=== PATIENT | male | born 1955 | race Caucasian/White ===

== ENCOUNTER 2019-12-07 10:09 | Outpatient (CLI) | payer BC, SELFPAY ==
--- NOTE | 2019-12-07 10:54 | ECG_ITS ---
Measurements Intervals [place] Rate: 80 P: 47 PA: 186 QRS: -87 QRSD: 144 T: 72 QT: 407 QTc: 470 Interpretive Statements SINUS RHYTHM RIGHT BUNDLE BRANCH BLOCK LEFT ANTERIOR FASCICULAR BLOCK ABNORMAL ECG Electronically Signed On 12-07-2019 12:14:28 [employer]ROGR[employer]HY TEACHER by Imtiaz Shen D.O.
[2019-12-07 11:32] LABS: Blood Urea Nitrogen 16 mg/dL (9-20); Calcium 8.7 mg/dL (8.4-10.2); Carbon Dioxide 29 mmol/L (22-30); Chloride 102 mmol/L (98-107); Estimated Glomerular Filt Rate > 60; Glucose 243 mg/dL (75-110); Potassium 4.2 mmol/L (3.4-5.0); Sodium 135 mmol/L (137-145)
== END 2019-12-07 10:10 | disposition home or self-care (01) ==
LOC: ANHOUTPT 10:24 → ANHSURGERY 10:25
PROVIDERS: Anesthesiology; PCP Family Medicine; Visit Provider Urology
DX: Z01.818 Encounter for other preprocedural examination (principal); E11.9 Type 2 diabetes mellitus without complications; N52.9 Male erectile dysfunction, unspecified; R94.31 Abnormal electrocardiogram [ECG] [EKG]
CPT/HCPCS: 36415; 80048; 87086; 87088; 93005

== ENCOUNTER 2020-03-29 08:02 | Outpatient (CLI) | payer BC, SELFPAY ==
--- NOTE | ~2020-03-29 | US_ITS ---
EXAMINATION: US art doppler w press NEDRA EXAM DATE: 03/29/2020 09:19 INDICATION: Diabetes, leg wound. Left-sided below-knee amputation. TECHNIQUE: Segmental pressures and plethysmographic and Doppler waveforms of the brachial and lower e xtremity arteries were obtained. There is no prior study for comparison. FINDINGS: Right and left brachial artery pressures of 165 mm Hg and 173 mm Hg, respectively, are concordant (no rmal difference <= 30 mmHg). RIGHT LEG: The ankle-brachial index (KEYONNA) is 1.06 (normal >= 0.9-1). The great toe-brachial index (TBI) is 0.62 (normal >= 0.65). The lower extremity ratios, segmental pressure gradients as follows; Proximal superficial femoral artery:- Could not obtain ( mmHg). Distal superficial femoral artery: ----- Could not obtain ( mmHg). Popliteal: Could not obtain ( mmHg). Dorsalis pedis: 1.06 (183 mmHg). Posterior tibial: Could not obtain ( mmHg). (Normal gradients <= 20-30 mmHg between adjacent levels on the same leg or the same levels on the two legs). Arterial waveforms are biphasic femoral and popliteal, mono phasic below. LEFT LEG: The ankle-brachial index (KEYONNA) is could not obtain (normal >= 0.9-1). The great toe-brachial index (TBI) is could not obtain (normal >= 0.65). (Normal gradients <= 20-30 mmHg between adjacent levels on the same leg or the same levels on the two legs). Arterial waveforms are biphasic femoral, monophasic poplite al. IMPRESSION: 1. Right ankle-brachial index 1.06, normal. 2. Left below-knee amputation. Reviewed, dictated and finalized at location B.
== END 2020-03-29 08:03 | disposition home or self-care (01) ==
LOC: ANHIMG 08:15
PROVIDERS: PCP Family Medicine; Visit Provider Plastic Surgery
DX: E13.69 Other specified diabetes mellitus with other specified complication (principal); Z89.512 Acquired absence of left leg below knee
CPT/HCPCS: 93923

== ENCOUNTER 2020-04-01 20:09 | Observation (INO) | payer BC, SELFPAY ==
[2020-04-01 20:11] VITALS: BP 147/76; PULSE 92; RESP 18; TEMP 36.7; O2SAT 99
--- NOTE | 2020-04-01 20:18 | ED.DENTAL ---
HPI - Dental/Oral General Chief complaint: Dental/Oral Stated complaint: unable to swallow Time Seen by Provider: 04/01/20 20:17 History of Present Illness HPI Narrative: 64 yo diabetic male presents from home for dysphasia. He has not been able to keep anything down since Thursday. He was eating a piece of steak when he felt it get stuck. He has had similar episodes in the past, but they resolved spontaneously. He is handling his own secretions. Related Data Home Medications Medication Instructions Recorded Confirmed lancets 33 gauge #100 each 08/17/19 insulin lispro 200 unit/mL (3 mL) 12 unit SUB-Q .with meals ml 08/22/19 12/07/19 subcutaneous pen lisinopril 20 mg PO BID 04/02/20 04/02/20 Allergies Allergy/AdvReac Type Severity Reaction Status Date / Time No Known Allergies Allergy Verified 04/01/20 21:43 Review of Systems Review of Systems: All systems reviewed & are unremarkable except as noted in HPI and below Constitutional: Constitutional: Denies fever(s) ENT: Denies sore throat Cardiovascular: Cardiovascular: Denies chest pain Respiratory: Respiratory: Denies dyspnea Gastrointestinal: Gastrointestinal: Denies abdominal pain, Denies diarrhea, Denies nausea and Denies vomiting Genitourinary: Genitourinary: Denies dysuria [facility] Past Medical History Medical History Carpal tunnel syndrome Carpal tunnel syndrome, bilateral upper limbs Hyperlipidemia Hypertension Type 2 diabetes mellitus Surgical History Surgical History Amputated left leg Amputation of left lower extremity History of carpal tunnel surgery History of tonsillectomy Family History Family History Father Diabetes mellitus Hypertension Mother Family history of malignant neoplasm of kidney Mother Family history of malignant neoplasm of kidney Father Diabetes mellitus Hypertension Lung cancer Social History Social History Smoking status: Never smoker Second hand tobacco smoke exposure: No Alcohol intake: never Substance use: never Substance use type: does not use Gender identity (if verbalized by the patient): Male Spiritual care concerns: No Agree to blood products: Yes Exam Const: General: healthy appearing, no acute distress and alert Orientation/consciousness: patient oriented x3 HENMT: Mouth: Yes dry mucous membranes Neck: Neck: normal visual inspection and no lymphadenopathy Chest: Chest palpation & inspection: no tenderness Resp: Effort & Inspection: normal respiratory effort Auscultation: clear to auscultation bilaterally, no rales, no rhonchi and no wheezes Cardio: Jugular venous distension: no JVD Rate: regular rate Rhythm: regular rhythm Heart sounds: no murmurs GI: Inspection: non-distended GI Palp: Yes Soft to palpation and No Tenderness to palpation present (GI) Skin: General skin exam: normal color Neuro: General: patient oriented x3 and moves all extremities Speech: normal speech Extrem: General: no edema Psych: Appearance: well kempt Affect: normal affect Course Course Emergency Course: Patient comfort able aside from not tolerating PO he should be safe to wait for endoscopy in the morning. Case discussed with Lee. He will see him tomorrow. Vital Signs Vital signs: Vital Signs Temperature 36.7 C 04/01/20 20:11 Pulse Rate 92 04/01/20 20:11 Respiratory Rate 18 04/01/20 20:11 Blood Pressure 147/76 H 04/01/20 20:11 Pulse Oximetry 99 04/01/20 20:11 Temperature 36.7 C 04/01/20 20:53 Pulse Rate 79 04/02/20 01:07 Respiratory Rate 18 04/02/20 01:07 Blood Pressure 132/81 04/02/20 01:07 Pulse Oximetry 99 04/02/20 01:07 [facility] - Dental/Oral Medical Records Attestation: I reviewed the patient's medi
[2020-04-01 20:42] LABS: Basophils Absolute Auto 0.1 K/mm3 (0.0-0.1); Eosinophils Absolute Auto 0.2 K/mm3 (0-0.3); Eosinophils Percent Auto 2.7 % (0-4.4); Hematocrit 39.4 % (42.0-52.0); Immature Granulocyte Absolute 0.03 K/mm3 (0.00-0.031); Immature Granulocyte Percent A 0.4 % (0-0.5); Lymphocytes Absolute Auto 1.75 K/mm3 (0.9-3.2); Lymphocytes Percent Auto 22.8 % (18.3-44.2); Mean Corpuscular Hemoglobin 29.7 pg (26-34); Mean Platelet Volume 8.6 fl (7.4-10.4); Monocytes Absolute Auto 0.8 K/mm3 (0.1-0.6); Monocytes Percent Auto 9.8 % (2.6-8.5); Neutrophils Absolute Auto 4.9 K/mm3 (1.3-6.7); Neutrophils Percent Auto 63.3 % (45.5-73.1); Platelet Count Result 283 k/mm3 (150-375); Red Blood Count 4.38 M/mm3 (4.6-6.20); Red Cell Distribution Width 12.1 % (11.5-14.5); White Blood Count 7.7 K/mm3 (4.5-10.0)
[2020-04-01] MEDS: METOCLOPRAMIDE HCL INJ 10 MG/2 ML VIAL IV PUSH (20:46)
[2020-04-01] MEDS: GLUCAGON FOR INJ 1 MG VIAL IV PUSH (20:46)
[2020-04-01] MEDS: SODIUM CHLORIDE 0.9% IV 1,000 ML 999 ML IV CONT (20:46)
[2020-04-01] MEDS: NITROGLYCERIN SL 0.4 MG TABLET SUBLINGUAL (20:47)
[2020-04-01 20:53] VITALS: BP 168/93; PULSE 88; RESP 20; TEMP 36.7; O2SAT 98
[2020-04-01 20:56] LABS: Alanine Aminotransferase 21 U/L (4-50); Albumin Level 4.1 g/dL (3.5-5.1); Alkaline Phosphatase 97 U/L (38-126); Aspartate Amino Transferase 36 U/L (17-59); Bilirubin,Total 0.6 mg/dL (0.2-1.3); Blood Urea Nitrogen 32 mg/dL (9-20); Calcium 8.9 mg/dL (8.4-10.2); Carbon Dioxide 25 mmol/L (22-30); Chloride 107 mmol/L (98-107); Estimated CRCL calculation 56 ml/min; Estimated Glomerular Filt Rate 56; Glucose 73 mg/dL (75-110); Magnesium 2.1 mg/dL (1.6-2.3); Potassium 4.2 mmol/L (3.4-5.0); Sodium 140 mmol/L (137-145)
[2020-04-01 21:35] VITALS: BP 135/70; PULSE 91; RESP 20; O2SAT 100
--- NOTE | 2020-04-01 21:46 | PC.NURSE ---
Pt given PO challenge, was able to keep water down for 1 min but vomited soon after. EDP aware.
[2020-04-01 22:58] VITALS: BP 136/77; PULSE 80; RESP 20; O2SAT 99
--- NOTE | 2020-04-01 23:14 | PC.NURSE ---
Care assumed for this patient. Patient given chair instead of bed for comfort due to prosthetic leg. Patient ambulated to bathroom.
[2020-04-02] VITALS (8 sets, daily range): BP systolic 132–176; BP diastolic 66–96; PULSE 66–79; RESP 16–27; TEMP 36.2–36.6; O2SAT 98–100; BMI 26.6
--- NOTE | 2020-04-02 01:06 | ADMGEN ---
This patient, Hernando Espana IV, was admitted to 3 [facility] Surg Room 303-01. Patient/family oriented to hospital policies and general routines including ID bracelet, bed and alarms, visiting hours, pain management, procedures, bathroom and other care routines, personal items, smoking policy, room service/diet, and visiting hours. Valuables list has been completed. Information on how to activate the Rapid Response Team has been discussed. Patient/Family are encouraged to report perceived risks to care and to ask questions if they do not understand what they are told or what they should do.
[2020-04-02] MEDS: DEXTROSE 5%/0.45% SOD CHL 1,000 ML 125 ML IV CONT ×2 (01:22→13:25)
[2020-04-02 08:18] LABS: Glucose Point of Care 55 (65-105)
[2020-04-02] MEDS: DEXTROSE 50% 25 GM/50 ML SYRINGE IV PUSH (08:26)
--- NOTE | 2020-04-02 08:30 | WPDGICN ---
Assessment and Plan Assessment and plan (1) Dysphagia: Code(s): R13.10 - Dysphagia, unspecified Status: Acute (2) Food impaction of esophagus: Code(s): T18.128A - Food in esophagus causing other injury, initial encounter Status: Acute Assessment and Plan: Patient reports acute difficulty swallowing after eating food several days prior to this presentation. Plan is for patient be NPO IV rehydration an EGD today. Patient also has complaints of chronic dysphagia that will be assessed at the same time. Further recommendations and dilatation pending are results of endoscopy. Because of patient's age elective screening colonoscopy arranged as an outpatient is also advised. (3) Amputation of left lower extremity: Code(s): S88.912A - Complete traumatic amputation of left lower leg, level unspecified, initial encounter Status: Acute (4) Type 2 diabetes mellitus: Code(s): E11.9 - Type 2 diabetes mellitus without complications Status: Acute (5) Hypertension: Code(s): I10 - Essential (primary) hypertension Status: Acute GI Consult Note Consult date/time: 04/02/20 08:30 HPI: Hernando Espana IV is a 64 year old male Seen in evaluation at the request of the emergency room. Patient reports that he intermittently has had difficulty swallowing. With food passing some slow through the chest. Patient reports on Thursday he was eating and subsequently has had difficulty swallowing feeling as though food was chest stuck in his chest. He is able to swallow his saliva and complains of only modest discomfort in the mid chest. Late on Thursday night he present to the emergency room. He was admitted for IV fluids and rehydration. Patient denies any bleeding or weight loss. He does report a colonoscopy for screening purposes more than 10 years ago. Family history is noncontributory. Past medical history is significant for an amputation of the left lower extremity. He has been treated for hypertension diabetes. Review of Systems Review of Systems: All systems reviewed & are unremarkable except as noted in HPI and below PMFSH Past Medical History Medical History Carpal tunnel syndrome Carpal tunnel syndrome, bilateral upper limbs Hyperlipidemia Hypertension Type 2 diabetes mellitus Surgical History Surgical History Amputated left leg Amputation of left lower extremity History of carpal tunnel surgery History of tonsillectomy Family History Family History Father Diabetes mellitus Hypertension Mother Family history of malignant neoplasm of kidney Mother Family history of malignant neoplasm of kidney Father Diabetes mellitus Hypertension Lung cancer Social History Social History Smoking status: Never smoker Second hand tobacco smoke exposure: No Alcohol intake: never Substance use: never Substance use type: does not use Gender identity (if verbalized by the patient): Male Spiritual care concerns: No Agree to blood products: Yes Meds Home Medications and Allergies Home Medications Medication Instructions Recorded Confirmed Type blood sugar diagnostic #10 each 08/17/19 04/02/20 Rx lancets 33 gauge #100 each 08/17/19 04/02/20 History insulin lispro 200 unit/mL (3 mL) 12 unit SUB-Q .with meals ml 08/22/19 04/02/20 History subcutaneous pen pen needle, diabetic 31 gauge x #500 each 10/20/19 04/02/20 Rx 12/18 atorvastatin 40 mg tablet 40 mg PO DAILY #90 tablet 11/17/19 04/02/20 Rx insulin glargine U-300 conc 300 40 unit SUB-Q .QHS #13.5 ml 11/28/19 04/02/20 Rx unit/mL (1.5 mL) subcutaneous pen lisinopril 20 mg PO BID 04/02/20 04/02/20 History Allergies Allergy/AdvReac Type Severity Reaction Status Date
--- NOTE | 2020-04-02 08:37 | WPDANESEPPF ---
Anes - Initial Pre Proc Eval Procedure: Operation Date: 04/02/20 10:00 Proposed Procedures p Esophagogastroduodenoscopy - Sonny Howard MD 64 yo diabetic male presents from home for dysphasia. He has not been able to keep anything down since Thursday. He was eating a piece of steak when he felt it get stuck. He has had similar episodes in the past, but they resolved spontaneously. He is handling his own secretions. Date/Time: 04/02/20 08:37 Surgeon: Reanna Wells DO Pre Op Diagnosis: Esophageal obstruction Patient Data Age: 64 Gender: M Height: 1.83 m Weight: 89.3 kg Last Vital Signs Temp 36.3 C L 04/02/20 06:00 Pulse 76 04/02/20 06:00 Resp 20 04/02/20 06:00 BP 163/85 H 04/02/20 06:00 Pulse Ox 98 04/02/20 06:00 Allergies Allergy/AdvReac Type Severity Reaction Status Date / Time No Known Allergies Allergy Verified 04/01/20 21:43 Home Medications Medication Instructions Recorded Confirmed Type blood sugar diagnostic #10 each 08/17/19 04/02/20 Rx lancets 33 gauge #100 each 08/17/19 04/02/20 History insulin lispro 200 unit/mL (3 mL) 12 unit SUB-Q .with meals ml 08/22/19 04/02/20 History subcutaneous pen pen needle, diabetic 31 gauge x #500 each 10/20/19 04/02/20 Rx 16 atorvastatin 40 mg tablet 40 mg PO DAILY #90 tablet 11/17/19 04/02/20 Rx insulin glargine U-300 conc 300 40 unit SUB-Q .QHS #13.5 ml 11/28/19 04/02/20 Rx unit/mL (1.5 mL) subcutaneous pen lisinopril 20 mg PO BID 04/02/20 04/02/20 History Laboratory Tests 04/01/20 04/01/20 04/02/20 20:35 20:35 08:16 WBC 7.7 K/mm3 K/mm3 (4.5-10.0) RBC 4.38 M/mm3 L M/mm3 (4.6-6.20) Hgb 13.0 g/dL L g/dL (14.0-18.0) Hct 39.4 % L % (42.0-52.0) MCV 90.0 fl fl (80-100) MCH 29.7 pg pg (26-34) MCHC 33.0 g/dl g/dl (32-36) RDW 12.1 % % (11.5-14.5) Plt Count 283 k/mm3 k/mm3 (150-375) MPV 8.6 fl fl (7.4-10.4) Immature Gran % (Auto) 0.4 % % (0-0.5) Neut % (Auto) 63.3 % % (45.5-73.1) Lymph % (Auto) 22.8 % % (18.3-44.2) [place] % (Auto) 9.8 % H % (2.6-8.5) Eos % (Auto) 2.7 % % (0-4.4) Baso % (Auto) 1.0 % % (0.2-1.2) Lymph # (Auto) 1.75 K/mm3 K/mm3 (0.9-3.2) [place] # (Auto) 0.8 K/mm3 H K/mm3 (0.1-0.6) Eos # (Auto) 0.2 K/mm3 K/mm3 (0-0.3) Baso # (Auto) 0.1 K/mm3 K/mm3 (0.0-0.1) Abs Immat Gran (auto) 0.03 K/mm3 K/mm3 (0.00-0.031) Absolute Neuts (auto) 4.9 K/mm3 K/mm3 (1.3-6.7) Absolute Nucleated RBC 0.0 K/mm3 K/mm3 (0.0-0.012) Nucleated RBC % 0.0 % % (0.0-0.2) Sodium 140 mmol/L mmol/L (137-145) Potassium 4.2 mmol/L mmol/L (3.4-5.0) Chloride 107 mmol/L mmol/L (98-107) Carbon Dioxide 25 mmol/L mmol/L (22-30) BUN 32 mg/dL H D mg/dL (9-20) Creatinine 1.30 mg/dL mg/dL (0.7-1.3) Estim Creat Clear Calc 56 ml/min ml/min Estimated GFR 56 L (59 - ) Glucose 73 mg/dL L mg/dL (75-110) POC Capillary Glucose 55 mg/dl L* mg/dl (65-105) Calcium 8.9 mg/dL mg/dL (8.4-10.2) Magnesium 2.1 mg/dL mg/dL (1.6-2.3) Total Bilirubin 0.6 mg/dL mg/dL (0.2-1.3) AST 36 U/L U/L (17-59) ALT 21 U/L U/L (4-50) Alkaline Phosphatase 97 U/L U/L (38-126) Total Protein 8.0 g/dL g/dL (6.3-8.2) Albumin 4.1 g/dL g/dL (3.5-5.1) ECG: Date of Service: 12/07/19 Procedure(s): CA 12 lead EKG Accession Number(s): [id number] cc: ~ Measurements Intervals [place] Rate: 80 P: 47 [place]: 186 QRS: -87 QRSD: 144 T:
[2020-04-02 08:51] LABS: Glucose Point of Care 126 (65-105)
--- NOTE | 2020-04-02 09:42 | PC.NURSE ---
Patient to GI lab per stretcher.
[2020-04-02 10:00] LABS: Glucose Point of Care 125 (65-105)
[2020-04-02] MEDS: LACTATED RINGERS 1,000 ML 150 ML IV CONT (10:06)
[2020-04-02 11:49] LABS: Glucose Point of Care 101 (65-105)
--- NOTE | 2020-04-02 11:53 | PC.NURSE ---
Patient returned from GI lab.
[2020-04-02 12:03] LABS: Glucose Point of Care 114 (65-105)
--- NOTE | 2020-04-02 15:09 | PM.SD ---
Same Day Admit/Disch: HPI History of Present Illness Chief complaint: Esophageal obstruction Narrative: Hernando Espana IV is a 64 year old male who presented with dysphagia, he had similar symptoms in the past but this time he porsha the food could not move. Denies vomiting, no SOB, no fever, no cough or any other related symptoms. PENDING SALE TO [facility] Past Medical History Medical History Carpal tunnel syndrome Carpal tunnel syndrome, bilateral upper limbs Hyperlipidemia Hypertension Type 2 diabetes mellitus Surgical History Surgical History Amputated left leg Amputation of left lower extremity History of carpal tunnel surgery History of tonsillectomy Family History Family History Father Diabetes mellitus Hypertension Mother Family history of malignant neoplasm of kidney Mother Family history of malignant neoplasm of kidney Father Diabetes mellitus Hypertension Lung cancer Social History Social History Smoking status: Never smoker Second hand tobacco smoke exposure: No Alcohol intake: never Substance use: never Substance use type: does not use Gender identity (if verbalized by the patient): Male Spiritual care concerns: No Agree to blood products: Yes Same Day Admit/Disch: Med Pre-admit Medications Home Medications Medication Instructions Recorded Confirmed Type blood sugar diagnostic #10 each 08/17/19 04/02/20 Rx lancets 33 gauge #100 each 08/17/19 04/02/20 History insulin lispro 200 unit/mL (3 mL) 12 unit SUB-Q .with meals ml 08/22/19 04/02/20 History subcutaneous pen pen needle, diabetic 31 gauge x #500 each 10/20/19 04/02/20 Rx 3/16 atorvastatin 40 mg tablet 40 mg PO DAILY #90 tablet 11/17/19 04/02/20 Rx insulin glargine U-300 conc 300 40 unit SUB-Q .QHS #13.5 ml 11/28/19 04/02/20 Rx unit/mL (1.5 mL) subcutaneous pen lisinopril 20 mg PO BID 04/02/20 04/02/20 History Exam Const: General: comfortable and no acute distress Neck: Neck: supple and no JVD Resp: Effort & Inspection: normal respiratory effort Auscultation: clear to auscultation bilaterally Cardio: Rate: regular rate Rhythm: regular rhythm Other: No bradycardia or tachycardia GI: Auscultation: normal bowel sounds Skin: General skin exam: normal color and no rashes or lesions noted Neuro: Speech: normal speech Motor exam (neuro): 5/5 motor strength present throughout and Normal motor muscle tone present throughout Extrem: Other: Left BKA DS: Data Data Completed and Pending Labs on day of discharge: Labs from last 24 hours 04/02/20 04/02/20 04/02/20 11:53 11:34 09:57 WBC RBC Hgb Hct MCV MCH MCHC RDW Plt Count MPV Immature Gran % (Auto) Neut % (Auto) Lymph % (Auto) [place] % (Auto) Eos % (Auto) Baso % (Auto) Lymph # (Auto) [place] # (Auto) Eos # (Auto) Baso # (Auto) Abs Immat Gran (auto) Absolute Neuts (auto) Absolute Nucleated RBC Nucleated RBC % Sodium Potassium Chloride Carbon Dioxide BUN Creatinine Estim Creat Clear Calc Estimated GFR Glucose POC Capillary Glucose 114 H 101 125 H Calcium Magnesium Total Bilirubin AST ALT Alkaline Phosphatase Total Protein Albumin 04/02/20 04/02/20 04/01/20 08:48 08:16 20:35 WBC RBC Hgb Hct MCV MCH MCHC RDW Plt Count MPV Immature Gran % (Auto) Neut % (Auto) Lymph % (Auto) [place] % (Auto) Eos % (Auto) Baso % (Auto) Lymph # (Auto) [place] # (Auto) Eos # (Auto) Baso # (Auto) Abs Immat Gran (auto) Absolute Neuts (auto) Absolute Nucleated RBC Nucleated RBC % Sodium 140 Potassium 4.2 Chloride
== END 2020-04-02 15:00 | disposition home or self-care (01) ==
LOC: ANHED 04-02 00:05 → ANH3MEDSUR 04-02 01:38
PROVIDERS: Internal Medicine Gastroenterology; Admitting Provider Internal Medicine; Emergency Provider Emergency Medicine; PCP Family Medicine; Visit Provider Hospitalist
PROC: 0DJ08ZZ Inspection of Upper Intestinal Tract, Via Natural or Artificial Opening Endoscopic (ICD-10-PCS; CPT 43235; principal; 2020-04-02 10:00)
DX: T18.128A Food in esophagus causing other injury, initial encounter (principal); K22.2 Esophageal obstruction; E11.9 Type 2 diabetes mellitus without complications; I10 Essential (primary) hypertension; E78.5 Hyperlipidemia, unspecified; Z79.4 Long term (current) use of insulin; Z79.899 Other long term (current) drug therapy; Z89.512 Acquired absence of left leg below knee
CPT/HCPCS: 43247; 43450; 36415; 80053; 83735; 85025; 96361; 96374; 96375; 99285; A9270; G0378; J1610; J2001; J2060; J2704; J2765; J7030; J7120

== ENCOUNTER 2020-05-15 06:49 | Outpatient (NON) | payer MEDICARE, SELFPAY ==
[2020-05-15 23:07] LABS: SARS-CoV-2 RNA PCR Positive
== END 2020-05-15 06:50 ==
PROVIDERS: Visit Provider Family Medicine
DX: U07.1 COVID-19 (principal); R68.89 Other general symptoms and signs
CPT/HCPCS: 87635; C9803; U0003

== ENCOUNTER 2020-05-21 10:14 | Inpatient (IN) | payer MEDICARE, SELFPAY ==
--- NOTE | ~2020-05-21 | XR_ITS ---
EXAMINATION: XR chest 1V portable INDICATION: Respiratory failure TECHNIQUE: Portable AP chest at 0550 hours COMPARISON: 05/26/2020 FINDINGS: Patchy bilateral airspace opacities persist without significant change. There is no pleural effusion or pneumothorax. The cardiomediastinal silhouette is stable. IMPRESSION: 1. Stable diffuse lung disease, consistent with pneumonia and/or pulmonary edema and/or acute respira tory distress syndrome (ARDS). Reviewed, dictated and finalized at location A. IMPRESSION: 1. Stable diffuse lung disease, consistent with pneumonia and/or pulmonary mani a and/or acute respiratory distress syndrome (ARDS).
--- NOTE | ~2020-05-21 | XR_ITS ---
EXAMINATION: XR chest 1V portable EXAM DATE: 05/28/2020 05:29 INDICATION: Respiratory failure. COVID 19 positive. TECHNIQUE: Portable AP frontal chest x-ray was obtained. Comparison is made to prior examination from 05/27/2020. FINDINGS: There is moderate amount of bilateral perihilar edema or infection. This appears not signif icantly changed. No pneumothorax or pleural effusion. Cardiomediastinal silhouette is normal. There a re no osseous abnormalities identified. IMPRESSION: 1. Persistent patchy acute infection or edema. Reviewed, dictated and finalized at location B.
--- NOTE | ~2020-05-21 | XR_ITS ---
EXAMINATION: XR chest 1V portable EXAM DATE: 05/30/2020 06:28 INDICATION: CHF. Pneumonia. TECHNIQUE: Portable AP frontal chest x-ray was obtained. Comparison is made to prior examination from 05/29, 05/28. FINDINGS: No interval change in the patchy bilateral midlung zone predominantly peripheral acute airs pace disease likely infection or less likely edema. The cardiomediastinal silhouette is prominent but magnified on this AP technique. Cardiac silhouette is stable in size compared to prior exam. There i s no pneumothorax suspected. There are no pleural effusions. There are bony degenerative changes. IMPRESSION: Persistent patchy bilateral acute airspace disease. Reviewed, dictated and finalized at location A.
--- NOTE | ~2020-05-21 | XR_ITS ---
EXAMINATION: XR chest 1V portable EXAM DATE: 05/29/2020 06:02 INDICATION: Respiratory failure. COVID 19 positive. TECHNIQUE: Portable AP frontal chest x-ray was obtained. Comparison is made to prior examination from 05/28, 05/27/2020. FINDINGS: There is moderate amount of bilateral perihilar edema or infection. This appears not signif icantly changed. No pneumothorax or pleural effusion. Cardiomediastinal silhouette is normal. There a re no osseous abnormalities identified. IMPRESSION: 1. Patchy acute infection or edema unchanged. Reviewed, dictated and finalized at location A.
--- NOTE | ~2020-05-21 | XR_ITS ---
EXAMINATION: XR chest 1V portable INDICATION: Respiratory failure, COVID 19 pneumonia. TECHNIQUE: Portable AP chest at 0548 hours COMPARISON: 05/25/2020 FINDINGS: Patchy bilateral airspace opacities persist without significant change. There is no pleural effusion or pneumothorax. The cardiomediastinal silhouette is normal. IMPRESSION: 1. Stable diffuse lung disease, consistent with pneumonia and/or pulmonary edema and/or acute respira tory distress syndrome (ARDS). Reviewed, dictated and finalized at location A. IMPRESSION: 1. Stable diffuse lung disease, consistent with pneumonia and/or pulmonary mani a and/or acute respiratory distress syndrome (ARDS).
--- NOTE | ~2020-05-21 | XR_ITS ---
EXAMINATION: XR chest 1V portable DATE: 05/23/2020 06:17 INDICATION: COVID-19 pneumonia. TECHNIQUE: A single frontal view of the chest was obtained. COMPARISON: Chest single view 05/21/2020 FINDINGS: There are patchy airspace opacities involving all lung zones bilaterally. No pleural effusi on or pneumothorax. The heart size is normal. IMPRESSION: 1. Stable diffuse lung disease, consistent with pneumonia versus acute respiratory distress syndrome (ARDS). Reviewed, dictated and finalized at location A. IMPRESSION: 1. Stable diffuse lung disease, consistent with pneumonia versus acute respirat ory distress syndrome (ARDS).
--- NOTE | ~2020-05-21 | XR_ITS ---
EXAMINATION: XR chest 1V portable DATE: 05/24/2020 06:36 INDICATION: Oxygen desaturation. COVID-19 pneumonia. TECHNIQUE: A single frontal view of the chest was obtained. COMPARISON: Chest single view 05/23/2020 FINDINGS: There are patchy airspace opacities involving all lung zones bilaterally. No pleural effusi on or pneumothorax. The heart size is normal. IMPRESSION: 1. Diffuse lung disease with slight worsening on the right, consistent with pneumonia versus acute re spiratory distress syndrome (ARDS). Reviewed, dictated and finalized at location A. IMPRESSION: 1. Diffuse lung disease with slight worsening on the right, consistent with pne umonia versus acute respiratory distress syndrome (ARDS).
--- NOTE | ~2020-05-21 | XR_ITS ---
EXAMINATION: XR chest 1V portable DATE: 05/25/2020 06:05 INDICATION: Respiratory failure. COVID-19 pneumonia. TECHNIQUE: A single frontal view of the chest was obtained. COMPARISON: Chest single view 05/24/2020 FINDINGS: There are patchy airspace opacities throughout the lungs bilaterally. No pleural effusion o r pneumothorax. The heart size is normal. IMPRESSION: 1. Stable diffuse lung disease, consistent with pneumonia versus acute respiratory distress syndrome (ARDS). Reviewed, dictated and finalized at location A. IMPRESSION: 1. Stable diffuse lung disease, consistent with pneumonia versus acute respirat ory distress syndrome (ARDS).
--- NOTE | ~2020-05-21 | XR_ITS ---
EXAMINATION: XR chest 1V portable INDICATION: Shortness of breath, COVID 19 positive TECHNIQUE: Portable AP chest at 1046 hours COMPARISON: 03/31/2018 FINDINGS: There are diffuse airspace opacities involving all lung zones. No pleural effusion or pneum othorax is identified. The cardiomediastinal silhouette is normal. There is mild osteoarthritis of th e shoulders. IMPRESSION: 1. Diffuse airspace opacities of all lung zones, consistent with COVID 19 pneumonia given clinical hi story. Reviewed, dictated and finalized at location A. IMPRESSION: 1. Diffuse airspace opacities of all lung zones, consistent with COVID 19 pneum onia given clinical history.
[2020-05-21 10:18] VITALS: BP 155/74; PULSE 96; RESP 18; TEMP 37.6; O2SAT 84
--- NOTE | 2020-05-21 10:29 | ECG_ITS ---
Measurements Intervals [place] Rate: 93 P: 39 [place]: 168 QRS: -83 QRSD: 150 T: 67 QT: 395 QTc: 492 Interpretive Statements SINUS RHYTHM RIGHT BUNDLE BRANCH BLOCK LEFT ANTERIOR FASCICULAR BLOCK BASELINE ARTIFACT- I, II, III, AVL ABNORMAL ECG Electronically Signed On 05-21-2020 11:01:50 CDT by Imtiaz Shen D.O.
[2020-05-21 10:45] LABS: Basophils Percent Auto 0.5 % (0.2-1.2); Eosinophils Percent Auto 0.1 % (0-4.4); Hematocrit 35.9 % (42.0-52.0); Hemoglobin 12.3 g/dL (14.0-18.0); Immature Granulocyte Absolute 0.11 K/mm3 (0.00-0.031); Immature Granulocyte Percent A 1.4 % (0-0.5); Lymphocytes Absolute Auto 0.59 K/mm3 (0.9-3.2); Lymphocytes Percent Auto 7.6 % (18.3-44.2); Mean Corpuscular HGB Conc 34.3 g/dl (32-36); Mean Corpuscular Hemoglobin 29.1 pg (26-34); Mean Corpuscular Volume 84.9 fl (80-100); Mean Platelet Volume 9.8 fl (7.4-10.4); Monocytes Absolute Auto 0.6 K/mm3 (0.1-0.6); Monocytes Percent Auto 7.8 % (2.6-8.5); Neutrophils Absolute Auto 6.4 K/mm3 (1.3-6.7); Neutrophils Percent Auto 82.6 % (45.5-73.1); Platelet Count Result 372 k/mm3 (150-375); Red Blood Count 4.23 M/mm3 (4.6-6.20); Red Cell Distribution Width 12.6 % (11.5-14.5); White Blood Count 7.7 K/mm3 (4.5-10.0)
[2020-05-21 10:55] LABS: INR 1.2; Partial Thromboplastin Time 26.5 SECONDS (22.3-36.8)
[2020-05-21 11:02] LABS: Alanine Aminotransferase 37 U/L (4-50); Alkaline Phosphatase 89 U/L (38-126); Anion Gap 10 mmol/L (8-16); Aspartate Amino Transferase 37 U/L (17-59); Bilirubin,Total 0.8 mg/dL (0.2-1.3); Blood Urea Nitrogen 65 mg/dL (9-20); Calcium 7.8 mg/dL (8.4-10.2); Carbon Dioxide 24 mmol/L (22-30); Chloride 98 mmol/L (98-107); Estimated Glomerular Filt Rate 51; Glucose 468 mg/dL (75-110); Potassium 4.1 mmol/L (3.4-5.0); Sodium 132 mmol/L (137-145)
[2020-05-21] MEDS: FAMOTIDINE 20 MG/2 ML VIAL IV PUSH ×2 (11:09→20:46)
[2020-05-21] MEDS: SODIUM CHLORIDE 0.9% IV 1,000 ML 999 ML IV CONT ×2 (11:09→11:41)
[2020-05-21 11:10] LABS: CRP 26.6 mg/dL (<1.0)
[2020-05-21 11:16] LABS: Beta-Hydroxybutyrate/Acetoacetate 1.62 mmol/L (0.02-0.27)
[2020-05-21 11:17] LABS: Phosphorus 3.1 mg/dL (2.5-4.5)
[2020-05-21 11:36] LABS: Hemoglobin A1C 9.4 % (<5.7)
[2020-05-21 11:39] LABS: Alveolar/Arterial O2 Gradient 156.1 mmHg; Base Excess ABG -2.6 mEq/l (+/-2.0); Carboxyhemoglobin 0.3 % THb (0-2.0); Device NASAL CANNULA; Fractional Inspired Oxygen 37 %; Methemoglobin ABG 0.3 %THb (0-1.5); Modified Allen's Test Pass; Oxygen Content ABG 15.2 %vol (16.0-22.0); Oxygen Saturation ABG 95.8 % (95.0-100.0); Oxyhemoglobin 93.4 % THb (90.0-100.0); PCO2 ABG 32.8 mmHg (35.0-45.0); PO2 ABG 77.3 mmHg (80.0-100.0); PO2 FiO2 Ratio Arterial Blood 2.09 %; Site Drawn RIGHT RADIAL; Total Hemoglobin 11.5 g/dL (12.0-18.0); pH ABG 7.425 (7.350-7.450)
--- NOTE | 2020-05-21 11:42 | ED.FEVER ---
HPI - Fever General Chief Complaint: Fever <TRAN Emmanuel Last Filed: 05/21/20 12:07> Stated Complaint: Medication issue <TRAN Emmanuel Last Filed: 05/21/20 12:07> Time Seen by Provider: 05/21/20 10:42 <TRAN Emmanuel Last Filed: 05/21/20 12:07> Source: patient, family and EMS <TRAN Emmanuel Last Filed: 05/21/20 12:07> Mode of arrival: EMS <TRAN Emmanuel Last Filed: 05/21/20 12:07> Limitations: no limitations <TRAN Emmanuel Last Filed: 05/21/20 12:07> History of Present Illness HPI Narrative: Patient is a 65-year-old male who presents to emergency department for evaluation of weakness COVID positive. Patient denies any pain notes generalized weakness has been lying in bed his is also positive. Patient denies any pain denies productive cough denies shortness of breath currently or chest pain. Notes that he does become more weak and short of breath with ambulation. Notes fever also notes he has not been taking his home medications patient is an insulin-dependent diabetic. Patient notes he has had some loose stools but denies vomiting. <TRAN Emmanuel Last Filed: 05/21/20 12:07> Related Data Home Medications: Home Medications Medication Instructions Recorded Confirmed lancets 33 gauge #100 each 08/17/19 04/02/20 insulin lispro 200 unit/mL (3 mL) 12 unit SUB-Q .with meals ml 08/22/19 04/02/20 subcutaneous pen lisinopril 20 mg PO BID 04/02/20 04/02/20 <TRAN Emmanuel Last Filed: 05/21/20 12:07> Allergies/Adverse Reactions: Allergies Allergy/AdvReac Type Severity Reaction Status Date / Time No Known Allergies Allergy Verified 04/01/20 21:43 <TRAN Emmanuel Last Filed: 05/21/20 12:07> Review of Systems Review of Systems: All systems reviewed & are unremarkable except as noted in HPI and below <TRAN Emmanuel Last Filed: 05/21/20 12:07> PMFSH Past Medical History Medical History: Medical History Carpal tunnel syndrome Carpal tunnel syndrome, bilateral upper limbs Hyperlipidemia Hypertension Type 2 diabetes mellitus <Juan Lechuga PA-C - Last Filed: 05/21/20 12:07> Surgical History Surgical History: Surgical History Amputated left leg Amputation of left lower extremity History of carpal tunnel surgery History of tonsillectomy <Juan Lechuga PA-C - Last Filed: 05/21/20 12:07> Family History Family History: Family History Father Diabetes mellitus Hypertension Mother Family history of malignant neoplasm of kidney Mother Family history of malignant neoplasm of kidney Father Diabetes mellitus Hypertension Lung cancer <Juan Lechuga PA-C - Last Filed: 05/21/20 12:07> Social History Social History: Social History Smoking status: Never smoker Second hand tobacco smoke exposure: No Alcohol intake: never Substance use: never Substance use type: does not use Gender identity (if verbalized by the patient): Male Spiritual care concerns: No Agree to blood products: Yes <Juan Lechuga PA-C - Last Filed: 05/21/20 12:07> Exam Narrative: Exam Narrative: GENERAL: Ill appearing, well-nourished, and in no acute distress. HEAD: Normocephalic, atraumatic. EYES: PERRLA and EOMI. ENT: Nares clear, no rhinorrhea or epistaxis. Mucous membranes moist. Oropharynx without tonsillar hypertrophy exudate or other lesions. B NECK: Supple. No adenopathy or masses. No carotid bruits or JVD CHEST: Diminished on auscultation. No respiratory distress. No wheezes rales or rhonchi HEART: Regular rate and rhythm. No murmur heard. Normal peripheral pulses. ABDOMEN: Soft, nonten
[2020-05-21 11:45] LABS: Glucose Point of Care 383 (65-105)
[2020-05-21] MEDS: INSULIN HUMAN REGULAR (*BKC) 100 UNITS/ML 10 UNITS IV PUSH (11:46)
[2020-05-21 11:48] VITALS: BP 147/71; PULSE 85; RESP 18; O2SAT 97
[2020-05-21 12:17] LABS: Glucose Point of Care 383 (65-105)
[2020-05-21 12:52] VITALS: BP 138/78; PULSE 83; RESP 18; O2SAT 95
[2020-05-21 14:00] VITALS: BP 146/68; PULSE 80; RESP 24; TEMP 36.5; O2SAT 91
[2020-05-21 14:01] LABS: Glucose Point of Care 351 (65-105)
[2020-05-21] MEDS: INSULIN ASPART (*BKC) 100 UNITS/ML 8 UNITS SUB-Q (14:02)
[2020-05-21] MEDS: LACTATED RINGERS 1,000 ML 125 ML IV CONT (14:03)
[2020-05-21 15:41] LABS: Anion Gap 5 mmol/L (8-16); Blood Urea Nitrogen 57 mg/dL (9-20); Calcium 7.2 mg/dL (8.4-10.2); Carbon Dioxide 24 mmol/L (22-30); Chloride 104 mmol/L (98-107); Estimated Glomerular Filt Rate > 60; Glucose 337 mg/dL (75-110); Potassium 3.7 mmol/L (3.4-5.0); Sodium 133 mmol/L (137-145)
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
[2020-05-21 16:00] VITALS: BP 141/60; PULSE 77; PULSE 85; RESP 20; TEMP 36.6; O2SAT 93
[2020-05-21 18:44] LABS: Glucose Point of Care 315 (65-105)
[2020-05-21] MEDS: INSULIN ASPART (*BKC) 100 UNITS/ML SUB-Q (18:50)
[2020-05-21] MEDS: lisinopriL 20 MG TABLET PO (18:51)
[2020-05-21] MEDS: REMDESIVIR 200 MG/NS 250 ML 200 MG/250 ML BAG 250 MG IVPB (18:51)
[2020-05-21 20:00] VITALS: BP 157/75; PULSE 105; PULSE 114; RESP 20; TEMP 36.9; O2SAT 94
[2020-05-21 20:43] LABS: Glucose Point of Care 293 (65-105)
[2020-05-21] MEDS: INSULIN GLARGINE (*BKC) 100 UNITS/ML 15 UNITS SUB-Q (20:46)
[2020-05-21 21:20] LABS: Anion Gap 7 mmol/L (8-16); Blood Urea Nitrogen 53 mg/dL (9-20); Calcium 7.2 mg/dL (8.4-10.2); Carbon Dioxide 24 mmol/L (22-30); Chloride 104 mmol/L (98-107); Estimated Glomerular Filt Rate > 60; Glucose 301 mg/dL (75-110); Potassium 3.6 mmol/L (3.4-5.0); Sodium 135 mmol/L (137-145)
[2020-05-21 23:11] LABS: Anion Gap 6 mmol/L (8-16); Blood Urea Nitrogen 52 mg/dL (9-20); Calcium 7.3 mg/dL (8.4-10.2); Carbon Dioxide 25 mmol/L (22-30); Chloride 104 mmol/L (98-107); Estimated Glomerular Filt Rate > 60; Glucose 278 mg/dL (75-110); Potassium 3.6 mmol/L (3.4-5.0); Sodium 135 mmol/L (137-145)
[2020-05-22] VITALS (11 sets, daily range): BP systolic 122–151; BP diastolic 53–70; PULSE 68–111; RESP 16–20; TEMP 36.3–38; O2SAT 90–100
[2020-05-22 00:15] LABS: Add Urine Microscopic? YES; Amorphous Sediment Urine Few; Appearance Urine Clear (Clear); Bilirubin Urine Negative (Negative); Blood Urine 2+ (Negative); Color Urine Yellow (Yellow); Glucose Urine UA 3+ mg/dL (Negative); Ketones Urine Negative (Negative); Leukocyte Esterase Ur Negative LEU/UL (Negative); Nitrate Urine Negative (Negative); Protein Urine 2+ mg/dL (Negative); Specific Grav Ur 1.022 (1.001-1.035); Squamous Epithelial Cell Urine Rare /hpf (Few); Uric Acid Crystals Urine Present /hpf; Urobilinogen Urine Negative mg/dL (<2.0); WBC Urine 0-3 /hpf
[2020-05-22 06:34] LABS: Basophils Absolute Auto 0.1 K/mm3 (0.0-0.1); Eosinophils Percent Auto 0.1 % (0-4.4); Hematocrit 29.6 % (42.0-52.0); Hemoglobin 10.1 g/dL (14.0-18.0); Immature Granulocyte Absolute 0.13 K/mm3 (0.00-0.031); Immature Granulocyte Percent A 1.6 % (0-0.5); Lymphocytes Absolute Auto 0.74 K/mm3 (0.9-3.2); Lymphocytes Percent Auto 8.9 % (18.3-44.2); Mean Corpuscular HGB Conc 34.1 g/dl (32-36); Mean Corpuscular Hemoglobin 29.1 pg (26-34); Mean Corpuscular Volume 85.3 fl (80-100); Mean Platelet Volume 9.6 fl (7.4-10.4); Monocytes Absolute Auto 0.7 K/mm3 (0.1-0.6); Monocytes Percent Auto 8.1 % (2.6-8.5); Neutrophils Absolute Auto 6.7 K/mm3 (1.3-6.7); Neutrophils Percent Auto 80.3 % (45.5-73.1); Platelet Count Result 348 k/mm3 (150-375); Red Blood Count 3.47 M/mm3 (4.6-6.20); Red Cell Distribution Width 12.6 % (11.5-14.5); White Blood Count 8.3 K/mm3 (4.5-10.0)
[2020-05-22 06:51] LABS: Alanine Aminotransferase 31 U/L (4-50); Anion Gap 6 mmol/L (8-16); Blood Urea Nitrogen 49 mg/dL (9-20); Calcium 7.3 mg/dL (8.4-10.2); Carbon Dioxide 23 mmol/L (22-30); Chloride 105 mmol/L (98-107); Estimated Glomerular Filt Rate 55; Glucose 270 mg/dL (75-110); Lactate Dehydrogenase 1333 U/L (313-618); Magnesium 2.7 mg/dL (1.6-2.3); Potassium 3.2 mmol/L (3.4-5.0); Sodium 134 mmol/L (137-145)
[2020-05-22 07:00] LABS: CRP 24.8 mg/dL (<1.0)
[2020-05-22] MEDS: INSULIN ASPART (*BKC) 100 UNITS/ML SUB-Q ×4 (08:33→20:27)
[2020-05-22 08:42] LABS: Glucose Point of Care 276 (65-105)
[2020-05-22] MEDS: lisinopriL 20 MG TABLET PO ×2 (08:52→17:15)
[2020-05-22] MEDS: ENOXAPARIN 40 MG/0.4 ML SYRINGE SUB-Q (08:52)
[2020-05-22] MEDS: ATORVASTATIN 40 MG TABLET PO (08:52)
[2020-05-22] MEDS: FAMOTIDINE 20 MG/2 ML VIAL IV PUSH ×2 (08:53→20:27)
--- NOTE | 2020-05-22 09:24 | PCPTNOTE ---
Attempted PT evaluation. Pt requests we come back later due to still eating breakfast. Will attempt later.
[2020-05-22 09:44] LABS: Ferritin > 2000.00 ng/mL (11.1-264)
[2020-05-22] MEDS: POTASSIUM CHLORIDE 20 MEQ TABLET 40 MEQ PO (09:58)
[2020-05-22] MEDS: DEXAMETHASONE 2 MG TABLET 6 MG PO (09:58)
[2020-05-22 12:59] LABS: Glucose Point of Care 385 (65-105)
--- NOTE | 2020-05-22 17:01 | PM.IMPN ---
Progress Note: A&P Assessment and Plan (1) COVID-19: Code(s): U07.1 - COVID-19 Status: Acute Assessment and Plan: -----the patient's symptoms started the 4th and he is now day 14. Continue room does severe and dexamethasone as this was started yesterday although I am not sure how much benefit it will have since he is so far out. Continue O2 as needed. He had non symptomatic NSVT and I will order an echo. Inflammatory markers significantly elevated, will monitor them daily and repeat chest x-ray tomorrow. Guarded prognosis (2) Type 2 diabetes mellitus: Code(s): E11.9 - Type 2 diabetes mellitus without complications Status: Chronic Assessment and Plan: ----- patient's hemoglobin A1c was 9.4 he is not well controlled. He takes 40 units U 300 of Lantus as well as 12 units of rapid acting insulin. He has been running high on what we have had him on here so I will schedule 30 units of Lantus as well as 8 units with meals with sliding scale. I will adjust this as needed and watch his anion gap. He is on Decadron (3) Hyperlipidemia: Code(s): E78.5 - Hyperlipidemia, unspecified Status: Chronic Assessment and Plan: ------Continue with atorvastatin. (4) Hypertension: Code(s): I10 - Essential (primary) hypertension Status: Acute Assessment and Plan: -----last bp 148/66. Continue lisinopril (5) Amputation of left lower extremity: Code(s): S88.912A - Complete traumatic amputation of left lower leg, level unspecified, initial encounter Status: Acute Assessment and Plan: ------Due to gangrene. The patient has a prosthesis and apparently does very well. Continue physical therapy and occupational therapy to evaluate the patient. (6) Dysphagia: Code(s): R13.10 - Dysphagia, unspecified Status: Acute Assessment and Plan: -----In the past with dilation. Monitor Time Spent With Patient Time with patient: 25 - 35 minutes Subjective Date/time seen: 05/22/20 17:01 Interval history: Pt is a 65 y/o male here for COVID PNA. Pt was seen today and is feeling better than yesterday but still not great. The patient has been having symptoms since the 08 of May. He said he has not been out of bed yet today but does not feel short of breath at rest. He has not had any chest pain. His cough is dry but sometimes he is able to get sputum up. He has decreased appetite. He denies CP, chills, nausea, vomiting, diarrhea or constipation. Review of Systems Review of Systems: All systems reviewed & are unremarkable except as noted in HPI and below Exam Narrative: Exam Narrative: General: Well developed well nourished patient resting in bed in NAD HEENT: normocephalic Neck: supple Neuro: Alert and oriented x4 CV:RRR. Tele shows 1.6 seconds of NSVT which pt says he did not feel. Resp:CTA with disposable stethoscope which lowers sensitivity. o2 applied Abd: Soft, non distended. No pain to palpation. Positive bowel sounds Extremities: Left leg amputation. No swelling Objective Data Vital Signs Vital Signs: Vital Signs - 24 hr 05/21/20 20:00 05/22/20 00:00 05/22/20 04:00 Temperature 98.5 F 98.5 F 100.4 F H Pulse Rate 114 H 111 H 94 Respiratory Rate 20 20 20 Blood Pressure 157/75 H 144/53 H 151/59 H Pulse Oximetry 94 100 94 05/22/20 04:52 05/22/20 05:22 05/22/20 08:00 Temperature 100.4 F H 98.9 F 97.3 F L Pulse Rate 74 Respiratory Rate 20 Blood Pressure 122/64 Pulse Oximetry 91 05/22/20 10:00 05/22/20 10:21 05/22/20 12:00 Temperature 97.4 F L Pulse Rate 88 83 Respiratory Rate 20 18 Blood Pressure 148/66 H Pulse Oximetry 91 91 94 05/22/20 16:00 Temperature Pulse Rate 79 Respiratory Rate Blood Pressure Pulse Oximetry Intake/Output Intake/Output: Intake & Output 05/19/20 05/20/20 05/21/20 05/22/20 23:59 23:59 23:59 23:59 Intake Total 28
[2020-05-22] MEDS: INSULIN ASPART (*BKC) 100 UNITS/ML 8 UNITS SUB-Q (17:12)
[2020-05-22] MEDS: REMDESIVIR 100 MG/NS 250 ML 100 MG/250 ML BAG 250 MG IVPB (17:15)
[2020-05-22 18:18] LABS: Glucose Point of Care 415 (65-105)
[2020-05-22 19:50] LABS: Glucose Point of Care 378 (65-105)
[2020-05-22] MEDS: INSULIN GLARGINE (*BKC) 100 UNITS/ML 30 UNITS SUB-Q (20:27)
[2020-05-22 23:34] LABS: Glucose Point of Care 303 (65-105)
[2020-05-23] VITALS (7 sets, daily range): BP systolic 135–162; BP diastolic 64–87; PULSE 62–92; RESP 16–20; TEMP 36.3–36.6; O2SAT 90–94
--- NOTE | 2020-05-23 | ECHO_ITS ---
Patient Info Name: Hernando Espana Age: 65 years : 1955 Gender: Male Ht: 72 in Wt: 220 lbs BSA: 2.27 m2 HR: 90 bpm BP: 151 / 87 mmHg Heart Rhythm: Sinus Rhythm Technical Quality: Good Exam Date: 05/23/2020 10:50 AM Exam Location: [facility] Patient Status: Inpatient Admit Date: 05/21/2020 Staff Ordering Physician: Asia Louis PA-C Lens Blocker: Abdullahi Gabriel RDCS Attending Provider: Jaqui Montana MD Referring Physician: Missy ZELAYA; Exam Type: CA echo doppler color flow Study Info Indications I47.2 - Ventricular tachycardia Complete two-dimensional, color flow and Doppler transthoracic echocardiogram is performed. Strain analysis performed. History/Risk Factors Non-sustained ventricular tachycardia; HTN, DM2. Summary 1. Left ventricular systolic function is hyperdynamic, estimated at >70%. 2. There is severe concentric increased left ventricular wall thickness. 3. The left ventricular diastolic function is grade I diastolic dysfunction. 4. There is no aortic valve stenosis. 5. There is no mitral valve regurgitation. 6. The mitral valve annulus is severely calcified. 7. There is trace tricuspid valve regurgitation. 8. Mild pulmonary hypertension, estimated pulmonary arterial systolic pressure is 39 mmHg. Left Ventricle Left ventricular chamber dimension is normal. Left ventricular systolic function is hyperdynamic, estimated at >70%. There is severe concentric increased left ventricular wall thickness. The left ventricular diastolic function is grade I diastolic dysfunction. Global longitudinal strain is mildly elevated at -17 %. Right Ventricle Right ventricular chamber dimension is normal. Right ventricular systolic function is normal. Left Atria Left atrial chamber dimension is mildly enlarged. Right Atria Right atrial chamber dimension is normal. Aortic Valve The aortic valve is not well visualized. There is no aortic valve stenosis. There is trace aortic valve regurgitation. Pulmonic Valve The pulmonic valve is not well visualized. Mitral Valve The mitral valve has thickened leaflets. There is no mitral valve regurgitation. The mitral valve annulus is severely calcified. Tricuspid Valve The tricuspid valve leaflets are normal. There is trace tricuspid valve regurgitation. Mild pulmonary hypertension, estimated pulmonary arterial systolic pressure is 39 mmHg. Pericardium/Pleural The pericardium appears normal. There is trivial pericardial effusion. Inferior Vena Cava Normal inferior vena cava with >50% collapse upon inspiration consistent with Empty right atrial pressure, 5 mmHg. Aorta The aortic root size at the sinus of Valsalva is normal. Left Ventricular Outflow Tract Name Value Normal LVOT 2D LVOT Diameter 1.9 cm LVOT Doppler LVOT Peak Gradient 8 mmHg LVOT Mean Gradient 4 mmHg LVOT VTI 27 cm LVOT VTI/AV VTI Ratio 0.8 LVOT Stroke Volume 72 ml LVOT
[2020-05-23 06:13] LABS: Hematocrit 32.9 % (42.0-52.0); Hemoglobin 11.1 g/dL (14.0-18.0); Mean Corpuscular HGB Conc 33.7 g/dl (32-36); Mean Corpuscular Hemoglobin 28.8 pg (26-34); Mean Corpuscular Volume 85.5 fl (80-100); Mean Platelet Volume 9.6 fl (7.4-10.4); Platelet Count Result 455 k/mm3 (150-375); Red Blood Count 3.85 M/mm3 (4.6-6.20); Red Cell Distribution Width 12.8 % (11.5-14.5)
[2020-05-23 06:36] LABS: D Dimer 7.22 ug/mL (<0.48)
[2020-05-23 06:42] LABS: Alanine Aminotransferase 35 U/L (4-50); Albumin Level 2.8 g/dL (3.5-5.1); Alkaline Phosphatase 95 U/L (38-126); Anion Gap 7 mmol/L (8-16); Aspartate Amino Transferase 39 U/L (17-59); Bilirubin,Total 0.5 mg/dL (0.2-1.3); Blood Urea Nitrogen 42 mg/dL (9-20); Calcium 7.7 mg/dL (8.4-10.2); Carbon Dioxide 26 mmol/L (22-30); Chloride 103 mmol/L (98-107); Estimated Glomerular Filt Rate > 60; Glucose 326 mg/dL (75-110); Lactate Dehydrogenase 1277 U/L (313-618); Magnesium 2.8 mg/dL (1.6-2.3); Phosphorus 2.9 mg/dL (2.5-4.5); Potassium 4.2 mmol/L (3.4-5.0); Sodium 136 mmol/L (137-145)
[2020-05-23 06:52] LABS: CRP 24.1 mg/dL (<1.0)
[2020-05-23 08:15] LABS: Ferritin > 2000.00 ng/mL (11.1-264)
[2020-05-23] MEDS: INSULIN ASPART (*BKC) 100 UNITS/ML 8 UNITS SUB-Q ×2 (09:27→12:59)
[2020-05-23] MEDS: INSULIN ASPART (*BKC) 100 UNITS/ML SUB-Q ×3 (09:27→17:28)
[2020-05-23] MEDS: ENOXAPARIN 40 MG/0.4 ML SYRINGE SUB-Q (09:29)
[2020-05-23] MEDS: FAMOTIDINE 20 MG/2 ML VIAL IV PUSH ×2 (09:29→21:33)
[2020-05-23] MEDS: ATORVASTATIN 40 MG TABLET PO (09:29)
[2020-05-23] MEDS: lisinopriL 20 MG TABLET PO ×2 (09:30→17:22)
--- NOTE | 2020-05-23 10:05 | PCCDE ---
Consult received 05/21; pt with hx of DM admitted with COVID, PNA, hypoxia, dehydration and hyperglycemia. Attempted to call pt's room for consult but no answer. Will re-try later.
[2020-05-23 12:37] LABS: Glucose Point of Care 313 (65-105)
[2020-05-23 14:22] LABS: Glucose Point of Care 365 (65-105)
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
[2020-05-23] MEDS: REMDESIVIR 100 MG/NS 250 ML 100 MG/250 ML BAG 250 MG IVPB (17:20)
[2020-05-23] MEDS: INSULIN ASPART (*BKC) 100 UNITS/ML 10 UNITS SUB-Q (17:27)
[2020-05-23 18:07] LABS: Glucose Point of Care 408 (65-105)
[2020-05-23] MEDS: INSULIN GLARGINE (*BKC) 100 UNITS/ML 40 UNITS SUB-Q (21:33)
[2020-05-24] VITALS (18 sets, daily range): BP systolic 149–174; BP diastolic 70–84; PULSE 63–99; RESP 14–24; TEMP 35.9–37.9; O2SAT 77–97
[2020-05-24 05:44] LABS: Alveolar/Arterial O2 Gradient 406.9 mmHg; Base Excess ABG 1.2 mEq/l (+/-2.0); Carboxyhemoglobin 0.3 % THb (0-2.0); Fractional Inspired Oxygen 70 %; HCO3 ABG 23.7 mEq/l (22.0-26.0); Methemoglobin ABG 0.2 %THb (0-1.5); Oxygen Content ABG 15.7 %vol (16.0-22.0); Oxygen Saturation ABG 92.9 % (95.0-100.0); Oxyhemoglobin 90.6 % THb (90.0-100.0); PCO2 ABG 31.2 mmHg (35.0-45.0); PO2 ABG 58.7 mmHg (80.0-100.0); PO2 FiO2 Ratio Arterial Blood 0.84 %; Reduced Hemoglobin 8.9 %THb (0-5.0); Total Hemoglobin 12.3 g/dL (12.0-18.0); pH ABG 7.499 (7.350-7.450)
[2020-05-24 05:45] LABS: Device HIGH FLOW NASAL CANN; Site Drawn RIGHT BRACHIAL
--- NOTE | 2020-05-24 05:57 | PM.EVENT ---
Event Note Event Note Event Note: RAPID RESPONSE NOTE Called to evaluate this patient who is being treated for COVID-19 via Rapid Response. Nursing staff found the patient saturing in the mid 70s on 5L of oxygen via high flow nasal cannula. He was increased to 10 L of of oxygen/min via high flow. On my arrival to bedside the patient is mildly tachypneic but not complaining of shortness of breath. He denies any chest pain. Auscultation revealed bibasilar rales. ABG demonstrated signfiicant hypoxemia. I have consulted Recreation Clerk, Dr. Celeste and discussed the case in detail with him. At this time we will transfer the patient to ICU and initiate AIRVO high flow oxygen at 100% and 60L/min. Repeat ABG in 1 hour. Close monitoring of cardiopulmonary function and consider endotracheal intubation if necessary. Continue remdesivir and we will add Dexamethasone IV.
--- NOTE | 2020-05-24 06:40 | PC.NURSE ---
pt transfered from 3ms in bed to ICU 2 placed on 10L hf sats at 94% after 2 min
[2020-05-24] MEDS: INSULIN ASPART (*BKC) 100 UNITS/ML 10 UNITS SUB-Q ×3 (08:57→17:07)
[2020-05-24] MEDS: FAMOTIDINE 20 MG/2 ML VIAL IV PUSH ×2 (08:57→21:33)
[2020-05-24] MEDS: INSULIN ASPART (*BKC) 100 UNITS/ML SUB-Q ×3 (08:57→17:07)
[2020-05-24] MEDS: ATORVASTATIN 40 MG TABLET PO (08:58)
[2020-05-24] MEDS: ENOXAPARIN 40 MG/0.4 ML SYRINGE SUB-Q ×2 (08:58→21:33)
[2020-05-24] MEDS: lisinopriL 20 MG TABLET PO ×2 (08:58→17:08)
[2020-05-24 09:09] LABS: Glucose Point of Care 213 (65-105)
--- NOTE | 2020-05-24 09:35 | WPDCNINT ---
Assessment and Plan Assessment and plan (1) Acute respiratory failure due to COVID-19: Code(s): U07.1 - COVID-19; J96.00 - Acute respiratory failure, unspecified whether with hypoxia or hypercapnia Status: Acute Assessment and Plan: Acute Respiratory failure secondary to COVID-19. Patient transferred to ICU overnight due to worsening hypoxia. ABG and PCXR reviewed and will repeat in am. Dexamethasone started 05/24 Remdesivir started 05/21 Patient is in Airborne, Droplet and Contact Isolation Cautious IVF Monitor inflammatory markers. Discussed benefits and risks of convalscent plasma therapy for COVID-19. I explained patient the risks of donor plasma which includes allergic reaction, transfusion reaction, possible transmission of infections like Hepatitis and HIV and even . Explained that donor plasma has shown benefit in some studies but is not a proven therapy. Patient understands the risks, is agreeable to proceed and gave his informed consent. I have placed order for 1 unit of convalscent plasma (2) COVID-19: Code(s): U07.1 - COVID-19 Status: Acute (3) Type 2 diabetes mellitus: Code(s): E11.9 - Type 2 diabetes mellitus without complications Status: Chronic Assessment and Plan: poorly controlled continue Lantus at 40 units and with meal 10 units increase sliding scale to high level adjust further (4) Hyperlipidemia: Code(s): E78.5 - Hyperlipidemia, unspecified Status: Chronic Assessment and Plan: ------Continue with atorvastatin. (5) Hypertension: Code(s): I10 - Essential (primary) hypertension Status: Acute Assessment and Plan: Continue lisinopril add scheduled p.o. and IV p.r.n. Lopressor (6) DVT prophylaxis: Code(s): Z29.9 - Encounter for prophylactic measures, unspecified Status: Acute Assessment and Plan: Lovenox 40 mg subcutaneous q.12 hours as patient has high D-dimer and high risk of DVT from COVID-19 Additional Plan Stress ulcer prophylaxis - on Pepcid Nutrition - diabetic diet Code Status - I extended discussion with patient but goals of care in cases respiratory status worsens. Patient does not want CPR or shock and wants to be DNR but is not sure about the ventilator this time. He is going to talk to his son and let me know if he changes mind but as of now he is okay with intubation if needed. He told me he has heard and seen so many 'scary' stories is on television of people not coming off of ventilator for months and he is afraid that he may be one of them and does not want to live dependent on a machine. Total Critical Care Time - 30 minutes Due to a high probability of clinically significant, life threatening deterioration, the patient required my highest level of preparedness to intervene emergently and I personally spent this critical care time directly and personally managing the patient. This critical care time included obtaining a history; examining the patient; pulse oximetry; ordering and review of studies; arranging urgent treatment with development of a management plan; evaluation of patient's response to treatment; frequent reassessment; and discussions with other providers. It was exclusive of separately billable procedures and treating other patients and teaching time. Please see Assessment and Plan section and the rest of the note for further information on patient assessment and treatment [facility] Consult Note Consult date: 05/24/20 Time Seen: 08:00 HPI: Hernando Espana IV is a 65 year old male with past medical history of poorly controlled diabetes mellitus and left BKA who was admitted on the of this month with chief complaint of shortness of breath, fever and chills. he was tested for COVID-19 recently on 05/15 which later came back positive. Patient was initially started on Rocephin azithromycin as was expected to have community-acq
[2020-05-24 10:16] LABS: Glucose Point of Care 332 (65-105)
[2020-05-24] MEDS: METOPROLOL TARTRATE 25 MG TABLET PO ×2 (11:36→21:32)
[2020-05-24 11:42] LABS: Hematocrit 30.1 % (42.0-52.0); Hemoglobin 10.4 g/dL (14.0-18.0); Mean Corpuscular HGB Conc 34.6 g/dl (32-36); Mean Corpuscular Hemoglobin 29.2 pg (26-34); Mean Corpuscular Volume 84.6 fl (80-100); Mean Platelet Volume 9.6 fl (7.4-10.4); Platelet Count Result 360 k/mm3 (150-375); Red Blood Count 3.56 M/mm3 (4.6-6.20); Red Cell Distribution Width 12.9 % (11.5-14.5); White Blood Count 13.6 K/mm3 (4.5-10.0)
[2020-05-24 11:50] LABS: Glucose Point of Care 230 (65-105)
[2020-05-24 11:58] LABS: Alanine Aminotransferase 36 U/L (4-50); Albumin Level 2.5 g/dL (3.5-5.1); Alkaline Phosphatase 108 U/L (38-126); Anion Gap 8 mmol/L (8-16); Aspartate Amino Transferase 49 U/L (17-59); Bilirubin,Total 0.3 mg/dL (0.2-1.3); Blood Urea Nitrogen 31 mg/dL (9-20); CRP 8.2 mg/dL (<1.0); Calcium 7.4 mg/dL (8.4-10.2); Carbon Dioxide 23 mmol/L (22-30); Chloride 104 mmol/L (98-107); Estimated Glomerular Filt Rate > 60; Glucose 358 mg/dL (75-110); Potassium 4.1 mmol/L (3.4-5.0); Sodium 135 mmol/L (137-145)
[2020-05-24 12:04] LABS: Glucose Point of Care 364 (65-105)
[2020-05-24 12:05] LABS: D Dimer 15.59 ug/mL (<0.48)
--- NOTE | 2020-05-24 13:13 | WPDINFPN2 ---
Progress Note: A&P Assessment and Plan (1) COVID-19: Code(s): U07.1 - COVID-19 Status: Acute Assessment and Plan: Viral pneumonia due to CoVid 19 REC Decadron # / 10. He presented to hospital 13 days after symptom onset, thus I do not predict that remdesivir or plasma will have any effect on any outcome. Will see prn Subjective Date/time seen: 05/24/20 13:13 Objective Data Vital Signs Vital Signs: Vital Signs - 24 hr 05/23/20 16:00 05/23/20 20:00 05/23/20 22:02 Temperature 36.6 C 36.6 C Pulse Rate 90 82 79 Respiratory Rate 18 20 Blood Pressure 135/65 153/83 H Pulse Oximetry 93 91 91 05/24/20 02:00 05/24/20 04:00 05/24/20 05:18 Temperature 36.9 C Pulse Rate 85 99 Respiratory Rate 18 Blood Pressure 150/84 H Pulse Oximetry 91 77 L 05/24/20 05:32 05/24/20 06:42 05/24/20 08:00 Temperature 37.7 C H 37.9 C H Pulse Rate 92 91 Respiratory Rate 19 22 H Blood Pressure 163/73 H 159/79 H Pulse Oximetry 92 94 95 05/24/20 10:19 05/24/20 11:36 Temperature Pulse Rate 97 93 Respiratory Rate 24 H Blood Pressure 151/72 H Pulse Oximetry 96 Intake/Output Intake/Output: Intake & Output 05/21/20 05/22/20 05/23/20 05/24/20 23:59 23:59 23:59 23:59 Intake Total 2845 1760 1880 370 Output Total 775 900 Balance 2845 985 980 370 Meds/Results Medications: Active Medications Generic Name Dose Route Start Last Admin Trade Name Freq PRN Reason Stop Dose Admin Albuterol 2 puff 05/21/20 16:20 Proventil Hfa INHALATION QIDRT PRN Shortness Of Breath Atorvastatin Calcium 40 mg 05/22/20 09:00 05/24/20 08:58 Lipitor PO 40 mg DAILY MARELY Administration Dexamethasone Sodium Phosphate 6 mg 05/24/20 05:55 05/24/20 06:49 Decadron 10 Mg/Ml Inj IV PUSH 06/02/20 09:01 6 mg DAILY MARELY Administration Dextrose 12.5 gm 05/21/20 11:17 Dextrose 50% Syringe IV PUSH PRN PRN Hypoglycemia Protocol Enoxaparin Sodium 40 mg 05/24/20 21:00 Lovenox SUB-Q Q12HR MARELY Famotidine 20 mg 05/21/20 21:00 05/24/20 08:57 Pepcid Iv IV PUSH 20 mg Q12HR MARELY Administration Glucagon 1 mg 05/21/20 11:17 Glucagon For Inj IM PRN PRN Hypoglycemia Protocol Glucose 15 gm 05/21/20 11:17 Glutose 15 PO PRN PRN Hypoglycemia Protocol Dextrose 1,000 mls @ 100 mls/hr 05/21/20 11:17 Dextrose 5% 1,000 Ml IVPB PRN PRN Hypoglycemia Protocol Remdesivir 100 mg in 250 mls @ 250 mls/hr 05/22/20 17:00 05/23/20 18:20 IVPB 05/25/20 17:59 Infused Q24H MARELY Infusion Insulin Aspart 10 units 05/23/20 17:00 05/24/20 08:57 Novolog SUB-Q 10 units TIDWM MARELY Administration Insulin Aspart 4 - 8 units 05/24/20 12:00 Novolog SUB-Q TIDWM MARELY Protocol Insulin Glargine 40 units 05/23/20 21:00 05/23/20 21:33 Lantus SUB-Q 40 units HS MARELY Administration Lisinopril 20 mg 05/21/20 17:00 05/24/20 08:58 Prinivil PO 20 mg BID MARELY Administration Metoprolol Tartrate 5 mg 05/24/20 09:38 Lopressor Inj IV PUSH Q4H PRN SBP > 160 Metoprolol Tartrate 25 mg 05/24/20 09:00 05/24/20 11:36 Lopressor PO 25 mg Q12HR MARELY Administration Radiology Results: ITS Impressions Chest X-Ray 05/24/20 06:37 IMPRESSION: 1. Diffuse lung disease with slight worsening on the right, consistent with pneumonia versus acute respiratory distress syndrome (ARDS). Labs Labs: Laboratory Results - last 24 hr 05/23/20 05/23/20 05/23/20 13:02 17:24 21:32 WBC RBC Hgb Hct MCV MCH MCHC RDW Plt Count MPV D-Dimer Puncture Site ABG pH ABG pCO2 ABG pO2 ABG PO2/FiO2 Ratio ABG HCO3 ABG O2 Saturation ABG O2 Content ABG Base Excess A-a Gradient Oxyhemoglobin Carboxyhemoglobin Methemoglobin Reduced Hemoglobin Total Hemoglobin O2 Delivery Device
--- NOTE | 2020-05-24 14:19 | PM.IMPN ---
Progress Note: A&P Assessment and Plan (1) COVID-19: Code(s): U07.1 - COVID-19 Status: Acute Assessment and Plan: Pt is on high flow oxygen, continue to monitor respiratory status. Pt is on iv steroids only. off remdesivir. Guarded prognosis. ID and ICU on board (2) Type 2 diabetes mellitus: Code(s): E11.9 - Type 2 diabetes mellitus without complications Status: Chronic Assessment and Plan: Watch sugars pt is on iv steroids, pt is on SSI and lantus at night (3) Hyperlipidemia: Code(s): E78.5 - Hyperlipidemia, unspecified Status: Chronic Assessment and Plan: ------Continue with atorvastatin. (4) Hypertension: Code(s): I10 - Essential (primary) hypertension Status: Acute Assessment and Plan: -----last bp 150/72. Continue lisinopril (5) Amputation of left lower extremity: Code(s): S88.912A - Complete traumatic amputation of left lower leg, level unspecified, initial encounter Status: Acute Assessment and Plan: ------Due to gangrene. (6) Dysphagia: Code(s): R13.10 - Dysphagia, unspecified Status: Acute Assessment and Plan: -----In the past with dilation. Monitor appears to be tolerating a diet Subjective Date/time seen: 05/24/20 14:19 Interval history: Pt is a 65 y/o male here for COVID PNA. Pt was transfered to ICU due to desaturation, pt is stable in ICU on high flow oxygen. Pt to continue on iv steroids as per ID. Review of Systems Review of Systems: ROS unobtainable: Yes other (SOB respiratory compliants ) Exam Narrative: Exam Narrative: Temp Pulse Resp BP Pulse Ox 37.0 C 83 24 H 150/72 H 95 05/24/20 12:00 05/24/20 12:00 05/24/20 12:00 05/24/20 12:00 05/24/20 12:00 Pt is on high flow oxygen Const: General: cooperative Orientation/consciousness: oriented to person, oriented to place, oriented to time and patient oriented x3 Objective Data Vital Signs Vital Signs: Vital Signs - 24 hr 05/23/20 16:00 05/23/20 20:00 05/23/20 22:02 Temperature 36.6 C 36.6 C Pulse Rate 90 82 79 Respiratory Rate 18 20 Blood Pressure 135/65 153/83 H Pulse Oximetry 93 91 91 05/24/20 02:00 05/24/20 04:00 05/24/20 05:18 Temperature 36.9 C Pulse Rate 85 99 Respiratory Rate 18 Blood Pressure 150/84 H Pulse Oximetry 91 77 L 05/24/20 05:32 05/24/20 06:42 05/24/20 08:00 Temperature 37.7 C H 37.9 C H Pulse Rate 92 91 Respiratory Rate 19 22 H Blood Pressure 163/73 H 159/79 H Pulse Oximetry 92 94 95 05/24/20 10:19 05/24/20 11:36 05/24/20 12:00 Temperature 37.0 C Pulse Rate 97 93 83 Respiratory Rate 24 H 24 H Blood Pressure 151/72 H 150/72 H Pulse Oximetry 96 95 Intake/Output Intake/Output: Intake & Output 05/21/20 05/22/20 05/23/20 05/24/20 23:59 23:59 23:59 23:59 Intake Total 2845 1760 1880 570 Output Total 775 900 Balance 2845 985 980 570 Meds/Results Medications: Active Medications Generic Name Dose Route Start Last Admin Trade Name Freq PRN Reason Stop Dose Admin Albuterol 2 puff 05/21/20 16:20 Proventil Hfa INHALATION QIDRT PRN Shortness Of Breath Atorvastatin Calcium 40 mg 05/22/20 09:00 05/24/20 08:58 Lipitor PO 40 mg DAILY MARELY Administration Dexamethasone Sodium Phosphate 6 mg 05/24/20 05:55 05/24/20 06:49 Decadron 10 Mg/Ml Inj IV PUSH 06/02/20 09:01 6 mg DAILY MARELY Administration Dextrose 12.5 gm 05/21/20 11:17 Dextrose 50% Syringe IV PUSH PRN PRN Hypoglycemia Protocol Enoxaparin Sodium 40 mg 05/24/20 21:00 Lovenox SUB-Q Q12HR MARELY Famotidine 20 mg 05/21/20 21:00 05/24/20 08:57 Pepcid Iv IV PUSH 20 mg Q12HR MARELY Administration Glucagon 1 mg 05/21/20 11:17 Gluca
--- NOTE | 2020-05-24 17:17 | PC.NURSE ---
Patient had run of Vta at 0815 on 05/24/20. Dr. Celeste aware. No new orders. See chart for details.
--- NOTE | 2020-05-24 17:58 | CONS_ITS ---
DATE OF CONSULTATION: REASON FOR CONSULTATION: Coronavirus infection. HISTORY OF PRESENT ILLNESS: The patient is a 65-year-old male with diabetes. He has had no previous lung disease. He began feeling ill on May 08 with generalized weakness accompanied by a loss of smell and taste, cough, and dyspnea. Symptoms persisted and he had coronavirus testing performed on May 15, which was positive. He was advised to quarantine at home. He then developed unfortunately increasing dyspnea and he was advised to go to the emergency room which he did on May 21. He has been here since then. The patient was initially given remdesivir on the evening of the and today has also been started on dexamethasone. He has been placed on oxygen and was transferred to the intensive care unit overnight due to increasing oxygen need and desaturation. Still has dyspnea. There has been no sputum production nor hemoptysis. No chest pain. He knows of no fever, chills, nor sweats. He has not been previously diagnosed with coronavirus. A girlfriend has had also positive test. She apparently was discharged from the hospital yesterday. He thinks he may have been exposed when visiting a friend prior to onset of symptoms. ALLERGIES: NONE KNOWN. PRESENT MEDICATIONS: No other immunosuppressants. List reviewed. No antibiotics given prior to admission. HABITS: No tobacco and no alcohol to excess. PAST MEDICAL AND SURGICAL HISTORY: Previous left BKA for chronic cellulitis by his description. He has carpal tunnel syndrome, esophageal stricture with dilation, hyperlipidemia, hypertension, and prior tonsillectomy. FAMILY HISTORY: Diabetes, kidney cancer, hypertension. SOCIAL HISTORY: He is 3 years, 1 son. 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 REVIEW OF SYSTEMS: 14-point review otherwise negative other than hyperglycemia. PHYSICAL EXAMINATION: GENERAL: This is an elderly male, who appears his actual age. No acute distress. VITAL SIGNS: On arrival, he was afebrile, since then has been up to 38, and T-max 37.9 last 24 hours. His oxygen saturation is 95% on 10 L nasal cannula. Pulse 91, respirations 22, 159/79. SKIN: Warm and dry. No rashes. Few ecchymoses. NODES: No cervical adenopathy. EENT: The conjunctivae are normal. Pupils equal, round, and reactive to light. The oropharynx, oral mucosa normal. Teeth in good repair. NECK: No masses, meningismus or thyromegaly. LUNGS: Mildly diminished breath sounds, otherwise clear to auscultation and percussion. CHEST: No indwelling vascular devices. CARDIAC: Regular rate and rhythm. No murmur, gallop, or rub. Pulses 1+. ABDOMEN: Obese, nontender. No organomegaly. No masses. EXTREMITIES: Left BKA. Has no clubbing, cyanosis, or edema elsewhere. No venous varicosities. NEUROLOGIC: Awake, alert, oriented, appropriate. LABORATORY DATA: Outpatient coronavirus assay as above. White count 13.6, hemoglobin 10.4, platelets are 360. D-dimer elevated 15.6. Blood gases, 7.50, 31, 59, 93% on 10 L, estimated FiO2 of 70%. Chemistries with mild hyponatremia, glucose 358, calcium 7.4. CRP is 8.2, albumin 2.5. RADIOLOGY: Chest x-ray with patchy airspace opacities throughout all 5 lung lobes. ASSESSMENT: 1. Hypoxemia, leukocytosis, elevated CRP, weakness, all due to acute coronavirus infection with viral pneumonia. He is in need of high-flow O2. No complications noted otherwise such as thromboembolism. 2. Diabetes mellitus under questionable control, currently with hyperglycemia. 3. Hyperlipidemia. RECOMMENDATIONS: 1. Dexamethasone day 1/10 days, IV or oral. 2. His initial hospital presentation was 13 days after onset of symptoms, I do not predict that remdesivir or convalescent plasma will have any benefit for
[2020-05-24 18:25] LABS: Glucose Point of Care 314 (65-105)
[2020-05-24] MEDS: INSULIN GLARGINE (*BKC) 100 UNITS/ML 40 UNITS SUB-Q (21:31)
[2020-05-24] MEDS: SODIUM CHLORIDE 0.9% IV 250 ML 25 ML (21:33)
[2020-05-24 21:50] LABS: Glucose Point of Care 276 (65-105)
[2020-05-25] VITALS (18 sets, daily range): BP systolic 138–180; BP diastolic 68–87; PULSE 67–79; RESP 13–24; TEMP 36.3–36.9; O2SAT 91–98
[2020-05-25] MEDS: hydrALAZINE HCL 20 MG/ML VIAL 5 MG IV PUSH (02:21)
[2020-05-25 06:09] LABS: Hematocrit 30.4 % (42.0-52.0); Hemoglobin 10.5 g/dL (14.0-18.0); Mean Corpuscular HGB Conc 34.5 g/dl (32-36); Mean Corpuscular Hemoglobin 28.9 pg (26-34); Mean Corpuscular Volume 83.7 fl (80-100); Mean Platelet Volume 9.6 fl (7.4-10.4); Platelet Count Result 436 k/mm3 (150-375); Red Blood Count 3.63 M/mm3 (4.6-6.20); Red Cell Distribution Width 12.7 % (11.5-14.5); White Blood Count 13.6 K/mm3 (4.5-10.0)
[2020-05-25 06:14] LABS: Alanine Aminotransferase 49 U/L (4-50); Albumin Level 2.8 g/dL (3.5-5.1); Alkaline Phosphatase 114 U/L (38-126); Anion Gap 5 mmol/L (8-16); Aspartate Amino Transferase 66 U/L (17-59); Bilirubin,Total 0.5 mg/dL (0.2-1.3); Blood Urea Nitrogen 27 mg/dL (9-20); Calcium 7.8 mg/dL (8.4-10.2); Carbon Dioxide 28 mmol/L (22-30); Chloride 102 mmol/L (98-107); Estimated Glomerular Filt Rate > 60; Glucose 181 mg/dL (75-110); Lactate Dehydrogenase 1255 U/L (313-618); Magnesium 2.1 mg/dL (1.6-2.3); Potassium 3.7 mmol/L (3.4-5.0); Sodium 135 mmol/L (137-145)
[2020-05-25 06:17] LABS: D Dimer 16.19 ug/mL (<0.48)
[2020-05-25 06:27] LABS: CRP 10.7 mg/dL (<1.0)
[2020-05-25] MEDS: lisinopriL 20 MG TABLET PO ×2 (08:25→20:30)
[2020-05-25] MEDS: FAMOTIDINE 20 MG/2 ML VIAL IV PUSH ×2 (08:25→20:30)
[2020-05-25] MEDS: ENOXAPARIN 40 MG/0.4 ML SYRINGE SUB-Q ×2 (08:25→20:30)
[2020-05-25] MEDS: METOPROLOL TARTRATE 25 MG TABLET PO ×2 (08:25→20:30)
[2020-05-25] MEDS: ATORVASTATIN 40 MG TABLET PO (08:25)
[2020-05-25] MEDS: INSULIN ASPART (*BKC) 100 UNITS/ML 10 UNITS SUB-Q ×3 (08:27→17:16)
--- NOTE | 2020-05-25 09:00 | WPDINTPN ---
Progress Note: A&P Assessment and Plan (1) Acute respiratory failure due to COVID-19: Code(s): U07.1 - COVID-19; J96.00 - Acute respiratory failure, unspecified whether with hypoxia or hypercapnia Status: Acute Assessment and Plan: Acute Respiratory failure secondary to COVID-19. Patient transferred to ICU overnight due to worsening hypoxia. ABG and PCXR reviewed and will repeat in am. Maintaining stable oxygenation on 9-10 L of nasal cannula with no respiratory distress or tachypnea today Dexamethasone started 05/24 Remdesivir started 05/21 1 unit convalscent plasma transfused 05/24 Patient is in Airborne, Droplet and Contact Isolation continue to monitor inflammatory markers which are improving continue Lovenox 40 mg subcu q.12 hours for high D-dimer level (2) COVID-19: Code(s): U07.1 - COVID-19 Status: Acute Assessment and Plan: see above (3) Type 2 diabetes mellitus: Code(s): E11.9 - Type 2 diabetes mellitus without complications Status: Chronic Assessment and Plan: control has improved with Lantus, with meal insulin andsliding scale continue Lantus at 40 units and with meal 10 units increase sliding scale to high level (4) Hyperlipidemia: Code(s): E78.5 - Hyperlipidemia, unspecified Status: Chronic Assessment and Plan: ------Continue with atorvastatin. (5) Hypertension: Code(s): I10 - Essential (primary) hypertension Status: Acute Assessment and Plan: Continue lisinopril add scheduled p.o. and IV p.r.n. Lopressor (6) DVT prophylaxis: Code(s): Z29.9 - Encounter for prophylactic measures, unspecified Status: Acute Assessment and Plan: Lovenox 40 mg subcutaneous q.12 hours as patient has high D-dimer and high risk of DVT from COVID-19 Additional Plan Stress ulcer prophylaxis - on Pepcid Nutrition - diabetic diet Code Status - I had extended discussion with patient on 05/24 about goals of care in cases respiratory status worsens. Patient does not want CPR or shock and wants to be DNR but is not sure about the ventilator this time. He is going to talk to his son and let me know if he changes mind but as of now he is okay with intubation if needed. He told me he has heard and seen so many 'scary' stories is on television of people not coming off of ventilator for months and he is afraid that he may be one of them and does not want to live dependent on a machine. Transfer out of ICU to IMU level today Subjective Date/time seen: 05/25/20 0900 Overnight events reviewed. No major event overnight. Received plasma transfusion last night Without any complications. Feels better this morning and his shortness of breath is better. He continues to have dry cough intermittently Afebrile. Denies any other complaints Vitals acceptable Patient denies fever, chest pain, nausea vomiting, abdominal pain,, diarrhea, headache or constipation. Review of Systems Review of Systems: All systems reviewed & are unremarkable except as noted in HPI and below ( subjective) Exam Narrative: Exam Narrative: General: Pt is alert awake and in NAD Lungs/Chest: Trachea central course BS B/L, No crackles or wheezing. Cardiac: RRR. Normal S1 S2. No murmurs Circulation: Pedal pulses are intact and symmetrical. Abdomen: Normal bowel sounds.. Soft. NT. ND. Extremities: No clubbing, cyanosis or edema. Warm left BKA : Campuzano in place Neurologic: Follows commands. Moves all 4 extremities PERRL alert oriented x3 Skin: No Rash Objective Data Vital Signs Vital Signs: Vital Signs - 24 hr 05/24/20 11:36 05/24/20 12:00 05/24/20 16:00 Temperature 37.0 C 36.6 C Pulse Rate 93 83 73 Respiratory Rate 24 H 17 Blood Pressure 150/72 H 149/70 H Pulse Oximetry 95 97 05/24/20 18:00 05/24/20 20:00 05/24/20 21:23 Temperature 36.0 C L 36.0 C L Pulse Rate 76 68 68 Respiratory Rate
[2020-05-25 09:22] LABS: Glucose Point of Care 158 (65-105)
[2020-05-25 12:47] LABS: Glucose Point of Care 138 (65-105)
--- NOTE | 2020-05-25 13:36 | PM.IMPN ---
Progress Note: A&P Assessment and Plan (1) COVID-19: Code(s): U07.1 - COVID-19 Status: Acute Assessment and Plan: Continue to monitor respiratory status. Pt is on iv steroids only. off remdesivir. Guarded prognosis. ID and ICU on board Pt is changed to imu status. Pt is on 8 liters by nasal cannulae (2) Type 2 diabetes mellitus: Code(s): E11.9 - Type 2 diabetes mellitus without complications Status: Chronic Assessment and Plan: Watch sugars pt is on iv steroids, pt is on SSI and lantus at night (3) Hyperlipidemia: Code(s): E78.5 - Hyperlipidemia, unspecified Status: Chronic Assessment and Plan: ------Continue with atorvastatin. (4) Hypertension: Code(s): I10 - Essential (primary) hypertension Status: Acute Assessment and Plan: -----last bp 150/81. Continue lisinopril (5) Amputation of left lower extremity: Code(s): S88.912A - Complete traumatic amputation of left lower leg, level unspecified, initial encounter Status: Acute Assessment and Plan: ------Due to gangrene. (6) Dysphagia: Code(s): R13.10 - Dysphagia, unspecified Status: Acute Assessment and Plan: -----In the past with dilation. Monitor appears to be tolerating a diet Subjective Date/time seen: 05/25/20 13:36 Interval history: Pt is a 65 y/o male here for COVID PNA. Pt was transfered to ICU due to desaturation, pt is stable in ICU on nasal canulae now. Pt to continue on iv steroids as per ID. Pt to be changed to imu status Review of Systems Respiratory: Respiratory: Reports chest congestion, Reports cough, Reports dyspnea and Reports wheezing Exam Narrative: Exam Narrative: P Temp Pulse Resp BP Pulse Ox 36.3 C L 74 17 151/81 H 91 05/25/20 12:00 05/25/20 12:00 05/25/20 12:00 05/25/20 12:00 05/25/20 12:00 t is mild respiratory distress but on nasal cannulae now Objective Data Vital Signs Vital Signs: Vital Signs - 24 hr 05/24/20 16:00 05/24/20 18:00 05/24/20 20:00 Temperature 36.6 C 36.0 C L Pulse Rate 73 76 68 Respiratory Rate 17 18 22 H Blood Pressure 149/70 H 163/72 H 163/80 H Pulse Oximetry 97 92 97 05/24/20 21:23 05/24/20 21:32 05/24/20 21:40 Temperature 36.0 C L 35.9 C L Pulse Rate 68 74 69 Respiratory Rate 14 14 Blood Pressure 170/83 H 174/82 H Pulse Oximetry 95 91 05/24/20 22:00 05/24/20 22:40 05/24/20 23:40 Temperature 36.5 C 36.5 C 36.4 C Pulse Rate 65 63 63 Respiratory Rate 16 15 15 Blood Pressure 167/80 H 155/79 H 155/79 H Pulse Oximetry 96 97 97 05/25/20 00:00 05/25/20 02:00 05/25/20 02:30 Temperature 36.6 C Pulse Rate 68 70 Respiratory Rate 13 17 Blood Pressure 170/84 H 180/85 H 155/75 H Pulse Oximetry 95 95 05/25/20 04:00 05/25/20 06:00 05/25/20 08:00 Temperature 36.6 C 36.4 C Pulse Rate 71 68 70 Respiratory Rate 15 15 15 Blood Pressure 138/68 157/73 H 162/76 H Pulse Oximetry 93 97 91 05/25/20 08:25 05/25/20 10:00 05/25/20 10:01 Temperature Pulse Rate 72 70 70 Respiratory Rate 16 Blood Pressure 163/72 H Pulse Oximetry 91 05/25/20 12:00 Temperature 36.3 C L Pulse Rate 74 Respiratory Rate 17 Blood Pressure 151/81 H Pulse Oximetry 91 Intake/Output Intake/Output: Intake & Output 05/22/20 05/23/20 05/24/20 05/25/20 23:59 23:59 23:59 23:59 Intake Total 1760 1880 1050 480 Output Total 775 573 908 2115 Balance 985 980 450 -1170 Meds/Results Medications: Active Medications Generic Name Dose Route Start Last Admin Trade Name Freq PRN Reason Stop Dose Admin Albuterol 2 puff 05/21/20 16:20 Proventil Hfa INHALATION QIDRT PRN Shortness Of Breath Atorvastatin Calcium 40 mg 05/22/20 09:00 05/25/20 08:25 Lipitor PO 40 mg DERIAN
[2020-05-25] MEDS: INSULIN ASPART (*BKC) 100 UNITS/ML SUB-Q (17:16)
[2020-05-25 17:31] LABS: Glucose Point of Care 220 (65-105)
[2020-05-25] MEDS: INSULIN GLARGINE (*BKC) 100 UNITS/ML 40 UNITS SUB-Q (20:30)
[2020-05-25 20:42] LABS: Glucose Point of Care 259 (65-105)
[2020-05-26] VITALS (15 sets, daily range): BP systolic 129–176; BP diastolic 67–83; PULSE 63–85; RESP 14–16; TEMP 36.3–36.9; O2SAT 91–97
[2020-05-26 06:26] LABS: Hematocrit 31.7 % (42.0-52.0); Hemoglobin 10.9 g/dL (14.0-18.0); Mean Corpuscular HGB Conc 34.4 g/dl (32-36); Mean Corpuscular Hemoglobin 29.1 pg (26-34); Mean Corpuscular Volume 84.8 fl (80-100); Mean Platelet Volume 9.2 fl (7.4-10.4); Platelet Count Result 458 k/mm3 (150-375); Red Blood Count 3.74 M/mm3 (4.6-6.20); Red Cell Distribution Width 12.8 % (11.5-14.5); White Blood Count 17.7 K/mm3 (4.5-10.0)
[2020-05-26 06:59] LABS: Alanine Aminotransferase 69 U/L (4-50); Albumin Level 2.6 g/dL (3.5-5.1); Alkaline Phosphatase 114 U/L (38-126); Anion Gap 5 mmol/L (8-16); Aspartate Amino Transferase 81 U/L (17-59); Bilirubin,Total 0.3 mg/dL (0.2-1.3); Blood Urea Nitrogen 30 mg/dL (9-20); Calcium 7.7 mg/dL (8.4-10.2); Carbon Dioxide 28 mmol/L (22-30); Chloride 103 mmol/L (98-107); Estimated Glomerular Filt Rate > 60; Glucose 186 mg/dL (75-110); Potassium 3.8 mmol/L (3.4-5.0); Sodium 136 mmol/L (137-145)
[2020-05-26] MEDS: lisinopriL 20 MG TABLET PO ×2 (08:26→17:24)
[2020-05-26] MEDS: METOPROLOL TARTRATE 25 MG TABLET PO ×2 (08:26→20:48)
[2020-05-26] MEDS: FAMOTIDINE 20 MG/2 ML VIAL IV PUSH ×2 (08:26→20:48)
[2020-05-26] MEDS: ENOXAPARIN 40 MG/0.4 ML SYRINGE SUB-Q ×2 (08:26→20:48)
[2020-05-26] MEDS: INSULIN ASPART (*BKC) 100 UNITS/ML 10 UNITS SUB-Q ×3 (08:27→17:22)
[2020-05-26] MEDS: ATORVASTATIN 40 MG TABLET PO (08:27)
[2020-05-26 08:51] LABS: Glucose Point of Care 155 (65-105)
--- NOTE | 2020-05-26 09:56 | PM.IMPN ---
Progress Note: A&P Assessment and Plan (1) Acute respiratory failure due to COVID-19: Code(s): U07.1 - COVID-19; J96.00 - Acute respiratory failure, unspecified whether with hypoxia or hypercapnia Status: Acute Assessment and Plan: Continue high flow oxygen, currently at 10 L Remains too tenuous for transfer to floor (2) COVID-19: Code(s): U07.1 - COVID-19 Status: Acute Assessment and Plan: Inflammatory markers seem to have peaked Continue remdesivir, dexamethasone 1 U convalescent plasma ordered f/u lab (3) Acute hyperglycemia: Code(s): R73.9 - Hyperglycemia, unspecified Status: Acute (4) Dysphagia: Qualifiers: Dysphagia type: unspecified Qualified Code(s): R13.10 - Dysphagia, unspecified Code(s): R13.10 - Dysphagia, unspecified Status: Acute Assessment and Plan: Tolerating diet (5) Type 2 diabetes mellitus: Qualifiers: Diabetes mellitus chcf insulin use: with chcf use Diabetes mellitus complication status: without complication Qualified Code(s): E11.9 - Type 2 diabetes mellitus without complications; Z79.4 - group home (current) use of insulin Code(s): E11.9 - Type 2 diabetes mellitus without complications Status: Chronic Assessment and Plan: Continue basal and SSI (6) Hypertension: Qualifiers: Hypertension type: unspecified Qualified Code(s): I10 - Essential (primary) hypertension Code(s): I10 - Essential (primary) hypertension Status: Acute Assessment and Plan: Continue to monitor (7) Amputation of left lower extremity: Qualifiers: Encounter type: subsequent encounter Qualified Code(s): S88.912D - Complete traumatic amputation of left lower leg, level unspecified, subsequent encounter Code(s): S88.912A - Complete traumatic amputation of left lower leg, level unspecified, initial encounter Status: Acute Subjective Date/time seen: 05/26/20 09:56 Interval history: 05/26 Taste and smell intact. Denied sob at rest. Tired. Wants to go home. No other c/o. Review of Systems Review of Systems: All systems reviewed & are unremarkable except as noted in HPI and below Exam Narrative: Exam Narrative: HEENT: EOMI, PERRL, sclerae nonicteric, pharyngeal mucosa pink and intact NECK: No JVD, CHEST: Coarse BS, normal effort HEART: NL S1/S2, regular, no murmur ABDOMEN: BS+, soft, nontender, no mass, no bruits EXTREMITIES: No cyanosis, edema, or clubbing NEUROLOGIC: CN intact and symmetric to inspection. MUSCULOSKELETAL: Tone and strength symmetric. Left BKA PSYCH: Alert. Oriented to person, place, and time. Objective Data Vital Signs Vital Signs: Vital Signs - 24 hr 05/25/20 10:00 05/25/20 10:01 05/25/20 12:00 Temperature 97.3 F L Pulse Rate 70 70 74 Respiratory Rate 16 17 Blood Pressure 163/72 H 151/81 H Pulse Oximetry 91 91 05/25/20 13:47 05/25/20 14:00 05/25/20 14:14 Temperature Pulse Rate 74 79 Respiratory Rate 20 Blood Pressure Pulse Oximetry 95 98 05/25/20 16:00 05/25/20 18:02 05/25/20 20:00 Temperature 97.5 F L 98.5 F Pulse Rate 74 74 70 Respiratory Rate 14 18 Blood Pressure 157/75 H 153/87 H Pulse Oximetry 98 96 05/25/20 20:30 05/25/20 20:42 05/26/20 00:00 Temperature 98.5 F Pulse Rate 72 70 64 Respiratory Rate 24 H 14 Blood Pressure 139/72 Pulse Oximetry 93 97 05/26/20 03:47 05/26/20 04:00 05/26/20 08:00 Temperature 98.4 F Pulse Rate 63 67 68 Respiratory Rate 14 Blood Pressure 139/72 Pulse Oximetry 97 05/26/20 08:23 05/26/20 08:26 Temperature 97.6 F Pulse Rate 72 85 Respiratory Rate 14 Blood Pressure 176/80 H Pulse Oximetry 92 Intake/Output Intake/Output: Intake & Output 05/23/20 05/24/20 05/25/20 05/26/20 23:59 23:59 23:59 23:59 Intake Total 1880 1050 1410 120 Output Total 704 538 4133 1250 Balance 980 855 -240 -[phone] M
[2020-05-26 12:08] LABS: Glucose Point of Care 162 (65-105)
[2020-05-26] MEDS: INSULIN ASPART (*BKC) 100 UNITS/ML SUB-Q (17:22)
[2020-05-26 17:39] LABS: Glucose Point of Care 324 (65-105)
[2020-05-26] MEDS: INSULIN GLARGINE (*BKC) 100 UNITS/ML 40 UNITS SUB-Q (20:49)
[2020-05-26 21:03] LABS: Glucose Point of Care 292 (65-105)
[2020-05-27] VITALS (16 sets, daily range): BP systolic 132–164; BP diastolic 64–80; PULSE 60–80; RESP 11–16; TEMP 36.4; O2SAT 90–98
[2020-05-27 06:52] LABS: Hematocrit 31.9 % (42.0-52.0); Hemoglobin 10.9 g/dL (14.0-18.0); Mean Corpuscular HGB Conc 34.2 g/dl (32-36); Mean Corpuscular Hemoglobin 29.1 pg (26-34); Mean Corpuscular Volume 85.1 fl (80-100); Mean Platelet Volume 9.4 fl (7.4-10.4); Platelet Count Result 493 k/mm3 (150-375); Red Blood Count 3.75 M/mm3 (4.6-6.20); Red Cell Distribution Width 12.8 % (11.5-14.5); White Blood Count 17.7 K/mm3 (4.5-10.0)
[2020-05-27 07:44] LABS: Alanine Aminotransferase 66 U/L (4-50); Albumin Level 2.6 g/dL (3.5-5.1); Alkaline Phosphatase 108 U/L (38-126); Anion Gap 4 mmol/L (8-16); Aspartate Amino Transferase 55 U/L (17-59); Bilirubin,Total 0.4 mg/dL (0.2-1.3); Blood Urea Nitrogen 26 mg/dL (9-20); CRP 2.5 mg/dL (<1.0); Calcium 7.8 mg/dL (8.4-10.2); Carbon Dioxide 28 mmol/L (22-30); Chloride 102 mmol/L (98-107); Estimated Glomerular Filt Rate > 60; Glucose 155 mg/dL (75-110); Lactate Dehydrogenase 1043 U/L (313-618); Magnesium 1.9 mg/dL (1.6-2.3); Potassium 3.5 mmol/L (3.4-5.0); Sodium 134 mmol/L (137-145)
[2020-05-27 07:48] LABS: D Dimer 9.86 ug/mL (<0.48)
[2020-05-27] MEDS: METOPROLOL TARTRATE 25 MG TABLET PO ×2 (08:23→20:38)
[2020-05-27] MEDS: INSULIN ASPART (*BKC) 100 UNITS/ML 10 UNITS SUB-Q ×2 (08:23→17:08)
[2020-05-27] MEDS: FAMOTIDINE 20 MG/2 ML VIAL IV PUSH ×2 (08:24→20:39)
[2020-05-27] MEDS: lisinopriL 20 MG TABLET PO ×2 (08:24→18:31)
[2020-05-27] MEDS: ATORVASTATIN 40 MG TABLET PO (08:24)
[2020-05-27] MEDS: ENOXAPARIN 40 MG/0.4 ML SYRINGE SUB-Q ×2 (08:24→20:38)
[2020-05-27 08:34] LABS: Glucose Point of Care 124 (65-105)
[2020-05-27 12:51] LABS: Glucose Point of Care 145 (65-105)
--- NOTE | 2020-05-27 13:37 | PM.IMPN ---
Progress Note: A&P Assessment and Plan (1) Acute respiratory failure due to COVID-19: Code(s): U07.1 - COVID-19; J96.00 - Acute respiratory failure, unspecified whether with hypoxia or hypercapnia Status: Acute Assessment and Plan: continue high-flow oxygen. Currently between 8-10 L - will continue to monitor closely (2) COVID-19: Code(s): U07.1 - COVID-19 Status: Acute Assessment and Plan: patient positive for COVID-19 pneumonia chest x-ray reviewed, no change continue airborne, droplet and contact precautions /isolation - patient is status post Remdesivir, continue dexamethasone - patient received 1 unit of convalescent plasma (3) Dysphagia: Qualifiers: Dysphagia type: unspecified Qualified Code(s): R13.10 - Dysphagia, unspecified Code(s): R13.10 - Dysphagia, unspecified Status: Acute Assessment and Plan: tolerating diet, has a good appetite (4) Type 2 diabetes mellitus: Qualifiers: Diabetes mellitus terminal clerk insulin use: with alf use Diabetes mellitus complication status: without complication Qualified Code(s): E11.9 - Type 2 diabetes mellitus without complications; Z79.4 - superintendent terminal (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) use of insulin Code(s): E11.9 - Type 2 diabetes mellitus without complications Status: Chronic Assessment and Plan: patient on Accu-Cheks and sliding scale insulin, continue to monitor (5) Hypertension: Qualifiers: Hypertension type: unspecified Qualified Code(s): I10 - Essential (primary) hypertension Code(s): I10 - Essential (primary) hypertension Status: Acute Assessment and Plan: blood pressure is well controlled with metoprolol, lisinopril (6) Amputation of left lower extremity: Qualifiers: Encounter type: subsequent encounter Qualified Code(s): S88.912D - Complete traumatic amputation of left lower leg, level unspecified, subsequent encounter Code(s): S88.912A - Complete traumatic amputation of left lower leg, level unspecified, initial encounter Status: Acute (7) DVT prophylaxis: Code(s): Z29.9 - Encounter for prophylactic measures, unspecified Status: Acute Assessment and Plan: continue enoxaparin 40 mg sub Q q.12 hours as the D-dimer was elevated, is trending down this morning Additional Plan discussed with patient at length and updated with his condition and plan of care. I answered all questions. I also discussed with him that he will not be able to go home at this time because he is requiring a lot of supplemental oxygen Subjective Date/time seen: 05/27/20 13:37 Interval history: 05/27/2020: Patient seen and examined, patient is on 8-10 L high-flow oxygen via nasal cannula. Patient does not look in any distress at this time, denies any shortness of breath, cough, abdominal pain, nausea, vomiting. Taste and smell remains intact. Patient just wants to go home, asks me if he can have some machine with the oxygen to take home. Patient has good appetite, good urine output, afebrile Review of Systems Review of Systems: All systems reviewed & are unremarkable except as noted in HPI and below Exam Narrative: Exam Narrative: Exam Narrative: HEENT: EOMI, PERRL, sclerae nonicteric, pharyngeal mucosa pink and intact NECK: No JVD, CHEST: Coarse BS, normal effort HEART: NL S1/S2, regular, no murmur ABDOMEN: BS+, soft, nontender, no mass, no bruits EXTREMITIES: No cyanosis, edema, or clubbing NEUROLOGIC: CN intact and symmetric to inspection. MUSCULOSKELETAL: Tone and strength symmetric. Left BKA PSYCH: Alert. Oriented to person, place, and time. Objective Data Vital Signs Vital Signs: Vital Signs - 24 hr 05/26/20 14:00 05/26/20 16:00 05/26/20 18:00 Temperature 97.3 F L Pulse Rate 71 74 77 Respiratory Rate 14 Blood Pressure 129/67 Pulse Oximetry 94 05/26/20 20:00 05/26/20 20:48 05/26/20 23:38 T
[2020-05-27 17:24] LABS: Glucose Point of Care 185 (65-105)
[2020-05-27] MEDS: INSULIN GLARGINE (*BKC) 100 UNITS/ML 40 UNITS SUB-Q (20:39)
[2020-05-27 20:46] LABS: Glucose Point of Care 256 (65-105)
[2020-05-28] VITALS (13 sets, daily range): BP systolic 130–158; BP diastolic 73–94; PULSE 61–86; RESP 12–15; TEMP 36.4–36.9; O2SAT 92–97
[2020-05-28 04:54] LABS: Hemoglobin 11.2 g/dL (14.0-18.0); Mean Corpuscular HGB Conc 33.9 g/dl (32-36); Mean Corpuscular Hemoglobin 28.9 pg (26-34); Mean Corpuscular Volume 85.3 fl (80-100); Platelet Count Result 499 k/mm3 (150-375); Red Blood Count 3.87 M/mm3 (4.6-6.20); Red Cell Distribution Width 12.7 % (11.5-14.5); White Blood Count 19.6 K/mm3 (4.5-10.0)
[2020-05-28 05:10] LABS: Alanine Aminotransferase 99 U/L (4-50); Albumin Level 2.6 g/dL (3.5-5.1); Alkaline Phosphatase 121 U/L (38-126); Anion Gap 5 mmol/L (8-16); Aspartate Amino Transferase 76 U/L (17-59); Bilirubin,Total 0.5 mg/dL (0.2-1.3); Blood Urea Nitrogen 29 mg/dL (9-20); Calcium 7.9 mg/dL (8.4-10.2); Carbon Dioxide 27 mmol/L (22-30); Chloride 103 mmol/L (98-107); Estimated Glomerular Filt Rate > 60; Glucose 140 mg/dL (75-110); Sodium 135 mmol/L (137-145)
[2020-05-28] MEDS: METOPROLOL TARTRATE 25 MG TABLET PO ×2 (08:14→20:03)
[2020-05-28] MEDS: ATORVASTATIN 40 MG TABLET PO (08:14)
[2020-05-28] MEDS: lisinopriL 20 MG TABLET PO ×2 (08:14→17:32)
[2020-05-28 08:15] LABS: Glucose Point of Care 97 (65-105)
[2020-05-28] MEDS: INSULIN ASPART (*BKC) 100 UNITS/ML 10 UNITS SUB-Q ×3 (08:15→17:31)
[2020-05-28] MEDS: ENOXAPARIN 40 MG/0.4 ML SYRINGE SUB-Q ×2 (08:15→20:03)
[2020-05-28] MEDS: FAMOTIDINE 20 MG/2 ML VIAL IV PUSH ×2 (08:15→20:03)
--- NOTE | 2020-05-28 10:02 | PM.IMPN ---
Progress Note: A&P Assessment and Plan (1) Acute respiratory failure due to COVID-19: Code(s): U07.1 - COVID-19; J96.00 - Acute respiratory failure, unspecified whether with hypoxia or hypercapnia Status: Acute Assessment and Plan: Currently at 5 L He seems to be improving clinically, dw critical care physician ok to transfer out of the ICU. (2) COVID-19: Code(s): U07.1 - COVID-19 Status: Acute Assessment and Plan: Inflammatory markers getting better, d dimer is trending down. Continue dexamethasone day # 5 of 10 Received 1 U convalescent plasma and remdesivir On high dose lovenox due to high d dimer. 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 (5) Hypertension: Qualifiers: Hypertension type: unspecified Qualified Code(s): I10 - Essential (primary) hypertension Code(s): I10 - Essential (primary) hypertension Status: Acute Assessment and Plan: Continue current management. (6) Amputation of left lower extremity: Qualifiers: Encounter type: subsequent encounter Qualified Code(s): S88.912D - Complete traumatic amputation of left lower leg, level unspecified, subsequent encounter Code(s): S88.912A - Complete traumatic amputation of left lower leg, level unspecified, initial encounter Status: Acute Subjective Date/time seen: He has no new complaints today, he is down to 5 L of oxygen. 05/28/20 10:02 Review of Systems Review of Systems: All systems reviewed & are unremarkable except as noted in HPI and below Exam Const: General: no acute distress Eyes: Pupils: Equal, round and reactive pupils present Neck: Neck: supple and no JVD Resp: Effort & Inspection: normal respiratory effort Auscultation: clear to auscultation bilaterally and diminished lung sounds Cardio: Rate: regular rate Rhythm: regular rhythm Other: No tachycardia GI: Auscultation: normal bowel sounds Other: Soft , non tender. Skin: General skin exam: normal color Neuro: Cognition (Neuro): normal cognition Speech: normal speech Other: No focal deficits. Extrem: Other: Left BKA Psych: Affect: normal affect Objective Data Vital Signs Vital Signs: Vital Signs - 24 hr 05/27/20 12:00 05/27/20 12:45 05/27/20 14:00 Temperature 97.6 F Pulse Rate 65 69 71 Respiratory Rate 12 Blood Pressure 132/64 Pulse Oximetry 90 05/27/20 16:00 05/27/20 17:02 05/27/20 18:00 Temperature 97.6 F Pulse Rate 70 80 78 Respiratory Rate 15 Blood Pressure 145/80 H Pulse Oximetry 94 05/27/20 20:00 05/27/20 20:38 05/27/20 22:00 Temperature 97.6 F Pulse Rate 80 76 72 Respiratory Rate 16 Blood Pressure 146/76 H Pulse Oximetry 96 05/27/20 23:07 05/28/20 00:00 05/28/20 02:00 Temperature Pulse Rate 66 66 61 Respiratory Rate 15 13 Blood Pressure 130/94 H Pulse Oximetry 98 96 05/28/20 03:30 05/28/20 04:00 05/28/20 06:00 Temperature 97.9 F Pulse Rate 64 62 62 Respiratory Rate 12 12 Blood Pressure 158/79 H Pulse Oximetry 96 94 05/28/20 08:00 Temperature 97.5 F L Pulse Rate 66 Respiratory Rate 13 Blood Pressure 146/73 H Pulse Oximetry 94 Intake/Output Intake/Output: Intake & Output 05/25/20 05/26/20 05/27/2005/28
[2020-05-28 11:40] LABS: Glucose Point of Care 170 (65-105)
--- NOTE | 2020-05-28 12:11 | PCDIET ---
Weekly nutritional screen. Patient is tolerating current diet with average intake of ~80% of recorded meals since admission. RN reports patient eating well and will obtain patient height. Appears well nourished with no weight loss reported. No nutritional needs at this time.
[2020-05-28 17:18] LABS: Glucose Point of Care 180 (65-105)
[2020-05-28] MEDS: INSULIN GLARGINE (*BKC) 100 UNITS/ML 40 UNITS SUB-Q (20:03)
[2020-05-29] VITALS (19 sets, daily range): BP systolic 92–155; BP diastolic 60–78; PULSE 64–91; RESP 12–20; TEMP 36.2–36.9; O2SAT 84–95
[2020-05-29 04:25] LABS: Hematocrit 30.1 % (42.0-52.0); Hemoglobin 10.3 g/dL (14.0-18.0); Mean Corpuscular HGB Conc 34.2 g/dl (32-36); Mean Corpuscular Hemoglobin 29.2 pg (26-34); Mean Corpuscular Volume 85.3 fl (80-100); Mean Platelet Volume 9.1 fl (7.4-10.4); Platelet Count Result 430 k/mm3 (150-375); Red Blood Count 3.53 M/mm3 (4.6-6.20); Red Cell Distribution Width 12.8 % (11.5-14.5); White Blood Count 16.7 K/mm3 (4.5-10.0)
[2020-05-29 04:38] LABS: D Dimer 3.44 ug/mL (<0.48)
[2020-05-29 04:47] LABS: Alanine Aminotransferase 92 U/L (4-50); Albumin Level 2.4 g/dL (3.5-5.1); Alkaline Phosphatase 129 U/L (38-126); Anion Gap 3 mmol/L (8-16); Aspartate Amino Transferase 54 U/L (17-59); Bilirubin,Total 0.2 mg/dL (0.2-1.3); Blood Urea Nitrogen 29 mg/dL (9-20); CRP 1.7 mg/dL (<1.0); Calcium 7.7 mg/dL (8.4-10.2); Carbon Dioxide 28 mmol/L (22-30); Chloride 102 mmol/L (98-107); Estimated CRCL calculation 88 ml/min; Estimated Glomerular Filt Rate > 60; Glucose 228 mg/dL (75-110); Lactate Dehydrogenase 850 U/L (313-618); Magnesium 1.8 mg/dL (1.6-2.3); Potassium 3.6 mmol/L (3.4-5.0); Sodium 133 mmol/L (137-145)
[2020-05-29] MEDS: ENOXAPARIN 40 MG/0.4 ML SYRINGE SUB-Q ×2 (09:04→19:53)
[2020-05-29] MEDS: INSULIN ASPART (*BKC) 100 UNITS/ML 10 UNITS SUB-Q ×3 (09:04→16:41)
[2020-05-29] MEDS: ATORVASTATIN 40 MG TABLET PO (09:04)
[2020-05-29] MEDS: METOPROLOL TARTRATE 25 MG TABLET PO ×2 (09:05→19:53)
[2020-05-29] MEDS: FAMOTIDINE 20 MG/2 ML VIAL IV PUSH (09:05)
[2020-05-29] MEDS: lisinopriL 20 MG TABLET PO ×2 (09:05→16:40)
[2020-05-29 10:48] LABS: Glucose Point of Care 120 (65-105)
[2020-05-29 12:52] LABS: Glucose Point of Care 130 (65-105)
--- NOTE | 2020-05-29 16:41 | HOMEO2EVAL ---
Home Oxygen Evaluation RC: Home Oxygen (O2) Evaluation Start: 05/29/20 11:26 Freq: ONCE Status: Active Protocol: RPE Activity Type Activity Date Activity User E-Sign Co-Sign Detail Recorded Client Recorded Date Recorded By Document 05/29/20 15:30 KALINA [email or web address] 05/29/20 16:41 KALINA Document 05/29/20 15:33 KALINA [email or web address] 05/29/20 16:41 KALINA Document 05/29/20 15:35 KALINA [email or web address] 05/29/20 16:41 KALINA Document 05/29/20 15:37 KALINA [email or web address] 05/29/20 16:41 KALINA Document 05/29/20 15:40 KALINA [email or web address] 05/29/20 16:41 KALINA Document 05/29/20 15:42 KALINA [email or web address] 05/29/20 16:41 KALINA Document 05/29/20 15:45 KALINA [email or web address] 05/29/20 16:41 KALINA 05/29/20 05/29/20 05/29/20 15:30 15:33 15:35 Home O2 Evaluation Test Phase Resting Resting Resting Oxygen Delivery Room Air Nasal Cannula Nasal Cannula Oxygen Flow Rate (L/min) 1 2 Pulse Oximetry (90-100 %) 85 L 87 L 87 L Pulse Rate (60-100 beats/min) 91 Ambulation Distance (feet) Treatment Charges O2 Evaluation 05/29/20 05/29/20 05/29/20 15:37 15:40 15:42 Home O2 Evaluation Test Phase Resting Exercise Exercise Oxygen Delivery Nasal Cannula Nasal Cannula Nasal Cannula Oxygen Flow Rate (L/min) 3 3 5 Pulse Oximetry (90-100 %) 89 L 84 L 87 L Pulse Rate (60-100 beats/min) Ambulation Distance (feet) Treatment Charges 05/29/20 15:45 Home O2 Evaluation Test Phase Exercise Oxygen Delivery Nasal Cannula Oxygen Flow Rate (L/min) 6 Pulse Oximetry (90-100 %) 89 L Pulse Rate (60-100 beats/min) Ambulation Distance (feet) 25 Treatment Charges
--- NOTE | 2020-05-29 16:41 | PCRCNOTE ---
AFTER HOME O2 EVAL, PATIENT HAD DIFFICULTY WITH KEEPING SATS > OR EQUAL TO 89% ON 3L AT REST. NO O2 WAS SET UP FOR DISCHARGE HOME AT THIS TIME PER DR REQUEST, WE WILL WAIT UNTIL PATIENTS SATS ARE MORE STABLE.
--- NOTE | 2020-05-29 16:57 | PM.IMPN ---
Progress Note: A&P Assessment and Plan (1) Acute respiratory failure due to COVID-19: Code(s): U07.1 - COVID-19; J96.00 - Acute respiratory failure, unspecified whether with hypoxia or hypercapnia Status: Acute Assessment and Plan: Currently at 3 L at rest He seems to be improving clinically, however he still requiring 6 L with physical activity. We will hold on the discharge and reassess for discharge tomorrow hopefully with less Oxygen requirements. (2) COVID-19: Code(s): U07.1 - COVID-19 Status: Acute Assessment and Plan: Continue dexamethasone day # 6 of 10 Received 1 U convalescent plasma and remdesivir On high dose lovenox due to high d dimer, he will need to go home on this medication for at least 10 more days. (3) Dysphagia: Qualifiers: Dysphagia type: unspecified Qualified Code(s): R13.10 - Dysphagia, unspecified Code(s): R13.10 - Dysphagia, unspecified Status: Acute Assessment and Plan: Tolerating diet (4) Type 2 diabetes mellitus: Qualifiers: Diabetes mellitus intermediate insulin use: with intermediate use Diabetes mellitus complication status: without complication Qualified Code(s): E11.9 - Type 2 diabetes mellitus without complications; Z79.4 - senior living (current) use of insulin Code(s): E11.9 - Type 2 diabetes mellitus without complications Status: Chronic Assessment and Plan: Continue basal insulin and increase short acting insulin to 15 units with meals plus correctional scale. (5) Hypertension: Qualifiers: Hypertension type: unspecified Qualified Code(s): I10 - Essential (primary) hypertension Code(s): I10 - Essential (primary) hypertension Status: Acute Assessment and Plan: Continue current management. (6) Amputation of left lower extremity: Qualifiers: Encounter type: subsequent encounter Qualified Code(s): S88.912D - Complete traumatic amputation of left lower leg, level unspecified, subsequent encounter Code(s): S88.912A - Complete traumatic amputation of left lower leg, level unspecified, initial encounter Status: Acute Subjective Date/time seen: He feels better, he is anxious about going home however he required 6 L per nc with physical activoty and still requiring 3L at rest. 05/29/20 16:57 Review of Systems Review of Systems: All systems reviewed & are unremarkable except as noted in HPI and below Exam Const: General: no acute distress Eyes: Pupils: Equal, round and reactive pupils present Neck: Neck: supple and no JVD Resp: Effort & Inspection: normal respiratory effort Auscultation: clear to auscultation bilaterally and diminished lung sounds Cardio: Rate: regular rate Rhythm: regular rhythm Other: No tachycardia GI: Auscultation: normal bowel sounds Other: Soft , non tender. Skin: General skin exam: normal color Neuro: Cranial nerves: Yes Equal, round and reactive pupils present Cognition (Neuro): normal cognition Speech: normal speech Other: No focal deficits. Extrem: Other: Left BKA Psych: Affect: normal affect Objective Data Vital Signs Vital Signs: Vital Signs - 24 hr 05/28/20 20:00 05/28/20 20:03 05/28/20 23:33 Temperature 98.5 F Pulse Rate 83 86 66 Respiratory Rate 15 13 Blood Pressure 158/75 H Pulse Oximetry 97 97 05/29/20 00:00 05/29/20 00:14 05/29/20 04:00 Temperature Pulse Rate 64 64 71 Respiratory Rate 15 Blood Pressure 148/78 H Pulse Oximetry 95 05/29/20 08:00 05/29/20 09:05 05/29/20 09:30 Temperature 97.2 F L Pulse Rate 68 72 67 Respiratory Rate 12 20 Blood Pressure 146/67 H Pulse Oximetry 94 94 05/29/20 12:00 05/29/20 13:00 05/29/20 15:30 Temperature Pulse Rate 72 77 91 Respiratory Rate 20 Blood Pressure Pulse Oximetry 91 85 L 05/29/20 15:33 05/29/20 15:35 05/29/20 15:37 Temperature Pulse Rate Respirato
[2020-05-29 18:57] LABS: Glucose Point of Care 178 (65-105)
[2020-05-29] MEDS: INSULIN GLARGINE (*BKC) 100 UNITS/ML 40 UNITS SUB-Q (19:56)
--- NOTE | 2020-05-29 21:37 | PC.NURSE ---
Report given to receiving nurse. All belongings gathered. No further questions.
[2020-05-30] VITALS (14 sets, daily range): BP systolic 108–147; BP diastolic 51–69; PULSE 61–108; RESP 18; TEMP 36.4–36.7; O2SAT 85–98; BMI 29.9
[2020-05-30 07:17] LABS: Hematocrit 30.5 % (42.0-52.0); Hemoglobin 10.2 g/dL (14.0-18.0); Mean Corpuscular HGB Conc 33.4 g/dl (32-36); Mean Corpuscular Hemoglobin 28.7 pg (26-34); Mean Corpuscular Volume 85.7 fl (80-100); Mean Platelet Volume 9.2 fl (7.4-10.4); Platelet Count Result 404 k/mm3 (150-375); Red Blood Count 3.56 M/mm3 (4.6-6.20); Red Cell Distribution Width 12.8 % (11.5-14.5); White Blood Count 18.1 K/mm3 (4.5-10.0)
[2020-05-30 07:30] LABS: D Dimer 3.19 ug/mL (<0.48)
[2020-05-30 07:39] LABS: Anion Gap 5 mmol/L (8-16); Blood Urea Nitrogen 31 mg/dL (9-20); Calcium 7.5 mg/dL (8.4-10.2); Carbon Dioxide 28 mmol/L (22-30); Chloride 103 mmol/L (98-107); Estimated CRCL calculation 71 ml/min; Estimated Glomerular Filt Rate > 60; Glucose 133 mg/dL (75-110); Potassium 3.6 mmol/L (3.4-5.0); Sodium 136 mmol/L (137-145)
[2020-05-30 08:39] LABS: Glucose Point of Care 118 (65-105)
[2020-05-30] MEDS: INSULIN ASPART (*BKC) 100 UNITS/ML 12 UNITS SUB-Q ×2 (08:39→12:56)
[2020-05-30] MEDS: METOPROLOL TARTRATE 25 MG TABLET PO (08:40)
[2020-05-30] MEDS: ATORVASTATIN 40 MG TABLET PO (08:40)
[2020-05-30] MEDS: lisinopriL 20 MG TABLET PO (08:40)
[2020-05-30] MEDS: FAMOTIDINE 20 MG/2 ML VIAL IV PUSH (08:41)
[2020-05-30] MEDS: ENOXAPARIN 40 MG/0.4 ML SYRINGE SUB-Q (08:41)
--- NOTE | 2020-05-30 09:12 | ECG_ITS ---
Measurements Intervals [place] Rate: 73 P: 35 SD: 198 QRS: -82 QRSD: 149 T: 83 QT: 455 QTc: 503 Interpretive Statements SINUS RHYTHM VENTRICULAR PREMATURE COMPLEX RIGHT BUNDLE BRANCH BLOCK LEFT ANTERIOR FASCICULAR BLOCK ABNORMAL ECG Electronically Signed On 05-30-2020 11:15:30 CDT by Imtiaz Shen D.O.
[2020-05-30 12:44] LABS: Glucose Point of Care 163 (65-105)
--- NOTE | 2020-05-30 13:28 | HOMEO2EVAL ---
Home Oxygen Evaluation RC: Home Oxygen (O2) Evaluation Start: 05/30/20 11:32 Freq: ONCE Status: Active Protocol: RPE Activity Type Activity Date Activity User E-Sign Co-Sign Detail Recorded Client Recorded Date Recorded By Document 05/30/20 12:30 DJO [email or web address] 05/30/20 13:26 DJO Document 05/30/20 12:35 DJO [email or web address] 05/30/20 13:26 DJO Document 05/30/20 12:40 DJO [email or web address] 05/30/20 13:26 DJO Document 05/30/20 12:45 DJO [email or web address] 05/30/20 13:26 DJO Document 05/30/20 12:50 [email or web address] [email or web address] 05/30/20 13:26 DJO Document 05/30/20 12:55 DJO [email or web address] 05/30/20 13:26 DJO Document 05/30/20 13:05 DJO [email or web address] 05/30/20 13:26 DJO 05/30/20 05/30/20 05/30/20 12:30 12:35 12:40 Home O2 Evaluation Test Phase Resting Resting Resting Oxygen Delivery Room Air Nasal Cannula Nasal Cannula Oxygen Flow Rate (L/min) 1 2 Pulse Oximetry (90-100 %) 85 L 87 L 90 Pulse Rate (60-100 beats/min) 90 94 92 Activity Tolerance Treatment Charges O2 Evaluation 05/30/20 05/30/20 05/30/20 12:45 12:50 12:55 Home O2 Evaluation Test Phase Exercise Exercise Exercise Oxygen Delivery Nasal Cannula Nasal Cannula Nasal Cannula Oxygen Flow Rate (L/min) 2 3 4 Pulse Oximetry (90-100 %) 86 L 88 L 90 Pulse Rate (60-100 beats/min) 100 102 H 108 H Activity Tolerance Fair Treatment Charges 05/30/20 13:05 Home O2 Evaluation Test Phase Resting Oxygen Delivery Nasal Cannula Oxygen Flow Rate (L/min) 2 Pulse Oximetry (90-100 %) 89 L Pulse Rate (60-100 beats/min) 90 Activity Tolerance Treatment Charges
--- NOTE | 2020-05-30 14:25 | PCRCNOTE ---
HOME O2 EVAL COMPLETE, 2 LITERS AT REST AND 4 LITERS WITH ACTIVITY. SET UP WITH [employer] PHONE NUMBER [phone]. TANK HAS BEEN DELIVERED TO PT'S ROOM.
--- NOTE | 2020-05-30 16:31 | PM.DS ---
DS: Admitting Diagnosis Admitting Diagnosis Admitting Diagnosis: covid-19,pneumonia,hypoxemia,dehydration, hypergly DS: Discharge Diagnosis Discharge Diagnosis (1) Acute respiratory failure due to COVID-19: Code(s): U07.1 - COVID-19; J96.00 - Acute respiratory failure, unspecified whether with hypoxia or hypercapnia Status: Acute (2) Pneumonia: Qualifiers: Laterality: bilateral Lung location: unspecified part of lung Pneumonia type: due to unspecified organism Qualified Code(s): J18.9 - Pneumonia, unspecified organism Code(s): J18.9 - Pneumonia, unspecified organism Status: Acute (3) Acute hyperglycemia: Code(s): R73.9 - Hyperglycemia, unspecified Status: Acute (4) Hypertension: Qualifiers: Hypertension type: unspecified Qualified Code(s): I10 - Essential (primary) hypertension Code(s): I10 - Essential (primary) hypertension Status: Acute (5) Amputation of left lower extremity: Qualifiers: Encounter type: subsequent encounter Qualified Code(s): S88.912D - Complete traumatic amputation of left lower leg, level unspecified, subsequent encounter Code(s): S88.912A - Complete traumatic amputation of left lower leg, level unspecified, initial encounter Status: Acute DS: Summary Hospital Course Reason for hospitalization: Respiratory failure Hospital Course: 65 yo who presented to the hospital with weakness, SOB and was found to have viral pneumonia due to COVID 19. He was also diagnosed with concomitant bacterial PNA due to MRSA which was growing on his sputum cultures. He received dexamethasone for which he has 4 more doses, remdesivir and convalescent plasma. He responded very well to therapy was transferred out from ICU , prior to discharge he had a home O2 evaluation that showed that he needs 2 L nc at rest and 4 L with activity. Given his elevated inflammatory markers , high d dimer he was discharge on high dose lovenox for prophylaxis for at least ten more days. For the concomitant MRSA pneumonia he went home on levofloxacin 750 for 7 days , his sputum showed good sensitivity to this antibiotic, we checked his QTC prior to order levofloxacin and was wnl. Status at Discharge Overall status at discharge: patient is progressing back to baseline Time Spent with Patient Time attestation: Total time spent providing and/or coordinating discharge services: Time spent: Greater than 30 minutes Exam Const: General: no acute distress Eyes: Pupils: Equal, round and reactive pupils present Neck: Neck: supple and no JVD Resp: Effort & Inspection: normal respiratory effort Auscultation: clear to auscultation bilaterally and diminished lung sounds Cardio: Rate: regular rate Rhythm: regular rhythm Other: No tachycardia GI: Auscultation: normal bowel sounds Other: Soft , non tender. Skin: General skin exam: normal color Neuro: Cranial nerves: Yes Equal, round and reactive pupils present Cognition (Neuro): normal cognition Speech: normal speech Other: No focal deficits. Extrem: Other: Left BKA Psych: Affect: normal affect DS: Data Data Completed and Pending Labs on day of discharge: Labs from last 24 hours 05/30/20 05/30/20 05/30/20 12:01 08:05 06:51 WBC RBC Hgb Hct MCV MCH MCHC RDW Plt Count MPV D-Dimer Sodium 136 L Potassium 3.6 Chloride 103 Carbon Dioxide 28 Anion Gap 5 L BUN 31 H Creatinine 1.00 Estim Creat Clear Calc 71 Estimated GFR > 60 Glucose 133 H POC Capillary Glucose 163 H 118 H Calcium 7.5 L 05/30/20 05/30/20 05/29/20 06:51 06:51 16:35 WBC 18.1 H RBC 3.56 L Hgb 10.2 L Hct 30.5 L MCV 85.7 MCH 28.7 MCHC 33.4 RDW 12.8 Plt Count 404 H MPV 9.2 D-Dimer 3.19 H Sodium Potassium Chloride Carbon Dioxide Anion Gap BUN Creatinine Estim Creat Clear Calc
== END 2020-05-30 15:44 | disposition home health service (06) | DRG 177 ==
LOC: ANHED 11:51 → ANH3MEDSUR 12:43 → ANHICU 05-25 11:19 → ANH3MEDSUR 05-31 15:11 → ANHICU 05-31 15:11
PROVIDERS: Emergency Medicine Emergency Medical Services; Family Medicine; Internal Medicine; Nurse Practitioner; Physician Assistant; Admitting Provider Family Medicine; Emergency Provider Emergency Medicine; PCP Family Medicine; Visit Provider Hospitalist
DX: U07.1 COVID-19 (principal); J12.89 Other viral pneumonia; J15.212 Pneumonia due to Methicillin resistant Staphylococcus aureus; J96.01 Acute respiratory failure with hypoxia; I47.1 Supraventricular tachycardia; I10 Essential (primary) hypertension; E11.9 Type 2 diabetes mellitus without complications; E86.0 Dehydration; E11.65 Type 2 diabetes mellitus with hyperglycemia; R13.10 Dysphagia, unspecified; E78.5 Hyperlipidemia, unspecified; D72.829 Elevated white blood cell count, unspecified; Z89.512 Acquired absence of left leg below knee; Z79.4 Long term (current) use of insulin
CPT/HCPCS: 36415; 36430; 36600; 71045; 80048; 80053; 80076; 81001; 82010; 82375; 82728; 82805; 83036; 83050; 83605; 83615; 83735; 84100; 84460; 85025; 85027; 85380; 85610; 85730; 86140; 86850; 86900; 86901; 87040; 87070; 87186; 87205; 93005; 93306; 94618; 96365; 96375; 97116; 97161; 97165; 97530; 97535; 99285; A9270; J0131; J0360; J1100; J1650; J1815; J7030; J7050; J7120; J8540; P9059

== ENCOUNTER 2020-11-26 22:17 | Inpatient (IN) | payer MEDICARE, SELFPAY ==
--- NOTE | ~2020-11-26 | MR_ITS ---
EXAMINATION: MR foot RT wo/w con DATE: 11/27/2020 13:04 INDICATION: Diabetic foot infection with wound near the fifth metatarsal TECHNIQUE: Magnetic resonance imaging (MRI) of the right fore/mid foot was performed without and with 19 mL Multihance intravenous contrast. Sequences included axial, sagittal and coronal T1-weighted FS E and T2-weighted FS FSE, axial T1-weighted FS FSE and postcontrast axial, sagittal and coronal T1-we ighted FS FSE. COMPARISON: Right foot radiographs dated 11/26/2020 FINDINGS: There is a skin ulceration overlying the lateral tuberosity base of the fifth metatarsal. There is mi nimal marrow edema and enhancement without definitive cortical erosion which remains equivocal for re active edema versus very early osteomyelitis. Mild osteoarthritis at the first metatarsophalangeal dustin int with mild subarticular edema at the head of the first metatarsal. There is also likely reactive e geoffrey in the first metatarsal fibular sesamoid related to osteoarthritis at the metatarsal sesamoid ar ticulation. Otherwise normal marrow signal throughout. No fracture. There is subcutaneous edema over the dorsum of the foot. Mild increased fluid signal and fatty atrophy of the intrinsic musculature of the foot consistent with acute on chronic denervation changes. No abscess, joint effusions or other abnormal fluid collections. Visualized portion of the flexor and extensor tendons are normal. The Lis franc ligament complex as well as the collateral ligament complex at the metatarsophalangeal joints a ppear normal. IMPRESSION: 1. Minimal marrow edema and enhancement without definitive overlying cortical erosion at the lateral tuberosity at the base of the fifth metatarsal underlying a partial thickness skin ulceration. Differ ential would include reactive marrow edema or very early osteomyelitis. Reviewed, dictated and finalized at location A. WARE DEVELOPER CONSULTANT IMPRESSION: 1. Minimal marrow edema and enhancement without definitive overlying cortical e rosion at the lateral tuberosity at the base of the fifth metatarsal underlying a partial thickness skin ulceration. Differential would include reactive marro w edema or very early osteomyelitis.
--- NOTE | ~2020-11-26 | US_ITS ---
EXAMINATION: US arterial ankle brachial ind DATE: 11/28/2020 15:53 INDICATION: Peripheral arterial disease. Right foot ulcer. TECHNIQUE: Segmental pressures and plethysmographic and Doppler waveforms of the brachial and lower e xtremity arteries were obtained. COMPARISON: Ultrasound and segmental pressures 03/29/2020 FINDINGS: Right and left brachial artery pressures of 132 mm Hg and 154 mm Hg, respectively, are concordant (no rmal difference <= 30 mmHg). The right ankle-brachial index (KEYONNA) could not be measured due to inability to cuff-occlude the poste rior tibial artery (normal >= 0.9-1.0). The right great toe-brachial index (TBI) is 0.71 (normal >= 0 .65). Arterial Doppler waveforms are biphasic at the ankle. There is a left lower limb amputation. IMPRESSION: 1. Normal right TBI and nondiagnostic right KEYONNA. No significant right-sided arterial occlusive diseas e. Reviewed, dictated and finalized at location A. E OUTREACH CASE MANAGER IMPRESSION: 1. Normal right TBI and nondiagnostic right KEYONNA. No significant right-sided art erial occlusive disease.
--- NOTE | ~2020-11-26 | XR_ITS ---
EXAMINATION: XR foot RT 2V DATE: 11/26/2020 22:47 INDICATION: Right foot diabetic ulcer near the fifth metatarsal. TECHNIQUE: 2 views of right foot on 3 radiographs were obtained. COMPARISON: Right foot radiographs 07/29/2014 FINDINGS: Bone alignment is normal. No fracture. There is mild osteoarthritis of some of the interpha langeal joints and midfoot joints. IMPRESSION: 1. No evidence of osteomyelitis. Reviewed, dictated and finalized at location A. GER LAW
--- NOTE | 2020-11-26 20:55 | ADMGEN ---
This patient, Hernando Espana IV, was admitted to Medical Room 347-. Patient/family oriented to hospital policies and general routines including ID bracelet, bed and alarms, visiting hours, pain management, procedures, bathroom and other care routines, personal items, smoking policy, room service/diet, and visiting hours. Information on how to activate the Rapid Response Team has been discussed. Patient/Family are encouraged to report perceived risks to care and to ask questions if they do not understand what they are told or what they should do.
[2020-11-26 20:59] VITALS: BP 146/65; PULSE 88; RESP 16; TEMP 36.7; O2SAT 96; BMI 28.5
--- NOTE | 2020-11-26 22:30 | PM.IMHP ---
H&P: HPI History of Present Illness Date/Time: 11/06/20 21:30 Chief Complaint: Right diabetic foot wound. Narrative: This is a 65-year-old male with insulin-dependent diabetes, diabetic peripheral neuropathy, hypertension, and history of osteomyelitis and MRSA who is being directly admitted to the hospitalist service at the request of Dr. Goodwin (plastic surgery) for further treatment and evaluation of a right diabetic foot wound. Three days ago on Thursday the patient noticed mild swelling in his right lower extremity, discomfort in the foot, and ultimately he noticed a small wound on the lateral aspect of his right foot for which he has been applying bacitracin. After seeing Dr. Goodwin in the office today, it was felt that he needed to be admitted for IV antibiotics and imaging to rule out osteomyelitis. With further questioning he does mention that his glucose has been running high over the last couple of weeks and that was perplexing to him. In fact his glucose was a little over 400 earlier today despite being compliant with his insulin. He has not had fever, chills, or sweats. No nausea or vomiting. Review of Systems Review of Systems: Narrative: Twelve systems were reviewed with pertinent positives and negatives as per HPI. No fever, chills, or sweats. Glucose has been running high as per HPI. No blurry vision, polydipsia, or polyuria. Appetite has been good. No nausea or vomiting. The patient is currently being followed at the wound clinic after sustaining a burn to his penis in a soldering incident. Except as documented, all other systems were reviewed and are negative. [facility] Past Medical History Medical History (Updated 11/27/20 @ 00:26 by Elis Kwok PA-C) Chronic anemia Chronic kidney disease COVID-19 (~05/2020) Diabetic peripheral neuropathy Diabetic retinopathy History of esophageal dilatation History of esophageal stricture Hyperlipidemia Hypertension Insulin dependent type 2 diabetes mellitus Hemoglobin A1c was 10.2% on 11/26/2020. MRSA pneumonia Peripheral vascular disease in diabetes mellitus Primary hypertension Proteinuria due to type 2 diabetes mellitus Surgical History Surgical History (Updated 11/27/20 @ 00:22 by Elis Kwok PA-C) History of bilateral carpal tunnel release History of cataract extraction History of left below knee amputation History of tonsillectomy History of transmetatarsal amputation of left foot Status post debridement Osteomyelitis of the right 1st toe. Family History Family History Father Diabetes mellitus Hypertension Mother Family history of malignant neoplasm of kidney Mother Family history of malignant neoplasm of kidney Father Diabetes mellitus Hypertension Lung cancer Social History Social History (Updated 11/27/20 @ 00:23 by Elis Kwok PA-C) Social History: The patient is and lives in [place] with his significant other. He has 1 biological son. Lifelong nonsmoker. No alcohol or illicit substance use. 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 He designates his long-term significant other, Deneen Gallagher, as his surrogate decision maker and he wishes to be a full code. If Deneen cannot make decisions, he then appoints his son Hernando Espana V as his alternate surrogate decision maker. Spiritual care concerns: No Agree to blood products: Yes Meds Home Medications and Allergies Home Medications Medication Instructions Recorded Confirmed Type blood sugar diagnostic #10 each 08/17/19 11/26/20 Rx lancets 33 gauge #100 each 08/17/19 11/26/20 History insulin lispro 200 unit/mL (3 mL) 12 unit SUB-Q .with meals ml 08/22/19 11/26/20 History subcutaneous pen pen needle, diabetic 31 gauge x #500 each 10/20/19 11/26/20 Rx 12/18 atorvastatin 40 mg tablet 40 mg PO DAILY #90 tablet 11/17/19 11/26/20 Rx insulin glargine U-300 conc 300 40 un
[2020-11-26 22:48] LABS: Basophils Absolute Auto 0.1 K/mm3 (0.0-0.1); Basophils Percent Auto 0.5 % (0.2-1.2); Eosinophils Absolute Auto 0.1 K/mm3 (0-0.3); Eosinophils Percent Auto 1.3 % (0-4.4); Hematocrit 30.4 % (42.0-52.0); Hemoglobin 10.1 g/dL (14.0-18.0); Immature Granulocyte Absolute 0.08 K/mm3 (0.00-0.031); Immature Granulocyte Percent A 0.7 % (0-0.5); Lymphocytes Absolute Auto 2.76 K/mm3 (0.9-3.2); Lymphocytes Percent Auto 24.8 % (18.3-44.2); Mean Corpuscular HGB Conc 33.2 g/dl (32-36); Mean Corpuscular Hemoglobin 28.7 pg (26-34); Mean Corpuscular Volume 86.4 fl (80-100); Mean Platelet Volume 8.4 fl (7.4-10.4); Monocytes Absolute Auto 0.9 K/mm3 (0.1-0.6); Monocytes Percent Auto 8.4 % (2.6-8.5); Neutrophils Absolute Auto 7.2 K/mm3 (1.3-6.7); Neutrophils Percent Auto 64.3 % (45.5-73.1); Platelet Count Result 280 k/mm3 (150-375); Red Blood Count 3.52 M/mm3 (4.6-6.20); White Blood Count 11.1 K/mm3 (4.5-10.0)
[2020-11-26 23:02] LABS: Anion Gap 5 mmol/L (8-16); Blood Urea Nitrogen 33 mg/dL (9-20); CRP 1.8 mg/dL (<1.0); Calcium 8.8 mg/dL (8.4-10.2); Carbon Dioxide 29 mmol/L (22-30); Chloride 100 mmol/L (98-107); Estimated CRCL calculation 60 ml/min; Estimated Glomerular Filt Rate > 60; Glucose 301 mg/dL (75-110); Hemoglobin A1C 10.2 % (<5.7); Potassium 4.5 mmol/L (3.4-5.0); Sodium 134 mmol/L (137-145)
[2020-11-26 23:41] LABS: Erythrocyte Sedimentation Rate > 140 mm/hr (0-20)
--- NOTE | 2020-11-27 00:42 | PHAR ---
VERIFIED HOME (Insulin Glargine U-300 Conc [Tosandi Solostar U-300 Insulin] 300 unit/mL IN PHARMACY AND SENT DOSE BACK TO FLOOR AT ~ 01:00
[2020-11-27 06:00] VITALS: BP 152/69; PULSE 72; RESP 16; TEMP 36.1; O2SAT 100
[2020-11-27 06:11] LABS: Anion Gap 3 mmol/L (8-16); Blood Urea Nitrogen 29 mg/dL (9-20); Calcium 8.7 mg/dL (8.4-10.2); Carbon Dioxide 27 mmol/L (22-30); Chloride 101 mmol/L (98-107); Estimated CRCL calculation 71 ml/min; Estimated Glomerular Filt Rate > 60; Glucose 249 mg/dL (75-110); Potassium 4.2 mmol/L (3.4-5.0); Sodium 131 mmol/L (137-145)
[2020-11-27 08:10] LABS: Glucose Point of Care 192 (65-105)
[2020-11-27] MEDS: lisinopriL 20 MG TABLET 40 MG PO (08:30)
[2020-11-27] MEDS: ATORVASTATIN 40 MG TABLET PO (08:31)
[2020-11-27] MEDS: ENOXAPARIN 40 MG/0.4 ML SYRINGE SUB-Q (08:31)
[2020-11-27] MEDS: ACETAMINOPHEN 325 MG TABLET 650 MG PO (08:33)
[2020-11-27 08:45] LABS: Basophils Absolute Auto 0.1 K/mm3 (0.0-0.1); Basophils Percent Auto 0.7 % (0.2-1.2); Eosinophils Absolute Auto 0.2 K/mm3 (0-0.3); Eosinophils Percent Auto 1.9 % (0-4.4); Hematocrit 30.5 % (42.0-52.0); Hemoglobin 10.2 g/dL (14.0-18.0); Immature Granulocyte Absolute 0.07 K/mm3 (0.00-0.031); Immature Granulocyte Percent A 0.7 % (0-0.5); Lymphocytes Absolute Auto 2.59 K/mm3 (0.9-3.2); Lymphocytes Percent Auto 27.1 % (18.3-44.2); Mean Corpuscular HGB Conc 33.4 g/dl (32-36); Mean Corpuscular Hemoglobin 28.7 pg (26-34); Mean Corpuscular Volume 85.7 fl (80-100); Mean Platelet Volume 8.4 fl (7.4-10.4); Monocytes Absolute Auto 0.8 K/mm3 (0.1-0.6); Monocytes Percent Auto 8.5 % (2.6-8.5); Neutrophils Absolute Auto 5.9 K/mm3 (1.3-6.7); Neutrophils Percent Auto 61.1 % (45.5-73.1); Platelet Count Result 295 k/mm3 (150-375); Red Blood Count 3.56 M/mm3 (4.6-6.20); Red Cell Distribution Width 12.8 % (11.5-14.5); White Blood Count 9.6 K/mm3 (4.5-10.0)
[2020-11-27] MEDS: INSULIN ASPART (*BKC) 100 UNITS/ML SUB-Q ×3 (08:51→17:05)
[2020-11-27] MEDS: SILVERGEL (ELTA) 45 ML 1 APPLIC TOPICAL (10:57)
[2020-11-27] MEDS: MUPIROCIN 2% OINT 22 GM TUBE 1 APPLIC TOPICAL (10:57)
--- NOTE | 2020-11-27 12:11 | WPDCN ---
Assessment and Plan Assessment and plan (1) Diabetic ulcer of right foot: Code(s): E11.621 - Type 2 diabetes mellitus with foot ulcer; L97.519 - Non-pressure chronic ulcer of other part of right foot with unspecified severity Status: Acute Assessment and Plan: New foot ulcer. Poorly controlled DM. Good recent KEYONNA with calcification of vessels. Additional Plan MRI ID consult Continue antibiotics. Vanc and Imipenem. Wound care per CWON. HPI Data of Consult Date/Time: 11/27/20 12:11 Requesting Physician: Sylvia Reid PA-C Primary Care Provider: Benigno Chavira PA-C Consult Narrative Narrative: Hernando Espana IV is a 65 year old male poorly controlled diabetic with an new diabetic foot ulcer on the right 5th metatarsal base. This was first noticed by him Thursday, 4 days ago when he noticed his leg swelling and opening of the skin. His blood sugar had been over 400 around that time. He did not know his recent Hb A1c, ( over 10 on admission). He presented to my office because of this new ulcer and he was admitted to the hospitalists from there on 11/27/20. WBC less that 10. Crp 1.8. KEYONNA in March of 2020 on the right: 1.06 Wound culture pending. Foot xray, no sign of osteomyelitis. Serum glucose coming under control now. He is a left BK amputee from 2018. He also is currently being seen by Dr Tijerina for a burn to the dorsal penis from a soldering gun being used in his basement. That is also under the care of the [facility] at this hospital. [facility] Past Medical History Medical History Chronic anemia Chronic kidney disease COVID-19 (~05/2020) Diabetic peripheral neuropathy Diabetic retinopathy History of esophageal dilatation History of esophageal stricture Hyperlipidemia Hypertension Insulin dependent type 2 diabetes mellitus Hemoglobin A1c was 10.2% on 11/26/2020. MRSA pneumonia Peripheral vascular disease in diabetes mellitus Primary hypertension Proteinuria due to type 2 diabetes mellitus Surgical History Surgical History History of bilateral carpal tunnel release History of cataract extraction History of left below knee amputation History of tonsillectomy History of transmetatarsal amputation of left foot Status post debridement Osteomyelitis of the right 1st toe. Family History Family History Father Diabetes mellitus Hypertension Mother Family history of malignant neoplasm of kidney Mother Family history of malignant neoplasm of kidney Father Diabetes mellitus Hypertension Lung cancer Social History Social History Social History: The patient is and lives in [place] with his significant other. He has 1 biological son. Lifelong nonsmoker. No alcohol or illicit substance use. 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 He designates his long-term significant other, Deneen Gallagher, as his surrogate decision maker and he wishes to be a full code. If Deneen cannot make decisions, he then appoints his son Hernando Espana V as his alternate surrogate decision maker. Spiritual care concerns: No Agree to blood products: Yes Meds Home Medications and Allergies Home Medications Medication Instructions Recorded Confirmed Type blood sugar diagnostic #10 each 08/17/19 11/26/20 Rx lancets 33 gauge #100 each 08/17/19 11/26/20 History insulin lispro 200 unit/mL (3 mL) 12 unit SUB-Q .with meals ml 08/22/19 11/26/20 History subcutaneous pen pen needle, diabetic 31 gauge x #500 each 10/20/19 11/26/20 Rx 12/18 atorvastatin 40 mg tablet 40 mg PO DAILY #90 tablet 11/17/19 11/26/20 Rx insulin glargine U-300 conc 300 40 unit SUB-Q .QHS #13.5 ml 11/28/19 11/26/20 Rx unit/mL (1.5 mL) subcutaneous pen blood sugar diagnostic #10
[2020-11-27 12:13] LABS: Glucose Point of Care 214 (65-105)
[2020-11-27 13:22] LABS: Glucose Point of Care 179 (65-105)
--- NOTE | 2020-11-27 14:08 | PC.NURSE ---
Reviewed and observed documentation and patient care given by student nurse Juan Hollins [phone]
[2020-11-27 14:14] VITALS: BP 141/60; PULSE 72; RESP 14; TEMP 36.2; O2SAT 100
--- NOTE | 2020-11-27 15:13 | PM.IMPN ---
Progress Note: A&P Assessment and Plan (1) Diabetic ulcer of right foot: Code(s): E11.621 - Type 2 diabetes mellitus with foot ulcer; L97.519 - Non-pressure chronic ulcer of other part of right foot with unspecified severity Status: Acute Assessment and Plan: New-onset at the base of the right 5th metatarsal. Plain films of the right foot showed no evidence of osteomyelitis. MRI read per radiology as minimal marrow edema and enhancement at the lateral tuberosity at the base of the 5th metatarsal without definitive cortical erosion which is equivocal for reactive edema versus early osteomyelitis. WBC elevated on admission at 11,100 and has normalized. ESR >140. CRP 1.8. KEYONNA from 03/[address] was [address] Goodwin with plastic surgery is following and input is greatly appreciated Dr. Keith with infectious disease was consulted given concern for possible early OM vs reactive edema. Appreciate input. Continue imipenem and vancomycin per antibiotic stewardship recommendations. Await infectious disease input. Encourage leg elevation Wound and blood cultures obtained and pending Wound care following and input is appreciated (2) Cellulitis of right foot: Code(s): L03.115 - Cellulitis of right lower limb Status: Acute Assessment and Plan: Plan as above. (3) Insulin dependent type 2 diabetes mellitus: Code(s): E11.9 - Type 2 diabetes mellitus without complications; Z79.4 - prison (current) use of insulin Status: Chronic Assessment and Plan: Hemoglobin A1c was 10.2% on admission 11/26. Blood sugars are reasonable although most recent blood sugar is elevated above target at 305. Continue ACHS glucose monitoring, sliding scale insulin, and hypoglycemia protocol Will consult the community nutrition educator Continue home toujeo Mealtime insulin is available as a sliding scale Improved glycemic control is imperative given his wound, neuropathy, and hx of amputation and this has been encouraged. Risks of atherosclerotic disease with poorly controlled diabetes were also discussed with the patient. (4) Hypertension: Qualifiers: Hypertension type: unspecified Qualified Code(s): I10 - Essential (primary) hypertension Code(s): I10 - Essential (primary) hypertension Status: Chronic Assessment and Plan: Blood pressures are a bit elevated above target in the 140s-150s. Continue lisinopril and diltiazem Monitor BP closely and adjust therapy as indicated (5) Chronic anemia: Code(s): D64.9 - Anemia, unspecified Status: Chronic Assessment and Plan: Chronic and normocytic. Likely anemia of chronic diease. Labs are consistent with baseline. Continue to monitor and transfuse as needed to maintain Hb >7 Recommend continued outpatient follow-up (6) Open wound of penis: Code(s): S31.20XA - Unspecified open wound of penis, initial encounter Status: Acute Assessment and Plan: Occurred in September after incident while using a soldering iron. He follows with wound care and Dr. Tijerina. No evidence of acute infection. Continue wound care recommendations. Wound care is following while inpatient and he will need to continue outpatient follow-up with wound care. Subjective Date/time seen: 11/27/20 15:13 Mr. Espana is a 65 y.o. male with PMH significant for insulin-dependent diabetes, diabetic peripheral neuropathy, hypertension, and history of osteomyelitis and MRSA who is seen in follow-up for right diabetic foot wound. He is doing well overall and has no specific complains aside from occasional, intermittent pain in the right foot with mild swelling. He denies subjective fever and chills. He denies nausea, vomiting, and abdominal pain. He denies shortness of breath, cough, and chest pain. His appetite is good and he has no other complaints. Review of Systems Review of Systems: All system
[2020-11-27 16:49] LABS: Glucose Point of Care 305 (65-105)
[2020-11-27 20:29] VITALS: BP 147/70; PULSE 78; RESP 16; TEMP 36.7; O2SAT 99
[2020-11-27 21:59] LABS: Glucose Point of Care 286 (65-105)
[2020-11-28 04:31] VITALS: BP 152/74; PULSE 76; RESP 16; TEMP 36.4; O2SAT 100
[2020-11-28 06:52] LABS: Basophils Absolute Auto 0.1 K/mm3 (0.0-0.1); Basophils Percent Auto 0.8 % (0.2-1.2); Eosinophils Absolute Auto 0.2 K/mm3 (0-0.3); Eosinophils Percent Auto 2.5 % (0-4.4); Hematocrit 31.2 % (42.0-52.0); Hemoglobin 10.2 g/dL (14.0-18.0); Immature Granulocyte Absolute 0.07 K/mm3 (0.00-0.031); Immature Granulocyte Percent A 0.8 % (0-0.5); Lymphocytes Absolute Auto 2.45 K/mm3 (0.9-3.2); Lymphocytes Percent Auto 26.7 % (18.3-44.2); Mean Corpuscular HGB Conc 32.7 g/dl (32-36); Mean Corpuscular Hemoglobin 28.5 pg (26-34); Mean Corpuscular Volume 87.2 fl (80-100); Mean Platelet Volume 8.8 fl (7.4-10.4); Monocytes Absolute Auto 0.7 K/mm3 (0.1-0.6); Neutrophils Absolute Auto 5.6 K/mm3 (1.3-6.7); Neutrophils Percent Auto 61.2 % (45.5-73.1); Platelet Count Result 302 k/mm3 (150-375); Red Blood Count 3.58 M/mm3 (4.6-6.20); Red Cell Distribution Width 12.8 % (11.5-14.5); White Blood Count 9.2 K/mm3 (4.5-10.0)
[2020-11-28 07:14] LABS: Anion Gap 3 mmol/L (8-16); Blood Urea Nitrogen 28 mg/dL (9-20); CRP 1.7 mg/dL (<1.0); Calcium 8.9 mg/dL (8.4-10.2); Carbon Dioxide 29 mmol/L (22-30); Chloride 101 mmol/L (98-107); Estimated CRCL calculation 71 ml/min; Estimated Glomerular Filt Rate > 60; Glucose 279 mg/dL (75-110); Sodium 133 mmol/L (137-145)
[2020-11-28 07:32] LABS: Glucose Point of Care 249 (65-105)
[2020-11-28 08:00] VITALS: BP 137/73; PULSE 82; RESP 16; TEMP 37; O2SAT 100
[2020-11-28] MEDS: INSULIN ASPART (*BKC) 100 UNITS/ML SUB-Q (08:05)
[2020-11-28] MEDS: ENOXAPARIN 40 MG/0.4 ML SYRINGE SUB-Q (08:10)
[2020-11-28] MEDS: lisinopriL 20 MG TABLET 40 MG PO (08:12)
[2020-11-28] MEDS: ATORVASTATIN 40 MG TABLET PO (08:13)
[2020-11-28] MEDS: MUPIROCIN 2% OINT 22 GM TUBE 1 APPLIC TOPICAL (08:14)
[2020-11-28] MEDS: SILVERGEL (ELTA) 45 ML 1 APPLIC TOPICAL (08:14)
[2020-11-28 11:49] LABS: Glucose Point of Care 171 (65-105)
[2020-11-28] MEDS: INSULIN ASPART (*BKC) 100 UNITS/ML 8 UNITS SUB-Q ×2 (12:05→17:11)
--- NOTE | 2020-11-28 12:47 | PM.IMPN ---
Progress Note: A&P Assessment and Plan (1) Diabetic ulcer of right foot: Code(s): E11.621 - Type 2 diabetes mellitus with foot ulcer; L97.519 - Non-pressure chronic ulcer of other part of right foot with unspecified severity Status: Acute Assessment and Plan: New-onset at the base of the right 5th metatarsal. Plain films of the right foot showed no evidence of osteomyelitis. MRI read per radiology as minimal marrow edema and enhancement at the lateral tuberosity at the base of the 5th metatarsal without definitive cortical erosion which is equivocal for reactive edema versus early osteomyelitis. WBC elevated on admission at 11,100 and has normalized. ESR >140. CRP 1.8. KEYONNA from 03/[address] was [address] Goodwin with plastic surgery is following and input is greatly appreciated Dr. Keith with infectious disease was consulted given concern for possible early OM vs reactive edema. Appreciate input. Continue imipenem and vancomycin per antibiotic stewardship recommendations. Await infectious disease input. Encourage leg elevation Wound and blood cultures obtained and pending. Preliminary blood cultures show NGTD. Wound care following and input is appreciated Repeat KEYONNA given diminished pulses on exam (2) Cellulitis of right foot: Code(s): L03.115 - Cellulitis of right lower limb Status: Acute Assessment and Plan: Plan as above. 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 He has had several readings above target with some in the mid to upper 200s and low 300s. Most recent was 171. Continue ACHS glucose monitoring and hypoglycemia protocol parent educator has been consulted and input is greatly aprpeciated Continue home ernestine Will start 8 units of novolog with meals and add moderate dose sliding scale as well Improved glycemic control is imperative given his wound, neuropathy, and hx of amputation and this has been encouraged. Risks of atherosclerotic disease with poorly controlled diabetes were also discussed with the patient. (4) Hypertension: Qualifiers: Hypertension type: unspecified Qualified Code(s): I10 - Essential (primary) hypertension Code(s): I10 - Essential (primary) hypertension Status: Chronic Assessment and Plan: Blood pressures are a bit elevated above target but acceptable and may be due to acute illness with some recent readings in 140s to low 150 systolic. Most recent BP was 137/73. Continue lisinopril and diltiazem Monitor BP closely and adjust therapy as indicated (5) Chronic anemia: Code(s): D64.9 - Anemia, unspecified Status: Chronic Assessment and Plan: Chronic and normocytic. Likely anemia of chronic diease. Labs are consistent with baseline. Continue to monitor and transfuse as needed to maintain Hb >7 Recommend continued outpatient follow-up (6) Open wound of penis: Code(s): S31.20XA - Unspecified open wound of penis, initial encounter Status: Acute Assessment and Plan: Occurred in September after incident while using a soldering iron. He follows with wound care and Dr. Tijerina. No evidence of acute infection. Continue wound care recommendations. Wound care is following while inpatient and he will need to continue outpatient follow-up with wound care. Subjective Date/time seen: 11/28/20 12:47 Mr. Espana is a 65 y.o. male with PMH significant for insulin-dependent diabetes, diabetic peripheral neuropathy, hypertension, and history of osteomyelitis and MRSA who is seen in follow-up for right diabetic foot wound. He is doing well today. He notes intermittent sharp pains in the right foot. He describes it as shock-like and sometimes wo
[2020-11-28 12:57] LABS: Vancomycin Trough 13.8 ug/mL (10.0-20.0)
--- NOTE | 2020-11-28 13:07 | PC.NURSE ---
On 11/28/20, the student, [ Sophia Webb], provided care and completed [facility] documentation on this patient. I have reviewed the student's documentation and agree with the findings.
--- NOTE | 2020-11-28 13:18 | WPDINFPN2 ---
Progress Note: A&P Assessment and Plan (1) Cellulitis of right foot: Code(s): L03.115 - Cellulitis of right lower limb Status: Acute Assessment and Plan: 1. Cellulitis of R foot with periostitis and necrotic skin ulcer 2. DM with PN REC Ciprofloxacin and rifampin #1. He tells me he will have debridement tomorrow, IV antibiotics anticipated only if unexpected intraoperative findings. Subjective Date/time seen: 11/28/20 13:18 Objective Data Vital Signs Vital Signs: Vital Signs - 24 hr 11/27/20 14:14 11/27/20 20:29 11/28/20 04:31 Temperature 36.2 C L 36.7 C 36.4 C Pulse Rate 72 78 76 Respiratory Rate 14 16 16 Blood Pressure 141/60 H 147/70 H 152/74 H Pulse Oximetry 100 99 100 11/28/20 08:00 Temperature 37.0 C Pulse Rate 82 Respiratory Rate 16 Blood Pressure 137/73 Pulse Oximetry 100 Intake/Output Intake/Output: Intake & Output 11/25/20 11/26/20 11/27/20 11/28/20 23:59 23:59 23:59 23:59 Intake Total 1750 1620 Output Total 875 600 Balance 875 1020 Meds/Results Medications: Active Medications Generic Name Dose Route Start Last Admin Trade Name Freq PRN Reason Stop Dose Admin Acetaminophen 650 mg 11/27/20 00:30 11/27/20 08:33 Acetaminophen 325 Mg Tablet PO 650 mg Q6H PRN Administration Mild Pain (1-3) or Fever Atorvastatin Calcium 40 mg 11/27/20 09:00 11/28/20 08:13 Atorvastatin 40 Mg Tablet PO 40 mg DAILY MARELY Administration Dextrose 12.5 gm 11/26/20 22:18 Dextrose 50% 25 Gm/50 Ml Syringe IV PUSH PRN PRN Hypoglycemia Protocol Diltiazem HCl 240 mg 11/27/20 09:00 11/28/20 08:12 Diltiazem Hcl Cd 240 Mg Cap.Er.24h PO 240 mg DAILY MARELY Administration Enoxaparin Sodium 40 mg 11/27/20 09:00 11/28/20 08:10 Enoxaparin 40 Mg/0.4 Ml Syringe SUB-Q 40 mg DAILY MARELY Administration Glucagon 1 mg 11/26/20 22:18 Glucagon For Inj 1 Mg Vial IM PRN PRN Hypoglycemia Protocol Glucose 15 gm 11/26/20 22:18 Glucose Oral Gel 15 Gm Of Glucse In 37.5 Gm Tube PO PRN PRN Hypoglycemia Protocol Dextrose 1,000 mls @ 100 mls/hr 11/26/20 22:18 Dextrose 5% 1,000 Ml IVPB PRN PRN Hypoglycemia Protocol Imipenem/Cilastatin Sodium 500 mg in 100 mls @ 300 mls/hr 11/27/20 00:00 11/28/20 09:22 Primaxin 500 Mg/D5w 100 Ml IVPB Infused Q8H MARELY Infusion Vancomycin HCl 1,500 mg in 500 mls @ 333.333 mls/hr 11/27/20 01:00 11/28/20 13:10 Vancomycin 1,500 Mg/D5w 500 Ml IVPB 250 mls/hr Q12H MARELY Administration Insulin Aspart 8 units 11/28/20 12:00 11/28/20 12:05 Insulin Aspart (*Bkc) 100 Units/Ml 0.083 units/kg (8 units) 8 units SUB-Q Administration [facility] Insulin Aspart 3 - 6 units 11/28/20 12:00 11/28/20 11:50 Insulin Aspart (*Bkc) 100 Units/Ml SUB-Q Not Given [facility] Protocol Lisinopril 40 mg 11/27/20 09:00 11/28/20 08:12 Lisinopril 20 Mg Tablet PO 40 mg DAILY MARELY Administration Mupirocin 1 applic 11/27/20 09:00 11/28/20 08:14 Mupirocin 2% Oint 22 Gm Tube TOPICAL 1 applic DAILY MARELY Administration Silver Nitrate 1 applic 11/27/20 09:00 11/28/20 08:14 Silvergel (Elta) 45 Ml TOPICAL 1 applic DAILY MARELY Administration Wound Care/Dressing Products 1 patch 11/27/20 09:00 Mepilex Transfer Drsg 6x8 TOPICAL PRN PRN Wound Care Radiology Results: ITS Impressions Foot X-Ray 11/26/20 22:51 IMPRESSION: 1. No evidence of osteomyelitis. Foot MRI 11/27/20 13:09 IMPRESSION: 1. Minimal marrow edema and enhancement without definitive overlying cortical erosion at the lateral tuberosity at the base of the fifth metatarsal underlying a partial thickness skin ulceration. Differential would include reactive marrow edema or very early osteomyelitis. Labs Labs: Laboratory Results - last 24 hr 11/27/20 11/27/20 11/27/20 13:20 16:46 20:16 WBC RBC Hgb
[2020-11-28 14:13] VITALS: BP 132/58; PULSE 77; RESP 16; TEMP 36.4; O2SAT 100
[2020-11-28 16:54] LABS: Glucose Point of Care 177 (65-105)
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
[2020-11-28 21:31] VITALS: BP 144/59; PULSE 83; RESP 18; TEMP 36.7; O2SAT 100
[2020-11-28 21:46] LABS: Glucose Point of Care 232 (65-105)
[2020-11-29 04:52] VITALS: BP 139/68; PULSE 72; RESP 16; TEMP 36.4; O2SAT 100
[2020-11-29 06:07] LABS: Basophils Absolute Auto 0.1 K/mm3 (0.0-0.1); Basophils Percent Auto 0.9 % (0.2-1.2); Eosinophils Absolute Auto 0.3 K/mm3 (0-0.3); Eosinophils Percent Auto 3.2 % (0-4.4); Hematocrit 31.7 % (42.0-52.0); Hemoglobin 10.3 g/dL (14.0-18.0); Immature Granulocyte Absolute 0.07 K/mm3 (0.00-0.031); Immature Granulocyte Percent A 0.9 % (0-0.5); Lymphocytes Absolute Auto 2.28 K/mm3 (0.9-3.2); Lymphocytes Percent Auto 28.1 % (18.3-44.2); Mean Corpuscular HGB Conc 32.5 g/dl (32-36); Mean Corpuscular Hemoglobin 27.8 pg (26-34); Mean Corpuscular Volume 85.7 fl (80-100); Mean Platelet Volume 8.6 fl (7.4-10.4); Monocytes Absolute Auto 0.8 K/mm3 (0.1-0.6); Monocytes Percent Auto 9.5 % (2.6-8.5); Neutrophils Absolute Auto 4.7 K/mm3 (1.3-6.7); Neutrophils Percent Auto 57.4 % (45.5-73.1); Platelet Count Result 304 k/mm3 (150-375); Red Cell Distribution Width 12.8 % (11.5-14.5); White Blood Count 8.1 K/mm3 (4.5-10.0)
--- NOTE | 2020-11-29 07:00 | WPDPN ---
Progress Note: A&P Additional Plan Cellulitis persists. Surgical debridement of right diabetic foot ulcer today. Exam Narrative: Exam Narrative: Questions answered regarding plan of care. WBC wnl. afebrile. Wound cx- GPC, sensitivities pending. Objective Data Vital Signs Vital Signs: Vital Signs - 24 hr 11/28/20 08:00 11/28/20 14:13 11/28/20 21:31 Temperature 37.0 C 36.4 C 36.7 C Pulse Rate 82 77 83 Respiratory Rate 16 16 18 Blood Pressure 137/73 132/58 L 144/59 H Pulse Oximetry 100 100 100 11/29/20 04:52 Temperature 36.4 C L Pulse Rate 72 Respiratory Rate 16 Blood Pressure 139/68 Pulse Oximetry 100 Intake/Output Intake/Output: Intake & Output 11/26/20 11/27/20 11/28/20 11/29/20 23:59 23:59 23:59 23:59 Intake Total 1750 2800 600 Output Total 875 600 350 Balance 875 2200 250 Meds/Results Medications: Active Medications Generic Name Dose Route Start Last Admin Trade Name Freq PRN Reason Stop Dose Admin Acetaminophen 650 mg 11/27/20 00:30 11/27/20 08:33 Acetaminophen 325 Mg Tablet PO 650 mg Q6H PRN Administration Mild Pain (1-3) or Fever Atorvastatin Calcium 40 mg 11/27/20 09:00 11/28/20 08:13 Atorvastatin 40 Mg Tablet PO 40 mg DAILY [facility] Administration Dextrose 12.5 gm 11/26/20 22:18 Dextrose 50% 25 Gm/50 Ml Syringe IV PUSH PRN PRN Hypoglycemia Protocol Diltiazem HCl 240 mg 11/27/20 09:00 11/28/20 08:12 Diltiazem Hcl Cd 240 Mg Cap.Er.24h PO 240 mg DAILY [facility] Administration Enoxaparin Sodium 40 mg 11/27/20 09:00 11/28/20 08:10 Enoxaparin 40 Mg/0.4 Ml Syringe SUB-Q 40 mg DAILY [facility] Administration Glucagon 1 mg 11/26/20 22:18 Glucagon For Inj 1 Mg Vial IM PRN PRN Hypoglycemia Protocol Glucose 15 gm 11/26/20 22:18 Glucose Oral Gel 15 Gm Of Glucse In 37.5 Gm Tube PO PRN PRN Hypoglycemia Protocol Dextrose 1,000 mls @ 100 mls/hr 11/26/20 22:18 Dextrose 5% 1,000 Ml IVPB PRN PRN Hypoglycemia Protocol Imipenem/Cilastatin Sodium 500 mg in 100 mls @ 300 mls/hr 11/27/20 00:00 11/29/20 00:05 Primaxin 500 Mg/D5w 100 Ml IVPB Infused Q8H [facility] Infusion Vancomycin HCl 1,750 mg in 500 mls @ 250 mls/hr 11/29/20 01:00 11/29/20 02:27 Vancomycin 1,750 Mg/D5w 500 Ml IVPB Infused Q12H [facility] Infusion Lactated Ringer's 1,000 mls @ 30 mls/hr 11/28/20 14:15 Lr - Lactated Ringers Iv IV CONT .Q24H [facility] Insulin Aspart 8 units 11/28/20 12:00 11/28/20 17:11 Insulin Aspart (*Bkc) 100 Units/Ml 0.083 units/kg (8 units) 8 units SUB-Q Administration TIDWM [facility] Insulin Aspart 3 - 6 units 11/28/20 12:00 11/28/20 17:09 Insulin Aspart (*Bkc) 100 Units/Ml SUB-Q Not Given TIDWM [facility] Protocol Lisinopril 40 mg 11/27/20 09:00 11/28/20 08:12 Lisinopril 20 Mg Tablet PO 40 mg DAILY [facility] Administration Mupirocin 1 applic 11/27/20 09:00 11/28/20 08:14 Mupirocin 2% Oint 22 Gm Tube TOPICAL 1 applic DAILY [facility] Administration Silver Nitrate 1 applic 11/27/20 09:00 11/28/20 08:14 Silvergel (Elta) 45 Ml TOPICAL 1 applic DAILY [facility] Administration Wound Care/Dressing Products 1 patch 11/27/20 09:00 Mepilex Transfer Drsg 6x8 TOPICAL PRN PRN Wound Care Radiology Results: ITS Impressions Foot X-Ray 11/26/20 22:51 IMPRESSION: 1. No evidence of osteomyelitis. Foot MRI 11/27/20 13:09 IMPRESSION: 1. Minimal marrow edema and enhancement without definitive overlying cortical erosion at the lateral tuberosity at the base of the fifth metatarsal underlying a partial thickness skin ulceration. Differential would include reactive marrow edema or very early osteomyelitis. Ankle Brachial Index 11/28/20 15:55 IMPRESSION: 1. Normal right TBI and nondiagnostic right KEYONNA. No significant right-sided arterial occlusive disease. Labs Labs: Laboratory Results - last 24 hr 02
--- NOTE | 2020-11-29 07:06 | WPDHPUPDATE1 ---
History and Physical Update Update Date/Time: 11/29/20 07:06 History and Physical has been reviewed, including an updated exam of the patient. There are NO changes in the patient's condition. Risks, benefits, and alternatives have been discussed and questions answered. Patient agrees to proceed with procedure.
--- NOTE | 2020-11-29 07:36 | PC.NURSE ---
Per preop nurse Roby, pt okay to have cardizem only, before surgery
[2020-11-29 08:25] VITALS: BMI 28.5
[2020-11-29 08:29] LABS: Anion Gap 4 mmol/L (8-16); Blood Urea Nitrogen 21 mg/dL (9-20); CRP 1.3 mg/dL (<1.0); Calcium 8.8 mg/dL (8.4-10.2); Carbon Dioxide 29 mmol/L (22-30); Chloride 103 mmol/L (98-107); Estimated CRCL calculation 71 ml/min; Estimated Glomerular Filt Rate > 60; Glucose 206 mg/dL (75-110); Potassium 3.8 mmol/L (3.4-5.0); Sodium 136 mmol/L (137-145)
[2020-11-29] MEDS: MUPIROCIN 2% OINT 22 GM TUBE 1 APPLIC TOPICAL (09:52)
[2020-11-29] MEDS: SILVERGEL (ELTA) 45 ML 1 APPLIC TOPICAL (09:52)
[2020-11-29 10:09] LABS: Glucose Point of Care 198 (65-105)
[2020-11-29 12:36] LABS: Glucose Point of Care 192 (65-105)
--- NOTE | 2020-11-29 12:55 | WPDINFPN2 ---
Progress Note: A&P Assessment and Plan (1) Cellulitis of right foot: Code(s): L03.115 - Cellulitis of right lower limb Status: Acute Assessment and Plan: 1. Cellulitis of R foot with periostitis and necrotic skin ulcer. S aureus isolated on a superficial swab, which is likely a pathogen here although may not reflect co-pathogens present in deeper tissues. 2. DM with PN REC Ciprofloxacin and rifampin #2. Follow up post op to decide on mode and identity of his ongoing antibiotics. Subjective Date/time seen: 11/29/20 12:55 Interval history: no complaints Exam Narrative: Exam Narrative: afebrile Const: General: no acute distress Resp: Effort & Inspection: normal respiratory effort Auscultation: clear to auscultation bilaterally Cardio: Rate: regular rate Rhythm: regular rhythm GI: Inspection: distended GI Palp: Yes Tenderness to palpation present (GI) Skin: General skin exam: normal color and no rashes or lesions noted Objective Data Vital Signs Vital Signs: Vital Signs - 24 hr 11/28/20 14:13 11/28/20 21:31 11/29/20 04:52 Temperature 36.4 C 36.7 C 36.4 C L Pulse Rate 77 83 72 Respiratory Rate 16 18 16 Blood Pressure 132/58 L 144/59 H 139/68 Pulse Oximetry 100 100 100 Intake/Output Intake/Output: Intake & Output 11/26/20 11/27/20 11/28/20 11/29/20 23:59 23:59 23:59 23:59 Intake Total 1750 3300 700 Output Total 875 600 350 Balance 875 2700 350 Meds/Results Medications: Active Medications Generic Name Dose Route Start Last Admin Trade Name Freq PRN Reason Stop Dose Admin Acetaminophen 650 mg 11/27/20 00:30 11/27/20 08:33 Acetaminophen 325 Mg Tablet PO 650 mg Q6H PRN Administration Mild Pain (1-3) or Fever Atorvastatin Calcium 40 mg 11/27/20 09:00 11/29/20 09:29 Atorvastatin 40 Mg Tablet PO Not Given DAILY [facility] Dextrose 12.5 gm 11/26/20 22:18 Dextrose 50% 25 Gm/50 Ml Syringe IV PUSH PRN PRN Hypoglycemia Protocol Diltiazem HCl 240 mg 11/27/20 09:00 11/29/20 09:52 Diltiazem Hcl Cd 240 Mg Cap.Er.24h PO 240 mg DAILY [facility] Administration Enoxaparin Sodium 40 mg 11/27/20 09:00 11/29/20 07:36 Enoxaparin 40 Mg/0.4 Ml Syringe SUB-Q Not Given DAILY [facility] Glucagon 1 mg 11/26/20 22:18 Glucagon For Inj 1 Mg Vial IM PRN PRN Hypoglycemia Protocol Glucose 15 gm 11/26/20 22:18 Glucose Oral Gel 15 Gm Of Glucse In 37.5 Gm Tube PO PRN PRN Hypoglycemia Protocol Dextrose 1,000 mls @ 100 mls/hr 11/26/20 22:18 Dextrose 5% 1,000 Ml IVPB PRN PRN Hypoglycemia Protocol Imipenem/Cilastatin Sodium 500 mg in 100 mls @ 300 mls/hr 11/27/20 00:00 11/29/20 10:12 Primaxin 500 Mg/D5w 100 Ml IVPB Infused Q8H [facility] Infusion Vancomycin HCl 1,750 mg in 500 mls @ 250 mls/hr 11/29/20 01:00 11/29/20 02:27 Vancomycin 1,750 Mg/D5w 500 Ml IVPB Infused Q12H [facility] Infusion Lactated Ringer's 1,000 mls @ 30 mls/hr 11/28/20 14:15 Lr - Lactated Ringers Iv IV CONT .Q24H [facility] Insulin Aspart 8 units 11/28/20 12:00 11/29/20 12:20 Insulin Aspart (*Bkc) 100 Units/Ml 0.083 units/kg (8 units) Not Given SUB-Q TIDWM [facility] Insulin Aspart 3 - 6 units 11/28/20 12:00 11/29/20 12:20 Insulin Aspart (*Bkc) 100 Units/Ml SUB-Q Not Given TIDWM [facility] Protocol Lisinopril 40 mg 11/27/20 09:00 11/29/20 09:29 Lisinopril 20 Mg Tablet PO Not Given DAILY [facility] Mupirocin 1 applic 11/27/20 09:00 11/29/20 09:52 Mupirocin 2% Oint 22 Gm Tube TOPICAL 1 applic DAILY [facility] Administration Silver Nitrate 1 applic 11/27/20 09:00 11/29/20 09:52 Silvergel (Elta) 45 Ml TOPICAL 1 applic DAILY [facility] Administration Wound Care/Dressing Products 1 patch 11/27/20 09:00 Mepilex Transfer Drsg 6x8 TOPICAL PRN PRN Wound Care Radiology Results: ITS Impressions Foot X-Ray 11/26/20 22:51 IMPRESSION: 1. No evidence of osteomyel
[2020-11-29 14:00] VITALS: BP 140/68; PULSE 73; RESP 16; TEMP 36.4; O2SAT 100
--- NOTE | 2020-11-29 15:46 | PC.NURSE ---
per surgery, pt to have debridement done tomorrow, 11/30/20, due to scheduling issues in the OR today.
[2020-11-29] MEDS: INSULIN ASPART (*BKC) 100 UNITS/ML 8 UNITS SUB-Q (16:17)
[2020-11-29] MEDS: INSULIN ASPART (*BKC) 100 UNITS/ML SUB-Q (16:18)
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
[2020-11-29 16:36] LABS: Glucose Point of Care 208 (65-105)
--- NOTE | 2020-11-29 19:10 | WPDPN ---
Objective Data Vital Signs Vital Signs: Vital Signs - 24 hr 11/28/20 21:31 11/29/20 04:52 11/29/20 14:00 Temperature 36.7 C 36.4 C L 36.4 C L Pulse Rate 83 72 73 Respiratory Rate 18 16 16 Blood Pressure 144/59 H 139/68 140/68 Pulse Oximetry 100 100 100 Intake/Output Intake/Output: Intake & Output 11/26/20 11/27/20 11/28/20 11/29/20 23:59 23:59 23:59 23:59 Intake Total 1750 3300 1780 Output Total 875 600 350 Balance 875 2700 1430 Meds/Results Medications: Active Medications Generic Name Dose Route Start Last Admin Trade Name Freq PRN Reason Stop Dose Admin Acetaminophen 650 mg 11/27/20 00:30 11/27/20 08:33 Acetaminophen 325 Mg Tablet PO 650 mg Q6H PRN Administration Mild Pain (1-3) or Fever Atorvastatin Calcium 40 mg 11/27/20 09:00 11/29/20 09:29 Atorvastatin 40 Mg Tablet PO Not Given DAILY [facility] Ciprofloxacin 500 mg 11/29/20 21:00 Ciprofloxacin 500 Mg Tab PO Q12HR [facility] Dextrose 12.5 gm 11/26/20 22:18 Dextrose 50% 25 Gm/50 Ml Syringe IV PUSH PRN PRN Hypoglycemia Protocol Diltiazem HCl 240 mg 11/27/20 09:00 11/29/20 09:52 Diltiazem Hcl Cd 240 Mg Cap.Er.24h PO 240 mg DAILY [facility] Administration Enoxaparin Sodium 40 mg 11/27/20 09:00 11/29/20 07:36 Enoxaparin 40 Mg/0.4 Ml Syringe SUB-Q Not Given DAILY [facility] Glucagon 1 mg 11/26/20 22:18 Glucagon For Inj 1 Mg Vial IM PRN PRN Hypoglycemia Protocol Glucose 15 gm 11/26/20 22:18 Glucose Oral Gel 15 Gm Of Glucse In 37.5 Gm Tube PO PRN PRN Hypoglycemia Protocol Dextrose 1,000 mls @ 100 mls/hr 11/26/20 22:18 Dextrose 5% 1,000 Ml IVPB PRN PRN Hypoglycemia Protocol Lactated Ringer's 1,000 mls @ 30 mls/hr 11/28/20 14:15 Lr - Lactated Ringers Iv IV CONT .Q24H [facility] Insulin Aspart 8 units 11/28/20 12:00 11/29/20 16:17 Insulin Aspart (*Bkc) 100 Units/Ml 0.083 units/kg (8 units) 8 units SUB-Q Administration TIDWM [facility] Insulin Aspart 3 - 6 units 11/28/20 12:00 11/29/20 16:18 Insulin Aspart (*Bkc) 100 Units/Ml SUB-Q 3 units TIDWM [facility] Administration Protocol Lisinopril 40 mg 11/27/20 09:00 11/29/20 09:29 Lisinopril 20 Mg Tablet PO Not Given DAILY [facility] Mupirocin 1 applic 11/27/20 09:00 11/29/20 09:52 Mupirocin 2% Oint 22 Gm Tube TOPICAL 1 applic DAILY [facility] Administration Rifampin 300 mg 11/29/20 21:00 Rifampin 300 Mg Capsule PO Q12HR [facility] Silver Nitrate 1 applic 11/27/20 09:00 11/29/20 09:52 Silvergel (Elta) 45 Ml TOPICAL 1 applic DAILY [facility] Administration Wound Care/Dressing Products 1 patch 11/27/20 09:00 Mepilex Transfer Drsg 6x8 TOPICAL PRN PRN Wound Care Radiology Results: ITS Impressions Foot X-Ray 11/26/20 22:51 IMPRESSION: 1. No evidence of osteomyelitis. Foot MRI 11/27/20 13:09 IMPRESSION: 1. Minimal marrow edema and enhancement without definitive overlying cortical erosion at the lateral tuberosity at the base of the fifth metatarsal underlying a partial thickness skin ulceration. Differential would include reactive marrow edema or very early osteomyelitis. Ankle Brachial Index 11/28/20 15:55 IMPRESSION: 1. Normal right TBI and nondiagnostic right KEYONNA. No significant right-sided arterial occlusive disease. Labs Labs: Laboratory Results - last 24 hr 11/28/20 11/29/20 11/29/20 21:22 05:25 05:25 WBC 8.1 RBC 3.70 L Hgb 10.3 L Hct 31.7 L MCV 85.7 MCH 27.8 MCHC 32.5 RDW 12.8 Plt Count 304 MPV 8.6 Immature Gran % (Auto) 0.9 H Neut % (Auto) 57.4 Lymph % (Auto) 28.1 Mower % (Auto) 9.5 H Eos % (Auto) 3.2 Baso % (Auto) 0.9 Lymph # (Auto) 2.28 Mower # (Auto) 0.8 H Eos # (Auto) 0.3 Baso # (Auto) 0.1 Abs Immat Gran (auto) 0.07 H Absolute Neuts (auto) 4.7 Absolute Nucleated RBC 0.0 Nucleated RBC % 0.0 Sod
[2020-11-29 20:01] VITALS: BP 149/63; PULSE 79; RESP 16; TEMP 36.4; O2SAT 100
[2020-11-29] MEDS: rifAMPin 300 MG CAPSULE PO (20:07)
[2020-11-29] MEDS: CIPROFLOXACIN 500 MG TAB PO (20:08)
[2020-11-29 20:16] LABS: Glucose Point of Care 232 (65-105)
[2020-11-30] VITALS (13 sets, daily range): BP systolic 82–155; BP diastolic 52–88; PULSE 66–97; RESP 12–18; TEMP 35.9–37.3; O2SAT 98–100
[2020-11-30 05:41] LABS: Basophils Absolute Auto 0.1 K/mm3 (0.0-0.1); Basophils Percent Auto 0.8 % (0.2-1.2); Eosinophils Absolute Auto 0.2 K/mm3 (0-0.3); Eosinophils Percent Auto 2.7 % (0-4.4); Hemoglobin 10.8 g/dL (14.0-18.0); Immature Granulocyte Absolute 0.05 K/mm3 (0.00-0.031); Immature Granulocyte Percent A 0.6 % (0-0.5); Lymphocytes Absolute Auto 1.92 K/mm3 (0.9-3.2); Lymphocytes Percent Auto 24.7 % (18.3-44.2); Mean Corpuscular HGB Conc 33.8 g/dl (32-36); Mean Corpuscular Volume 85.8 fl (80-100); Mean Platelet Volume 8.1 fl (7.4-10.4); Monocytes Absolute Auto 0.8 K/mm3 (0.1-0.6); Monocytes Percent Auto 10.2 % (2.6-8.5); Neutrophils Absolute Auto 4.7 K/mm3 (1.3-6.7); Platelet Count Result 261 k/mm3 (150-375); Red Blood Count 3.73 M/mm3 (4.6-6.20); Red Cell Distribution Width 12.8 % (11.5-14.5); White Blood Count 7.8 K/mm3 (4.5-10.0)
[2020-11-30 05:53] LABS: Anion Gap 3 mmol/L (8-16); Blood Urea Nitrogen 25 mg/dL (9-20); Calcium 8.5 mg/dL (8.4-10.2); Carbon Dioxide 29 mmol/L (22-30); Chloride 105 mmol/L (98-107); Estimated CRCL calculation 56 ml/min; Estimated Glomerular Filt Rate 55; Glucose 163 mg/dL (75-110); Potassium 4.2 mmol/L (3.4-5.0); Sodium 137 mmol/L (137-145)
[2020-11-30 08:12] LABS: Glucose Point of Care 129 (65-105)
[2020-11-30] MEDS: SILVERGEL (ELTA) 45 ML 1 APPLIC TOPICAL (09:20)
[2020-11-30] MEDS: MUPIROCIN 2% OINT 22 GM TUBE 1 APPLIC TOPICAL (09:20)
[2020-11-30] MEDS: CIPROFLOXACIN 500 MG TAB PO (09:26)
[2020-11-30] MEDS: lisinopriL 20 MG TABLET 40 MG PO (09:26)
[2020-11-30] MEDS: rifAMPin 300 MG CAPSULE PO (09:28)
[2020-11-30] MEDS: ATORVASTATIN 40 MG TABLET PO (09:29)
[2020-11-30 11:22] LABS: Glucose Point of Care 99 (65-105)
--- NOTE | 2020-11-30 11:36 | PC.NURSE ---
Patient to surgery per bed. Report and SBAR to March, RN.
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
--- NOTE | 2020-11-30 11:50 | WPDANESEPPF ---
Anes - Initial Pre Proc Eval Procedure: Operation Date: 11/30/20 12:30 Proposed Procedures p Debridement Diabetic Foot Ulcer Right Foot - Guru Goodwin MD Date/Time: 11/30/20 11:50 Surgeon: Sylvia Reid PA-C Pre Op Diagnosis: Rt. Diabetic Foot Wound Patient Data Age: 65 Gender: M Height: 6 ft Weight: 95.5 kg Last Vital Signs Temp 36.7 C 11/30/20 04:24 Pulse 81 11/30/20 04:24 Resp 17 11/30/20 04:24 BP 142/67 H 11/30/20 04:24 Pulse Ox 99 11/30/20 04:24 Allergies Allergy/AdvReac Type Severity Reaction Status Date / Time No Known Allergies Allergy Verified 11/26/20 21:13 Home Medications Medication Instructions Recorded Confirmed Type blood sugar diagnostic #10 each 08/17/19 11/26/20 Rx lancets 33 gauge #100 each 08/17/19 11/26/20 History insulin lispro 200 unit/mL (3 mL) 12 unit SUB-Q .with meals ml 08/22/19 11/26/20 History subcutaneous pen pen needle, diabetic 31 gauge x #500 each 10/20/19 11/26/20 Rx 3/16 atorvastatin 40 mg tablet 40 mg PO DAILY #90 tablet 11/17/19 11/26/20 Rx insulin glargine U-300 conc 300 40 unit SUB-Q .QHS #13.5 ml 11/28/19 11/26/20 Rx unit/mL (1.5 mL) subcutaneous pen blood sugar diagnostic #100 each 06/14/20 11/26/20 Rx diltiazem HCl 240 mg 240 mg PO DAILY 06/14/20 11/26/20 History capsule,extended release 24 hr lisinopril 40 mg tablet 40 mg PO DAILY 06/14/20 11/26/20 History silver sulfadiazine 1 % topical 1 applic TOPICAL BID #50 g 10/24/20 11/26/20 Rx cream Laboratory Tests 11/29/20 11/29/20 11/29/20 12:19 16:14 20:08 WBC RBC Hgb Hct MCV MCH MCHC RDW Plt Count MPV Immature Gran % (Auto) Neut % (Auto) Lymph % (Auto) [place] % (Auto) Eos % (Auto) Baso % (Auto) Lymph # (Auto) [place] # (Auto) Eos # (Auto) Baso # (Auto) Abs Immat Gran (auto) Absolute Neuts (auto) Absolute Nucleated RBC Nucleated RBC % Sodium Potassium Chloride Carbon Dioxide Anion Gap BUN Creatinine Estim Creat Clear Calc Estimated GFR Glucose POC Capillary Glucose 192 mg/dl H mg/dl 208 mg/dl H mg/dl 232 mg/dl H mg/dl (65-105) (65-105) (65-105) Calcium 11/30/20 11/30/20 11/30/20 05:26 05:27 08:08 WBC 7.8 K/mm3 K/mm3 (4.5-10.0) RBC 3.73 M/mm3 L M/mm3 (4.6-6.20) Hgb 10.8 g/dL L g/dL (14.0-18.0) Hct 32.0 % L % (42.0-52.0) MCV 85.8 fl fl (80-100) MCH 29.0 pg pg (26-34) MCHC 33.8 g/dl g/dl (32-36) RDW 12.8 % % (11.5-14.5) Plt Count 261 k/mm3 k/mm3 (150-375) MPV 8.1 fl fl (7.4-10.4) Immature Gran % (Auto) 0.6 % H % (0-0.5) Neut % (Auto) 61.0 % % (45.5-73.1) Lymph % (Auto) 24.7 % % (18.3-44.2) [place] % (Auto) 10.2 % H % (2.6-8.5) Eos % (Auto) 2.7 % % (0-4.4) Baso % (Auto) 0.8 % % (0.2-1.2) Lymph # (Auto) 1.92 K/mm3 K/mm3 (0.9-3.2) [place] # (Auto) 0.8 K/mm3 H K/mm3 (0.1-0.6) Eos # (Auto) 0.2 K/mm3 K/mm3 (0-0.3) Baso # (Auto) 0.1 K/mm3 K/mm3 (0.0-0.1) Abs Immat Gran (auto) 0.05 K/mm3 H K/mm3 (0.00-0.031) Absolute Neuts (auto) 4.7 K/mm3 K/mm3 (1.3-6.7) Absolute Nucleated RBC 0.0 K/mm3 K/mm3 (0.0-0.012) Nucleated RBC % 0.0 % % (0.0-0.2) Sodium 137 mmol/L mmol/L (137-145) Potassium 4.2 mmol/L mmol/L (3.4-5.0) Chloride 105 mmol/L mmol/L (98-107) Carbon Dioxide 29 mmol/L mmol/L (22-30) Anion Gap 3 mmol/L
[2020-11-30] MEDS: LACTATED RINGERS 1,000 ML 30 ML IV CONT (11:55)
--- NOTE | 2020-11-30 12:05 | WPDHPUPDATE1 ---
History and Physical Update Update Date/Time: 11/30/20 12:05 History and Physical has been reviewed, including an updated exam of the patient. There are NO changes in the patient's condition. Risks, benefits, and alternatives have been discussed and questions answered. Patient agrees to proceed with procedure.
--- NOTE | 2020-11-30 12:55 | PM.PROC ---
Procedure Note - Detailed Date of procedure: 11/30/20 Pre-op diagnosis: Rt. Diabetic Foot Wound Post-op diagnosis: same Procedure performed: EXCISIONAL DEBRIDEMENT OF DIABETIC FOOT ULCER RIGHT FOOT ULCER INCLUDING SUBCUTANEOUS TISSUE AND BONE. Description of procedure: THE RIGHT FOOT WAS MARKED IN THE HOLDING AREA. THE PATIENT WAS TRANSFERRED THEN TO THE OPERATING ROOM AND PLACED SUPINE ON THE OPERATING TABLE. A TIME-OUT WAS HELD AND CONFIRMED. HE WAS GIVEN IV SEDATION. THE RIGHT FOOT WAS PREPPED AND DRAPED IN THE USUAL FASHION. A NUMBER 10 BLADE WAS USED TO EXCISE THE SOFT TISSUE AROUND THE ULCER REMOVING ALL RED OR THROMBOSED TISSUE. BLEEDING WAS ENCOUNTERED ALL SECTORS. PERIOSTEUM WAS ALSO TAKEN OFF OF THE BONE AND THE BONE WAS RONGEURED APPROXIMATELY 3 MM ALL ACROSS THE BASE. THIS PATIENT ALREADY HAS A CULTURE GROWING MRSA NO ADDITIONAL LABS WERE ORDERED. BLEEDING POINTS WERE ELECTROCOAGULATED AND THE WOUND WAS IRRIGATED AND DRESSED WITH MEPILEX SILVER DRESSING AND HE IS DISCHARGE TO THE RECOVERY ROOM. Anesthesia: MAC Surgeon: Guru Goodwin MD Estimated blood loss (mL): 2 Tourniquet time (min): 0 Drains: No Packing: No Pathology: none sent Complications: No immediate complications Condition: stable Disposition: PACU
[2020-11-30 13:05] LABS: Glucose Point of Care 107 (65-105)
--- NOTE | 2020-11-30 14:43 | PC.NURSE ---
Pt returned from OR per bed. Report received from LAVON Herrera.
--- NOTE | 2020-11-30 15:12 | WPDINFPN2 ---
Progress Note: A&P Assessment and Plan (1) Cellulitis of right foot: Code(s): L03.115 - Cellulitis of right lower limb Status: Acute Assessment and Plan: 1. Cellulitis of R foot with periostitis and necrotic skin ulcer, POD # 1 debridement of bone and soft tissue. Operative findings noted. 2. DM with PN REC Clindamycin for 14 days. Ok discharge. Subjective Date/time seen: 11/30/20 15:12 Interval history: no complaints Exam Narrative: Exam Narrative: afebrile Const: General: no acute distress Skin: Other: foot dressed, no proximal erythema nor warmth Objective Data Vital Signs Vital Signs: Vital Signs - 24 hr 11/29/20 20:01 11/30/20 04:24 11/30/20 11:57 Temperature 36.4 C 36.7 C 37.1 C Pulse Rate 79 81 97 Respiratory Rate 16 17 18 Blood Pressure 149/63 H 142/67 H 148/88 H Pulse Oximetry 100 99 100 11/30/20 12:50 11/30/20 13:00 11/30/20 13:15 Temperature 36.2 C L Pulse Rate 79 77 74 Respiratory Rate 12 12 12 Blood Pressure 82/52 L 94/54 L 95/56 L Pulse Oximetry 99 100 98 11/30/20 13:30 11/30/20 13:45 11/30/20 14:00 Temperature Pulse Rate 69 70 74 Respiratory Rate 12 13 18 Blood Pressure 97/58 L 102/59 L 120/63 Pulse Oximetry 100 100 100 11/30/20 14:25 11/30/20 14:43 Temperature 36.1 C L 35.9 C L Pulse Rate 74 66 Respiratory Rate 16 16 Blood Pressure 135/65 106/59 L Pulse Oximetry 100 99 Intake/Output Intake/Output: Intake & Output 11/27/20 11/28/20 11/29/20 11/30/20 23:59 23:59 23:59 23:59 Intake Total 1750 3300 1780 1000 Output Total 875 600 350 Balance 875 2700 1430 1000 Meds/Results Medications: Active Medications Generic Name Dose Route Start Last Admin Trade Name Freq PRN Reason Stop Dose Admin Acetaminophen 650 mg 11/27/20 00:30 11/27/20 08:33 Acetaminophen 325 Mg Tablet PO 650 mg Q6H PRN Administration Mild Pain (1-3) or Fever Atorvastatin Calcium 40 mg 11/27/20 09:00 11/30/20 09:29 Atorvastatin 40 Mg Tablet PO 40 mg DAILY MARELY Administration Ciprofloxacin 500 mg 11/29/20 21:00 11/30/20 09:26 Ciprofloxacin 500 Mg Tab PO 500 mg Q12HR MARELY Administration Dextrose 12.5 gm 11/26/20 22:18 Dextrose 50% 25 Gm/50 Ml Syringe IV PUSH PRN PRN Hypoglycemia Protocol Diltiazem HCl 240 mg 11/27/20 09:00 11/30/20 09:27 Diltiazem Hcl Cd 240 Mg Cap.Er.24h PO 240 mg DAILY MARELY Administration Enoxaparin Sodium 40 mg 11/27/20 09:00 11/30/20 09:29 Enoxaparin 40 Mg/0.4 Ml Syringe SUB-Q Not Given DAILY [facility] Glucagon 1 mg 11/26/20 22:18 Glucagon For Inj 1 Mg Vial IM PRN PRN Hypoglycemia Protocol Glucose 15 gm 11/26/20 22:18 Glucose Oral Gel 15 Gm Of Glucse In 37.5 Gm Tube PO PRN PRN Hypoglycemia Protocol Dextrose 1,000 mls @ 100 mls/hr 11/26/20 22:18 Dextrose 5% 1,000 Ml IVPB PRN PRN Hypoglycemia Protocol Insulin Aspart 8 units 11/28/20 12:00 11/30/20 09:30 Insulin Aspart (*Bkc) 100 Units/Ml 0.083 units/kg (8 units) Not Given SUB-Q TIDWM [facility] Insulin Aspart 3 - 6 units 11/28/20 12:00 11/30/20 09:30 Insulin Aspart (*Bkc) 100 Units/Ml SUB-Q Not Given TIDWM [facility] Protocol Lisinopril 40 mg 11/27/20 09:00 11/30/20 09:26 Lisinopril 20 Mg Tablet PO 40 mg DAILY MARELY Administration Mupirocin 1 applic 11/27/20 09:00 11/30/20 09:20 Mupirocin 2% Oint 22 Gm Tube TOPICAL 1 applic DAILY MARELY Administration Rifampin 300 mg 11/29/20 21:00 11/30/20 09:28 Rifampin 300 Mg Capsule PO 300 mg Q12HR MARELY Administration Silver Nitrate 1 applic 11/27/20 09:00 11/30/20 09:20 Silvergel (Elta) 45 Ml TOPICAL 1 applic DAILY MARELY Administration Wound Care/Dressing Products 1 patch 11/27/20 09:00 Mepilex Transfer Drsg 6x8 TOPICAL PRN PRN Wound Care Radiology Results: ITS Impressions Foot X-Ray 11/26/20 22:51 IMPRESSION: 1. No evidence of osteomyel
[2020-11-30] MEDS: INSULIN ASPART (*BKC) 100 UNITS/ML 8 UNITS SUB-Q (15:47)
[2020-11-30 15:48] LABS: Glucose Point of Care 153 (65-105)
[2020-11-30] MEDS: SACCHAROMYCES BOULARDII 250 MG CAPSULE PO (16:55)
[2020-11-30] MEDS: CLINDAMYCIN HCL 150 MG CAP 300 MG PO (21:15)
[2020-11-30 21:51] LABS: Glucose Point of Care 226 (65-105)
[2020-12-01] MEDS: CLINDAMYCIN HCL 150 MG CAP 300 MG PO ×2 (05:05→14:25)
[2020-12-01 05:07] VITALS: BP 128/73; PULSE 85; RESP 14; TEMP 36.9; O2SAT 99
[2020-12-01 06:20] LABS: Basophils Absolute Auto 0.1 K/mm3 (0.0-0.1); Basophils Percent Auto 0.8 % (0.2-1.2); Eosinophils Absolute Auto 0.2 K/mm3 (0-0.3); Eosinophils Percent Auto 2.1 % (0-4.4); Hematocrit 30.8 % (42.0-52.0); Immature Granulocyte Absolute 0.04 K/mm3 (0.00-0.031); Immature Granulocyte Percent A 0.5 % (0-0.5); Lymphocytes Absolute Auto 1.92 K/mm3 (0.9-3.2); Lymphocytes Percent Auto 25.2 % (18.3-44.2); Mean Corpuscular HGB Conc 32.5 g/dl (32-36); Mean Corpuscular Hemoglobin 28.1 pg (26-34); Mean Corpuscular Volume 86.5 fl (80-100); Mean Platelet Volume 8.5 fl (7.4-10.4); Monocytes Absolute Auto 0.8 K/mm3 (0.1-0.6); Monocytes Percent Auto 10.9 % (2.6-8.5); Neutrophils Absolute Auto 4.6 K/mm3 (1.3-6.7); Neutrophils Percent Auto 60.5 % (45.5-73.1); Platelet Count Result 310 k/mm3 (150-375); Red Blood Count 3.56 M/mm3 (4.6-6.20); Red Cell Distribution Width 12.9 % (11.5-14.5); White Blood Count 7.6 K/mm3 (4.5-10.0)
[2020-12-01 06:26] LABS: Alanine Aminotransferase 14 U/L (4-50); Albumin Level 3.1 g/dL (3.5-5.1); Alkaline Phosphatase 105 U/L (38-126); Anion Gap 3 mmol/L (8-16); Aspartate Amino Transferase 20 U/L (17-59); Bilirubin,Total 0.7 mg/dL (0.2-1.3); Blood Urea Nitrogen 28 mg/dL (9-20); Calcium 8.6 mg/dL (8.4-10.2); Carbon Dioxide 29 mmol/L (22-30); Chloride 105 mmol/L (98-107); Estimated CRCL calculation 56 ml/min; Estimated Glomerular Filt Rate 55; Glucose 138 mg/dL (75-110); Magnesium 1.6 mg/dL (1.6-2.3); Sodium 137 mmol/L (137-145)
[2020-12-01 07:25] LABS: Glucose Point of Care 125 (65-105)
[2020-12-01] MEDS: INSULIN ASPART (*BKC) 100 UNITS/ML 8 UNITS SUB-Q ×2 (07:53→12:15)
[2020-12-01] MEDS: lisinopriL 20 MG TABLET 40 MG PO (08:00)
[2020-12-01] MEDS: ENOXAPARIN 40 MG/0.4 ML SYRINGE SUB-Q (08:01)
[2020-12-01] MEDS: ATORVASTATIN 40 MG TABLET PO (08:01)
[2020-12-01] MEDS: SILVERGEL (ELTA) 45 ML 1 APPLIC TOPICAL (08:02)
[2020-12-01] MEDS: MUPIROCIN 2% OINT 22 GM TUBE 1 APPLIC TOPICAL (08:02)
[2020-12-01] MEDS: SACCHAROMYCES BOULARDII 250 MG CAPSULE PO (09:44)
--- NOTE | 2020-12-01 10:52 | WPDANESPN ---
Anes - Prog Note Post-Op Date/Time: 12/01/20 10:52 Cardiovascular status: normal Respiratory status: normal Airway patency: baseline Mental status: baseline Post-Op hydration status: normal Vital Signs: Last Vital Signs Temp 36.9 C 12/01/20 05:07 Pulse 85 12/01/20 05:07 Resp 14 12/01/20 05:07 BP 128/73 12/01/20 05:07 Pulse Ox 99 12/01/20 05:07 Pain Score (VAS): 10/14 I/O: Intake & Output 11/30/20 12/01/20 12/01/20 23:59 07:59 15:59 Intake Total 680 200 240 Output Total 450 Balance 680 -250 240 Laboratory Tests 12/01/20 05:25 12/01/20 05:25 11/30/20 11/30/20 11/30/20 11:20 11:50 12:52 WBC RBC Hgb Hct MCV MCH MCHC RDW Plt Count MPV Immature Gran % (Auto) Neut % (Auto) Lymph % (Auto) [place] % (Auto) Eos % (Auto) Baso % (Auto) Lymph # (Auto) [place] # (Auto) Eos # (Auto) Baso # (Auto) Abs Immat Gran (auto) Absolute Neuts (auto) Absolute Nucleated RBC Nucleated RBC % Sodium Potassium Chloride Carbon Dioxide Anion Gap BUN Creatinine Estim Creat Clear Calc Estimated GFR Glucose POC Capillary Glucose 99 107 Calcium Magnesium Total Bilirubin AST ALT Alkaline Phosphatase Total Protein Albumin Vancomycin Trough 16.0 11/30/20 11/30/20 12/01/20 15:46 21:14 05:25 WBC 7.6 RBC 3.56 L Hgb 10.0 L Hct 30.8 L MCV 86.5 MCH 28.1 MCHC 32.5 RDW 12.9 Plt Count 310 MPV 8.5 Immature Gran % (Auto) 0.5 Neut % (Auto) 60.5 Lymph % (Auto) 25.2 [place] % (Auto) 10.9 H Eos % (Auto) 2.1 Baso % (Auto) 0.8 Lymph # (Auto) 1.92 [place] # (Auto) 0.8 H Eos # (Auto) 0.2 Baso # (Auto) 0.1 Abs Immat Gran (auto) 0.04 H Absolute Neuts (auto) 4.6 Absolute Nucleated RBC 0.0 Nucleated RBC % 0.0 Sodium Potassium Chloride Carbon Dioxide Anion Gap BUN Creatinine Estim Creat Clear Calc Estimated GFR Glucose POC Capillary Glucose 153 H 226 H Calcium Magnesium Total Bilirubin AST ALT Alkaline Phosphatase Total Protein Albumin Vancomycin Trough 12/01/20 12/01/20 05:25 07:21 WBC RBC Hgb Hct MCV MCH MCHC RDW Plt Count MPV Immature Gran % (Auto) Neut % (Auto) Lymph % (Auto) [place] % (Auto) Eos % (Auto) Baso % (Auto) Lymph # (Auto) [place] # (Auto) Eos # (Auto) Baso # (Auto) Abs Immat Gran (auto) Absolute Neuts (auto) Absolute Nucleated RBC Nucleated RBC % Sodium 137 Potassium 4.0 Chloride 105 Carbon Dioxide 29 Anion Gap 3 L BUN 28 H Creatinine 1.30 Estim Creat Clear Calc 56 Estimated GFR 55 L Glucose 138 H POC Capillary Glucose 125 H Calcium 8.6 Magnesium 1.6 Total Bilirubin 0.7 AST 20 ALT 14 Alkaline Phosphatase 105 Total Protein 6.0 L Albumin 3.1 L Vancomycin Trough Microbiology 11/27/20 01:13 Foot Right Wound Culture - Final Methicillin Resis Staph Aureus Post-procedural complaints: none Patient Feedback: Patient satisfied with anesthetic care.
[2020-12-01 12:14] LABS: Glucose Point of Care 128 (65-105)
[2020-12-01 14:00] VITALS: BP 133/76; PULSE 83; RESP 16; TEMP 36.4; O2SAT 100
--- NOTE | 2020-12-01 14:08 | PC.NURSE ---
Went to patient room to answer call light. Patient voiced that he has to go to the bathroom. Has left leg prosthesis on. He voiced that he has not walked to the bathroom yet. Called nurse Larissa on vocera and she gave me patient activity. As I was getting ready to assist patient he voiced, no and that he will wait on Larissa to help him because he is not arguing with me. I voiced that I had to find out from Larissa his walking status and I am ready to help. He voiced again no. I will wait on Larissa.
--- NOTE | 2020-12-01 16:19 | PM.IMPN ---
Subjective Date/time seen: 12/01/20 16:19 Objective Data Vital Signs Vital Signs: Vital Signs - 24 hr 11/30/20 19:59 12/01/20 05:07 12/01/20 14:00 Temperature 99.1 F 98.4 F 97.5 F L Pulse Rate 90 85 83 Respiratory Rate 16 14 16 Blood Pressure 155/70 H 128/73 133/76 Pulse Oximetry 99 99 100 Intake/Output Intake/Output: Intake & Output 11/28/20 11/29/20 11/30/20 12/01/20 23:59 23:59 23:59 23:59 Intake Total 3300 1780 1680 680 Output Total 079 883 4581 Balance 2700 1430 1680 -370 Meds/Results Medications: Active Medications Generic Name Dose Route Start Last Admin Trade Name Freq PRN Reason Stop Dose Admin Acetaminophen 650 mg 11/27/20 00:30 11/27/20 08:33 Acetaminophen 325 Mg Tablet PO 650 mg Q6H PRN Administration Mild Pain (1-3) or Fever Atorvastatin Calcium 40 mg 11/27/20 09:00 12/01/20 08:01 Atorvastatin 40 Mg Tablet PO 40 mg DAILY MARELY Administration Clindamycin HCl 300 mg 11/30/20 22:00 12/01/20 14:25 Clindamycin Hcl 150 Mg Cap PO 12/14/20 22:01 300 mg Q8HR MARELY Administration Dextrose 12.5 gm 11/26/20 22:18 Dextrose 50% 25 Gm/50 Ml Syringe IV PUSH PRN PRN Hypoglycemia Protocol Diltiazem HCl 240 mg 11/27/20 09:00 12/01/20 08:00 Diltiazem Hcl Cd 240 Mg Cap.Er.24h PO 240 mg DAILY MARELY Administration Enoxaparin Sodium 40 mg 11/27/20 09:00 12/01/20 08:01 Enoxaparin 40 Mg/0.4 Ml Syringe SUB-Q 40 mg DAILY MARELY Administration Glucagon 1 mg 11/26/20 22:18 Glucagon For Inj 1 Mg Vial IM PRN PRN Hypoglycemia Protocol Glucose 15 gm 11/26/20 22:18 Glucose Oral Gel 15 Gm Of Glucse In 37.5 Gm Tube PO PRN PRN Hypoglycemia Protocol Dextrose 1,000 mls @ 100 mls/hr 11/26/20 22:18 Dextrose 5% 1,000 Ml IVPB PRN PRN Hypoglycemia Protocol Insulin Aspart 8 units 02/24/21 12:00 12/01/20 12:15 Insulin Aspart (*Bkc) 100 Units/Ml 0.083 units/kg (8 units) 8 units SUB-Q Administration TIDWM [facility] Insulin Aspart 3 - 6 units 11/28/20 12:00 12/01/20 12:13 Insulin Aspart (*Bkc) 100 Units/Ml SUB-Q Not Given TIDWM [facility] Protocol Lisinopril 40 mg 11/27/20 09:00 12/01/20 08:00 Lisinopril 20 Mg Tablet PO 40 mg DAILY MARELY Administration Mupirocin 1 applic 11/27/20 09:00 12/01/20 08:02 Mupirocin 2% Oint 22 Gm Tube TOPICAL 1 applic DAILY MARELY Administration Saccharomyces Boulardii 250 mg 11/30/20 17:00 12/01/20 09:44 Saccharomyces Boulardii 250 Mg Capsule PO 12/14/20 17:01 250 mg BID MARELY Administration Silver Nitrate 1 applic 11/27/20 09:00 12/01/20 08:02 Silvergel (Elta) 45 Ml TOPICAL 1 applic DAILY MARELY Administration Wound Care/Dressing Products 1 patch 11/27/20 09:00 Mepilex Transfer Drsg 6x8 TOPICAL PRN PRN Wound Care Radiology Results: ITS Impressions Foot X-Ray 11/26/20 22:51 IMPRESSION: 1. No evidence of osteomyelitis. Foot MRI 11/27/20 13:09 IMPRESSION: 1. Minimal marrow edema and enhancement without definitive overlying cortical erosion at the lateral tuberosity at the base of the fifth metatarsal underlying a partial thickness skin ulceration. Differential would include reactive marrow edema or very early osteomyelitis. Ankle Brachial Index 11/28/20 15:55 IMPRESSION: 1. Normal right TBI and nondiagnostic right KEYONNA. No significant right-sided arterial occlusive disease. Labs Labs: Laboratory Results - last 24 hr 11/30/20 12/01/20 12/01/20 21:14 05:25 05:25 WBC 7.6 RBC 3.56 L Hgb 10.0 L Hct 30.8 L MCV 86.5 MCH 28.1 MCHC 32.5 RDW 12.9 Plt Count 310 MPV 8.5 Immature Gran % (Auto) 0.5 Neut % (Auto) 60.5 Lymph % (Auto) 25.2 [place] % (Auto) 10.9 H Eos % (Auto) 2.1 Baso % (Auto) 0.8 Lymph # (Auto) 1.92 [place] # (Auto) 0.8 H Eos # (Auto) 0.2 Baso # (Auto) 0.1 Abs Immat Gran (auto) 0.
--- NOTE | 2020-12-01 16:19 | PM.DS ---
DS: Admitting Diagnosis Admitting Diagnosis Admitting Diagnosis: Right diabetic foot wound DS: Discharge Diagnosis Discharge Diagnosis (1) Diabetic ulcer of right foot: Code(s): E11.621 - Type 2 diabetes mellitus with foot ulcer; L97.519 - Non-pressure chronic ulcer of other part of right foot with unspecified severity Status: Acute Assessment and Plan: Discharge Summary (Date of service 12/01/20): Mr. Espana is a 65 y.o. male with PMH significant for insulin-dependent diabetes, diabetic peripheral neuropathy, hypertension, and history of osteomyelitis and MRSA who was directly admitted to the hospitalist service at the request of Dr. Goodwin (plastic surgery) on 11/26/20 for further treatment and evaluation of a right diabetic foot wound. He reported that he noticed mild swelling in his right lower extremity three days prior to admission. Subsequently, he noticed a small wound on the lateral aspect of his right foot and applied bacitracin. He went to see Dr. Goodwin in the office and it was felt that he need IV antibiotics and imaging to r/o osteomyelitis. He also noticed that his glucose was running high. Wound and blood cultures were obtained. He was treated with IV vancomycin and imipemen initially per the antibiotic stewardship guidelines. WBC 11,100 on admission and ESR >140. Plain films of the right foot showed no evidence of osteomyelitis. MRI read per radiology as minimal marrow edema and enhancement at the lateral tuberosity at the base of the 5th metatarsal without definitive cortical erosion which is equivocal for reactive edema versus early osteomyelitis. Wound culture showed MRSA. Infectious disease was consulted and recommended to change antibiotics to ciprofloxacin and rifampin. Pulses felt a bit diminished on physical exam. KEYONNA from 03/2020 was 1.06 on right. Repeat KEYONNA ordered showed normal right TBI of 0.71 and PT noncompressible, likely due to calcified vessels due to diabetes, with biphasic waveforms at the ankle. He reported no hx of claudication or rest pain. He will benefit from outpatient vascular surgery evaluation should he develop claudication or any other sx concerning for peripheral vascular disease. He underwent excisional debridement of the right foot ulcer including subcutaneous tissue and bone by Dr. Goodwin on 11/30/20. He tolerated the procedure well and he had good bleeding at the wound bases post-operatively. He was monitored overnight. Infectious disease recommended oral clindamycin for 14 days at discharge. He was okay for discharge by Dr. Goodwin as well and he will see Dr. Goodwin within 1 week for wound follow-up. Hemoglobin A1c was 10.2% on admission with blood sugars above target. He was seen by the visual educator and his insulin regimen was adjusted (please see details below). He was advised to follow-up with his PCP, Benigno Chavira, and his entry level sales associate for his diabetes management after discharge. Final blood cultures demonstrate NGTD. He was discharged in hemodynamically stable condition on the evening of 12/01/20. Worrisome signs and symptoms which would warrant return to the emergency department were discussed and he verbalized understanding. (2) Cellulitis of right foot: Code(s): L03.115 - Cellulitis of right lower limb Status: Acute Assessment and Plan: Plan as above. (3) Insulin dependent type 2 diabetes mellitus: Code(s): E11.9 - Type 2 diabetes mellitus without complications; Z79.4 - nursing home (current) use of insulin Status: Chronic Assessment and Plan: Hemoglobin A1c was 10.2% on admission 11/26 and blood sugars were above target with some readings in the 200 and a few in the 300s. He was seen by the visual educator. His toujeo was increased to 45 units and his mealtime insulin was adjusted to 8 units TIDWM plus a sliding scale. We discussed that improved glycemic control is imperative given his wound, neuropathy, and hx of amputation and this has been enco
== END 2020-12-01 18:46 | disposition home or self-care (01) | DRG 629 ==
PROVIDERS: Physician Assistant; Plastic Surgery; Admitting Provider Internal Medicine; PCP Physician Assistant; Visit Provider Internal Medicine
PROC: 0QBN0ZZ Excision of Right Metatarsal, Open Approach (ICD-10-PCS; principal; 2020-11-30 12:30)
DX: E11.621 Type 2 diabetes mellitus with foot ulcer (principal); L03.115 Cellulitis of right lower limb; L97.519 Non-pressure chronic ulcer of other part of right foot with unspecified severity; B95.62 Methicillin resistant Staphylococcus aureus infection as the cause of diseases classified elsewhere; E11.42 Type 2 diabetes mellitus with diabetic polyneuropathy; E11.319 Type 2 diabetes mellitus with unspecified diabetic retinopathy without macular edema; E11.51 Type 2 diabetes mellitus with diabetic peripheral angiopathy without gangrene; E11.22 Type 2 diabetes mellitus with diabetic chronic kidney disease; E11.65 Type 2 diabetes mellitus with hyperglycemia; I12.9 Hypertensive chronic kidney disease with stage 1 through stage 4 chronic kidney disease, or unspecified chronic kidney disease; N18.9 Chronic kidney disease, unspecified; D64.9 Anemia, unspecified; S31.20XA Unspecified open wound of penis, initial encounter; X17.XXXA Contact with hot engines, machinery and tools, initial encounter; Z79.4 Long term (current) use of insulin; Z79.899 Other long term (current) drug therapy; Z86.14 Personal history of Methicillin resistant Staphylococcus aureus infection; Z98.49 Cataract extraction status, unspecified eye; Z23 Encounter for immunization
CPT/HCPCS: 36415; 73620; 73720; 80048; 80053; 80202; 82948; 83036; 83735; 85025; 85652; 86140; 87040; 87070; 87147; 87186; 87205; 90471; 90653; 93922; 96365; 96366; 96372; 96376; A9270; A9577; G0008; G0378; G0379; J0743; J1650; J1815; J2704; J3010; J3370; J7120

== ENCOUNTER → 2020-12-17 03:08 | Outpatient (CLI) | payer MEDICARE, SELFPAY ==
[2020-12-17 21:05] LABS: SARS-CoV-2 RNA PCR Negative
== END ==
PROVIDERS: PCP Physician Assistant; Visit Provider Plastic Surgery
DX: Z01.812 Encounter for preprocedural laboratory examination (principal); Z20.822 Contact with and (suspected) exposure to COVID-19
CPT/HCPCS: C9803; U0003; U0005

== ENCOUNTER 2020-12-17 10:58 | Outpatient (CLI) | payer MEDICARE, SELFPAY ==
[2020-12-17 11:44] LABS: INR 0.9; Prothrombin Time 13.1 Seconds (11.1-14.7)
[2020-12-17 11:45] LABS: Partial Thromboplastin Time 29.4 SECONDS (22.3-36.8)
== END 2020-12-17 10:59 | disposition home or self-care (01) ==
LOC: ANHSURGERY 11:03
PROVIDERS: Anesthesiology; PCP Physician Assistant; Visit Provider Plastic Surgery
DX: Z01.812 Encounter for preprocedural laboratory examination (principal); N18.9 Chronic kidney disease, unspecified
CPT/HCPCS: 36415; 85610; 85730; C9803; U0003; U0005

== ENCOUNTER 2020-12-20 01:04 | Day surgery (SDC) | payer MEDICARE, SELFPAY ==
[2020-12-13 14:03] VITALS: BMI 28.5
--- NOTE | 2020-12-19 09:41 | WPDANESEPPF ---
Anes - Initial Pre Proc Eval Procedure: Operation Date: 12/20/20 08:30 Proposed Procedures p Full Or Split Thickness Skin Graft, Right Lateral Foot - Guru Goodwin MD Date/Time: 12/19/20 09:41 Surgeon: Guru Goodwin MD Pre Op Diagnosis: Diabetic Ulcer Rt Foot Patient Data Age: 65 Gender: M Height: 1.83 m Weight: 95.45 kg Allergies Allergy/AdvReac Type Severity Reaction Status Date / Time No Known Allergies Allergy Verified 12/13/20 13:56 Home Medications Medication Instructions Recorded Confirmed Type blood sugar diagnostic #10 each 08/17/19 12/12/20 Rx lancets 33 gauge #100 each 08/17/19 12/12/20 History pen needle, diabetic 31 gauge x #500 each 10/20/19 12/12/20 Rx / blood sugar diagnostic #100 each 06/14/20 12/12/20 Rx diltiazem HCl 240 mg 240 mg PO QAM 06/14/20 12/20/20 History capsule,extended release 24 hr silver sulfadiazine 1 % topical 1 applic TOPICAL BID #50 g 10/24/20 12/20/20 Rx cream Humalog KwikPen Insulin See Rx Instructions .ROUTE 12/01/20 12/20/20 Rx .COMPLEX #0 ml Saccharomyces boulardii [Florastor] 250 mg PO BID 13 Days #26 cap 12/01/20 12/13/20 Rx Toujeo SoloStar U-300 Insulin 45 unit SUB-Q .QHS #13.5 ml 12/01/20 12/20/20 Rx clindamycin HCl 300 mg PO Q8H 13 Days #39 cap 12/01/20 12/20/20 Rx silver [Silver-Sept] 1 applic TOPICAL DAILY 14 Days #45 12/01/20 12/20/20 Rx g blood-glucose meter #1 ea 12/12/20 12/12/20 Rx atorvastatin 40 mg PO QAM 12/13/20 12/20/20 History lisinopril 40 mg PO QAM 12/13/20 12/20/20 History Other Studies: Exam Date: 05/23/2020 10:50 AM Exam Location: [facility] Card Pulmonary Patient Status: Inpatient Admit Date: 05/21/2020 Summary 1. Left ventricular systolic function is hyperdynamic, estimated at >70%. 2. There is severe concentric increased left ventricular wall thickness. 3. The left ventricular diastolic function is grade I diastolic dysfunction. 4. There is no aortic valve stenosis. 5. There is no mitral valve regurgitation. 6. The mitral valve annulus is severely calcified. 7. There is trace tricuspid valve regurgitation. 8. Mild pulmonary hypertension, estimated pulmonary arterial systolic pressure is 39 mmHg. Patient hx anesthesia problems: none Family hx anesthesia problems: none PMFSH Past Medical History Medical History (Updated 12/19/20 @ 09:42 by James Sesay MD) CAD (coronary artery disease) Chronic anemia Chronic kidney disease COVID-19 (~05/2020) Diabetic peripheral neuropathy Diabetic retinopathy History of esophageal dilatation History of esophageal stricture Hx of myocardial infarction Hyperlipidemia Hypertension Insulin dependent type 2 diabetes mellitus Hemoglobin A1c was 10.2% on 11/26/2020. MRSA pneumonia Peripheral vascular disease in diabetes mellitus Primary hypertension Proteinuria due to type 2 diabetes mellitus Pulmonary HTN Surgical History Surgical History History of bilateral carpal tunnel release History of cataract extraction History of left below knee amputation History of tonsillectomy History of transmetatarsal amputation of left foot Status post debridement Osteomyelitis of the right 1st toe. Family History Family History Father Diabetes mellitus Hypertension Mother Family history of malignant neoplasm of kidney Mother Family history of malignant neoplasm of kidney Father Diabetes mellitus Hypertension Lung cancer Social History Social History Social History: The patient is and lives in [place] with his significant other. He has 1 biological son. Lifelong nonsmoker. No alcohol or illicit substance use. 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 He designates his long-term significant other, Deneen Gallagher, as his surrogate aurora
--- NOTE | 2020-12-20 07:11 | WPDHPUPDATE1 ---
History and Physical Update Update Date/Time: 12/20/20 07:11 History and Physical has been reviewed, including an updated exam of the patient. There are NO changes in the patient's condition. Risks, benefits, and alternatives have been discussed and questions answered. Patient agrees to proceed with procedure.
[2020-12-20] MEDS: LACTATED RINGERS 1,000 ML 30 ML IV CONT (07:30)
[2020-12-20 07:56] VITALS: BP 148/73; PULSE 92; TEMP 36.9; O2SAT 100
[2020-12-20 07:56] LABS: Glucose Point of Care 168 (65-105)
[2020-12-20] MEDS: LIDO 1%/EPINEPHRINE 1:100,000 50 ML VIAL 20 ML INFILTRATE (09:39)
[2020-12-20] MEDS: BACITRACIN OINTMENT 15 GM TUBE 1 APPLIC TOPICAL (10:03)
[2020-12-20 10:15] VITALS: BP 111/65; PULSE 78; RESP 14; O2SAT 97
[2020-12-20 10:22] LABS: Glucose Point of Care 135 (65-105)
[2020-12-20 10:40] VITALS: BP 169/90; PULSE 73; RESP 16
--- NOTE | 2020-12-20 10:54 | P.OPB_ITS ---
Procedure Note - Brief Procedure Note - Brief Date of procedure: 12/20/20 Pre-op diagnosis: Diabetic Ulcer Rt Foot Post-op diagnosis: same Procedure performed: EXCISIONAL DEBRIDEMENT OF BONE AND SOFT TISSUE 12 SQ CM AND FULL-THICKNESS SKIN GRAFT FROM THE RIGHT THIGH 12 SQ CM Anesthesia: MAC Surgeon: Guru Goodwin MD Draw Hand: CECILIA Estimated blood loss (mL): 2 Tourniquet time (min): 0 Drains: No Packing: No Pathology: yes (WOUND CULTURE) Complications: No immediate complications Condition: stable Disposition: same day
[2020-12-20 11:10] VITALS: BP 157/83; PULSE 72; RESP 16
--- NOTE | 2020-12-20 13:54 | PM.PROC ---
Procedure Note - Detailed Date of procedure: 12/20/20 Pre-op diagnosis: Diabetic Ulcer Rt Foot Post-op diagnosis: same Procedure performed: 4 x 3 cm excisional debridement of bone and soft tissue of diabetic right foot ulcer, with full-thickness skin graft 12 sq cm Description of procedure: The right foot was marked in the holding area. He was taken to the operating room and placed supine on the operating table. Was held confirmed. He was given IV sedation in the right lower extremity was prepped and draped in usual fashion to include a donor site for skin graft on the thigh. The ulcer was examined and fully excised around the margins with a [address] to periosteum. The bone was rongeured off the entire surface of this ulcer. A culture was taken just prior to removal of this tissue. There did not appear to be infection in this wound but all margins of this wound showed few signs of actual healing. Punctate bleeding was established on all margins. The graft was harvested from the right thigh. This was a 3 x 4 cm graft. It was carefully defatted. It was inset with 5 0 nylon including some quilting stitches. A double layer Mepilex Silver dressing with gauze and Wilmar wrap was applied. He is being discharged home to continue the previously prescribed course of clindamycin 300 mg q.i.d. that was based on the prior culture indicating methicillin-resistant Staphylococcus aureus that was negative for inducible clindamycin resistance Anesthesia: MAC Surgeon: Guru Goodwin MD Spiral Tube Winder: Magdalena Drains: No Packing: No Pathology: yes (Culture for aerobes and anaerobes) Complications: No immediate complications Condition: stable Disposition: same day
== END 2020-12-20 11:40 | disposition home or self-care (01) ==
PROVIDERS: PCP Physician Assistant; Visit Provider Plastic Surgery
PROC: (CPT 11044; principal; 2020-12-20 08:30)
DX: E11.621 Type 2 diabetes mellitus with foot ulcer (principal); L97.516 Non-pressure chronic ulcer of other part of right foot with bone involvement without evidence of necrosis; Z79.4 Long term (current) use of insulin; I27.20 Pulmonary hypertension, unspecified; I25.10 Atherosclerotic heart disease of native coronary artery without angina pectoris; E11.42 Type 2 diabetes mellitus with diabetic polyneuropathy; E11.319 Type 2 diabetes mellitus with unspecified diabetic retinopathy without macular edema; R80.9 Proteinuria, unspecified; I12.9 Hypertensive chronic kidney disease with stage 1 through stage 4 chronic kidney disease, or unspecified chronic kidney disease; E78.5 Hyperlipidemia, unspecified; Z86.16 Personal history of COVID-19; D64.9 Anemia, unspecified; E11.22 Type 2 diabetes mellitus with diabetic chronic kidney disease; N18.9 Chronic kidney disease, unspecified; Z89.512 Acquired absence of left leg below knee
CPT/HCPCS: 11044; 15240; 82948; 87070; 87075; 87205; A9270; J2405; J2704; J3010; J7120

== ENCOUNTER 2021-01-25 07:31 | Outpatient (RCR) | payer MEDICARE, SELFPAY ==
--- NOTE | 2021-01-30 10:27 | PCWOUND ---
WOCN NOTE patient called to cancel appointment on Thursday02/01/21 due to patient staring hyperbaric treatments. Will contact wound center if he needs anything from us.
== END 2021-04-01 09:26 | disposition home or self-care (01) ==
LOC: ANHWOC 07:31
PROVIDERS: PCP Physician Assistant; Visit Provider Plastic Surgery
DX: E11.621 Type 2 diabetes mellitus with foot ulcer (principal); L97.519 Non-pressure chronic ulcer of other part of right foot with unspecified severity; Z79.4 Long term (current) use of insulin
CPT/HCPCS: 97602; 99213; G0463

== ENCOUNTER 2021-01-25 07:31 | Outpatient (RCR) | payer MEDICARE, SELFPAY ==
[2020-10-31 13:52] VITALS: BMI 28.5
--- NOTE | 2020-12-21 07:19 | PCWOUND ---
WOCN NOTE patient called and left voicemail cancelling appointment for today. Patient had surgery on foot yesterday and Dr told him to stay off of it for a couple of days. Will call back to reschedule for next week.
--- NOTE | 2021-01-30 14:14 | PCWOUND ---
WOCN NOTE patient will not re-register at this time for wound to penile shaft. Patient called, states he saw his urologist and that she said it was almost healed and looking good. Patient will contact wound center if needed.
== END 2021-01-29 23:59 | disposition home or self-care (01) ==
LOC: ANHWOC 07:31
PROVIDERS: PCP Physician Assistant; Visit Provider Nurse Practitioner Adult Health
DX: T21.0 Burn of unspecified degree of trunk (principal)
CPT/HCPCS: 97602; 99212; 99213; A9270; G0463

== ENCOUNTER 2021-01-26 09:53 | Outpatient (CLI) | payer MEDICARE, SELFPAY ==
--- NOTE | ~2021-01-26 | MR_ITS ---
EXAMINATION: MR foot RT wo con DATE: 01/26/2021 11:19 INDICATION: Right foot diabetic ulcer and osteomyelitis. TECHNIQUE: Magnetic resonance imaging (MRI) of the right foot was performed without intravenous contr ast. Sequences included short axis, long axis, and sagittal T1-weighted FSE and T2-weighted FS FSE an d long axis STIR FSE. COMPARISON: Right foot MRI 11/27/2020, radiographs 11/26/2020 FINDINGS: Bone alignment is normal. No fracture. There is an ulcer lateral to base of fifth metatarsa l. There is bone volume loss of lateral aspect of base of fifth metatarsal, consistent with surgical change from 12/20/20. There are erosions of base of fourth metatarsal and distal cuboid. There is bone marrow edema involving the bases of fifth and fourth metatarsals and distal cuboid characterized by decreased T1-weighted signal intensity and increased T2-weighted signal intensity. Lisfranc ligament is intact. The flexor and extensor tendons are intact. There is diffuse moderate to severe fatty atro phy of the musculature and increased T2-weighted signal intensity in the musculature, consistent with subacute on chronic denervation. IMPRESSION: 1. Osteomyelitis involving the bases of fourth and fifth metatarsals and distal cuboid. Reviewed, dictated and finalized at location A.
== END 2021-01-26 09:54 | disposition home or self-care (01) ==
LOC: ANHIMG 09:54
PROVIDERS: PCP Physician Assistant
DX: E11.69 Type 2 diabetes mellitus with other specified complication (principal); M86.9 Osteomyelitis, unspecified
CPT/HCPCS: 73718

== ENCOUNTER 2021-02-05 18:54 | Inpatient (IN) | payer MEDICARE, SELFPAY ==
[2021-02-05 18:30] VITALS: BP 132/59; PULSE 87; RESP 14; TEMP 36.8; O2SAT 100; BMI 26.2
--- NOTE | 2021-02-05 18:30 | ADMGEN ---
This patient, Hernando Espana IV, was admitted to Medical Room 348-. Patient/family oriented to hospital policies and general routines including ID bracelet, bed and alarms, visiting hours, pain management, procedures, bathroom and other care routines, personal items, smoking policy, room service/diet, and visiting hours. Information on how to activate the Rapid Response Team has been discussed. Patient/Family are encouraged to report perceived risks to care and to ask questions if they do not understand what they are told or what they should do.
--- NOTE | 2021-02-05 19:00 | PM.IMHP ---
H&P: HPI History of Present Illness Date/Time: 02/05/21 19:00 Chief Complaint: Infected right diabetic foot wound. Narrative: This is a 65-year-old male with insulin-dependent diabetes, diabetic peripheral neuropathy, hypertension, and history of osteomyelitis and MRSA who is being directly admitted to the hospitalist service at the request of Dr. Goodwin (plastic surgery) for further treatment of a right diabetic foot wound. He has had a diabetic foot ulcer at that site for many months and has been treated with antibiotics, debridement, and even hyperbaric chamber therapy. Several days ago his girlfriend noticed redness around the wound and he just happened to have a routine appointment with Dr. Goodwin today who would like the patient directly admitted due to progression of the wound with surrounding infection. The patient does admit to increasing pain and discharge at the side of the ulcer for the last several days for which he has been taking acetaminophen and hydrocodone. His appetite has also been a bit decreased for the last day or so. He has not had a fever but reports chills. No nausea or vomiting. Review of Systems Review of Systems: Narrative: Twelve systems were reviewed with pertinent positives and negatives as per HPI. His glucose has been running high, around 200 typically with a hemoglobin A1c of 10.1% today. No recent cold or flu symptoms. He denies exposure to those positive for COVID-19. No cough or shortness of breath. He has pretty significant neuropathy in his lower legs from the diabetes but has quite a bit of pain from his current ulcer. Except as documented, all other systems were reviewed and are negative. [facility] Past Medical History Medical History (Updated 02/05/21 @ 23:03 by Elis Kwok PA-C) Chronic anemia Chronic kidney disease COVID-19 (~05/2020) Diabetic peripheral neuropathy Diabetic retinopathy History of esophageal dilatation History of esophageal stricture Hyperlipidemia Hypertension Insulin dependent type 2 diabetes mellitus Hemoglobin A1c was 10.1% on 02/05/2021. MRSA pneumonia Peripheral vascular disease in diabetes mellitus Proteinuria due to type 2 diabetes mellitus Pulmonary HTN Surgical History Surgical History History of bilateral carpal tunnel release History of cataract extraction History of left below knee amputation History of tonsillectomy History of transmetatarsal amputation of left foot Status post debridement Osteomyelitis of the right 1st toe. Family History Family History Father Diabetes mellitus Hypertension Mother Family history of malignant neoplasm of kidney Mother Family history of malignant neoplasm of kidney Father Diabetes mellitus Hypertension Lung cancer Social History Social History (Updated 02/05/21 @ 22:58 by Elis Kwok PA-C) Social History: The patient is and lives in [place] with his significant other. He has 1 biological son. Lifelong nonsmoker. No alcohol or illicit substance use. 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 He designates his long-term significant other, Deneen Aileen, as his surrogate decision maker and he wishes to be a full code. If Deneen cannot make decisions, he then appoints his son Hernando Espana V as his alternate surrogate decision maker. Meds Home Medications and Allergies Home Medications Medication Instructions Recorded Confirmed Type blood sugar diagnostic #10 each 08/17/19 02/05/21 Rx lancets 33 gauge #100 each 08/17/19 02/05/21 History pen needle, diabetic 31 gauge x #500 each 10/20/19 02/05/21 Rx 12/18 blood sugar diagnostic #100 each 06/14/20 02/05/21 Rx Humalog KwikPen Insulin See Rx Instructions .ROUTE 12/01/20 02/05/21 Rx .COMPLEX #0 ml Saccharomyces boulardii [Florastor] 250 mg PO BID 13 Days #26 cap 12/01/20 02/05/21 Rx To
[2021-02-05 19:31] LABS: Hematocrit 24.2 % (42.0-52.0); Hemoglobin 7.7 g/dL (14.0-18.0); Mean Corpuscular HGB Conc 31.8 g/dl (32-36); Mean Corpuscular Hemoglobin 28.3 pg (26-34); Platelet Count Result 456 k/mm3 (150-375); Red Blood Count 2.72 M/mm3 (4.6-6.20); Red Cell Distribution Width 12.7 % (11.5-14.5)
[2021-02-05 19:39] LABS: Hemoglobin A1C 10.1 % (<5.7)
[2021-02-05 19:41] LABS: Alanine Aminotransferase 44 U/L (4-50); Albumin Level 3.2 g/dL (3.5-5.1); Alkaline Phosphatase 158 U/L (38-126); Anion Gap 5 mmol/L (8-16); Aspartate Amino Transferase 39 U/L (17-59); Bilirubin,Total 0.3 mg/dL (0.2-1.3); Blood Urea Nitrogen 39 mg/dL (9-20); Calcium 8.8 mg/dL (8.4-10.2); Carbon Dioxide 28 mmol/L (22-30); Chloride 102 mmol/L (98-107); Estimated CRCL calculation 64 ml/min; Estimated Glomerular Filt Rate > 60; Glucose 218 mg/dL (75-110); Potassium 4.4 mmol/L (3.4-5.0); Sodium 135 mmol/L (137-145)
[2021-02-05 19:42] LABS: Lactic Acid Reflex 1.1 mmol/L (0.7-2.1); Magnesium 1.5 mg/dL (1.6-2.3)
[2021-02-05 19:49] LABS: Band Neutrophils Percent 1 % (0-6); Eosinophils Absolute Manual 0.21 K/mm3 (0.02-0.5); Eosinophils Percent Manual 1 % (0-4); Lymphocytes Absolute Manual 2.73 K/mm3 (1.1-4.5); Monocytes Absolute Manual 0.84 K/mm3 (0.1-0.90); Monocytes Percent Manual 4 % (3-9); Neutrophils Absolute Manual 17.22 K/mm3 (1.3-6.7); Neutrophils Percent Manual 81 % (46-73); Total Cells Counted 100
[2021-02-05 19:50] LABS: Platelet Estimate Increased (Adequate)
[2021-02-05 19:54] LABS: CRP 21.2 mg/dL (<1.0)
[2021-02-05 21:07] VITALS: BP 137/59; PULSE 83; RESP 18; TEMP 36.6; O2SAT 100
[2021-02-05 21:38] LABS: Glucose Point of Care 276 (65-105)
[2021-02-05] MEDS: MAGNESIUM SULF 2 GM/WATER 50ML 2 GM/50 ML BAG IVPB (23:25)
--- NOTE | 2021-02-05 23:37 | PHAR ---
PT'S HOME MED TOUJEO (INSULIN GLARGINE) U-300 SOLOSTAR INSULIN PEN VERIFIED BY PHARMACY
[2021-02-06 00:03] LABS: Hematocrit 23.1 % (42.0-52.0); Hemoglobin 7.5 g/dL (14.0-18.0); Immature Reticulocyte Fraction 14.1 % (3.0-15.9); Reticulocyte Hemoglobin Conten 32.3 pg (28.2-35.7); Reticulocyte Percent 0.89 % (0.7-4.3); Reticulocytes Absolute 0.02 B/L (32.2-175.7)
[2021-02-06 01:12] LABS: Iron 28 ug/dL (49-181)
[2021-02-06 01:22] LABS: Percent Iron Saturation 19 % (20-50)
[2021-02-06 05:02] VITALS: BP 123/63; PULSE 84; RESP 18; TEMP 36.6; O2SAT 100
[2021-02-06 06:03] LABS: Prealbumin 8.3 mg/dL (17.6-36.0)
[2021-02-06 07:03] LABS: Folic Acid 19.2 ng/mL (2.76->20)
[2021-02-06 07:56] LABS: Glucose Point of Care 257 (65-105)
[2021-02-06] MEDS: ATORVASTATIN 40 MG TABLET PO (09:00)
[2021-02-06] MEDS: SACCHAROMYCES BOULARDII 250 MG CAPSULE PO ×2 (09:00→17:10)
[2021-02-06] MEDS: lisinopriL 20 MG TABLET 40 MG PO (09:00)
[2021-02-06] MEDS: INSULIN ASPART (*BKC) 100 UNITS/ML SUB-Q ×3 (09:01→17:10)
--- NOTE | 2021-02-06 10:56 | WPDCN ---
Assessment and Plan Assessment and plan (1) Insulin dependent type 2 diabetes mellitus: Code(s): E11.9 - Type 2 diabetes mellitus without complications; Z79.4 - group home (current) use of insulin Status: Chronic Assessment and Plan: Chronic, poorly controlled. (2) Diabetic ulcer of right foot: Qualifiers: Diabetic foot ulcer location: midfoot Diabetes mellitus type: type 2 Non-pressure ulcer stage: with muscle involvement without evidence of necrosis Qualified Code(s): E11.621 - Type 2 diabetes mellitus with foot ulcer; L97.415 - Non-pressure chronic ulcer of right heel and midfoot with muscle involvement without evidence of necrosis Code(s): E11.621 - Type 2 diabetes mellitus with foot ulcer; L97.519 - Non-pressure chronic ulcer of other part of right foot with unspecified severity Status: Acute Assessment and Plan: Non healing despite treatment. (3) Peripheral vascular disease in diabetes mellitus: Code(s): E11.51 - Type 2 diabetes mellitus with diabetic peripheral angiopathy without gangrene Status: Acute (4) Amputation of left lower extremity: Qualifiers: Encounter type: subsequent encounter Qualified Code(s): S88.912D - Complete traumatic amputation of left lower leg, level unspecified, subsequent encounter Code(s): S88.912A - Complete traumatic amputation of left lower leg, level unspecified, initial encounter Status: Acute Assessment and Plan: Healed well and is ambulatory. Additional Plan Need to optimize his health status. IV antibiotics. Glucose. Will debride soon to improve chance of primary closure if amputation occurs HPI Data of Consult Date/Time: 02/06/21 10:56 Requesting Physician: Za Hayes NP Primary Care Provider: Benigno Chavira PA-C Consult Narrative Narrative: Hernando Espana IV is a 65 year old male seen in my office yesterday regarding a non healing surgical wound stemming from a diabetic right lateral foot ulcer. This was a relatively new ulcer that was operated twice in November and December of this year and skin grafted. The graft failed and he was recently referred to the wound center at [facility] for HBO treatment. He had 5 dives and was scheduled to be further debrided by the Church Communications Administrator at [facility] when he kept his scheduled visit to my office. The foot looked edematous and overall worse. It was discolored. The wound was larger ( 2x4 cm) and liquifying. He had been having pain. The most recent MRI of the right LE (January) identified osteomyelitis of the base of the 4th and 5th metatarsals and the distal cuboid. Recent arterial Dopper (November) reveals calcified arteries of the right lower extremity and inability to obtain pressures. We had a long discussion regarding his condition and possible courses to take. It seemed that admission for antibiotics was the most important step to take. This prohibits HBO if he in an inpatient, so we had him admitted here, his hospital of choice. He has already had a left BKA and did very well with his rehab. He is aware that a right BKA is likely in the offing. He does not want to have serial operations that eventually lead to a BKA. Recent Hb a1c have been elevated in 9-10's. [facility] Past Medical History Medical History Chronic anemia Chronic kidney disease COVID-19 (~05/2020) Diabetic peripheral neuropathy Diabetic retinopathy History of esophageal dilatation History of esophageal stricture Hyperlipidemia Hypertension Insulin dependent type 2 diabetes mellitus Hemoglobin A1c was 10.1% on 02/05/2021. MRSA pneumonia Peripheral vascular disease in diabetes mellitus Proteinuria due to type 2 diabetes mellitus Pulmonary HTN Surgical History Surgical History History of bilateral carpal tunnel release History of cataract extraction Histor
--- NOTE | 2021-02-06 11:21 | PM.IMPN ---
Progress Note: A&P Assessment and Plan (1) Diabetic ulcer of right foot: Qualifiers: Diabetes mellitus type: type 2 Diabetic foot ulcer location: midfoot Non-pressure ulcer stage: with muscle involvement without evidence of necrosis Qualified Code(s): E11.621 - Type 2 diabetes mellitus with foot ulcer; L97.415 - Non-pressure chronic ulcer of right heel and midfoot with muscle involvement without evidence of necrosis Code(s): E11.621 - Type 2 diabetes mellitus with foot ulcer; L97.519 - Non-pressure chronic ulcer of other part of right foot with unspecified severity Status: Acute Assessment and Plan: Blood cultures remain pending. Dressing on foot dry and clean with no sign of swelling or drainage. Right leg appears to have vascular deficits as well, no hair to the leg and skin changes typical of vascular insufficiency. discussed at length the need for glucose levels consistently under 180. Preferably to 160 and under. this would take a multi factor approach, including increased activity and exercise, including diet choices, including tracking carbs, including perhaps medication changes to oral and insulin dosing with the assistance of his PCP or an Pipeline Technician. Consulted Agile Scrum Master/Garage Mechanic. Ordered PT/OT. Instructed the patient to request exercises from PT OT that he could do while in a chair and in bed during healing of this right foot. pain was controlled during our discussions. Near the end of our discussion, he winced at some intermittent pain, but when offered p.r.n. pain medicine, the patient refused. Continue wrapping as instructed elevating right foot Currently on IV vanc and imipenem Appreciate consults of plastics Dr. Goodwin as well as infectious disease physician Dr. Keith - following their recommendations. (2) Cellulitis of right foot: Code(s): L03.115 - Cellulitis of right lower limb Status: Acute Assessment and Plan: lactic 1.1, CRP 21.1, WBC 21.0 Blood cultures remain pending. Dressing on foot dry and clean with no sign of swelling or drainage. Right leg appears to have vascular deficits as well, no hair to the leg and skin changes typical of vascular insufficiency. discussed at length the need for glucose levels consistently under 180. Preferably to 160 and under. Continue wrapping as instructed elevating right foot Currently on IV vanc and imipenem Appreciate consults of plastics Dr. Goodwin as well as infectious disease physician Dr. Keith - following their recommendations. (3) Insulin dependent type 2 diabetes mellitus: Code(s): E11.9 - Type 2 diabetes mellitus without complications; Z79.4 - shelter (current) use of insulin Status: Chronic Assessment and Plan: A1c 10.1, TSH 1.58, discussed at length the need for glucose levels consistently under 180. Preferably to 160 and under. multi factor approach, including increased activity and exercise, including diet choices, including tracking carbs, including perhaps medication changes to oral and insulin dosing with the assistance of his PCP or an Pipeline Technician. SSI and glucose checks in place increase SSI dosing as needed - continue to monitor glucose levels and adjust as needed. Consulted Agile Scrum Master/Garage Mechanic. Ordered PT/OT. Instructed the patient to request exercises from PT OT that he could do while in a chair and in bed during healing of this right foot. (4) Chronic anemia: Code(s): D64.9 - Anemia, unspecified Status: Chronic Assessment and Plan: Iron panel consistently low with iron deficiency Discussed with patient in family Ordered Venofer IV for today and tomorrow Started patient on Niferex orally. (5) Hypomagnesemia: Code(s): E83.42 - Hypomagnesemia Status: Acute Assessment and Plan: last night Magnesium 1.5 Received 2 g of Mag IV Rechecking Mag level in the morning with lab work No chest pain or tachycardia noted Heart rate reg
[2021-02-06 11:33] LABS: Glucose Point of Care 295 (65-105)
--- NOTE | 2021-02-06 12:31 | WPDPN ---
Progress Note: A&P Additional Plan Will order wound culture. Have placed patient on the OR schedule for surgical debridement tomorrow,. Time Spent With Patient Time with patient: less than 15 minutes Exam Narrative: Exam Narrative: Did not check wound today. Will order dressing changes. WBC above 20K. Glucose in 200's On Imipenem and Vanco. Objective Data Vital Signs Vital Signs: Vital Signs - 24 hr 02/05/21 18:30 02/05/21 21:07 02/06/21 05:02 Temperature 36.8 C 36.6 C 36.6 C Pulse Rate 87 83 84 Respiratory Rate 14 18 18 Blood Pressure 132/59 L 137/59 L 123/63 Pulse Oximetry 100 100 100 Intake/Output Intake/Output: Intake & Output 02/03/21 02/04/21 02/05/21 02/06/21 23:59 23:59 23:59 23:59 Intake Total 600 1040 Output Total 675 Balance 600 365 Meds/Results Medications: Active Medications Generic Name Dose Route Start Last Admin Trade Name Freq PRN Reason Stop Dose Admin Acetaminophen 650 mg 02/05/21 18:54 Acetaminophen 325 Mg Tablet PO Q4H PRN Mild Pain (1-3) or Fever Hydrocodone Bitart/Acetaminophen 1 tab 02/05/21 18:54 Hydrocodone/Acetaminophen (*Crx) 5-325 Mg Tablet PO Q4H PRN Moderate Pain (4-6) Atorvastatin Calcium 40 mg 02/06/21 09:00 02/06/21 09:00 Atorvastatin 40 Mg Tablet PO 40 mg QAM MARELY Administration Dextrose 12.5 gm 02/05/21 18:54 Dextrose 50% 25 Gm/50 Ml Syringe IV PUSH PRN PRN Hypoglycemia Protocol Glucagon 1 mg 02/05/21 18:54 Glucagon For Inj 1 Mg Vial IM PRN PRN Hypoglycemia Protocol Glucose 15 gm 02/05/21 18:54 Glucose Oral Gel 15 Gm Of Glucse In 37.5 Gm Tube PO PRN PRN Hypoglycemia Protocol Dextrose 1,000 mls @ 100 mls/hr 02/05/21 18:54 Dextrose 5% 1,000 Ml IVPB PRN PRN Hypoglycemia Protocol Imipenem/Cilastatin Sodium 500 mg in 100 mls @ 300 mls/hr 02/06/21 00:00 02/06/21 11:58 Primaxin 500 Mg/D5w 100 Ml IVPB 300 mls/hr Q6H MARELY Administration Vancomycin HCl 1,500 mg in 500 mls @ 333.333 mls/hr 02/06/21 09:00 02/06/21 11:05 Vancomycin 1,500 Mg/D5w 500 Ml IVPB Infused Q12H [facility] Infusion Iron Sucrose 200 mg/ Sodium 60 mls @ 120 mls/hr 02/06/21 13:00 Chloride IVPB 02/07/21 09:29 DAILY [facility] Insulin Aspart 4 - 8 units 02/06/21 17:00 Insulin Aspart (*Bkc) 100 Units/Ml SUB-Q TIDWM [facility] Protocol Lisinopril 40 mg 02/06/21 09:00 02/06/21 09:00 Lisinopril 20 Mg Tablet PO 40 mg QAM [facility] Administration Magnesium Oxide 400 mg 02/06/21 11:45 Magnesium Oxide 400 Mg Tablet PO QAM [facility] Morphine Sulfate 2 mg 02/05/21 18:54 Morphine Sulfate (*Crx) 2 Mg/Ml Inj IV PUSH Q4H PRN Pain Rated 7-10 Polysaccharide Iron Complex 150 mg 02/07/21 08:00 Polysaccharide Iron Complex 150 Mg Capsule PO DAILY@0800 [facility] Saccharomyces Boulardii 250 mg 02/06/21 09:00 02/06/21 09:00 Saccharomyces Boulardii 250 Mg Capsule PO 250 mg BID MARELY Administration Labs Labs: Laboratory Results - last 24 hr 02/05/21 02/05/21 02/05/21 19:22 19:22 19:22 WBC 21.0 H RBC 2.72 L Hgb 7.7 L Hct 24.2 L MCV 89.0 MCH 28.3 MCHC 31.8 L RDW 12.7 Plt Count 456 H MPV 9.0 Immature Gran % (Auto) Not Reportable Neut % (Auto) Not Reportable Lymph % (Auto) Not Reportable [place] % (Auto) Not Reportable Eos % (Auto) Not Reportable Baso % (Auto) Not Reportable Lymph # (Auto) Not Reportable [place] # (Auto) Not Reportable Eos # (Auto) Not Reportable Baso # (Auto) Not Reportable Abs Immat Gran (auto) Not Reportable Absolute Neuts (auto) Not Reportable Absolute Nucleated RBC Not Reportable Total Counted 100 Neutrophils % (Manual) 81 H Band Neutrophils % 1 Lymphocytes % (Manual) 13.0 L Monocytes % (Manual) 4 Eosinophils % (Manual) 1 Nucleated RBC % Not Reportable Abs Neuts (Manual) 17.22 H
--- NOTE | 2021-02-06 13:04 | PCNSR ---
On 02/06/21, the student,Hayde Oro, provided care and completed [facility] documentation on this patient. I have reviewed the student's documentation and agree with the findings.
--- NOTE | 2021-02-06 13:20 | WPDINFPN2 ---
Progress Note: A&P Assessment and Plan (1) Cellulitis of right foot: Code(s): L03.115 - Cellulitis of right lower limb Status: Acute Assessment and Plan: 1. Cellulitis and acute OM of R 4th MT and cuboid 2. DM, poor control 3. PVD REC Imi and Vanc #2. Wound culture in process. Short term IV therapy unless + BCs (had rigors last evening). 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 He will need BKA soon, but if he want to delay the same, he can try further HBO2 visits. Subjective Date/time seen: 02/06/21 13:20 Objective Data Vital Signs Vital Signs: Vital Signs - 24 hr 02/05/21 18:30 02/05/21 21:07 02/06/21 05:02 Temperature 36.8 C 36.6 C 36.6 C Pulse Rate 87 83 84 Respiratory Rate 14 18 18 Blood Pressure 132/59 L 137/59 L 123/63 Pulse Oximetry 100 100 100 Intake/Output Intake/Output: Intake & Output 02/03/21 02/04/21 02/05/21 02/06/21 23:59 23:59 23:59 23:59 Intake Total 600 1040 Output Total 675 Balance 600 365 Meds/Results Medications: Active Medications Generic Name Dose Route Start Last Admin Trade Name Freq PRN Reason Stop Dose Admin Acetaminophen 650 mg 02/05/21 18:54 Acetaminophen 325 Mg Tablet PO Q4H PRN Mild Pain (1-3) or Fever Hydrocodone Bitart/Acetaminophen 1 tab 02/05/21 18:54 Hydrocodone/Acetaminophen (*Crx) 5-325 Mg Tablet PO Q4H PRN Moderate Pain (4-6) Atorvastatin Calcium 40 mg 02/06/21 09:00 02/06/21 09:00 Atorvastatin 40 Mg Tablet PO 40 mg QAM MARELY Administration Dextrose 12.5 gm 02/05/21 18:54 Dextrose 50% 25 Gm/50 Ml Syringe IV PUSH PRN PRN Hypoglycemia Protocol Glucagon 1 mg 02/05/21 18:54 Glucagon For Inj 1 Mg Vial IM PRN PRN Hypoglycemia Protocol Glucose 15 gm 02/05/21 18:54 Glucose Oral Gel 15 Gm Of Glucse In 37.5 Gm Tube PO PRN PRN Hypoglycemia Protocol Dextrose 1,000 mls @ 100 mls/hr 02/05/21 18:54 Dextrose 5% 1,000 Ml IVPB PRN PRN Hypoglycemia Protocol Imipenem/Cilastatin Sodium 500 mg in 100 mls @ 300 mls/hr 02/06/21 00:00 02/06/21 11:58 Primaxin 500 Mg/D5w 100 Ml IVPB 300 mls/hr Q6H [facility]ELY Administration Vancomycin HCl 1,500 mg in 500 mls @ 333.333 mls/hr 02/06/21 09:00 02/06/21 11:05 Vancomycin 1,500 Mg/D5w 500 Ml IVPB Infused Q12H [facility] Infusion Iron Sucrose 200 mg/ Sodium 60 mls @ 120 mls/hr 02/06/21 13:00 Chloride IVPB 02/07/21 09:29 DAILY [facility] Insulin Aspart 4 - 8 units 02/06/21 17:00 Insulin Aspart (*Bkc) 100 Units/Ml SUB-Q TIDWM [facility] Protocol Lisinopril 40 mg 02/06/21 09:00 02/06/21 09:00 Lisinopril 20 Mg Tablet PO 40 mg QAM [facility] Administration Magnesium Oxide 400 mg 02/06/21 11:45 Magnesium Oxide 400 Mg Tablet PO QAM [facility] Morphine Sulfate 2 mg 02/05/21 18:54 Morphine Sulfate (*Crx) 2 Mg/Ml Inj IV PUSH Q4H PRN Pain Rated 7-10 Polysaccharide Iron Complex 150 mg 02/07/21 08:00 Polysaccharide Iron Complex 150 Mg Capsule PO DAILY@0800 [facility] Saccharomyces Boulardii 250 mg 02/06/21 09:00 02/06/21 09:00 Saccharomyces Boulardii 250 Mg Capsule PO 250 mg BID MARELY Administration Labs Labs: Laboratory Results - last 24 hr 02/05/21 02/05/21 02/05/21 19:22 19:22 19:22 WBC 21.0 H RBC 2.72 L Hgb 7.7 L Hct 24.2 L MCV 89.0 MCH 28.3 MCHC 31.8 L RDW 12.7 Plt Count 456 H MPV 9.0 Immature Gran % (Auto) Not Reportable Neut % (Auto) Not Reportable Lymph % (Auto) Not Reportable [place] % (Auto) Not Reportable Eos % (Auto) Not Reportable Baso % (Auto) Not Reportable Lymph # (Auto) Not Reportable [place] # (Auto) Not Reportable Eos # (Auto) Not Reportable Baso # (Auto) Not Reportable Abs Immat Gran (auto) Not Reportable Absolute Neuts (auto) Not Reportable Absolute Nucleated RBC Not Reportable Total Counted 100 Neutrophils % (Manual) 81 H Band N
[2021-02-06] MEDS: MAGNESIUM OXIDE 400 MG TABLET PO (13:37)
[2021-02-06] MEDS: IRON SUCROSE COMPLEX 200 MG in SODIUM CHLORIDE 0.9% IV 50 ML 120 MG IVPB (13:38)
[2021-02-06 14:00] VITALS: BP 126/80; PULSE 86; RESP 18; TEMP 37.1; O2SAT 100
[2021-02-06] MEDS: ACETAMINOPHEN 325 MG TABLET 650 MG PO (14:47)
--- NOTE | 2021-02-06 16:41 | WPDANESEPP ---
Anes - Eval Pre Procedure Procedure: Operation Date: 02/07/21 12:30 Proposed Procedures p Debridement Of Right Lateral Foot Ulcer - Guru Goodwin MD Date/Time: 02/06/21 16:41 Pre Op Diagnosis: Infected right diabetic foot ulcer Patient Data Age: 65 Gender: M Height: 6 ft 2 in Weight: 92.6 kg Last Vital Signs Temp 98.8 F 02/06/21 14:00 Pulse 86 02/06/21 14:00 Resp 18 02/06/21 14:00 BP 126/80 02/06/21 14:00 Pulse Ox 100 02/06/21 14:00 Allergies Allergy/AdvReac Type Severity Reaction Status Date / Time No Known Allergies Allergy Verified 02/05/21 19:35 Home Medications Medication Instructions Recorded Confirmed Type blood sugar diagnostic #10 each 08/17/19 02/05/21 Rx lancets 33 gauge #100 each 08/17/19 02/05/21 History pen needle, diabetic 31 gauge x #500 each 10/20/19 02/05/21 Rx 12/18 blood sugar diagnostic #100 each 06/14/20 02/05/21 Rx Humalog KwikPen Insulin See Rx Instructions .ROUTE 12/01/20 02/05/21 Rx .COMPLEX #0 ml Saccharomyces boulardii [Florastor] 250 mg PO BID 13 Days #26 cap 12/01/20 02/05/21 Rx Toujeo SoloStar U-300 Insulin 45 unit SUB-Q .QHS #13.5 ml 12/01/20 02/05/21 Rx blood-glucose meter #1 ea 12/12/20 02/05/21 Rx atorvastatin 40 mg PO QAM 12/13/20 02/05/21 History lisinopril 40 mg PO QAM 12/13/20 02/05/21 History cefuroxime axetil 500 mg PO BID 02/05/21 02/05/21 History Laboratory Tests 02/05/21 02/05/21 02/05/21 19:22 19:22 19:22 WBC 21.0 K/mm3 H K/mm3 (4.5-10.0) RBC 2.72 M/mm3 L M/mm3 (4.6-6.20) Hgb 7.7 g/dL L g/dL (14.0-18.0) Hct 24.2 % L % (42.0-52.0) MCV 89.0 fl fl (80-100) MCH 28.3 pg pg (26-34) MCHC 31.8 g/dl L g/dl (32-36) RDW 12.7 % % (11.5-14.5) Plt Count 456 k/mm3 H k/mm3 (150-375) MPV 9.0 fl fl (7.4-10.4) Immature Gran % (Auto) Not Reportable Neut % (Auto) Not Reportable Lymph % (Auto) Not Reportable [place] % (Auto) Not Reportable Eos % (Auto) Not Reportable Baso % (Auto) Not Reportable Lymph # (Auto) Not Reportable [place] # (Auto) Not Reportable Eos # (Auto) Not Reportable Baso # (Auto) Not Reportable Abs Immat Gran (auto) Not Reportable Absolute Neuts (auto) Not Reportable Absolute Nucleated RBC Not Reportable Total Counted 100 Neutrophils % (Manual) 81 % H % (46-73) Band Neutrophils % 1 % % (0-6) Lymphocytes % (Manual) 13.0 % L % (18-44) Monocytes % (Manual) 4 % % (3-9) Eosinophils % (Manual) 1 % % (0-4) Nucleated RBC % Not Reportable Abs Neuts (Manual) 17.22 K/mm3 H K/mm3 (1.3-6.7) Abs Lymphs (Manual) 2.73 K/mm3 K/mm3 (1.1-4.5) Abs Monocytes (Manual) 0.84 K/mm3 K/mm3 (0.1-0.90) Absolute Eos (Manual) 0.21 K/mm3 K/mm3 (0.02-0.5) Platelet Estimate Increased (Adequate) Absolute Retic Percent Retic Immature Retic Fraction Retic Hgb Content Sodium 135 mmol/L L mmol/L (137-145) Potassium 4.4 mmol/L mmol/L (3.4-5.0) Chloride 102 mmol/L mmol/L (98-107) Carbon Dioxide 28 mmol/L mmol/L (22-30) Anion Gap 5 mmol/L L mmol/L (8-16) BUN 39 mg/dL H D mg/dL (9-20) Creatinine 1.20 mg/dL mg/dL (0.7-1.3) Estim Creat Clear Calc 64 ml/min ml/min Estimated GFR > 60 (59 - ) Glucose 218 mg/dL H mg/dL (75-110) POC Capillary Glucose Hemoglobin A1c Lactic Acid Calcium 8.8 mg/dL mg/dL (8.4-10.2) Magnesium Iron TIBC % Saturation Ferritin Total Bilirubin 0.3 mg/dL mg/dL (
[2021-02-06 16:55] LABS: Glucose Point of Care 261 (65-105)
--- NOTE | 2021-02-06 18:52 | CONS_ITS ---
DATE OF CONSULTATION: 02/06/2021 REASON FOR CONSULTATION: Osteomyelitis, right foot. HISTORY OF PRESENT ILLNESS: A 65-year-old male, who had previous periostitis of the right 5th metatarsal in November. He was given IV followed by oral antibiotics with clindamycin for approximately 2 weeks. He was brought back here on outpatient basis about 6 weeks ago. He had debridement of the persistent ulcer, scraping of the 5th metatarsal base intraoperatively and skin graft. In the last week he has developed increasing redness and swelling of the foot. He kept a scheduled visit with Dr. Goodwin yesterday and was admitted. He has been given imipenem and vancomycin, consultation requested. No oral antibiotics recently. Last evening after arrival, he had rigors followed by drenching sweats. There is no desaturation, nor hypotension, nor any documented fever. He had no fever, rigors, sweats at home. He has no pain up the leg. He has peripheral neuropathy, hence diminished sensation in the foot. He has a previous left BKA. No other recent operative interventions to the right foot. ALLERGIES: NONE KNOWN. HABITS: No tobacco. No alcohol. PRESENT MEDICATIONS: As above. No immunosuppressants. PAST MEDICAL HISTORY: In addition to the above osteomyelitis acutely of the right 1st toe, cataract extractions, carpal tunnel surgery, pulmonary hypertension, peripheral vascular disease, diabetes mellitus, not well controlled in the past, hypertension, hyperlipidemia, esophageal stricture with dilations, diabetic retinopathy, coronavirus infection May 2020, and chronic renal insufficiency. REVIEW OF SYSTEMS: Bilateral hip pain with his rigors last evening. 14-point review otherwise negative except hyperglycemia. FAMILY HISTORY: Not pertinent to his present illness. SOCIAL HISTORY: Lives locally as a girlfriend. 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 He has a prosthesis left leg, allowing him a fair amount of ambulation on his own. PHYSICAL EXAMINATION: VITAL SIGNS: Afebrile at 83, 18, 100% saturation, 137/59 on room air. SKIN: No generalized rashes. Warm and dry and no ulcerations except right foot. EENT: The conjunctivae are normal. No paranasal sinus, erythema, edema, tenderness. The mucous membranes are well hydrated. NECK: Without meningismus, mass, or tenderness. LUNGS: Clear to auscultation and percussion. Good air entry. CARDIAC: Regular rate and rhythm. No murmurs or gallops. Unable to palpate dorsalis pedis pulse. ABDOMEN: Soft, nontender. No masses. No organomegaly. EXTREMITIES: Left BKA. On the right, he has a 2 cm circumscribed ulcer in the area of the lateral 5th metatarsal base. There is some slough present and mild surrounding erythema. There is also erythema over the medial and plantar foot. No lymphangitis. There is 2+ nonpitting edema. No odor. No necrosis. He has subcentimeter abrasions over the dorsum of toes 1 and 2. LABORATORY STUDIES: Blood cultures in process from last evening. Previous superficial swab with MRSA. From the operating room 12/20/2020, no growth final. White blood cell count 21.0, hemoglobin 7.7, platelets are 456. Differential: Minimal left shift, A1c again 10%. He has hyponatremia, BUN 39, creatinine 1.2. Accu-Cheks in the 200s, low magnesium, low iron, low TIBC, high ferritin, alkaline phosphatase 158. Transaminase is normal. CRP 21, albumin 3.2. RADIOLOGY: MRI of the right foot shows osteomyelitis findings over the 4th and 5th metatarsals as well as the cuboid. No abscesses or ulcer seen. Previous arterial Dopplers noted. ASSESSMENT: 1. Acute osteomyelitis of the right 4th metatarsal in the cuboid due to peripheral vascular disease and diabetes. He also has abnormalities over the 5th metatarsal, though I cannot
[2021-02-06 20:34] VITALS: BP 138/70; PULSE 80; RESP 16; TEMP 36.5; O2SAT 100
[2021-02-06 20:43] LABS: Glucose Point of Care 263 (65-105)
[2021-02-06 22:42] LABS: IFOB Positive Control Positive; Immunochemical Fecal Occult Bl Negative (N)
[2021-02-07] VITALS (9 sets, daily range): BP systolic 100–137; BP diastolic 48–70; PULSE 76–96; RESP 10–20; TEMP 35.7–37.3; O2SAT 95–99
--- NOTE | 2021-02-07 07:15 | WPDHPUPDATE1 ---
History and Physical Update Update Date/Time: 02/07/21 07:15 History and Physical has been reviewed, including an updated exam of the patient. There are NO changes in the patient's condition. Risks, benefits, and alternatives have been discussed and questions answered. Patient agrees to proceed with procedure.
[2021-02-07 07:49] LABS: Glucose Point of Care 181 (65-105)
[2021-02-07 07:56] LABS: Hematocrit 22.1 % (42.0-52.0); Hemoglobin 7.3 g/dL (14.0-18.0); Mean Corpuscular Hemoglobin 28.9 pg (26-34); Mean Corpuscular Volume 87.4 fl (80-100); Mean Platelet Volume 8.5 fl (7.4-10.4); Platelet Count Result 469 k/mm3 (150-375); Red Blood Count 2.53 M/mm3 (4.6-6.20); Red Cell Distribution Width 12.9 % (11.5-14.5); White Blood Count 14.8 K/mm3 (4.5-10.0)
[2021-02-07 07:58] LABS: Alanine Aminotransferase 38 U/L (4-50); Albumin Level 2.9 g/dL (3.5-5.1); Alkaline Phosphatase 140 U/L (38-126); Anion Gap 4 mmol/L (8-16); Aspartate Amino Transferase 39 U/L (17-59); Bilirubin,Total 0.1 mg/dL (0.2-1.3); Blood Urea Nitrogen 34 mg/dL (9-20); Calcium 8.5 mg/dL (8.4-10.2); Carbon Dioxide 27 mmol/L (22-30); Chloride 102 mmol/L (98-107); Estimated CRCL calculation 76 ml/min; Estimated Glomerular Filt Rate > 60; Glucose 203 mg/dL (75-110); Magnesium 2.1 mg/dL (1.6-2.3); Potassium 4.1 mmol/L (3.4-5.0); Sodium 133 mmol/L (137-145)
[2021-02-07 08:00] LABS: Vancomycin Trough 19.6 ug/mL (10.0-20.0)
[2021-02-07] MEDS: MAGNESIUM OXIDE 400 MG TABLET PO (08:54)
[2021-02-07] MEDS: ATORVASTATIN 40 MG TABLET PO (08:54)
[2021-02-07] MEDS: POLYSACCHARIDE IRON COMPLEX 150 MG CAPSULE PO (08:54)
[2021-02-07] MEDS: SACCHAROMYCES BOULARDII 250 MG CAPSULE PO ×2 (08:54→18:06)
[2021-02-07] MEDS: lisinopriL 20 MG TABLET 40 MG PO (08:54)
[2021-02-07] MEDS: IRON SUCROSE COMPLEX 200 MG in SODIUM CHLORIDE 0.9% IV 50 ML 120 MG IVPB (09:02)
--- NOTE | 2021-02-07 11:26 | PCPTNOTE ---
The PT treatment was unable to be completed today due to patient refusal. Patient scheduled to leave room for procedure and would like to skip PT for today. Will continue per Plan of Care frequency and duration.
--- NOTE | 2021-02-07 11:38 | WPDANESEFPP ---
Anes - Eval Final PreProcedure Day of Procedure 02/07/21 11:38 Patient weight: overweight Heart: regular rate and rhythm Lungs: clear to auscultation and normal air movement Airway: Mallampati scale class II Neurological: alert and oriented Last oral intake: >/= 8 hours ASA classification: III Emergent: no Anesthetic plan: proceed Anesthesia type and monitoring: general GIVS and LMA Informed Consent: The patient's anesthetic plan and its attendant risks and benefits were discussed with the patient/family/POA. Questions were solicited and answers provided to the satisfaction of the patient/family/POA.
[2021-02-07 11:45] LABS: Glucose Point of Care 201 (65-105)
[2021-02-07] MEDS: LACTATED RINGERS 1,000 ML 30 ML IV CONT (12:41)
[2021-02-07] MEDS: LIDO 1%/EPINEPHRINE 1:100,000 50 ML VIAL INFILTRATE (14:13)
--- NOTE | 2021-02-07 14:42 | PM.OP ---
Procedure Note - Brief Procedure Note - Brief Date of procedure: 02/07/21 Pre-op diagnosis: Infected right diabetic foot ulcer Post-op diagnosis: same Procedure performed: Excisional debridement of diabetic right foot ulcer 3x5 cm including bone, tendon and muscle. Anesthesia: MAC Surgeon: Guru Goodwin MD Estimated blood loss (mL): 5 Tourniquet time (min): 0 Drains: No Packing: Yes Pathology: none sent Complications: No immediate complications Condition: stable Disposition: same day
--- NOTE | 2021-02-07 14:56 | PM.PROC ---
Procedure Note - Detailed Date of procedure: 02/07/21 Pre-op diagnosis: Infected right diabetic foot ulcer Post-op diagnosis: same Procedure performed: Excisional debridement of bone tendon and muscle 6 cm x 3 cm diabetic right foot ulcer Description of procedure: The patient's foot was marked in holding area. He was taken to the operating room placed supine on the operating table. A time-out was held and confirmed. Patient was rolled to the left side and the right lower extremity was prepped and draped in usual fashion. The tourniquet was not utilized. The discolored skin margins were debrided of epithelial slough. At that point additional skin was removed distally revealing underlying necrotic subcutaneous tissue. Bone was rongeured off the lateral 5th metatarsal and cuneiform. This exposed the metatarsal cuneiform joint. We did not see bleeding from most of that tissue.. The tendon and muscle from the lateral foot were also excised.. We irrigated this. No cultures were sent. We applied a Xeroform /bulky gauze dressing after applying a little wax to a couple sites on the bone. Anesthesia: MAC Surgeon: Guru Goodwin MD Estimated blood loss (mL): 1 Tourniquet time (min): 0 Drains: No Packing: Yes Pathology: none sent Complications: No immediate complications Condition: stable Disposition: PACU
--- NOTE | 2021-02-07 17:18 | PM.IMPN ---
Progress Note: A&P Assessment and Plan (1) Cellulitis of right foot: Code(s): L03.115 - Cellulitis of right lower limb Status: Acute Assessment and Plan: Blood cultures x2 from February 05 show no growth Dressing on foot dry and clean with no sign of swelling or drainage. Right leg appears to have vascular deficits as well, no hair to the leg and skin changes typical of vascular insufficiency. discussed at length the need for glucose levels consistently under 180. Preferably to 160 and under. Surgical debridement with Dr. Goodwin today elevating right foot Currently on IV vanc and imipenem No fevers White count trended from 7.6 to 21.0 to 14.8 Appreciate consults of plastics Dr. Goodwin as well as infectious disease physician Dr. Keith - following their recommendations. (2) Diabetic ulcer of right foot: Qualifiers: Diabetes mellitus type: type 2 Diabetic foot ulcer location: midfoot Non-pressure ulcer stage: with muscle involvement without evidence of necrosis Qualified Code(s): E11.621 - Type 2 diabetes mellitus with foot ulcer; L97.415 - Non-pressure chronic ulcer of right heel and midfoot with muscle involvement without evidence of necrosis Code(s): E11.621 - Type 2 diabetes mellitus with foot ulcer; L97.519 - Non-pressure chronic ulcer of other part of right foot with unspecified severity Status: Acute Assessment and Plan: Blood cultures remain pending. Dressing on foot dry and clean with no sign of swelling or drainage. Right leg appears to have vascular deficits as well, no hair to the leg and skin changes typical of vascular insufficiency. discussed at length the need for glucose levels consistently under 180. Preferably to 160 and under. this would take a multi factor approach, including increased activity and exercise, including diet choices, including tracking carbs, including perhaps medication changes to oral and insulin dosing with the assistance of his PCP or an Salad Counter Attendant. Consulted Piece Worker/Stone Engraver. Ordered PT/OT. Instructed the patient to request exercises from PT OT that he could do while in a chair and in bed during healing of this right foot. pain was controlled during our discussions. Near the end of our discussion, he winced at some intermittent pain, but when offered p.r.n. pain medicine, the patient refused. Continue wrapping as instructed elevating right foot Currently on IV vanc and imipenem Appreciate consults of plastics Dr. Goodwin as well as infectious disease physician Dr. Keith - following their recommendations. 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 Preferably to 160 and under. multi factor approach, including increased activity and exercise, including diet choices, including tracking carbs, including perhaps medication changes to oral and insulin dosing with the assistance of his PCP or an Salad Counter Attendant. SSI and glucose checks in place increase SSI dosing as needed - continue to monitor glucose levels and adjust as needed. Consulted Piece Worker/Stone Engraver. Ordered PT/OT. Instructed the patient to request exercises from PT OT that he could do while in a chair and in bed during healing of this right foot. (4) Chronic anemia: Code(s): D64.9 - Anemia, unspecified Status: Chronic Assessment and Plan: avoid excess IVFs if possible Iron panel consistently low with iron deficiency Discussed with patient in family 2nd dose Venofer IV for today Started patient on Niferex orally. Hemoglobin stable today 7.3 with hematocrit 22 patient may need blood transfusion depends on how surgery/debridement goes negative occult blood in stool (5) Hypomagnesemia: Code(s): E8
--- NOTE | 2021-02-07 18:06 | WPDPN ---
Progress Note: A&P Assessment and Plan (1) Diabetic ulcer of right foot: Qualifiers: Diabetic foot ulcer location: midfoot Diabetes mellitus type: type 2 Non-pressure ulcer stage: with muscle involvement without evidence of necrosis Qualified Code(s): E11.621 - Type 2 diabetes mellitus with foot ulcer; L97.415 - Non-pressure chronic ulcer of right heel and midfoot with muscle involvement without evidence of necrosis Code(s): E11.621 - Type 2 diabetes mellitus with foot ulcer; L97.519 - Non-pressure chronic ulcer of other part of right foot with unspecified severity Status: Acute Assessment and Plan: Surgically debrided today. Unlikely to heal. (2) Osteomyelitis of foot, right, acute: Code(s): M86.171 - Other acute osteomyelitis, right ankle and foot Status: Acute Assessment and Plan: Would benefit most by BKA. Additional Plan Will try to coordinate care plan with others. Time Spent With Patient Time with patient: 15 - 25 minutes Objective Data Vital Signs Vital Signs: Vital Signs - 24 hr 02/06/21 20:34 02/07/21 05:14 02/07/21 12:35 Temperature 36.5 C 36.6 C 37.3 C Pulse Rate 80 96 88 Respiratory Rate 16 16 16 Blood Pressure 138/70 127/70 136/66 Pulse Oximetry 100 98 98 02/07/21 14:32 02/07/21 14:45 02/07/21 15:00 Temperature 35.7 C L Pulse Rate 79 80 76 Respiratory Rate 14 10 L 16 Blood Pressure 100/61 121/65 118/67 Pulse Oximetry 95 96 95 02/07/21 15:15 02/07/21 15:30 02/07/21 15:45 Temperature 37.3 C 36.6 C Pulse Rate 78 79 76 Respiratory Rate 20 16 16 Blood Pressure 124/69 107/48 L 106/51 L Pulse Oximetry 97 99 99 Intake/Output Intake/Output: Intake & Output 02/04/21 02/05/21 02/06/21 02/07/21 23:59 23:59 23:59 23:59 Intake Total 600 3170 1210 Output Total 1475 Balance 600 1695 1210 Meds/Results Medications: Active Medications Generic Name Dose Route Start Last Admin Trade Name Freq PRN Reason Stop Dose Admin Acetaminophen 650 mg 02/05/21 18:54 02/06/21 14:47 Acetaminophen 325 Mg Tablet PO 650 mg Q4H PRN Administration Mild Pain (1-3) or Fever Hydrocodone Bitart/Acetaminophen 1 tab 02/05/21 18:54 Hydrocodone/Acetaminophen (*Crx) 5-325 Mg Tablet PO Q4H PRN Moderate Pain (4-6) Atorvastatin Calcium 40 mg 02/06/21 09:00 02/07/21 08:54 Atorvastatin 40 Mg Tablet PO 40 mg QAM MARELY Administration Dextrose 12.5 gm 02/05/21 18:54 Dextrose 50% 25 Gm/50 Ml Syringe IV PUSH PRN PRN Hypoglycemia Protocol Glucagon 1 mg 02/05/21 18:54 Glucagon For Inj 1 Mg Vial IM PRN PRN Hypoglycemia Protocol Glucose 15 gm 02/05/21 18:54 Glucose Oral Gel 15 Gm Of Glucse In 37.5 Gm Tube PO PRN PRN Hypoglycemia Protocol Dextrose 1,000 mls @ 100 mls/hr 02/05/21 18:54 Dextrose 5% 1,000 Ml IVPB PRN PRN Hypoglycemia Protocol Imipenem/Cilastatin Sodium 500 mg in 100 mls @ 300 mls/hr 02/06/21 00:00 02/07/21 18:06 Primaxin 500 Mg/D5w 100 Ml IVPB 300 mls/hr Q6H [facility] Administration Vancomycin HCl 1,500 mg in 500 mls @ 333.333 mls/hr 02/06/21 09:00 02/07/21 10:36 Vancomycin 1,500 Mg/D5w 500 Ml IVPB Infused Q12H [facility] Infusion Insulin Aspart 4 - 8 units 02/06/21 17:00 02/07/21 11:47 Insulin Aspart (*Bkc) 100 Units/Ml SUB-Q Not Given TIDWM [facility] Protocol Lisinopril 40 mg 02/06/21 09:00 02/07/21 08:54 Lisinopril 20 Mg Tablet PO 40 mg QAM MARELY Administration Magnesium Oxide 400 mg 02/06/21 11:45 02/07/21 08:54 Magnesium Oxide 400 Mg Tablet PO 400 mg QAM MARELY Administration Morphine Sulfate 2 mg 02/05/21 18:54 Morphine Sulfate (*Crx) 2 Mg/Ml Inj IV PUSH Q4H PRN Pain Rated 7-10 Polysaccharide Iron Complex 150 mg 02/07/21 08:00 02/07/21 08:54 Polysaccharide Iron Complex 150 Mg Capsule PO 150 mg DAILY@0800 MAR[facility] Administration Saccharomyces Boulardii 250 mg 0
[2021-02-07 18:31] LABS: Glucose Point of Care 180 (65-105)
[2021-02-07 21:42] LABS: Glucose Point of Care 382 (65-105)
[2021-02-07] MEDS: INSULIN ASPART (*BKC) 100 UNITS/ML SUB-Q (23:06)
[2021-02-07 23:07] LABS: Glucose Point of Care 395 (65-105)
[2021-02-08 00:27] LABS: Glucose Point of Care 156 (65-105)
[2021-02-08 06:01] LABS: Magnesium 2.2 mg/dL (1.6-2.3)
[2021-02-08 07:01] LABS: Glucose Point of Care 330 (65-105)
[2021-02-08 08:01] LABS: Glucose Point of Care 317 (65-105)
[2021-02-08] MEDS: lisinopriL 20 MG TABLET 40 MG PO (08:10)
[2021-02-08] MEDS: SACCHAROMYCES BOULARDII 250 MG CAPSULE PO (08:10)
[2021-02-08] MEDS: ATORVASTATIN 40 MG TABLET PO (08:10)
[2021-02-08] MEDS: POLYSACCHARIDE IRON COMPLEX 150 MG CAPSULE PO (08:10)
[2021-02-08] MEDS: MAGNESIUM OXIDE 400 MG TABLET PO (08:10)
[2021-02-08] MEDS: INSULIN ASPART (*BKC) 100 UNITS/ML SUB-Q ×2 (08:11→12:28)
--- NOTE | 2021-02-08 10:35 | WPDANESPN ---
Anes - Prog Note Post-Op Date/Time: 02/08/21 10:35 Cardiovascular status: normal Respiratory status: normal Airway patency: baseline Mental status: baseline Post-Op hydration status: normal Vital Signs: Last Vital Signs Temp 36.2 C L 02/07/21 20:33 Pulse 88 02/07/21 20:33 Resp 18 02/07/21 20:33 BP 137/70 02/07/21 20:33 Pulse Ox 98 02/07/21 20:33 Pain Score (VAS): 4 I/O: Intake & Output 02/07/21 02/08/21 02/08/21 23:59 07:59 15:59 Intake Total 840 200 240 Output Total 250 900 Balance 590 -700 240 Laboratory Tests 02/07/21 07:28 02/07/21 07:28 02/07/21 02/07/21 02/07/21 11:44 14:39 18:05 POC Capillary Glucose 201 H 156 H 180 H Magnesium 02/07/21 02/07/21 02/08/21 21:00 23:05 05:14 POC Capillary Glucose 382 H 395 H Magnesium 2.2 02/08/21 02/08/21 06:51 07:53 POC Capillary Glucose 330 H 317 H Magnesium Microbiology 02/06/21 13:49 Foot Right Wound Culture - Preliminary Post-procedural complaints: none Patient Feedback: Patient satisfied with anesthetic care.
--- NOTE | 2021-02-08 12:11 | PM.DS ---
DS: Admitting Diagnosis Admitting Diagnosis Admitting Diagnosis: Right diabetic foot wound DS: Discharge Diagnosis Discharge Diagnosis (1) Diabetic ulcer of right foot: Qualifiers: Diabetes mellitus type: type 2 Diabetic foot ulcer location: midfoot Non-pressure ulcer stage: with muscle involvement without evidence of necrosis Qualified Code(s): E11.621 - Type 2 diabetes mellitus with foot ulcer; L97.415 - Non-pressure chronic ulcer of right heel and midfoot with muscle involvement without evidence of necrosis Code(s): E11.621 - Type 2 diabetes mellitus with foot ulcer; L97.519 - Non-pressure chronic ulcer of other part of right foot with unspecified severity Status: Acute Assessment and Plan: Received IV vancomycin and Primaxin. S/p debridement in OR by Dr. Goodwin, plastic surgery, on 02/07/21. Ulcer unlikely to heal, therefore BKA planned 02/13. Seen in consultation by plastic surgery and infectious disease. Home health current to assist with wound care. Pain was well controlled. Continue post op shoe for offloading. Continue antibiotics per Dr. Keith recommendations for care home suppression. Remained afebrile. Preliminary blood cultures negative and wound cultures negative. (2) Cellulitis of right foot: Code(s): L03.115 - Cellulitis of right lower limb Status: Acute Assessment and Plan: As above. 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 Blood sugars reviewed and were elevated above target. Anticipate further improvement of blood sugars with adherance to home medication regimen including toujeo 45 units qHS and sliding scale insulin. Recommended close glucose monitoring at home. Diabetic diet. (4) Chronic anemia: Code(s): D64.9 - Anemia, unspecified Status: Chronic Assessment and Plan: H&H lower than baseline at presentation but slowly improved. Stool occult blood negative. Received IV venofer and will continue PO iron supplementation. (5) Hypomagnesemia: Code(s): E83.42 - Hypomagnesemia Status: Acute Assessment and Plan: Magnesium was monitored and supplemented. Continue PO magnesium supplementation. (6) Hypertension: Qualifiers: Hypertension type: unspecified Qualified Code(s): I10 - Essential (primary) hypertension Code(s): I10 - Essential (primary) hypertension Status: Chronic Assessment and Plan: Blood pressures reviewed and were well controlled. Continue lisinopril DS: Summary Hospital Course Reason for hospitalization: Diabetic foot ulcer Hospital Course: Date of admission: 02/05/2021 Date of discharge: 02/08/2021 Hernando Espana is a 65-year-old male with poorly controlled insulin-dependent diabetes with associated diabetic peripheral neuropathy, hypertension, and history of osteomyelitis and MRSA who was directly admitted to the hospitalist service the request of plastic surgeon Dr. Goodwin for further evaluation management of right diabetic foot wound. The wound had been present for several months and he had a follow-up appointment with Dr. Goodwin who felt he needed hospitalization for surrounding infection. Upon presentation, his vital signs are stable and he was afebrile, white count was elevated at 21.0, H&H decreased, and platelets elevated at 456, and electrolytes were stable. He was admitted to the hospitalist service for further evaluation and management and seen in consultation by plastic surgery and Infectious Disease. Please see above for further details. He was treated with IV antibiotics and underwent excisional debridement on 02/07/2021. He tolerated the procedure well and his pain was well controlled. Right BKA is planned for 02/13/2021. Leukocytosis improved with IV antibiotics, however di
--- NOTE | 2021-02-08 12:12 | WPDPN ---
Progress Note: A&P Assessment and Plan (1) Osteomyelitis of foot, right, acute: Code(s): M86.171 - Other acute osteomyelitis, right ankle and foot Status: Acute (2) Diabetic ulcer of right foot: Qualifiers: Diabetic foot ulcer location: midfoot Diabetes mellitus type: type 2 Non-pressure ulcer stage: with muscle involvement without evidence of necrosis Qualified Code(s): E11.621 - Type 2 diabetes mellitus with foot ulcer; L97.415 - Non-pressure chronic ulcer of right heel and midfoot with muscle involvement without evidence of necrosis Code(s): E11.621 - Type 2 diabetes mellitus with foot ulcer; L97.519 - Non-pressure chronic ulcer of other part of right foot with unspecified severity Status: Acute Additional Plan Stable for discharge today and plan for right BKA next Thursday. Will be admitted post op. Objective Data Vital Signs Vital Signs: Vital Signs - 24 hr 02/07/21 12:35 02/07/21 14:32 02/07/21 14:45 Temperature 37.3 C 35.7 C L Pulse Rate 88 79 80 Respiratory Rate 16 14 10 L Blood Pressure 136/66 100/61 121/65 Pulse Oximetry 98 95 96 02/07/21 15:00 02/07/21 15:15 02/07/21 15:30 Temperature 37.3 C Pulse Rate 76 78 79 Respiratory Rate 16 20 16 Blood Pressure 118/67 124/69 107/48 L Pulse Oximetry 95 97 99 02/07/21 15:45 02/07/21 20:33 Temperature 36.6 C 36.2 C L Pulse Rate 76 88 Respiratory Rate 16 18 Blood Pressure 106/51 L 137/70 Pulse Oximetry 99 98 Intake/Output Intake/Output: Intake & Output 02/05/21 02/06/21 02/07/21 02/08/21 23:59 23:59 23:59 23:59 Intake Total 600 3170 2050 440 Output Total 1475 250 900 Balance 600 1695 1800 -460 Meds/Results Medications: Active Medications Generic Name Dose Route Start Last Admin Trade Name Freq PRN Reason Stop Dose Admin Acetaminophen 650 mg 02/05/21 18:54 02/06/21 14:47 Acetaminophen 325 Mg Tablet PO 650 mg Q4H PRN Administration Mild Pain (1-3) or Fever Hydrocodone Bitart/Acetaminophen 1 tab 02/05/21 18:54 Hydrocodone/Acetaminophen (*Crx) 5-325 Mg Tablet PO Q4H PRN Moderate Pain (4-6) Atorvastatin Calcium 40 mg 02/06/21 09:00 02/08/21 08:10 Atorvastatin 40 Mg Tablet PO 40 mg QAM MARELY Administration Dextrose 12.5 gm 02/05/21 18:54 Dextrose 50% 25 Gm/50 Ml Syringe IV PUSH PRN PRN Hypoglycemia Protocol Glucagon 1 mg 02/05/21 18:54 Glucagon For Inj 1 Mg Vial IM PRN PRN Hypoglycemia Protocol Glucose 15 gm 02/05/21 18:54 Glucose Oral Gel 15 Gm Of Glucse In 37.5 Gm Tube PO PRN PRN Hypoglycemia Protocol Dextrose 1,000 mls @ 100 mls/hr 02/05/21 18:54 Dextrose 5% 1,000 Ml IVPB PRN PRN Hypoglycemia Protocol Imipenem/Cilastatin Sodium 500 mg in 100 mls @ 300 mls/hr 02/06/21 00:00 02/08/21 12:10 Primaxin 500 Mg/D5w 100 Ml IVPB 300 mls/hr Q6H MARELY Administration Vancomycin HCl 1,500 mg in 500 mls @ 333.333 mls/hr 02/06/21 09:00 02/08/21 08:11 Vancomycin 1,500 Mg/D5w 500 Ml IVPB 333 mls/hr Q12H MARELY Administration Insulin Aspart 4 - 8 units 02/06/21 17:00 02/08/21 08:11 Insulin Aspart (*Bkc) 100 Units/Ml SUB-Q 6 units TIDWM MARELY Administration Protocol Insulin Glargine 23 units 02/08/21 21:00 Insulin Glargine (*Bkc) 100 Units/Ml 0.25 units/kg (23 units) SUB-Q HS MARELY Lisinopril 40 mg 02/06/21 09:00 02/08/21 08:10 Lisinopril 20 Mg Tablet PO 40 mg QAM MARELY Administration Magnesium Oxide 400 mg 02/06/21 11:45 02/08/21 08:10 Magnesium Oxide 400 Mg Tablet PO 400 mg QAM MARELY Administration Morphine Sulfate 2 mg 02/05/21 18:54 Morphine Sulfate (*Crx) 2 Mg/Ml Inj IV PUSH Q4H PRN Pain Rated 7-10 Polysaccharide Iron Complex 150 mg 02/07/21 08:00 02/08/21 08:10 Polysaccharide Iron Complex 150 Mg Capsule PO 150 mg DAILY@0800 MARELY Administration Saccharomyces Boulardii 250 mg 02/06/21 09:00 0
[2021-02-08 12:42] LABS: Glucose Point of Care 304 (65-105)
[2021-02-08 12:44] LABS: Hematocrit 25.2 % (42.0-52.0); Hemoglobin 8.2 g/dL (14.0-18.0); Mean Corpuscular HGB Conc 32.5 g/dl (32-36); Mean Corpuscular Hemoglobin 28.4 pg (26-34); Mean Corpuscular Volume 87.2 fl (80-100); Mean Platelet Volume 8.5 fl (7.4-10.4); Platelet Count Result 511 k/mm3 (150-375); Red Blood Count 2.89 M/mm3 (4.6-6.20); Red Cell Distribution Width 12.6 % (11.5-14.5)
[2021-02-08 12:54] LABS: Anion Gap 6 mmol/L (8-16); Blood Urea Nitrogen 32 mg/dL (9-20); Calcium 8.9 mg/dL (8.4-10.2); Carbon Dioxide 27 mmol/L (22-30); Chloride 99 mmol/L (98-107); Estimated CRCL calculation 76 ml/min; Estimated Glomerular Filt Rate > 60; Glucose 329 mg/dL (75-110); Potassium 4.5 mmol/L (3.4-5.0); Sodium 132 mmol/L (137-145)
--- NOTE | 2021-02-08 13:31 | PCPTNOTE ---
Attempted PT reeval. Pt refused therapy, states he is going home, has been walking in room.
== END 2021-02-08 14:40 | disposition home or self-care (01) | DRG 629 ==
PROVIDERS: Nurse Practitioner; Physician Assistant; Plastic Surgery; Admitting Provider Family Medicine; PCP Physician Assistant; Visit Provider Physician Assistant
PROC: 0QBN0ZZ Excision of Right Metatarsal, Open Approach (ICD-10-PCS; principal; 2021-02-07 12:30)
DX: E11.69 Type 2 diabetes mellitus with other specified complication (principal); L97.415 Non-pressure chronic ulcer of right heel and midfoot with muscle involvement without evidence of necrosis; L03.115 Cellulitis of right lower limb; M86.171 Other acute osteomyelitis, right ankle and foot; E11.621 Type 2 diabetes mellitus with foot ulcer; D64.9 Anemia, unspecified; E83.42 Hypomagnesemia; I27.20 Pulmonary hypertension, unspecified; E11.22 Type 2 diabetes mellitus with diabetic chronic kidney disease; E11.42 Type 2 diabetes mellitus with diabetic polyneuropathy; E11.319 Type 2 diabetes mellitus with unspecified diabetic retinopathy without macular edema; E11.51 Type 2 diabetes mellitus with diabetic peripheral angiopathy without gangrene; I12.9 Hypertensive chronic kidney disease with stage 1 through stage 4 chronic kidney disease, or unspecified chronic kidney disease; N18.9 Chronic kidney disease, unspecified; E78.5 Hyperlipidemia, unspecified; Z79.4 Long term (current) use of insulin; Z79.899 Other long term (current) drug therapy; Z86.16 Personal history of COVID-19; Z89.512 Acquired absence of left leg below knee; Z98.49 Cataract extraction status, unspecified eye
CPT/HCPCS: 36415; 80048; 80053; 80202; 82274; 82607; 82728; 82746; 82948; 83036; 83540; 83550; 83605; 83735; 84134; 84443; 85014; 85018; 85025; 85027; 85046; 86140; 87040; 87070; 87205; 97161; 97165; A9270; J0743; J1756; J1815; J2250; J2405; J2704; J3010; J3370; J3475; J7120

== ENCOUNTER → 2021-02-09 02:04 | Outpatient (CLI) | payer MEDICARE, SELFPAY ==
[2021-02-10 14:53] LABS: SARS-CoV-2 RNA PCR Negative
== END ==
PROVIDERS: PCP Physician Assistant; Visit Provider Plastic Surgery
DX: Z01.812 Encounter for preprocedural laboratory examination (principal); Z20.822 Contact with and (suspected) exposure to COVID-19
CPT/HCPCS: C9803; U0003; U0005

== ENCOUNTER 2021-02-13 13:25 | Inpatient (IN) | payer MEDICARE, SELFPAY ==
[2021-02-08 15:18] VITALS: BMI 28.5
--- NOTE | 2021-02-08 15:22 | PC.NURSE ---
PT STATES NO CHANGE IN HEALTH HX SINCE LAST INTERVIEW ON 02/05/21
[2021-02-13] VITALS (16 sets, daily range): BP systolic 97–158; BP diastolic 57–73; PULSE 75–110; RESP 11–20; TEMP 36.1–37.6; O2SAT 94–100; BMI 26.9; BMI 27.2
--- NOTE | 2021-02-13 07:04 | WPDHPUPDATE1 ---
History and Physical Update Update Date/Time: 02/13/21 07:04 History and Physical has been reviewed, including an updated exam of the patient. There are NO changes in the patient's condition. Risks, benefits, and alternatives have been discussed and questions answered. Patient agrees to proceed with procedure.
[2021-02-13] MEDS: LACTATED RINGERS 1,000 ML 30 ML IV CONT ×2 (07:40→11:09)
[2021-02-13 07:55] LABS: Glucose Point of Care 160 (65-105)
--- NOTE | 2021-02-13 07:56 | WPDANESEPPF ---
Anes - Initial Pre Proc Eval Procedure: Operation Date: 02/13/21 08:30 Proposed Procedures p Right Below Knee Amputation - Guru Goodwin MD Date/Time: 02/13/21 07:56 Surgeon: Guru Goodwin MD Pre Op Diagnosis: osteomyelitis, 4th 5th metatarsal base, right foot Patient Data Age: 65 Gender: M Height: 6 ft Weight: 95.3 kg Allergies Allergy/AdvReac Type Severity Reaction Status Date / Time No Known Allergies Allergy Verified 02/13/21 07:27 Home Medications Medication Instructions Recorded Confirmed Type blood sugar diagnostic #10 each 08/17/19 02/05/21 Rx lancets 33 gauge #100 each 08/17/19 02/05/21 History pen needle, diabetic 31 gauge x #500 each 10/20/19 02/05/21 Rx 12/18 blood sugar diagnostic #100 each 06/14/20 02/05/21 Rx Humalog KwikPen Insulin See Rx Instructions .ROUTE 12/01/20 02/13/21 Rx .COMPLEX #0 ml Saccharomyces boulardii [Florastor] 250 mg PO BID 13 Days #26 cap 12/01/20 02/13/21 Rx Toujeo SoloStar U-300 Insulin 45 unit SUB-Q .QHS #13.5 ml 12/01/20 02/13/21 Rx blood-glucose meter #1 ea 12/12/20 02/05/21 Rx atorvastatin 40 mg PO QAM 12/13/20 02/13/21 History lisinopril 40 mg PO QAM 12/13/20 02/13/21 History ascorbic acid (vitamin C) 1 g PO DAILY 02/08/21 02/13/21 History ciprofloxacin HCl [Cipro] 500 mg PO Q12H #14 tablet 02/08/21 02/13/21 Rx ferrous gluconate 324 mg PO DAILY #30 tablet 02/08/21 02/13/21 Rx magnesium oxide 400 mg PO QAM #30 tablet 02/08/21 02/13/21 Rx multivitamin,pl-ltrc-ejiowamn 1 tablet PO DAILY 02/08/21 02/13/21 History [Complete Multivitamin] rifampin 300 mg PO BID #14 cap 02/08/21 02/13/21 Rx Laboratory Tests 02/13/21 07:50 POC Capillary Glucose 160 mg/dl H mg/dl (65-105) Patient hx anesthesia problems: none Family hx anesthesia problems: none PMFSH Past Medical History Medical History Below-knee amputation of left lower extremity Chronic anemia Chronic kidney disease COVID-19 (~05/2020) Diabetic peripheral neuropathy Diabetic retinopathy History of esophageal dilatation History of esophageal stricture Hx of myocardial infarction Hyperlipidemia Hypertension Insulin dependent type 2 diabetes mellitus Hemoglobin A1c was 10.1% on 02/05/2021. MRSA pneumonia Open wound of penis Peripheral vascular disease in diabetes mellitus Proteinuria due to type 2 diabetes mellitus Pulmonary HTN Type 2 diabetes, controlled, with neuropathy Surgical History Surgical History History of bilateral carpal tunnel release History of cataract extraction History of left below knee amputation History of tonsillectomy History of transmetatarsal amputation of left foot Status post debridement Osteomyelitis of the right 1st toe. Family History Family History Father Diabetes mellitus Hypertension Mother Family history of malignant neoplasm of kidney Mother Family history of malignant neoplasm of kidney Father Diabetes mellitus Hypertension Lung cancer Social History Social History Social History: The patient is and lives in [place] with his significant other. He has 1 biological son. Lifelong nonsmoker. No alcohol or illicit substance use. 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 He designates his long-term significant other, Deneen Gallagher, as his surrogate decision maker and he wishes to be a full code. If Deneen cannot make decisions, he then appoints his son Hernando Espana V as his alternate surrogate decision maker. Living arrangements: with family Gilson Markham Final PreProcedure Day of Procedure 02/13/21 07:56 Patient weight: overweight Heart: regular rate and rhythm Lungs: clear to auscultation Airway: Mallampati scale class II Neurological: alert and oriented [place]
--- NOTE | 2021-02-13 11:18 | PM.OP ---
Procedure Note - Brief Procedure Note - Brief Date of procedure: 02/13/21 Pre-op diagnosis: osteomyelitis, 4th 5th metatarsal base, right foot Post-op diagnosis: same Procedure performed: Right below knee amputation. Anesthesia: GETA Surgeon: Guru Goodwin MD Chemistry Associate: Sonny Pace Tourniquet time (min): 47 Drains: No Packing: No Pathology: yes Complications: No immediate complications Condition: stable Disposition: PACU
--- NOTE | 2021-02-13 11:20 | PM.PROC ---
Procedure Note - Detailed Date of procedure: 02/13/21 Pre-op diagnosis: osteomyelitis, 4th 5th metatarsal base, right foot Diabetic ulcer right foot with osteomyelitis Post-op diagnosis: same Procedure performed: Right below-knee amputation Description of procedure: The right leg was marked in the holding area for appropriate side. Patient was taken to the operating room placed supine on the operating table. Time-out was held and confirmed. He was given general endotracheal anesthesia and the right lower extremity was prepped draped usual fashion. Tourniquet was applied to the thigh. The site was carefully measured to try to match length with the below-knee amputation on his left lower extremity. A posterior flap technique was marked. The leg was elevated and the tourniquet inflated to 300 mmHg. This was eventually raised to 350 mm to due to calcification of vessels preventing adequate control of bleeding. This patient was not given any IV antibiotics. He has recently been in the hospital and has been on oral antibiotics at home. The skin incisions were made. Superficial vessels were either cauterized or ligated and divided. The anterior and lateral muscles were divided. The tibia was stripped of periosteum a cm proximal to the planned amputation Level. The fibula was identified and stripped up near its neck to allow amputation at that level. The fibula was divided with large bone cutter. The tibia was divided with the saw and was beveled on its anterior edge and rasped smooth. A bone hook was applied to the proximal tibia and an inverted bucket and towels were placed under the thigh. The the popliteal neurovascular structures and posterior flap were divided with an amputation knife. The tourniquet was released and vascular bundles were identified, dissected a couple of cm. Arteries and veins were not specifically and suture ties were placed on these bundles, 2 such ties placed on the largest of these. Smaller vessels were either suture ligated or cauterized. The muscle in this limb was very robust. Multiple calcified arteries were identified and there was overall minimal arterial bleeding to be dealt with. The flap margins approximated each other very easily. No additional flap tailoring was needed. The closure was accomplished with O Vicryl sutures approximating the deeper fascial structures against the periosteum. The more superficial fascia and dermis of the flap was applied to dermis on the anterior flap. Final skin closure was done with griselda. A bulky dressing with 6 in double long Wilmar wrap completed the dressings. He is discharged from the operating room in stable condition. Estimated blood loss about 100 milliliter. The patient is being transported to the recovery room and is being admitted to the floor after that. Surgeon: Guru Goodwin MD
[2021-02-13] MEDS: fentaNYL CITRATE INJ (*CRX) 100 MCG/2 ML VIAL 25 MCG IV PUSH ×4 (11:43→12:14)
--- NOTE | 2021-02-13 13:59 | ADMGEN ---
This patient, Hernando Espana IV, was admitted to Medical Room 341-01. Patient/family oriented to hospital policies and general routines including ID bracelet, bed and alarms, visiting hours, pain management, procedures, bathroom and other care routines, personal items, smoking policy, room service/diet, and visiting hours. Information on how to activate the Rapid Response Team has been discussed. Patient/Family are encouraged to report perceived risks to care and to ask questions if they do not understand what they are told or what they should do.
[2021-02-13] MEDS: LACTATED RINGERS 1,000 ML 100 ML IV CONT (14:30)
[2021-02-13] MEDS: MORPHINE SULFATE (*CRX) 2 MG/ML INJ IV PUSH ×2 (14:31→21:10)
--- NOTE | 2021-02-13 15:24 | PM.IMCN ---
Assessment and Plan Assessment and plan (1) Hx of right BKA: Code(s): Z89.511 - Acquired absence of right leg below knee Status: Acute Assessment and Plan: see Dr. Goodwin note. Patient had a right cyrqp-bau-wsdw amputation today. His dressing is dry and intact. Pain management and DVT prophylaxis per Dr. Goodwin. 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 Continue with long-acting insulin per A1c was 10.1 earlier this month. (3) Hyperlipidemia: Qualifiers: Hyperlipidemia type: unspecified Qualified Code(s): E78.5 - Hyperlipidemia, unspecified Code(s): E78.5 - Hyperlipidemia, unspecified Status: Chronic Assessment and Plan: Continue with atorvastatin (4) Hypertension: Qualifiers: Hypertension type: unspecified Qualified Code(s): I10 - Essential (primary) hypertension Code(s): I10 - Essential (primary) hypertension Status: Chronic Assessment and Plan: continue lisinopril (5) MRSA cellulitis: Code(s): L03.90 - Cellulitis, unspecified; B95.62 - Methicillin resistant Staphylococcus aureus infection as the cause of diseases classified elsewhere Status: Acute Assessment and Plan: patient had a past medical history is MRSA. The patient is to be continued on rifampin and Cipro from home. (6) Chronic anemia: Code(s): D64.9 - Anemia, unspecified Status: Chronic Assessment and Plan: Slightly lower than it was earlier this month. Please continue to monitor. HPI Data of Consult Consult date: 02/13/21 Requesting Physician: Guru Goodwin MD Primary Care Provider: Benigno Chavira PA-C Consult Narrative Narrative: Hernando Espana IV is a 65 year old male who has a history of being insulin-dependent diabetic, diabetic peripheral neuropathy, hypertension and history of osteomyelitis with MRSA. The patient has had a history of having debridement on the right foot recently. The patient was seen by Dr. mack And antibiotics have been ordered.. The patient was treated for MRSA of the right lower extremity. The patient had a right guctj-ekk-iwwr amputation today by Dr. Goodwin. Please see operative note. The patient apparently has been dealing with this diabetic osteomyelitis for some time now. the patient tells me that his blood sugars have not controlled very well. Patient's last A1c was noted to be 10.1. The patient was admitted to inpatient services and the hospitalist group was asked to consult on the patient. The date of service is 02/13/2021. Side note patient was discharged from here on 02/08/2021 for the diabetic ulcer the right foot. His blood sugars were running in the 300s at that time. It was noted at that he had debridement at that time. the patient was discharged on ciprofloxacin and rifampin. Please see his discharge summary for 02/08/2021 Review of Systems Review of Systems: All systems reviewed & are unremarkable except as noted in HPI and below Constitutional: Constitutional: Reports as per HPI and Reports no additional constitutional complaints Eyes: Eyes: Reports as per HPI and Reports no additional eye complaints ENT: Reports system reviewed and no additional complaints, except as documented and Reports Normal hearing present Cardiovascular: Cardiovascular: Reports no additional cardiovascular complaints Respiratory: Respiratory: Reports no additional respiratory complaints and Reports no additional respiratory complaints Gastrointestinal: Gastroint
[2021-02-13 15:33] LABS: Basophils Absolute Auto 0.1 K/mm3 (0.0-0.1); Basophils Percent Auto 0.4 % (0.2-1.2); Eosinophils Absolute Auto 0.1 K/mm3 (0-0.3); Eosinophils Percent Auto 0.3 % (0-4.4); Hematocrit 22.6 % (42.0-52.0); Hemoglobin 7.1 g/dL (14.0-18.0); Immature Granulocyte Absolute 0.36 K/mm3 (0.00-0.031); Lymphocytes Absolute Auto 2.48 K/mm3 (0.9-3.2); Lymphocytes Percent Auto 13.6 % (18.3-44.2); Mean Corpuscular HGB Conc 31.4 g/dl (32-36); Mean Corpuscular Hemoglobin 28.3 pg (26-34); Mean Platelet Volume 8.1 fl (7.4-10.4); Monocytes Absolute Auto 1.1 K/mm3 (0.1-0.6); Neutrophils Absolute Auto 14.2 K/mm3 (1.3-6.7); Neutrophils Percent Auto 77.7 % (45.5-73.1); Platelet Count Result 445 k/mm3 (150-375); Red Blood Count 2.51 M/mm3 (4.6-6.20); Red Cell Distribution Width 12.8 % (11.5-14.5); White Blood Count 18.3 K/mm3 (4.5-10.0)
[2021-02-13 15:36] LABS: Glucose Point of Care 161 (65-105)
[2021-02-13 15:36] LABS: Anion Gap 2 mmol/L (8-16); Blood Urea Nitrogen 20 mg/dL (9-20); Calcium 8.6 mg/dL (8.4-10.2); Carbon Dioxide 30 mmol/L (22-30); Chloride 104 mmol/L (98-107); Estimated CRCL calculation 60 ml/min; Estimated Glomerular Filt Rate > 60; Glucose 166 mg/dL (75-110); Potassium 4.7 mmol/L (3.4-5.0); Sodium 136 mmol/L (137-145)
--- NOTE | 2021-02-13 15:56 | PHAR ---
Home med verified: [place] 300 units/ml insulin syringe
[2021-02-13] MEDS: HYDROcodone/acetaminophen (*CRX) 5-325 MG TABLET 1 TAB PO (17:34)
[2021-02-13] MEDS: rifAMPin 300 MG CAPSULE PO (17:37)
[2021-02-13] MEDS: ATORVASTATIN 40 MG TABLET PO (17:37)
[2021-02-13] MEDS: lisinopriL 20 MG TABLET 40 MG PO (17:37)
[2021-02-13] MEDS: SACCHAROMYCES BOULARDII 250 MG CAPSULE PO (17:37)
[2021-02-13] MEDS: CIPROFLOXACIN 500 MG TAB PO (17:37)
[2021-02-13] MEDS: LORazepam INJ (*CRX) 2 MG/ML VIAL 0.5 MG IV PUSH (17:53)
[2021-02-13 18:35] LABS: Glucose Point of Care 151 (65-105)
[2021-02-13 21:22] LABS: Glucose Point of Care 167 (65-105)
[2021-02-14] VITALS (9 sets, daily range): BP systolic 100–138; BP diastolic 58–75; PULSE 91–119; RESP 16–20; TEMP 36.4–37.2; O2SAT 93–98
[2021-02-14] MEDS: LACTATED RINGERS 1,000 ML 100 ML IV CONT (00:22)
[2021-02-14] MEDS: HYDROcodone/acetaminophen (*CRX) 5-325 MG TABLET 1 TAB PO ×2 (00:30→05:27)
[2021-02-14] MEDS: CIPROFLOXACIN 500 MG TAB PO ×2 (05:27→17:15)
[2021-02-14 06:07] LABS: Basophils Percent Auto 0.2 % (0.2-1.2); Eosinophils Percent Auto 0.1 % (0-4.4); Immature Granulocyte Absolute 0.25 K/mm3 (0.00-0.031); Immature Granulocyte Percent A 1.3 % (0-0.5); Lymphocytes Absolute Auto 2.92 K/mm3 (0.9-3.2); Lymphocytes Percent Auto 15.1 % (18.3-44.2); Mean Corpuscular HGB Conc 31.1 g/dl (32-36); Mean Corpuscular Hemoglobin 27.6 pg (26-34); Mean Corpuscular Volume 88.8 fl (80-100); Mean Platelet Volume 8.2 fl (7.4-10.4); Monocytes Absolute Auto 1.9 K/mm3 (0.1-0.6); Monocytes Percent Auto 9.8 % (2.6-8.5); Neutrophils Absolute Auto 14.3 K/mm3 (1.3-6.7); Neutrophils Percent Auto 73.5 % (45.5-73.1); Platelet Count Result 426 k/mm3 (150-375); Red Blood Count 2.32 M/mm3 (4.6-6.20); Red Cell Distribution Width 13.1 % (11.5-14.5); White Blood Count 19.4 K/mm3 (4.5-10.0)
[2021-02-14 06:16] LABS: Lactic Acid Reflex 1.2 mmol/L (0.7-2.1)
[2021-02-14 06:20] LABS: Alanine Aminotransferase 23 U/L (4-50); Albumin Level 2.9 g/dL (3.5-5.1); Alkaline Phosphatase 104 U/L (38-126); Anion Gap 4 mmol/L (8-16); Aspartate Amino Transferase 30 U/L (17-59); Bilirubin,Total 0.2 mg/dL (0.2-1.3); Blood Urea Nitrogen 20 mg/dL (9-20); Calcium 8.5 mg/dL (8.4-10.2); Carbon Dioxide 30 mmol/L (22-30); Chloride 104 mmol/L (98-107); Estimated CRCL calculation 56 ml/min; Estimated Glomerular Filt Rate 55; Glucose 139 mg/dL (75-110); Magnesium 1.7 mg/dL (1.6-2.3); Potassium 4.8 mmol/L (3.4-5.0); Sodium 138 mmol/L (137-145)
[2021-02-14 06:21] LABS: Hematocrit 20.6 % (42.0-52.0); Hemoglobin 6.4 g/dL (14.0-18.0)
[2021-02-14 07:17] LABS: Glucose Point of Care 125 (65-105)
[2021-02-14] MEDS: SODIUM CHLORIDE 0.9% IV 250 ML 30 ML IV CONT (08:05)
[2021-02-14] MEDS: rifAMPin 300 MG CAPSULE PO ×2 (08:12→17:15)
[2021-02-14] MEDS: THERAPEUTIC MULTIVITAMINS/MINERALS TAB (*BKC) 1 TABLET PO (08:12)
[2021-02-14] MEDS: lisinopriL 20 MG TABLET 40 MG PO (08:13)
[2021-02-14] MEDS: FERROUS GLUCONATE 324 MG TABLET PO (08:13)
[2021-02-14] MEDS: ASCORBIC ACID 500 MG TABLET 1000 MG PO (08:13)
[2021-02-14] MEDS: MAGNESIUM OXIDE 400 MG TABLET PO (08:13)
[2021-02-14] MEDS: ATORVASTATIN 40 MG TABLET PO (08:13)
[2021-02-14] MEDS: SACCHAROMYCES BOULARDII 250 MG CAPSULE PO ×2 (08:13→17:15)
[2021-02-14] MEDS: ACETAMINOPHEN 325 MG TABLET 650 MG PO (09:27)
[2021-02-14 11:44] LABS: Hematocrit 23.3 % (42.0-52.0); Hemoglobin 7.6 g/dL (14.0-18.0)
[2021-02-14 11:54] LABS: Glucose Point of Care 150 (65-105)
--- NOTE | 2021-02-14 14:53 | PM.IMPN ---
Progress Note: A&P Assessment and Plan (1) Hx of right BKA: Code(s): Z89.511 - Acquired absence of right leg below knee Status: Acute Assessment and Plan: see Dr. Goodwin note. Patient had a right sywsn-hys-xuyu amputation today. His dressing is dry and intact. Pain management and DVT prophylaxis per Dr. Goodwin. 02/14/21 14:53 Patient with history of diabetic and amputation bdtnu-fws-nnwz left extremity, patient was seen by his orthopedic surgeon for the right lower extremity with wound and osteomyelitis and patient had xvdzi-xwv-toba amputation of right extremity on 02/13 POD#1, pain is little better than yesterday, denies any fever or chills, denies any abdominal pain nausea, vomiting or any bleeding, today patient hemoglobin is 6.4 most likely secondary to acute blood loss during surgery as well as hemodilution, patient is given 1 unit of pack RBC and will continue to monitor further recommendation to follow, patient be seen by PT OT and further recommendation to follow (2) Type 2 diabetes mellitus: Qualifiers: Diabetes mellitus intermodal customer service insulin use: with intermodal customer service use Diabetes mellitus complication status: without complication Qualified Code(s): E11.9 - Type 2 diabetes mellitus without complications; Z79.4 - termite exterminator helper (current) use of insulin Code(s): E11.9 - Type 2 diabetes mellitus without complications Status: Chronic Assessment and Plan: Accu-Cheks AC and HS with moderate sliding scale insulin. Continue with long-acting insulin per A1c was 10.1 earlier this month. (3) Hyperlipidemia: Qualifiers: Hyperlipidemia type: unspecified Qualified Code(s): E78.5 - Hyperlipidemia, unspecified Code(s): E78.5 - Hyperlipidemia, unspecified Status: Chronic Assessment and Plan: Continue with atorvastatin (4) Hypertension: Qualifiers: Hypertension type: unspecified Qualified Code(s): I10 - Essential (primary) hypertension Code(s): I10 - Essential (primary) hypertension Status: Chronic Assessment and Plan: continue lisinopril (5) MRSA cellulitis: Code(s): L03.90 - Cellulitis, unspecified; B95.62 - Methicillin resistant Staphylococcus aureus infection as the cause of diseases classified elsewhere Status: Acute Assessment and Plan: patient had a past medical history is MRSA. The patient is to be continued on rifampin and Cipro from home. (6) Chronic anemia: Code(s): D64.9 - Anemia, unspecified Status: Chronic Assessment and Plan: Slightly lower than it was earlier this month. Please continue to monitor. Subjective Date/time seen: 02/14/21 14:53 Patient with history of diabetic and amputation xndex-gxj-alaq left extremity, patient was seen by his orthopedic surgeon for the right lower extremity with wound and osteomyelitis and patient had vzljd-tpf-hesk amputation of right extremity on 02/13 POD#1, pain is little better than yesterday, denies any fever or chills, denies any abdominal pain nausea, vomiting or any bleeding, today patient hemoglobin is 6.4 most likely secondary to acute blood loss during surgery as well as hemodilution, patient is given 1 unit of pack RBC and will continue to monitor further recommendation to follow, patient be seen by PT OT and further recommendation to follow Review of Systems Review of Systems: All systems reviewed & are unremarkable except as noted in HPI and below Exam Narrative: Exam Narrative: Patient is comfortable, NAD HEENT: eyes are clear and none icteric LUNGS:CTA HEART: RR S1S2 ABD: BS+, Soft and nontender Lower extremities: Bilateral pokbk-pzk-mgrv amputation, right stone surgical wound clean dry intact. SKIN: nonjaundiced Neuro: grossly intact. Objective Data Vital Signs Vital Signs: Vital Signs - 24 hr 02/13/21 15:10 02/13/21 19:25 02/14/21 00:21 Temperature 97.5 F L 99.7 F H 98.1 F Pulse Rate 88 110 H 108 H Respirat
[2021-02-14 17:02] LABS: Glucose Point of Care 257 (65-105)
[2021-02-14] MEDS: INSULIN ASPART (*BKC) 100 UNITS/ML SUB-Q (17:14)
[2021-02-14 20:59] LABS: Glucose Point of Care 189 (65-105)
[2021-02-15 05:56] VITALS: BP 121/62; PULSE 104; RESP 16; TEMP 36.2; O2SAT 93
[2021-02-15] MEDS: CIPROFLOXACIN 500 MG TAB PO (05:59)
[2021-02-15 06:13] LABS: Hematocrit 22.2 % (42.0-52.0); Hemoglobin 7.2 g/dL (14.0-18.0); Mean Corpuscular HGB Conc 32.4 g/dl (32-36); Mean Corpuscular Hemoglobin 27.8 pg (26-34); Mean Corpuscular Volume 85.7 fl (80-100); Mean Platelet Volume 8.3 fl (7.4-10.4); Platelet Count Result 407 k/mm3 (150-375); Red Blood Count 2.59 M/mm3 (4.6-6.20); Red Cell Distribution Width 13.2 % (11.5-14.5); White Blood Count 20.6 K/mm3 (4.5-10.0)
[2021-02-15 06:18] LABS: Anion Gap 6 mmol/L (8-16); Blood Urea Nitrogen 25 mg/dL (9-20); Calcium 8.1 mg/dL (8.4-10.2); Carbon Dioxide 28 mmol/L (22-30); Chloride 103 mmol/L (98-107); Estimated CRCL calculation 56 ml/min; Estimated Glomerular Filt Rate 55; Glucose 152 mg/dL (75-110); Potassium 4.2 mmol/L (3.4-5.0); Sodium 137 mmol/L (137-145)
[2021-02-15 07:17] LABS: Glucose Point of Care 133 (65-105)
[2021-02-15] MEDS: FERROUS GLUCONATE 324 MG TABLET PO (09:20)
[2021-02-15] MEDS: MAGNESIUM OXIDE 400 MG TABLET PO (09:20)
[2021-02-15] MEDS: ASCORBIC ACID 500 MG TABLET 1000 MG PO (09:20)
[2021-02-15] MEDS: THERAPEUTIC MULTIVITAMINS/MINERALS TAB (*BKC) 1 TABLET PO (09:20)
[2021-02-15] MEDS: SACCHAROMYCES BOULARDII 250 MG CAPSULE PO (09:20)
[2021-02-15] MEDS: lisinopriL 20 MG TABLET 40 MG PO (09:20)
[2021-02-15] MEDS: ATORVASTATIN 40 MG TABLET PO (09:20)
[2021-02-15] MEDS: rifAMPin 300 MG CAPSULE PO (09:21)
[2021-02-15] MEDS: LORazepam INJ (*CRX) 2 MG/ML VIAL 0.5 MG IV PUSH (09:24)
[2021-02-15] MEDS: HYDROcodone/acetaminophen (*CRX) 5-325 MG TABLET 1 TAB PO (09:26)
[2021-02-15 11:58] LABS: Glucose Point of Care 162 (65-105)
--- NOTE | 2021-02-15 12:07 | PM.DS ---
DS: Admitting Diagnosis Admitting Diagnosis Admitting Diagnosis: s/p right BKA: DS: Discharge Diagnosis Discharge Diagnosis (1) Hx of right BKA: Code(s): Z89.511 - Acquired absence of right leg below knee Status: Acute Assessment and Plan: see Dr. Goodwin note. Patient had a right nhnse-hyf-yzdk amputation today. His dressing is dry and intact. Pain management and DVT prophylaxis per Dr. Goodwin. 02/14/21 14:53 Patient with history of diabetic and amputation qjboz-[id number]-[id number] left extremity, patient was seen by his orthopedic surgeon for the right lower extremity with wound and osteomyelitis and patient had [id number] amputation of right extremity on 02/13 POD#1, pain is little better than yesterday, denies any fever or chills, denies any abdominal pain nausea, vomiting or any bleeding, today patient hemoglobin is 6.4 most likely secondary to acute blood loss during surgery as well as hemodilution, patient is given 1 unit of pack RBC and will continue to monitor further recommendation to follow, patient be seen by PT OT and further recommendation to follow (2) Type 2 diabetes mellitus: Qualifiers: Diabetes mellitus 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 Continue with long-acting insulin per A1c was 10.1 earlier this month. (3) Hyperlipidemia: Qualifiers: Hyperlipidemia type: unspecified Qualified Code(s): E78.5 - Hyperlipidemia, unspecified Code(s): E78.5 - Hyperlipidemia, unspecified Status: Chronic Assessment and Plan: Continue with atorvastatin (4) Hypertension: Qualifiers: Hypertension type: unspecified Qualified Code(s): I10 - Essential (primary) hypertension Code(s): I10 - Essential (primary) hypertension Status: Chronic Assessment and Plan: continue lisinopril (5) MRSA cellulitis: Code(s): L03.90 - Cellulitis, unspecified; B95.62 - Methicillin resistant Staphylococcus aureus infection as the cause of diseases classified elsewhere Status: Acute Assessment and Plan: patient had a past medical history is MRSA. The patient is to be continued on rifampin and Cipro from home. (6) Chronic anemia: Code(s): D64.9 - Anemia, unspecified Status: Chronic Assessment and Plan: Slightly lower than it was earlier this month. Please continue to monitor. DS: Summary Hospital Course Reason for hospitalization: Hernando Espana IV is a 65 year old male who has a history of being insulin-dependent diabetic, diabetic peripheral neuropathy, hypertension and history of osteomyelitis with MRSA. The patient has had a history of having debridement on the right foot recently. The patient was seen by Dr. mack And antibiotics have been ordered.. The patient was treated for MRSA of the right lower extremity. The patient had a right ufuks-rgj-bqdu amputation today by Dr. Goodwin. Please see operative note. The patient apparently has been dealing with this diabetic osteomyelitis for some time now. the patient tells me that his blood sugars have not controlled very well. Patient's last A1c was noted to be 10.1. The patient was admitted to inpatient services and the hospitalist group was asked to consult on the patient. The date of service is 02/13/2021. Side note patient was discharged from here on 02/08/2021 for the diabetic ulcer the right foot. His blood sugars were running in the 300s at that time. It was noted at that he had debridement at that time. the patient was discharged on ciprofloxacin and rifampin. Please see his discharge summary for
[2021-02-15 19:36] LABS: SARS-CoV-2 RNA PCR Negative
== END 2021-02-15 14:03 | DRG 617 ==
LOC: ANH3MED 13:29
PROVIDERS: Nurse Practitioner; Admitting Provider Plastic Surgery; PCP Physician Assistant; Visit Provider Family Medicine
PROC: 0Y6H0Z2 Detachment at Right Lower Leg, Mid, Open Approach (ICD-10-PCS; CPT 27882; principal; 2021-02-13 08:30)
DX: E11.69 Type 2 diabetes mellitus with other specified complication (principal); M86.8X7 Other osteomyelitis, ankle and foot; L03.90 Cellulitis, unspecified; B95.62 Methicillin resistant Staphylococcus aureus infection as the cause of diseases classified elsewhere; Z20.822 Contact with and (suspected) exposure to COVID-19; E11.621 Type 2 diabetes mellitus with foot ulcer; L97.519 Non-pressure chronic ulcer of other part of right foot with unspecified severity; E11.42 Type 2 diabetes mellitus with diabetic polyneuropathy; E11.51 Type 2 diabetes mellitus with diabetic peripheral angiopathy without gangrene; E11.22 Type 2 diabetes mellitus with diabetic chronic kidney disease; E11.319 Type 2 diabetes mellitus with unspecified diabetic retinopathy without macular edema; I12.9 Hypertensive chronic kidney disease with stage 1 through stage 4 chronic kidney disease, or unspecified chronic kidney disease; N18.9 Chronic kidney disease, unspecified; D64.9 Anemia, unspecified; E78.5 Hyperlipidemia, unspecified; I27.20 Pulmonary hypertension, unspecified; Z89.512 Acquired absence of left leg below knee; I25.2 Old myocardial infarction; Z79.4 Long term (current) use of insulin; Z79.899 Other long term (current) drug therapy; Z86.16 Personal history of COVID-19; Z98.49 Cataract extraction status, unspecified eye; Z86.14 Personal history of Methicillin resistant Staphylococcus aureus infection
CPT/HCPCS: 36415; 36430; 80048; 80053; 82948; 83605; 83735; 85014; 85018; 85025; 85027; 86850; 86900; 86901; 86923; 88307; 88311; 97110; 97161; 97165; 97530; A9270; C9803; J1815; J2060; J2250; J2270; J2405; J2704; J3010; J7050; J7120; P9016; U0003; U0005

== ENCOUNTER 2021-02-15 15:30 | IRF | payer MEDICARE, SELFPAY ==
--- NOTE | 2021-02-15 14:45 | ADMGEN ---
This patient, Hernando Espana IV, was admitted to [facility] Room 218-01. Patient/family oriented to hospital policies and general routines including ID bracelet, bed and alarms, visiting hours, pain management, procedures, bathroom and other care routines, personal items, smoking policy, room service/diet, and visiting hours. Information on how to activate the Rapid Response Team has been discussed. Patient/Family are encouraged to report perceived risks to care and to ask questions if they do not understand what they are told or what they should do.
[2021-02-15 15:02] VITALS: BMI 27.8
[2021-02-15 15:03] VITALS: BP 118/63; PULSE 90; RESP 18; TEMP 37.4; O2SAT 100
--- NOTE | 2021-02-15 16:28 | WPDREHABHP ---
H&P: HPI History of Present Illness Date/Time: 02/15/21 16:28 Chief Complaint: Right below-knee amputation Narrative: HISTORY OF PRESENT ILLNESS: The patient's primary rehab impairment category is amputation lower extremity The etiologic diagnosis is osteomyelitis, 4th and 5th metatarsal base, right foot requiring right below-knee amputation I saw this patient [id number] on 02/15/2021 The patient is a 65-year-old male with past medical history of left below-knee amputation with prosthesis in 2018, chronic anemia, chronic kidney disease, diabetic peripheral neuropathy, diabetic retinopathy, diabetic neuropathy, hyperlipidemia, hypertension, insulin-dependent diabetes, peripheral vascular disease, pulmonary hypertension, recent penile wound. 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 Patient was followed closely by Dr. mack. Patient also had uncontrolled diabetes with a hemoglobin A1c of 10.1%. Patient required hospitalization debridement and IV antibiotics. Due to the osteomyelitis of the 4th and 5th metatarsal base of the right foot the patient underwent a right below-knee amputation on 02/13/[address] Goodwin and [facility]. Postop patient received 1 unit of packed red blood cells during surgery. Patient also had incisional pain, leukocytosis, thrombocytosis, hyponatremia, hyperglycemia, hypocalcemia, and hypoalbuminemia. Patient is motivated and working well with therapy. He is currently requiring mod assist for transfers using his prosthesis with a wheeled walker. Patient's pain is controlled with p.o. [place]. DVT prophylaxis will be with Lovenox 40 mg daily. COVID: The patient has not traveled outside the [place] or had contact with someone who is ill that has traveled outside the [place] in the past 21 days. Patient has not traveled to an area of the [place] that is experiencing known transmission of the Coronavirus and has not had close personal contact with anyone that has. The patient does not have a fever. The patient is not experiencing lower respiratory illness symptoms. Therapy was initiated at the acute care facility and the patient transferred to us from [facility] on 02/15/2021[] FALLS OR SURGERIES: The patient has had major surgeries in the 100 days prior to admission. right below-knee amputation on 02/13/2021 by . The patient has not had falls in the past year nor injuries with the falls. PRIOR LEVEL OF FUNCTION: Eating was [INDEPENDENT] Oral Care was [INDEPENDENT] Toileting Hygiene was [INDEPENDENT] Shower/Bathing was [INDEPENDENT] Upper Body Dressing was [INDEPENDENT] Lower Body Dressing was [INDEPENDENT] Donning/[place]roft Footwear was [INDEPENDENT] Rolling Left and Right was [INDEPENDENT] Sit to Lying was [INDEPENDENT] Lying to Sitting was [INDEPENDENT] Sit to Stand was [INDEPENDENT] Bed to Chair Transfers was [INDEPENDENT] Toilet Transfers was [INDEPENDENT] Walking was [INDEPENDENT] [>500 feet] with [NO DEVICE or at times a cane Wheelchair Mobility was [NOT APPLICABLE PRIOR TO ADMISSION] Stairs were [INDEPENDENT] CURRENT LEVEL OF FUNCTION: Eating was Independent Oral Care was independent Toileting Hygiene was supervision Shower/Bathing was partial to moderate assist Upper Body Dressing was independent Lower Body Dressing was partial to moderate assist Donning/B[place]roft Footwear was supervision or touching assistance Rolling Left and Right was supervision or touching assistance Sit to Lying was partial to moderate assist Lying to Sitting was partial to moderate assist Sit to Stand was partial to moderate assist Bed to Chair Transfers were partial to moderate assist Toilet Transfers were partial to moderate assist Walking was not attempted Wheelchair Mobility was not tested Stairs were not tested GOALS: Our therapists will evaluate the patient and establish the goals. However, upon pre-admission screening, the expected goals were to b
[2021-02-15 16:36] LABS: Glucose Point of Care 255 (65-105)
[2021-02-15] MEDS: INSULIN ASPART (*BKC) 100 UNITS/ML SUB-Q (17:01)
[2021-02-15] MEDS: SACCHAROMYCES BOULARDII 250 MG CAPSULE PO (17:05)
[2021-02-15] MEDS: rifAMPin 300 MG CAPSULE PO (17:05)
[2021-02-15 20:00] VITALS: PULSE 105; RESP 16; O2SAT 90
[2021-02-15] MEDS: CIPROFLOXACIN 500 MG TAB PO (20:02)
[2021-02-15] MEDS: ENOXAPARIN 40 MG/0.4 ML SYRINGE SUB-Q (20:02)
[2021-02-15 21:23] LABS: Glucose Point of Care 240 (65-105)
--- NOTE | 2021-02-15 21:27 | PHAR ---
HOME MED VERIFIED TOUJEO 300UNITS/ML INJECT 45 UNITS SUBQ AT BEDTIME
[2021-02-15 21:52] VITALS: BP 120/66; PULSE 105; RESP 16; TEMP 36.8; O2SAT 90
[2021-02-16 05:55] LABS: Basophils Percent Auto 0.3 % (0.2-1.2); Eosinophils Absolute Auto 0.2 K/mm3 (0-0.3); Eosinophils Percent Auto 1.4 % (0-4.4); Hematocrit 21.3 % (42.0-52.0); Immature Granulocyte Absolute 0.12 K/mm3 (0.00-0.031); Immature Granulocyte Percent A 0.9 % (0-0.5); Lymphocytes Absolute Auto 2.98 K/mm3 (0.9-3.2); Lymphocytes Percent Auto 21.2 % (18.3-44.2); Mean Corpuscular HGB Conc 31.9 g/dl (32-36); Mean Corpuscular Hemoglobin 27.6 pg (26-34); Mean Corpuscular Volume 86.6 fl (80-100); Mean Platelet Volume 8.6 fl (7.4-10.4); Monocytes Absolute Auto 1.2 K/mm3 (0.1-0.6); Monocytes Percent Auto 8.6 % (2.6-8.5); Neutrophils Absolute Auto 9.5 K/mm3 (1.3-6.7); Neutrophils Percent Auto 67.6 % (45.5-73.1); Platelet Count Result 418 k/mm3 (150-375); Red Blood Count 2.46 M/mm3 (4.6-6.20); Red Cell Distribution Width 13.2 % (11.5-14.5); White Blood Count 14.1 K/mm3 (4.5-10.0)
[2021-02-16 06:00] VITALS: BP 134/69; PULSE 96; RESP 16; TEMP 36.5; O2SAT 96
[2021-02-16 06:07] LABS: Glucose Point of Care 140 (65-105)
[2021-02-16 06:14] LABS: Alanine Aminotransferase 27 U/L (4-50); Albumin Level 2.8 g/dL (3.5-5.1); Alkaline Phosphatase 117 U/L (38-126); Anion Gap 4 mmol/L (8-16); Aspartate Amino Transferase 37 U/L (17-59); Bilirubin,Total 0.2 mg/dL (0.2-1.3); Blood Urea Nitrogen 30 mg/dL (9-20); Calcium 7.9 mg/dL (8.4-10.2); Carbon Dioxide 30 mmol/L (22-30); Chloride 103 mmol/L (98-107); Estimated CRCL calculation 56 ml/min; Estimated Glomerular Filt Rate 55; Glucose 150 mg/dL (75-110); Potassium 4.3 mmol/L (3.4-5.0); Sodium 137 mmol/L (137-145)
[2021-02-16 06:19] LABS: Hemoglobin 6.8 g/dL (14.0-18.0)
--- NOTE | 2021-02-16 07:56 | WPDNEURORHBP ---
Subjective Date/time seen: 02/16/21 07:56 Rehab Dx: R PHUONGA, DM with neuropathy. The patient is a 65-year-old male with past medical history of left below-knee amputation with prosthesis in 2018, chronic anemia, chronic kidney disease, diabetic peripheral neuropathy, diabetic retinopathy, diabetic neuropathy, hyperlipidemia, hypertension, insulin-dependent diabetes, peripheral vascular disease, pulmonary hypertension, recent penile wound ( wound nurse followed ). 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 Dr. Keith has been following. Patient also had uncontrolled diabetes with a hemoglobin A1c of 10.1%. Patient required hospitalization debridement and IV antibiotics. Due to the osteomyelitis of the 4th and 5th metatarsal base of the right foot the patient underwent a right below-knee amputation on 02/13/[address] Goodwin and [facility]. Postop patient received 1 unit of packed red blood cells during surgery. Patient also had incisional pain, leukocytosis, thrombocytosis, hyponatremia, hyperglycemia, hypocalcemia, and hypoalbuminemia. Patient is motivated and working well with therapy. He is currently requiring mod assist for transfers using his prosthesis with a wheeled walker. Patient's pain is controlled with p.o. [place]. DVT prophylaxis will be with Lovenox 40 mg daily. Patient had occasional incisional pain last night. Hemoglobin reveals 6.8. Patient denies any problems with dizziness shortness of breath or chest pain. Hospitalist aware of anemia Review of Systems Review of Systems: All systems reviewed & are unremarkable except as noted in HPI and below Functional Status Ambulation Ability Ambulation Assistive Devices: Parallel Bars Exam Const: General: no acute distress Eyes: EOM: EOMs intact bilaterally Neck: Neck: supple Resp: Auscultation: clear to auscultation bilaterally Cardio: Rate: regular rate Rhythm: regular rhythm Skin: General skin exam: no rashes or lesions noted Neuro: Cognition (Neuro): normal cognition Extrem: Right upper extremity: full ROM Left upper extremity: full ROM Other: stump has limited edema. Suture line is clean and dry. Good approximation. Psych: Affect: normal affect Objective Data Vital Signs Vital Signs: Vital Signs - 24 hr 02/15/21 15:03 02/15/21 20:00 02/15/21 21:52 Temperature 37.4 C 36.8 C Pulse Rate 90 105 H 105 H Respiratory Rate 18 16 16 Blood Pressure 118/63 120/66 Pulse Oximetry 100 90 90 02/16/21 06:00 Temperature 36.5 C Pulse Rate 96 Respiratory Rate 16 Blood Pressure 134/69 Pulse Oximetry 96 Intake/Output Intake/Output: Intake & Output 02/13/21 02/14/21 02/15/21 02/16/21 23:59 23:59 23:59 23:59 Intake Total 240 Balance 240 Meds/Results Medications: Active Medications Generic Name Dose Route Start Last Admin Trade Name Freq PRN Reason Stop Dose Admin Hydrocodone Bitart/Acetaminophen 1 tab 02/15/21 15:41 Hydrocodone/Acetaminophen (*Crx) 5-325 Mg Tablet PO Q4H PRN Moderate Pain (4-6) Ascorbic Acid 1,000 mg 02/16/21 09:00 Ascorbic Acid 500 Mg Tablet PO DAILY MARELY Atorvastatin Calcium 40 mg 02/16/21 09:00 Atorvastatin 40 Mg Tablet PO QAM MARELY Ciprofloxacin 500 mg 02/15/21 21:00 02/15/21 20:02 Ciprofloxacin 500 Mg Tab PO 02/22/21 09:01 500 mg Q12HR MARELY Administration Dextrose 12.5 gm 02/15/21 15:11 Dextrose 50% 25 Gm/50 Ml Syringe IV PUSH PRN PRN Hypoglycemia Protocol Enoxaparin Sodium 40 mg 02/15/21 21:00 02/15/21 20:02 Enoxaparin 40 Mg/0.4 Ml Syringe SUB-Q 40 mg HS MARELY Administration Ferrous Gluconate 324 mg 02/16/21 09:00 Ferrous Gluconate 324 Mg Tablet PO DAILY MARELY Glucagon 1 mg 02/15/21 15:11 Glucagon For Inj 1 Mg Vial IM PRN PRN Hypoglycemia Protocol Glucose 15 gm 02/15/21 15:11 Glucose Oral Gel 15 Gm Of Glucse In 37.5 Gm Tube PO PRN PRN Hypogl
[2021-02-16 08:00] VITALS: PULSE 96; RESP 16; O2SAT 96
[2021-02-16] MEDS: MAGNESIUM OXIDE 400 MG TABLET PO (09:55)
[2021-02-16] MEDS: SACCHAROMYCES BOULARDII 250 MG CAPSULE PO ×2 (09:55→17:45)
[2021-02-16] MEDS: CIPROFLOXACIN 500 MG TAB PO ×2 (09:55→21:01)
[2021-02-16] MEDS: rifAMPin 300 MG CAPSULE PO ×2 (09:56→17:45)
[2021-02-16] MEDS: ASCORBIC ACID 500 MG TABLET 1000 MG PO (09:56)
[2021-02-16] MEDS: THERAPEUTIC MULTIVITAMINS/MINERALS TAB (*BKC) 1 TABLET PO (09:56)
[2021-02-16] MEDS: lisinopriL 20 MG TABLET 40 MG PO (09:56)
[2021-02-16] MEDS: FERROUS GLUCONATE 324 MG TABLET PO (09:56)
[2021-02-16] MEDS: ATORVASTATIN 40 MG TABLET PO (09:56)
[2021-02-16 12:08] LABS: Glucose Point of Care 227 (65-105)
[2021-02-16] MEDS: INSULIN ASPART (*BKC) 100 UNITS/ML SUB-Q (12:28)
[2021-02-16 14:00] VITALS: BP 129/67; PULSE 93; RESP 20; TEMP 36.6; O2SAT 98
--- NOTE | 2021-02-16 16:52 | PM.IMCN ---
Assessment and Plan Assessment and plan (1) Anemia: Code(s): D64.9 - Anemia, unspecified Status: Acute Assessment and Plan: Hernando Espana IV is a 65 year old male with history of diabetes and left lower extremity BKA status post right lower extremity BKA on 02/13 and patient with a anemia and trending down hemoglobin most likely secondary acute blood loss during surgery, hemodilution, and chronic kidney disease, patient hemoglobin was 6.4 on 02/14 day after his surgery and patient was given 1 unit of pack RBC, however his hemoglobin is 6.8 today and patient denies any bleeding patient has been constipated no BM for last 3 days, as he has been on clear liquid, is passing gas, however currently patient is participating in physical therapy and has no complaints of dizziness, palpitation, shortness breath, plan is to continue to monitor patient and recheck patient hemoglobin in the morning if it drops 6.4 will give a 1 unit of pack RBC and monitor and possibly consult highway traffic control technician for further recommendation. Patient is in [facility] and is seen by rehab physician. (2) Hx of right BKA: Code(s): Z89.511 - Acquired absence of right leg below knee Status: Acute Assessment and Plan: Status post right lower extremity BKA currently patient in [facility] for rehab (3) Hypertension: Qualifiers: Hypertension type: unspecified Qualified Code(s): I10 - Essential (primary) hypertension Code(s): I10 - Essential (primary) hypertension Status: Chronic Assessment and Plan: Will continue home regimen and monitor (4) Type 2 diabetes mellitus: Qualifiers: Diabetes mellitus exterminator helper insulin use: with exterminator helper use Diabetes mellitus complication status: without complication Qualified Code(s): E11.9 - Type 2 diabetes mellitus without complications; Z79.4 - custodial (current) use of insulin Code(s): E11.9 - Type 2 diabetes mellitus without complications Status: Chronic Assessment and Plan: Will continue home regimen and monitor HPI Data of Consult Consult date: 02/16/21 Requesting Physician: Jewels Altamirano DO Primary Care Provider: Benigno Chavira PA-C Consult Narrative Narrative: Hernando Espana IV is a 65 year old male with history of diabetes and left lower extremity BKA status post right lower extremity BKA on 02/13 and patient with a anemia and trending down hemoglobin most likely secondary acute blood loss during surgery, hemodilution, and chronic kidney disease, patient hemoglobin was 6.4 on 02/14 day after his surgery and patient was given 1 unit of pack RBC, however his hemoglobin is 6.8 today and patient denies any bleeding patient has been constipated no BM for last 3 days, as he has been on clear liquid, is passing gas, however currently patient is participating in physical therapy and has no complaints of dizziness, palpitation, shortness breath, plan is to continue to monitor patient and recheck patient hemoglobin in the morning if it drops 6.4 will give a 1 unit of pack RBC and monitor and possibly consult highway traffic control technician for further recommendation. Patient is in [facility] and is seen by rehab physician. Review of Systems Review of Systems: All systems reviewed & are unremarkable except as noted in HPI and below PMFSH Past Medical History Medical History Below-knee amputation of left lower extremity Chronic anemia Chronic kidney disease COVID-19 (~05/2020) Diabetic peripheral neuropathy Diabetic retinopathy History of esophageal dilatation History of esophageal stricture Hx of myocardial infarction Hyperlipidemia Hypertension Insulin dependent type 2 diabetes mellitus Hemoglobin A1c was 10.1% on 02/05/2021. MRSA pneumonia Open wound of penis Peripheral vascular disease in diabetes mellitus Proteinuria due to type 2 diabetes mellitus Pulmonary HTN Type 2 diabetes, controlled, with neuropathy
[2021-02-16 17:01] LABS: Glucose Point of Care 200 (65-105)
[2021-02-16 20:00] VITALS: PULSE 91; RESP 16; O2SAT 99
[2021-02-16] MEDS: ENOXAPARIN 40 MG/0.4 ML SYRINGE SUB-Q (21:02)
[2021-02-16 21:18] LABS: Glucose Point of Care 237 (65-105)
[2021-02-16 21:59] VITALS: BP 132/69; PULSE 91; RESP 16; TEMP 35.7; O2SAT 99
[2021-02-17 05:30] VITALS: BP 137/73; PULSE 88; RESP 18; TEMP 36.3; O2SAT 100
[2021-02-17 05:52] LABS: Basophils Absolute Auto 0.1 K/mm3 (0.0-0.1); Basophils Percent Auto 0.5 % (0.2-1.2); Eosinophils Absolute Auto 0.3 K/mm3 (0-0.3); Eosinophils Percent Auto 2.2 % (0-4.4); Hematocrit 21.9 % (42.0-52.0); Immature Granulocyte Percent A 0.9 % (0-0.5); Lymphocytes Absolute Auto 2.82 K/mm3 (0.9-3.2); Lymphocytes Percent Auto 25.1 % (18.3-44.2); Mean Corpuscular HGB Conc 31.1 g/dl (32-36); Mean Corpuscular Hemoglobin 27.8 pg (26-34); Mean Corpuscular Volume 89.4 fl (80-100); Mean Platelet Volume 8.4 fl (7.4-10.4); Monocytes Absolute Auto 0.8 K/mm3 (0.1-0.6); Monocytes Percent Auto 7.3 % (2.6-8.5); Neutrophils Absolute Auto 7.2 K/mm3 (1.3-6.7); Platelet Count Result 401 k/mm3 (150-375); Red Blood Count 2.45 M/mm3 (4.6-6.20); Red Cell Distribution Width 13.1 % (11.5-14.5); White Blood Count 11.2 K/mm3 (4.5-10.0)
[2021-02-17 05:56] LABS: Hemoglobin 6.8 g/dL (14.0-18.0)
[2021-02-17 06:20] LABS: Glucose Point of Care 146 (65-105)
[2021-02-17] MEDS: ASCORBIC ACID 500 MG TABLET 1000 MG PO (08:38)
[2021-02-17] MEDS: ATORVASTATIN 40 MG TABLET PO (08:38)
[2021-02-17] MEDS: lisinopriL 20 MG TABLET 40 MG PO (08:39)
[2021-02-17] MEDS: SACCHAROMYCES BOULARDII 250 MG CAPSULE PO ×2 (08:39→17:42)
[2021-02-17] MEDS: MAGNESIUM OXIDE 400 MG TABLET PO (08:39)
[2021-02-17] MEDS: rifAMPin 300 MG CAPSULE PO ×2 (08:39→17:42)
[2021-02-17] MEDS: CIPROFLOXACIN 500 MG TAB PO ×2 (08:39→21:16)
[2021-02-17] MEDS: THERAPEUTIC MULTIVITAMINS/MINERALS TAB (*BKC) 1 TABLET PO (08:39)
[2021-02-17] MEDS: FERROUS GLUCONATE 324 MG TABLET PO (08:39)
--- NOTE | 2021-02-17 09:22 | WPDNEURORHBP ---
Subjective Date/time seen: 02/17/21 09:22 Interval history: Rehab Dx: R BKA, DM with neuropathy. The patient is a 65-year-old male with past medical history of left below-knee amputation with prosthesis in 2018, chronic anemia, chronic kidney disease, diabetic peripheral neuropathy, diabetic retinopathy, diabetic neuropathy, hyperlipidemia, hypertension, insulin-dependent diabetes, peripheral vascular disease, pulmonary hypertension, recent penile wound ( wound nurse followed ). 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 Dr. Keith has been following. Patient also had uncontrolled diabetes with a hemoglobin A1c of 10.1%. Patient required hospitalization debridement and IV antibiotics. Due to the osteomyelitis of the 4th and 5th metatarsal base of the right foot the patient underwent a right below-knee amputation on 02/13/[address] Goodwin and [facility]. Postop patient received 1 unit of packed red blood cells during surgery. Patient also had incisional pain, leukocytosis, thrombocytosis, hyponatremia, hyperglycemia, hypocalcemia, and hypoalbuminemia. Patient is motivated and working well with therapy. He is currently requiring mod assist for transfers using his prosthesis with a wheeled walker. Patient's pain is controlled with p.o. [place] and tylenol. DVT prophylaxis will be with Lovenox 40 mg daily. Hemoglobin reveals 6.8 again this am.. Patient denies any problems with dizziness, shortness of breath or chest pain.Will continue to monitor. Patient admits to discomfort to stump but has not been taking norco. Will add Tylenol before am and pm therapies. Patient in NAD. WBC is decreasing and no signs of infection noted. Dr Keith is following with treatment of Cipro and Rifampin. Review of Systems Review of Systems: Narrative: postive BM yesterday. All systems reviewed & are unremarkable except as noted in HPI and below Functional Status Ambulation Ability Ambulation Assistive Devices: Parallel Bars Exam Narrative: Exam Narrative: Jett is in no acute distress. Patient clinically is stable. Head is normocephalic. Speech is fluent. Heart rate rhythm and is regular. Lungs are clear to auscultation. Abdomen is soft nontender with positive bowel sounds. Patient had a BM. Bilateral upper extremity strength are 4+ out of 5 left lower extremity strength is 4+ out of 5 right hip strength is 3+ to 4-. Knee range of motion on the right is improving. Incision was not viewed but dressing remained dry. Patient is at Min to moderate assistance with stand pivot transfers. Objective Data Vital Signs Vital Signs: Vital Signs - 24 hr 02/16/21 14:00 02/16/21 20:00 02/16/21 21:59 Temperature 36.6 C 35.7 C L Pulse Rate 93 91 91 Respiratory Rate 20 16 16 Blood Pressure 129/67 132/69 Pulse Oximetry 98 99 99 02/17/21 05:30 Temperature 36.3 C L Pulse Rate 88 Respiratory Rate 18 Blood Pressure 137/73 Pulse Oximetry 100 Intake/Output Intake/Output: Intake & Output 02/14/21 02/15/21 02/16/21 02/17/21 23:59 23:59 23:59 23:59 Intake Total 240 720 480 Balance 240 720 480 Meds/Results Medications: Active Medications Generic Name Dose Route Start Last Admin Trade Name Freq PRN Reason Stop Dose Admin Acetaminophen 1,000 mg 02/17/21 09:21 Acetaminophen 500 Mg Tablet PO Q6H PRN Mild Pain (1-3) or Fever Hydrocodone Bitart/Acetaminophen 1 tab 02/15/21 15:41 Hydrocodone/Acetaminophen (*Crx) 5-325 Mg Tablet PO Q4H PRN Moderate Pain (4-6) Ascorbic Acid 1,000 mg 02/16/21 09:00 02/17/21 08:38 Ascorbic Acid 500 Mg Tablet PO 1,000 mg DAILY MARELY Administration Atorvastatin Calcium 40 mg 02/16/21 09:00 02/17/21 08:38 Atorvastatin 40 Mg Tablet PO 40 mg QAM MARELY Administration Ciprofloxacin 500 mg 02/15/21 21:00 02/17/21 08:39 Ciprofloxacin 500 Mg Tab PO 02/22/21 09:01 500 mg Q12HR MARELY Administration Dextrose 12.5 gm 02/02
[2021-02-17 11:40] LABS: Glucose Point of Care 200 (65-105)
[2021-02-17] MEDS: polyethylene glycoL 3350 17 GM POWD.PACK PO (12:23)
[2021-02-17 13:35] VITALS: BP 124/66; PULSE 91; RESP 18; TEMP 36.3; O2SAT 96
--- NOTE | 2021-02-17 15:35 | PM.IMPN ---
Progress Note: A&P Assessment and Plan (1) Anemia: Code(s): D64.9 - Anemia, unspecified Status: Acute Assessment and Plan: 02/17/21 15:35 Hernando Espana IV is a 65 year old male with history of diabetes and left lower extremity BKA status post right lower extremity BKA on 02/13 and patient with a anemia and trending down hemoglobin most likely secondary acute blood loss during surgery, hemodilution, and chronic kidney disease, patient hemoglobin was 6.4 on 02/14 day after his surgery and patient was given 1 unit of pack RBC, however his hemoglobin is 6.8 today and patient denies any bleeding patient has been constipated no BM for last 3 days, as he has been on clear liquid, is passing gas, however currently patient is participating in physical therapy and has no complaints of dizziness, palpitation, shortness breath, plan is to continue to monitor patient and recheck patient hemoglobin in the morning if it drops 6.4 will give a 1 unit of pack RBC and monitor and possibly consult wastewater treatment operator for further recommendation. Patient is in [facility] and is seen by rehab physician. 02/17 today again patient hemoglobin 6.8, patient had a 2 BM there was no bleeding, patient states feeling much better denies any chest pain shortness of breath palpitation fever or chills he is able to participate in physical therapy without any difficulty, discussed with the Dr. Little will continue present management and monitor. (2) Hx of right BKA: Code(s): Z89.511 - Acquired absence of right leg below knee Status: Acute Assessment and Plan: Status post right lower extremity BKA currently patient in [facility] for rehab (3) Hypertension: Qualifiers: Hypertension type: unspecified Qualified Code(s): I10 - Essential (primary) hypertension Code(s): I10 - Essential (primary) hypertension Status: Chronic Assessment and Plan: Will continue home regimen and monitor (4) Type 2 diabetes mellitus: Qualifiers: Diabetes mellitus detention insulin use: with detention use Diabetes mellitus complication status: without complication Qualified Code(s): E11.9 - Type 2 diabetes mellitus without complications; Z79.4 - jail (current) use of insulin Code(s): E11.9 - Type 2 diabetes mellitus without complications Status: Chronic Assessment and Plan: Will continue home regimen and monitor Subjective Date/time seen: 02/17/21 15:35 Hernando Espana IV is a 65 year old male with history of diabetes and left lower extremity BKA status post right lower extremity BKA on 02/13 and patient with a anemia and trending down hemoglobin most likely secondary acute blood loss during surgery, hemodilution, and chronic kidney disease, patient hemoglobin was 6.4 on 02/14 day after his surgery and patient was given 1 unit of pack RBC, however his hemoglobin is 6.8 today and patient denies any bleeding patient has been constipated no BM for last 3 days, as he has been on clear liquid, is passing gas, however currently patient is participating in physical therapy and has no complaints of dizziness, palpitation, shortness breath, plan is to continue to monitor patient and recheck patient hemoglobin in the morning if it drops 6.4 will give a 1 unit of pack RBC and monitor and possibly consult wastewater treatment operator for further recommendation. Patient is in [facility] and is seen by rehab physician. 02/17 today again patient hemoglobin 6.8, patient had a 2 BM there was no bleeding, patient states feeling much better denies any chest pain shortness of breath palpitation fever or chills he is able to participate in physical therapy without any difficulty, discussed with the Dr. Little will continue present management and monitor. Review of Systems Review of Systems: All systems reviewed & are unremarkable except as noted in HPI and below Exam Narrative: Exam Narrative: Patient is comfortable, NAD HEENT: eyes are clear and none icteric LANA
[2021-02-17 16:46] LABS: Glucose Point of Care 280 (65-105)
[2021-02-17] MEDS: INSULIN ASPART (*BKC) 100 UNITS/ML SUB-Q (17:37)
[2021-02-17] MEDS: ACETAMINOPHEN 325 MG TABLET 650 MG PO (17:41)
[2021-02-17] MEDS: SENNA/DOCUSATE SODIUM TABLET 1 TAB PO (21:16)
[2021-02-17] MEDS: ENOXAPARIN 40 MG/0.4 ML SYRINGE SUB-Q (21:17)
[2021-02-17 21:35] LABS: Glucose Point of Care 262 (65-105)
[2021-02-17 21:46] VITALS: BP 125/71; PULSE 86; RESP 16; TEMP 36.3; O2SAT 99
[2021-02-18 06:00] VITALS: BP 124/76; PULSE 92; RESP 18; TEMP 36.3; O2SAT 98
[2021-02-18 07:00] LABS: Glucose Point of Care 140 (65-105)
[2021-02-18 08:00] VITALS: PULSE 92; RESP 18; O2SAT 98
--- NOTE | 2021-02-18 09:57 | PCPTNOTE ---
Hernando Espana IV was evaluated for a slide board on 02/18/2021 by this physical therapist assistant surveyor. The slide board will resolve patient's mobility limitations and will be used for ADL's within the home. The patient can safely use the slide board. ?The slide board will resolve the patient?s mobility deficits, including impaired balance, decrease endurance and strength.
--- NOTE | 2021-02-18 09:58 | PCPTNOTE ---
Radha ReginaTa Montero PTA completed an inpatient rehab wheelchair evaluation on Hernando Espana IV on 02/18/2021. The patient is unable to safely and independently ambulate household distances due to their current impairments. Their diagnosis is R BKA and their impairments include decreased strength, decreased endurance, decreased range of motion, decreased balance, and lower extremity weakness. Hernando's weight bearing status is weight-bearing as tolerated on the left leg and non weight bearing on right leg. The patient demonstrates significant functional mobility limitations that impair their ability to participate in mobility-related activities of daily living (MRADLs), including toileting, feeding, dressing, grooming, and bathing in the customary locations in the home. These limitations cannot be sufficiently resolved by the use of an appropriately fitted cane or walker. It is recommended that the patient utilize a wheelchair for functional mobility within the home in order to facilitate optimal safety, independence and participation in all MRADL's and adequately access their home environment on a regular basis. The patient's home provides adequate access between rooms, maneuvering space, and surfaces to accommodate the recommended wheelchair. The use of a wheelchair for functional mobility is strongly recommended and the patient is receptive to using the wheelchair. The use of this wheelchair will significantly improve the patient's ability to participate in MRADLS and the patient will use it on a regular basis in the home. This will facilitate optimal safety, independence, and participation. The patient has demonstrated sufficient physical and mental capabilities needed to safely propel a manual wheelchair that is provided in the home during a typical day. Recommended Wheelchair Frame: standard Recommended Wheelchair Size: 18x18 Recommended Wheelchair Cushion:standard Wheelchair Leg Recommendations: Right residual limb leg rest and left swing away leg rest -Anti-tippers are recommended due to patient demonstrating increased risk for falls. They would benefit from anti-tippers with added safety and stabilization. Radha Monetro BANQUET PREP COOK 02-18-2021 Evaluating Therapist Date I agree with and certify that the above recommendation is medically necessary. Referring Physician Date I agree with and certify that the above recommendation is medically necessary. Referring Physician Date
[2021-02-18] MEDS: lisinopriL 20 MG TABLET 40 MG PO (10:09)
[2021-02-18] MEDS: THERAPEUTIC MULTIVITAMINS/MINERALS TAB (*BKC) 1 TABLET PO (10:09)
[2021-02-18] MEDS: ATORVASTATIN 40 MG TABLET PO (10:09)
[2021-02-18] MEDS: rifAMPin 300 MG CAPSULE PO ×2 (10:09→18:22)
[2021-02-18] MEDS: CIPROFLOXACIN 500 MG TAB PO ×2 (10:09→21:03)
[2021-02-18] MEDS: SACCHAROMYCES BOULARDII 250 MG CAPSULE PO ×2 (10:09→18:23)
[2021-02-18] MEDS: FERROUS GLUCONATE 324 MG TABLET PO (10:10)
[2021-02-18] MEDS: MAGNESIUM OXIDE 400 MG TABLET PO (10:10)
[2021-02-18] MEDS: ASCORBIC ACID 500 MG TABLET 1000 MG PO (10:10)
--- NOTE | 2021-02-18 10:16 | WPDNEURORHBP ---
Subjective Date/time seen: 02/18/21 10:17 Interval history: Rehab Dx: R BKA, DM with neuropathy. The patient is a 65-year-old male with past medical history of left below-knee amputation with prosthesis in 2018, chronic anemia, chronic kidney disease, diabetic peripheral neuropathy, diabetic retinopathy, diabetic neuropathy, hyperlipidemia, hypertension, insulin-dependent diabetes, peripheral vascular disease, pulmonary hypertension, recent penile wound ( wound nurse followed ). 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 Dr. Keith has been following. Patient also had uncontrolled diabetes with a hemoglobin A1c of 10.1%. Patient required hospitalization debridement and IV antibiotics. Due to the osteomyelitis of the 4th and 5th metatarsal base of the right foot the patient underwent a right below-knee amputation on 02/13/[address] Goodwin and [facility]. Postop patient received 1 unit of packed red blood cells during surgery. Patient also had incisional pain, leukocytosis, thrombocytosis, hyponatremia, hyperglycemia, hypocalcemia, and hypoalbuminemia. Patient is motivated and working well with therapy. He is currently requiring mod assist for transfers using his prosthesis with a wheeled walker. Patient's pain is controlled with p.o. Naylor and tylenol. DVT prophylaxis will be with Lovenox 40 mg daily. Patient feeling well. He demonstrates no signs of anemia. Patient had questions regarding BS . Will restart his Humalog TIDWM at 4mg. ( home dose 8). Will monitor. Review of Systems Review of Systems: All systems reviewed & are unremarkable except as noted in HPI and below Functional Status Ambulation Ability Ambulation Assistive Devices: Parallel Bars Exam Narrative: Exam Narrative: Jett is in no acute distress. Patient clinically is stable. Head is normocephalic. Speech is fluent. Heart rate rhythm and is regular. Lungs are clear to auscultation. Abdomen is soft nontender with positive bowel sounds. Bilateral upper extremity strength are 4+ out of 5 left lower extremity strength is 4+ out of 5 right hip strength is 3+ to 4-. Knee range of motion on the right is improving. Incision was not viewed but dressing remained dry. Patient is at moderate assistance with stand pivot transfers. Patient able to ambulate within the parallel bars with mod assist. Endurance is improving Objective Data Vital Signs Vital Signs: Vital Signs - 24 hr 02/17/21 13:35 02/17/21 21:46 02/18/21 06:00 Temperature 36.3 C L 36.3 C L 36.3 C L Pulse Rate 91 86 92 Respiratory Rate 18 16 18 Blood Pressure 124/66 125/71 124/76 Pulse Oximetry 96 99 98 Intake/Output Intake/Output: Intake & Output 02/15/21 02/16/21 02/17/21 02/18/21 23:59 23:59 23:59 23:59 Intake Total 795 609 3119 240 Balance 718 789 3421 240 Meds/Results Medications: Active Medications Generic Name Dose Route Start Last Admin Trade Name Freq PRN Reason Stop Dose Admin Acetaminophen 1,000 mg 02/17/21 09:21 Acetaminophen 500 Mg Tablet PO Q6H PRN Mild Pain (1-3) or Fever Acetaminophen 650 mg 02/17/21 17:00 02/17/21 17:41 Acetaminophen 325 Mg Tablet PO 650 mg BID MARELY Administration Hydrocodone Bitart/Acetaminophen 1 tab 02/15/21 15:41 Hydrocodone/Acetaminophen (*Crx) 5-325 Mg Tablet PO Q4H PRN Moderate Pain (4-6) Ascorbic Acid 1,000 mg 02/16/21 09:00 02/17/21 08:38 Ascorbic Acid 500 Mg Tablet PO 1,000 mg DAILY MARELY Administration Atorvastatin Calcium 40 mg 02/16/21 09:00 02/17/21 08:38 Atorvastatin 40 Mg Tablet PO 40 mg QAM MARELY Administration Ciprofloxacin 500 mg 02/15/21 21:00 02/17/21 21:16 Ciprofloxacin 500 Mg Tab PO 02/22/21 09:01 500 mg Q12HR MARELY Administration Dextrose 12.5 gm 02/15/21 15:11 Dextrose 50% 25 Gm/50 Ml Syringe IV PUSH PRN PRN Hypoglycemia Protocol Enoxaparin Sodium 40 mg 02/15/21 21:00 02/17/21 21:17 Danielle
[2021-02-18] MEDS: ACETAMINOPHEN 325 MG TABLET 650 MG PO ×2 (10:18→18:24)
[2021-02-18 11:06] VITALS: BMI 27.8
--- NOTE | 2021-02-18 11:44 | PCNSR ---
On 02/18/21, the student, Dana Torre, provided care and completed [facility] documentation on this patient. I have reviewed the student's documentation and agree with the findings.
[2021-02-18 11:59] LABS: Glucose Point of Care 243 (65-105)
[2021-02-18] MEDS: INSULIN ASPART (*BKC) 100 UNITS/ML SUB-Q ×2 (13:09→13:10)
--- NOTE | 2021-02-18 13:43 | RPD ---
INDIVIDUALIZED PLAN OF CARE FOR Hernando Espana IV Brief Synthesis of Pre-Admission Screen, Post-Admission Evaluation and Therapy Evaluations: The patient presents to rehab with osteomyelitis of right foot 4th and 5th metatarsal base s/p right [id number]. Comorbidities include MRSA cellulitis, type 2 diabetes with neuropathy, s/p Left BKA, chronic anemia, HTN, HLD, leukocytosis, thrombocytosis, hyponatremia, hyperglycemia, hypocalcemia, hypoalbuminemia, chronic kidney disease, diabetic peripheral neuropathy, diabetic retinopathy, and PVD. The complexity of the patient's medical management, nursing, and therapy needs require an inpatient rehab hospital stay with a physician-led interdisciplinary team approach. The patient?s needs will be best met in an intensive program vs. at a lower level of care. The patient requires physician services for medical oversight, management of post-op complications in the setting of present comorbidities, management of insulin diabetes mellitus diagnosis, and pain management. Post-op complications have included leukocytosis, thrombocytosis, hyponatremia, hyperglycemia, hypocalcemia, hypoalbuminemia, and post-operative pain. The patient requires nursing services for diabetes training, infection protection, medication management and education, pressure relief, and wound care. Deficits include:ADLs, Balance, Endurance, Family Training/Education, Mobility, Pain Management, ROM, Safety, Strength, and Transfers Phonograph Cartridge Assembler/Case Management for: Discharge Planning and Patient/Family Counseling Physical Therapy: 5 days per week for 90 minutes. Treatments may include: Therapeutic Exercise, Gait Training, Neuromuscular Re-education, Transfer Training, Community Reintegration, Bed Mobility, Patient/Family Education, Wheelchair Mobility Group Therapy/Concurrent Therapy Rationales: -Improve attention span during functional activities in a distracted environment. -Enhance problem solving and/or adequate judgment skills during functional activities in a distracted environment. -Promote increased safety awareness in a distracted environment to reduce fall risk with functional tasks, transfers, and ambulation to allow a more safe, self-sufficient return to the home environment. -Improve dynamic balance skills to promote safety and independence with functional activities in a distracted environment for maximum gain. Occupational Therapy: 5 days per week for 90 minutes. Treatments may include: Therapeutic Exercise, Therapeutic Activity, Cognitive Training, Self-Care Transfer Training, Community Reintegration, Home Management, Patient/Family Education, Wheelchair Mobility Training, Energy Conservation Training Group Therapy/Concurrent Therapy Rationales: -Allow therapist to observe and teach generalization and carry-over of skills learned in individual therapy. -Enhance problem solving and sequencing skills during therapeutic activities in a distracted environment. -Promote increased safety awareness in a realistic setting to reduce fall risk with functional tasks due to visual and verbal distractions. -Increase functional level with ADLs, ADL transfers and use of adaptive equipment through therapeutic activities with others while promoting safety to allow a more safe, self-sufficient return home. Medical Prognosis: Good Anticipated Length of Stay: 7 days Rehab Goals: Eating Goal: 06-Independent Oral Hygiene Goal: 06-Independent Toileting Hygiene Goal: 06-Independent Shower/Bathe Self Goal: 05-Setup or Clean Up Assistance Upper Body Dressing Goal: 06-Independent Lower Body Dressing Goal: 05-Setup or Clean Up Assistance Putting On/Taking Off Footwear Goal: 09-Not Applicable Rolling Left and Right Goal: 06-Independent Sit to Lying Goal: 06-Independent Lying to Sitting on Side of Bed Goal: 06-Independent Sit to Stand Goal: 03-Partial/Moderate Assistance Chair/Iqn-nl-Veleb Transfer Goal: 06-Independent Toilet Transfer Goal: 06-Indepe
[2021-02-18 14:00] VITALS: BP 108/59; PULSE 90; RESP 18; TEMP 36.2; O2SAT 100
[2021-02-18 17:14] LABS: Glucose Point of Care 85 (65-105)
--- NOTE | 2021-02-18 17:46 | PM.IMPN ---
Progress Note: A&P Assessment and Plan (1) Anemia: Code(s): D64.9 - Anemia, unspecified Status: Acute Assessment and Plan: 02/18/21 17:46 Hernando Espana IV is a 65 year old male with history of diabetes and left lower extremity BKA status post right lower extremity BKA on 02/13 and patient with a anemia and trending down hemoglobin most likely secondary acute blood loss during surgery, hemodilution, and chronic kidney disease, patient hemoglobin was 6.4 on 02/14 day after his surgery and patient was given 1 unit of pack RBC, however his hemoglobin is 6.8 today and patient denies any bleeding patient has been constipated no BM for last 3 days, as he has been on clear liquid, is passing gas, however currently patient is participating in physical therapy and has no complaints of dizziness, palpitation, shortness breath, plan is to continue to monitor patient and recheck patient hemoglobin in the morning if it drops 6.4 will give a 1 unit of pack RBC and monitor and possibly consult parachute cushion installer for further recommendation. Patient is in [facility] and is seen by rehab physician. 02/17 today again patient hemoglobin 6.8, patient had a 2 BM there was no bleeding, patient states feeling much better denies any chest pain shortness of breath palpitation fever or chills he is able to participate in physical therapy without any difficulty, discussed with the Dr. Little will continue present management and monitor. 02/18 today patient hemoglobin was not checked however patient remains clinically stable has no complaint of chest pain shortness of breath palpitation able to participate in physical therapy, patient had BM and there was no bleeding, discussed with the Dr. Little will continue to monitor 1 more day and recheck hemoglobin in the morning and further recommendations to follow (2) Hx of right BKA: Code(s): Z89.511 - Acquired absence of right leg below knee Status: Acute Assessment and Plan: Status post right lower extremity BKA currently patient in [facility] for rehab (3) Hypertension: Qualifiers: Hypertension type: unspecified Qualified Code(s): I10 - Essential (primary) hypertension Code(s): I10 - Essential (primary) hypertension Status: Chronic Assessment and Plan: Will continue home regimen and monitor (4) Type 2 diabetes mellitus: Qualifiers: Diabetes mellitus terminal operations supervisor insulin use: with correction use Diabetes mellitus complication status: without complication Qualified Code(s): E11.9 - Type 2 diabetes mellitus without complications; Z79.4 - MCC (current) use of insulin Code(s): E11.9 - Type 2 diabetes mellitus without complications Status: Chronic Assessment and Plan: Will continue home regimen and monitor Subjective Date/time seen: 02/18/21 17:46 Hernando Espana IV is a 65 year old male with history of diabetes and left lower extremity BKA status post right lower extremity BKA on 02/13 and patient with a anemia and trending down hemoglobin most likely secondary acute blood loss during surgery, hemodilution, and chronic kidney disease, patient hemoglobin was 6.4 on 02/14 day after his surgery and patient was given 1 unit of pack RBC, however his hemoglobin is 6.8 today and patient denies any bleeding patient has been constipated no BM for last 3 days, as he has been on clear liquid, is passing gas, however currently patient is participating in physical therapy and has no complaints of dizziness, palpitation, shortness breath, plan is to continue to monitor patient and recheck patient hemoglobin in the morning if it drops 6.4 will give a 1 unit of pack RBC and monitor and possibly consult parachute cushion installer for further recommendation. Patient is in [facility] and is seen by rehab physician. 02/17 today again patient hemoglobin 6.8, patient had a 2 BM there was no bleeding, patient states feeling much better denies any chest pain shortness of breath palpitation fever or ch
[2021-02-18] MEDS: SENNA/DOCUSATE SODIUM TABLET 1 TAB PO (21:03)
[2021-02-18] MEDS: ENOXAPARIN 40 MG/0.4 ML SYRINGE SUB-Q (21:03)
[2021-02-18 21:34] LABS: Glucose Point of Care 143 (65-105)
[2021-02-18 22:00] VITALS: BP 125/69; PULSE 84; RESP 18; TEMP 36.3; O2SAT 100
[2021-02-19 05:31] LABS: Basophils Absolute Auto 0.1 K/mm3 (0.0-0.1); Basophils Percent Auto 0.6 % (0.2-1.2); Eosinophils Absolute Auto 0.4 K/mm3 (0-0.3); Eosinophils Percent Auto 3.5 % (0-4.4); Hematocrit 23.7 % (42.0-52.0); Hemoglobin 7.2 g/dL (14.0-18.0); Immature Granulocyte Absolute 0.06 K/mm3 (0.00-0.031); Immature Granulocyte Percent A 0.6 % (0-0.5); Lymphocytes Percent Auto 29.3 % (18.3-44.2); Mean Corpuscular HGB Conc 30.4 g/dl (32-36); Mean Corpuscular Hemoglobin 27.4 pg (26-34); Mean Corpuscular Volume 90.1 fl (80-100); Mean Platelet Volume 8.5 fl (7.4-10.4); Monocytes Absolute Auto 0.8 K/mm3 (0.1-0.6); Monocytes Percent Auto 7.8 % (2.6-8.5); Neutrophils Absolute Auto 5.8 K/mm3 (1.3-6.7); Neutrophils Percent Auto 58.2 % (45.5-73.1); Platelet Count Result 459 k/mm3 (150-375); Red Blood Count 2.63 M/mm3 (4.6-6.20); White Blood Count 9.9 K/mm3 (4.5-10.0)
[2021-02-19 06:00] VITALS: BP 122/65; PULSE 87; RESP 18; TEMP 36.4; O2SAT 99
[2021-02-19 06:43] LABS: Glucose Point of Care 90 (65-105)
[2021-02-19] MEDS: INSULIN ASPART (*BKC) 100 UNITS/ML SUB-Q ×2 (07:49→18:16)
[2021-02-19] MEDS: ACETAMINOPHEN 325 MG TABLET 650 MG PO ×2 (08:09→18:13)
[2021-02-19] MEDS: ASCORBIC ACID 500 MG TABLET 1000 MG PO (08:10)
[2021-02-19] MEDS: FERROUS GLUCONATE 324 MG TABLET PO (08:11)
[2021-02-19] MEDS: CIPROFLOXACIN 500 MG TAB PO ×2 (08:11→21:08)
[2021-02-19] MEDS: ATORVASTATIN 40 MG TABLET PO (08:11)
[2021-02-19] MEDS: lisinopriL 20 MG TABLET 40 MG PO (08:12)
[2021-02-19] MEDS: THERAPEUTIC MULTIVITAMINS/MINERALS TAB (*BKC) 1 TABLET PO (08:13)
[2021-02-19] MEDS: SACCHAROMYCES BOULARDII 250 MG CAPSULE PO ×2 (08:13→18:11)
[2021-02-19] MEDS: MAGNESIUM OXIDE 400 MG TABLET PO (08:13)
[2021-02-19] MEDS: rifAMPin 300 MG CAPSULE PO ×2 (08:13→18:11)
--- NOTE | 2021-02-19 09:30 | PCCDE ---
Consult received 02/15; pt admitted 02/15 after BKA. Home DM med of 45 units Toujeo HS was continued. on 02/18 4 units Novolog AC was added. FBS has been trending down and was 90mg/dl this am; now that pt has appropriate prandial insulin should consider to decrease basal insulin to weight based dose (23 units) to prevent fasting hypoglycemia. Discussed with LAVON Blank and left recommendations (Dr Little was in a meeting). Will f/up with pt before discharge for education.
[2021-02-19 11:45] LABS: Glucose Point of Care 77 (65-105)
--- NOTE | 2021-02-19 11:59 | PCPTNOTE ---
Nicolasa Brown PT completed an inpatient rehab wheelchair evaluation on Hernando Espana IV on 02/19/2021. The patient is unable to safely and independently ambulate household distances due to their current impairments. Their diagnosis is R BKA and their impairments include decreased strength, decreased endurance, decreased range of motion, decreased balance, lower extremity weakness, and B BKA. Hernando's weight bearing status is weight-bearing as tolerated on left leg and non-weight bearing on the R leg. The patient demonstrates significant functional mobility limitations that impair their ability to participate in mobility-related activities of daily living (MRADLs), including toileting, feeding, dressing, grooming, and bathing in the customary locations in the home. These limitations cannot be sufficiently resolved by the use of an appropriately fitted cane or walker. It is recommended that the patient utilize a wheelchair for functional mobility within the home in order to facilitate optimal safety, independence and participation in all MRADL's and adequately access their home environment on a regular basis. The patient's home provides adequate access between rooms, maneuvering space, and surfaces to accommodate the recommended wheelchair. The use of a wheelchair for functional mobility is strongly recommended and the patient is receptive to using the wheelchair. The use of this wheelchair will significantly improve the patient's ability to participate in MRADLS and the patient will use it on a regular basis in the home. This will facilitate optimal safety, independence, and participation. The patient has demonstrated sufficient physical and mental capabilities needed to safely propel a manual wheelchair that is provided in the home during a typical day. Recommended Wheelchair Frame: Amputee axle with swing away armrests Recommended Wheelchair Size: 18x18 Recommended Wheelchair Cushion: Standard Wheelchair Leg Recommendations: Right residual limb leg rest and left swing away leg rest - Anti-tippers are recommended due to patient demonstrating increased risk for falls. They would benefit from anti-tippers with added safety and stabilization. Nicolasa Brown DPT 02/19/21 Evaluating Therapist Date I agree with and certify that the above recommendation is medically necessary. Referring Physician Date I agree with and certify that the above recommendation is medically necessary. Referring Physician Date
--- NOTE | 2021-02-19 12:58 | WPDPN ---
Progress Note: A&P Assessment and Plan (1) Below-knee amputation of left lower extremity: Code(s): S88.112A - Complete traumatic amputation at level between knee and ankle, left lower leg, initial encounter Status: Acute (2) Below-knee amputation of right lower extremity: Code(s): S88.111A - Complete traumatic amputation at level between knee and ankle, right lower leg, initial encounter Status: Acute Additional Plan No new problems on the left. Progressing with rehab on the right. Wound healing as expected. Will remove griselda in stump after 2 weeks. Time Spent With Patient Time with patient: 15 - 25 minutes Objective Data Vital Signs Vital Signs: Vital Signs - 24 hr 02/18/21 14:00 02/18/21 22:00 02/19/21 06:00 Temperature 36.2 C L 36.3 C L 36.4 C L Pulse Rate 90 84 87 Respiratory Rate 18 18 18 Blood Pressure 108/59 L 125/69 122/65 Pulse Oximetry 100 100 99 Intake/Output Intake/Output: Intake & Output 02/16/21 02/17/21 02/18/21 02/19/21 23:59 23:59 23:59 23:59 Intake Total 720 1440 960 360 Balance 720 1440 960 360 Meds/Results Medications: Active Medications Generic Name Dose Route Start Last Admin Trade Name Freq PRN Reason Stop Dose Admin Acetaminophen 1,000 mg 02/17/21 09:21 Acetaminophen 500 Mg Tablet PO Q6H PRN Mild Pain (1-3) or Fever Acetaminophen 650 mg 02/17/21 17:00 02/19/21 08:09 Acetaminophen 325 Mg Tablet PO 650 mg BID MARELY Administration Hydrocodone Bitart/Acetaminophen 1 tab 02/15/21 15:41 Hydrocodone/Acetaminophen (*Crx) 5-325 Mg Tablet PO Q4H PRN Moderate Pain (4-6) Ascorbic Acid 1,000 mg 02/16/21 09:00 02/19/21 08:10 Ascorbic Acid 500 Mg Tablet PO 1,000 mg DAILY MARELY Administration Atorvastatin Calcium 40 mg 02/16/21 09:00 02/19/21 08:11 Atorvastatin 40 Mg Tablet PO 40 mg QAM MARELY Administration Ciprofloxacin 500 mg 02/15/21 21:00 02/19/21 08:11 Ciprofloxacin 500 Mg Tab PO 02/22/21 09:01 500 mg Q12HR MARELY Administration Dextrose 12.5 gm 02/15/21 15:11 Dextrose 50% 25 Gm/50 Ml Syringe IV PUSH PRN PRN Hypoglycemia Protocol Dextrose 12.5 gm 02/18/21 17:20 Dextrose 50% 25 Gm/50 Ml Syringe IV PUSH PRN PRN Hypoglycemia Protocol Enoxaparin Sodium 40 mg 02/15/21 21:00 02/18/21 21:03 Enoxaparin 40 Mg/0.4 Ml Syringe SUB-Q 40 mg HS MARELY Administration Ferrous Gluconate 324 mg 02/16/21 09:00 02/19/21 08:11 Ferrous Gluconate 324 Mg Tablet PO 324 mg DAILY MARELY Administration Glucagon 1 mg 02/15/21 15:11 Glucagon For Inj 1 Mg Vial IM PRN PRN Hypoglycemia Protocol Glucagon 1 mg 02/18/21 17:20 Glucagon For Inj 1 Mg Vial IM PRN PRN Hypoglycemia Protocol Glucose 15 gm 02/15/21 15:11 Glucose Oral Gel 15 Gm Of Glucse In 37.5 Gm Tube PO PRN PRN Hypoglycemia Protocol Glucose 15 gm 02/18/21 17:20 Glucose Oral Gel 15 Gm Of Glucse In 37.5 Gm Tube PO PRN PRN Hypoglycemia Protocol Dextrose 1,000 mls @ 100 mls/hr 02/15/21 15:11 Dextrose 5% 1,000 Ml IVPB PRN PRN Hypoglycemia Protocol Dextrose 1,000 mls @ 100 mls/hr 02/18/21 17:20 Dextrose 5% 1,000 Ml IVPB PRN PRN Hypoglycemia Protocol Insulin Aspart 4 units 02/18/21 12:00 02/19/21 07:49 Insulin Aspart (*Bkc) 100 Units/Ml SUB-Q 4 units TIDWM MARELY Administration Insulin Aspart 2 - 5 units 02/19/21 08:00 02/19/21 12:18 Insulin Aspart (*Bkc) 100 Units/Ml SUB-Q Not Given TIDWM MARELY Protocol Lisinopril 40 mg 02/16/21 09:00 02/19/21 08:12 Lisinopril 20 Mg Tablet PO 40 mg QAM MARELY Administration Magnesium Oxide 400 mg 02/16/21 09:00 02/19/21 08:13 Magnesium Oxide 400 Mg Tablet PO 400 mg QAM MARELY Administration Multivitamins/Calcium 1 tablet 02/16/21 09:00 02/19/21 08:13 Therapeutic Multivitamins/Minerals Tab (*Bkc) PO
[2021-02-19 14:00] VITALS: BP 118/66; PULSE 66; RESP 20; TEMP 36.2; O2SAT 99
[2021-02-19 16:44] LABS: Glucose Point of Care 102 mg/dl (65-105)
--- NOTE | 2021-02-19 16:59 | WPDNEURORHBP ---
Subjective Date/time seen: 02/19/21 16:59 Interval history: Rehab Dx: R BKA, DM with neuropathy. The patient is a 65-year-old male with past medical history of left below-knee amputation with prosthesis in 2018, chronic anemia, chronic kidney disease, diabetic peripheral neuropathy, diabetic retinopathy, diabetic neuropathy, hyperlipidemia, hypertension, insulin-dependent diabetes, peripheral vascular disease, pulmonary hypertension, recent penile wound ( wound nurse followed ). 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 Dr. Keith has been following. Patient also had uncontrolled diabetes with a hemoglobin A1c of 10.1%. Patient required hospitalization debridement and IV antibiotics. Due to the osteomyelitis of the 4th and 5th metatarsal base of the right foot the patient underwent a right below-knee amputation on 02/13/[address] Goodwin and [facility]. Postop patient received 1 unit of packed red blood cells during surgery. Patient also had incisional pain, leukocytosis, thrombocytosis, hyponatremia, hyperglycemia, hypocalcemia, and hypoalbuminemia. Patient is motivated and working well with therapy. He is currently requiring mod assist for transfers using his prosthesis with a wheeled walker. Patient's pain is controlled with p.o. [place] and tylenol. DVT prophylaxis will be with Lovenox 40 mg daily. Patient feeling well. He demonstrates no signs of anemia. Patient had questions regarding BS . Will restart his Humalog TIDWM at 4mg. ( home dose 8). Will monitor. Patient with concerns of potentially falling without an amputee Shield. Will try to build up confidence Review of Systems Review of Systems: All systems reviewed & are unremarkable except as noted in HPI and below Functional Status Ambulation Ability Ambulation Assistive Devices: Parallel Bars Exam Narrative: Exam Narrative: Jett is in no acute distress. Patient clinically is stable. Head is normocephalic. Speech is fluent. Heart rate rhythm and is regular. Lungs are clear to auscultation. Abdomen is soft nontender with positive bowel sounds. Bilateral upper extremity strength are 4+ out of 5 left lower extremity strength is 4+ out of 5 right hip strength is 3+ to 4-. Knee range of motion on the right is improving. Incision was not viewed but dressing remained dry. Patient is at moderate assistance with stand pivot transfers. Patient able to ambulate within the parallel bars with mod assist. Endurance is improving. Incision is intact with no signs of infection. Objective Data Vital Signs Vital Signs: Vital Signs - 24 hr 02/18/21 22:00 02/19/21 06:00 02/19/21 14:00 Temperature 36.3 C L 36.4 C L 36.2 C L Pulse Rate 84 87 66 Respiratory Rate 18 18 20 Blood Pressure 125/69 122/65 118/66 Pulse Oximetry 100 99 99 Intake/Output Intake/Output: Intake & Output 02/16/21 02/17/21 02/18/21 02/19/21 23:59 23:59 23:59 23:59 Intake Total 720 1440 960 720 Balance 720 1440 960 720 Meds/Results Medications: Active Medications Generic Name Dose Route Start Last Admin Trade Name Freq PRN Reason Stop Dose Admin Acetaminophen 1,000 mg 02/17/21 09:21 Acetaminophen 500 Mg Tablet PO Q6H PRN Mild Pain (1-3) or Fever Acetaminophen 650 mg 02/17/21 17:00 02/19/21 08:09 Acetaminophen 325 Mg Tablet PO 650 mg BID MARELY Administration Hydrocodone Bitart/Acetaminophen 1 tab 02/15/21 15:41 Hydrocodone/Acetaminophen (*Crx) 5-325 Mg Tablet PO Q4H PRN Moderate Pain (4-6) Ascorbic Acid 1,000 mg 02/16/21 09:00 02/19/21 08:10 Ascorbic Acid 500 Mg Tablet PO 1,000 mg DAILY MARELY Administration Atorvastatin Calcium 40 mg 02/16/21 09:00 02/19/21 08:11 Atorvastatin 40 Mg Tablet PO 40 mg QAM MARELY Administration Ciprofloxacin 500 mg 02/15/21 21:00 02/19/21 08:11 Ciprofloxacin 500 Mg Tab PO 02/22/21 09:01 500 mg Q12HR MARELY Administration Dextrose 12.5 gm 02/15/21 15:11
--- NOTE | 2021-02-19 17:10 | PM.IMPN ---
Progress Note: A&P Assessment and Plan (1) Anemia: Code(s): D64.9 - Anemia, unspecified Status: Acute Assessment and Plan: 02/19/21 17:10 Hernando Espana IV is a 65 year old male with history of diabetes and left lower extremity BKA status post right lower extremity BKA on 02/13 and patient with a anemia and trending down hemoglobin most likely secondary acute blood loss during surgery, hemodilution, and chronic kidney disease, patient hemoglobin was 6.4 on 02/14 day after his surgery and patient was given 1 unit of pack RBC, however his hemoglobin is 6.8 today and patient denies any bleeding patient has been constipated no BM for last 3 days, as he has been on clear liquid, is passing gas, however currently patient is participating in physical therapy and has no complaints of dizziness, palpitation, shortness breath, plan is to continue to monitor patient and recheck patient hemoglobin in the morning if it drops 6.4 will give a 1 unit of pack RBC and monitor and possibly consult head nurse for further recommendation. Patient is in TRC and is seen by rehab physician. 02/17 today again patient hemoglobin 6.8, patient had a 2 BM there was no bleeding, patient states feeling much better denies any chest pain shortness of breath palpitation fever or chills he is able to participate in physical therapy without any difficulty, discussed with the Dr. Little will continue present management and monitor. 02/18 today patient hemoglobin was not checked however patient remains clinically stable has no complaint of chest pain shortness of breath palpitation able to participate in physical therapy, patient had BM and there was no bleeding, discussed with the Dr. Little will continue to monitor 1 more day and recheck hemoglobin in the morning and further recommendations to follow. 02/19 today there is slight improvement and patient hemoglobin to 7.2 from 6.8, his clinically stable participating in physical therapy and has no complaint, discussed with Dr. Little, will signed off (2) Hx of right BKA: Code(s): Z89.511 - Acquired absence of right leg below knee Status: Acute Assessment and Plan: Status post right lower extremity BKA currently patient in TR for rehab (3) Hypertension: Qualifiers: Hypertension type: unspecified Qualified Code(s): I10 - Essential (primary) hypertension Code(s): I10 - Essential (primary) hypertension Status: Chronic Assessment and Plan: Will continue home regimen and monitor (4) Type 2 diabetes mellitus: Qualifiers: Diabetes mellitus longterm insulin use: with termite inspector use Diabetes mellitus complication status: without complication Qualified Code(s): E11.9 - Type 2 diabetes mellitus without complications; Z79.4 - correction (current) use of insulin Code(s): E11.9 - Type 2 diabetes mellitus without complications Status: Chronic Assessment and Plan: Will continue home regimen and monitor Subjective Date/time seen: 02/19/21 17:10 Hernando Espana IV is a 65 year old male with history of diabetes and left lower extremity BKA status post right lower extremity BKA on 02/13 and patient with a anemia and trending down hemoglobin most likely secondary acute blood loss during surgery, hemodilution, and chronic kidney disease, patient hemoglobin was 6.4 on 02/14 day after his surgery and patient was given 1 unit of pack RBC, however his hemoglobin is 6.8 today and patient denies any bleeding patient has been constipated no BM for last 3 days, as he has been on clear liquid, is passing gas, however currently patient is participating in physical therapy and has no complaints of dizziness, palpitation, shortness breath, plan is to continue to monitor patient and recheck patient hemoglobin in the morning if it drops 6.4 will give a 1 unit of pack RBC and monitor and possibly consult head nurse for further recommendation. Patient is in TRC and is seen b
[2021-02-19 20:00] VITALS: PULSE 91; RESP 16; O2SAT 100
[2021-02-19] MEDS: SENNA/DOCUSATE SODIUM TABLET 1 TAB PO (21:08)
[2021-02-19] MEDS: ENOXAPARIN 40 MG/0.4 ML SYRINGE SUB-Q (21:08)
[2021-02-19 22:00] VITALS: BP 130/63; PULSE 91; RESP 16; TEMP 36.4; O2SAT 100
[2021-02-19 22:54] LABS: Glucose Point of Care 139 mg/dl (65-105)
[2021-02-20 06:00] VITALS: BP 131/68; PULSE 91; RESP 18; TEMP 36.4; O2SAT 99
[2021-02-20 06:46] LABS: Glucose Point of Care 61 mg/dl (65-105)
[2021-02-20 07:22] LABS: Glucose Point of Care 72 mg/dl (65-105)
[2021-02-20 08:00] VITALS: PULSE 88; RESP 18; O2SAT 95
[2021-02-20] MEDS: CIPROFLOXACIN 500 MG TAB PO ×2 (08:41→20:11)
[2021-02-20] MEDS: ATORVASTATIN 40 MG TABLET PO (08:42)
[2021-02-20] MEDS: MAGNESIUM OXIDE 400 MG TABLET PO (08:42)
[2021-02-20] MEDS: FERROUS GLUCONATE 324 MG TABLET PO (08:42)
[2021-02-20] MEDS: THERAPEUTIC MULTIVITAMINS/MINERALS TAB (*BKC) 1 TABLET PO (08:42)
[2021-02-20] MEDS: lisinopriL 20 MG TABLET 40 MG PO (08:42)
[2021-02-20] MEDS: rifAMPin 300 MG CAPSULE PO ×2 (08:42→16:53)
[2021-02-20] MEDS: SACCHAROMYCES BOULARDII 250 MG CAPSULE PO ×2 (08:42→16:53)
[2021-02-20] MEDS: ASCORBIC ACID 500 MG TABLET 1000 MG PO (08:42)
[2021-02-20] MEDS: polyethylene glycoL 3350 17 GM POWD.PACK PO (08:43)
[2021-02-20] MEDS: ACETAMINOPHEN 325 MG TABLET 650 MG PO ×2 (08:45→16:57)
[2021-02-20 11:41] LABS: Glucose Point of Care 105 mg/dl (65-105)
[2021-02-20] MEDS: INSULIN ASPART (*BKC) 100 UNITS/ML SUB-Q ×2 (12:57→16:55)
[2021-02-20 14:00] VITALS: BP 127/64; PULSE 95; RESP 20; TEMP 35.9; O2SAT 100
--- NOTE | 2021-02-20 14:53 | WPDNEURORHBP ---
Subjective Date/time seen: 02/20/21 14:53 Interval history: Rehab Dx: R BKA, DM with neuropathy. The patient is a 65-year-old male with past medical history of left below-knee amputation with prosthesis in 2018, chronic anemia, chronic kidney disease, diabetic peripheral neuropathy, diabetic retinopathy, diabetic neuropathy, hyperlipidemia, hypertension, insulin-dependent diabetes, peripheral vascular disease, pulmonary hypertension, recent penile wound ( wound nurse followed ). 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 Dr. Keith has been following. Patient also had uncontrolled diabetes with a hemoglobin A1c of 10.1%. Patient required hospitalization debridement and IV antibiotics. Due to the osteomyelitis of the 4th and 5th metatarsal base of the right foot the patient underwent a right below-knee amputation on 02/13/[address] Goodwin and [facility]. Postop patient received 1 unit of packed red blood cells during surgery. Patient also had incisional pain, leukocytosis, thrombocytosis, hyponatremia, hyperglycemia, hypocalcemia, and hypoalbuminemia. Patient is motivated and working well with therapy. He is currently requiring mod assist for transfers using his prosthesis with a wheeled walker. Patient's pain is controlled with p.o. [place] and tylenol. DVT prophylaxis will be with Lovenox 40 mg daily. Patient in good spirits. Patient appears less anxious. Review of Systems Review of Systems: All systems reviewed & are unremarkable except as noted in HPI and below Functional Status Ambulation Ability Ability to Ambulate 10 Feet: Minimum Assistance X 1 Ambulation Assistive Devices: Parallel Bars Exam Narrative: Exam Narrative: Head is normocephalic. Speech is fluent. Heart rate rhythm and is regular. Lungs are clear to auscultation. Abdomen is soft nontender with positive bowel sounds. Bilateral upper extremity strength are 4+ out of 5 left lower extremity strength is 4+ out of 5 right hip strength is 3+ to 4-. Knee range of motion on the right is 0-100 degrees. He needs reminders to keep knee straight. Objective Data Vital Signs Vital Signs: Vital Signs - 24 hr 02/19/21 20:00 02/19/21 22:00 02/20/21 06:00 Temperature 36.4 C L 36.4 C Pulse Rate 91 91 91 Respiratory Rate 16 16 18 Blood Pressure 130/63 131/68 Pulse Oximetry 100 100 99 02/20/21 08:00 02/20/21 14:00 Temperature 35.9 C L Pulse Rate 88 95 Respiratory Rate 18 20 Blood Pressure 127/64 Pulse Oximetry 95 100 Intake/Output Intake/Output: Intake & Output 02/17/21 02/18/21 02/19/21 02/20/21 23:59 23:59 23:59 23:59 Intake Total 2259 333 2252 960 Balance 2310 270 0054 960 Meds/Results Medications: Active Medications Generic Name Dose Route Start Last Admin Trade Name Freq PRN Reason Stop Dose Admin Acetaminophen 1,000 mg 02/17/21 09:21 Acetaminophen 500 Mg Tablet PO Q6H PRN Mild Pain (1-3) or Fever Acetaminophen 650 mg 02/17/21 17:00 02/20/21 08:45 Acetaminophen 325 Mg Tablet PO 650 mg BID MARELY Administration Hydrocodone Bitart/Acetaminophen 1 tab 02/15/21 15:41 Hydrocodone/Acetaminophen (*Crx) 5-325 Mg Tablet PO Q4H PRN Moderate Pain (4-6) Ascorbic Acid 1,000 mg 02/16/21 09:00 02/20/21 08:42 Ascorbic Acid 500 Mg Tablet PO 1,000 mg DAILY MARELY Administration Atorvastatin Calcium 40 mg 02/16/21 09:00 02/20/21 08:42 Atorvastatin 40 Mg Tablet PO 40 mg QAM MARELY Administration Ciprofloxacin 500 mg 02/15/21 21:00 02/20/21 08:41 Ciprofloxacin 500 Mg Tab PO 02/22/21 09:01 500 mg Q12HR MARELY Administration Dextrose 12.5 gm 02/15/21 15:11 Dextrose 50% 25 Gm/50 Ml Syringe IV PUSH PRN PRN Hypoglycemia Protocol Dextrose 12.5 gm 02/18/21 17:20 Dextrose 50% 25 Gm/50 Ml Syringe IV PUSH PRN PRN Hypoglycemia Protocol Enoxaparin Sodium 40 mg 02/15/21 21:00 02/19/21 21:08 Enoxaparin 40 Mg/0.4
--- NOTE | 2021-02-20 16:25 | PC.NURSE ---
message left with Dr. Keith medical insurance claims processor that patient is being discharged on Thursday02/25/21.
[2021-02-20 16:36] LABS: Glucose Point of Care 113 mg/dl (65-105)
[2021-02-20 20:00] VITALS: PULSE 86; RESP 16; O2SAT 100
[2021-02-20] MEDS: SENNA/DOCUSATE SODIUM TABLET 1 TAB PO (20:11)
[2021-02-20] MEDS: ENOXAPARIN 40 MG/0.4 ML SYRINGE SUB-Q (20:11)
[2021-02-20 21:34] VITALS: BP 118/65; PULSE 86; RESP 16; TEMP 36.5; O2SAT 100
[2021-02-20 21:54] LABS: Glucose Point of Care 188 mg/dl (65-105)
[2021-02-21 05:57] VITALS: BP 127/68; PULSE 90; RESP 16; TEMP 36.6; O2SAT 100
[2021-02-21 06:56] LABS: Glucose Point of Care 58 mg/dl (65-105)
[2021-02-21 06:56] LABS: Glucose Point of Care 105 mg/dl (65-105)
[2021-02-21] MEDS: SACCHAROMYCES BOULARDII 250 MG CAPSULE PO ×2 (08:41→17:17)
[2021-02-21] MEDS: CIPROFLOXACIN 500 MG TAB PO (08:41)
[2021-02-21] MEDS: rifAMPin 300 MG CAPSULE PO (08:41)
[2021-02-21] MEDS: THERAPEUTIC MULTIVITAMINS/MINERALS TAB (*BKC) 1 TABLET PO (08:41)
[2021-02-21] MEDS: FERROUS GLUCONATE 324 MG TABLET PO (08:41)
[2021-02-21] MEDS: ASCORBIC ACID 500 MG TABLET 1000 MG PO (08:41)
[2021-02-21] MEDS: lisinopriL 20 MG TABLET 40 MG PO (08:41)
[2021-02-21] MEDS: ATORVASTATIN 40 MG TABLET PO (08:41)
[2021-02-21] MEDS: MAGNESIUM OXIDE 400 MG TABLET PO (08:41)
[2021-02-21] MEDS: ACETAMINOPHEN 325 MG TABLET 650 MG PO ×2 (08:43→17:17)
--- NOTE | 2021-02-21 10:55 | WPDNEURORHBP ---
Subjective Date/time seen: 02/21/21 10:55 Interval history: Rehab Dx: R BKA, DM with neuropathy. The patient is a 65-year-old male with past medical history of left below-knee amputation with prosthesis in 2018, chronic anemia, chronic kidney disease, diabetic peripheral neuropathy, diabetic retinopathy, diabetic neuropathy, hyperlipidemia, hypertension, insulin-dependent diabetes, peripheral vascular disease, pulmonary hypertension, recent penile wound ( wound nurse followed ). 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 Dr. Keith has been following. Patient also had uncontrolled diabetes with a hemoglobin A1c of 10.1%. Patient required hospitalization debridement and IV antibiotics. Due to the osteomyelitis of the 4th and 5th metatarsal base of the right foot the patient underwent a right below-knee amputation on 02/13/[address] Goodwin at [facility]. Postop patient received 1 unit of packed red blood cells during surgery. Patient also had incisional pain, leukocytosis, thrombocytosis, hyponatremia, hyperglycemia, hypocalcemia, and hypoalbuminemia. Patient is motivated and working well with therapy. He is currently requiring mod assist for transfers using his prosthesis with a wheeled walker. Patient's pain is controlled with p.o. [place] and tylenol. DVT prophylaxis will be with Lovenox 40 mg daily. Patient feeling prepared for Thursday discharge but still mentions that his home will be the true test. Patient appears more confident. Review of Systems Review of Systems: All systems reviewed & are unremarkable except as noted in HPI and below Functional Status Ambulation Ability Ability to Ambulate 10 Feet: Minimum Assistance X 1 Ambulation Assistive Devices: Parallel Bars Exam Narrative: Exam Narrative: Head is normocephalic. Speech is fluent. Heart rate rhythm and is regular. Lungs are clear to auscultation. Abdomen is soft nontender with positive bowel sounds. Bilateral upper extremity strength are 4+ out of 5 left lower extremity strength is 4+ out of 5 right hip strength is 3+ to 4-. Knee range of motion on the right is 0-100 degrees. He needs reminders to keep knee straight. Incision with serosanguineous drainage to middle incision. Edema decreasing. Objective Data Vital Signs Vital Signs: Vital Signs - 24 hr 02/20/21 14:00 02/20/21 20:00 02/20/21 21:34 Temperature 35.9 C L 36.5 C Pulse Rate 95 86 86 Respiratory Rate 20 16 16 Blood Pressure 127/64 118/65 Pulse Oximetry 100 100 100 02/21/21 05:57 Temperature 36.6 C Pulse Rate 90 Respiratory Rate 16 Blood Pressure 127/68 Pulse Oximetry 100 Intake/Output Intake/Output: Intake & Output 02/18/21 02/19/21 02/20/21 02/21/21 23:59 23:59 23:59 23:59 Intake Total 960 1080 1440 480 Balance 960 1080 1440 480 Meds/Results Medications: Active Medications Generic Name Dose Route Start Last Admin Trade Name Freq PRN Reason Stop Dose Admin Acetaminophen 1,000 mg 02/17/21 09:21 Acetaminophen 500 Mg Tablet PO Q6H PRN Mild Pain (1-3) or Fever Acetaminophen 650 mg 02/17/21 17:00 02/21/21 08:43 Acetaminophen 325 Mg Tablet PO 650 mg BID MARELY Administration Hydrocodone Bitart/Acetaminophen 1 tab 02/15/21 15:41 Hydrocodone/Acetaminophen (*Crx) 5-325 Mg Tablet PO Q4H PRN Moderate Pain (4-6) Ascorbic Acid 1,000 mg 02/16/21 09:00 02/21/21 08:41 Ascorbic Acid 500 Mg Tablet PO 1,000 mg DAILY MARELY Administration Atorvastatin Calcium 40 mg 02/16/21 09:00 02/21/21 08:41 Atorvastatin 40 Mg Tablet PO 40 mg QAM MARELY Administration Ciprofloxacin 500 mg 02/15/21 21:00 02/21/21 08:41 Ciprofloxacin 500 Mg Tab PO 02/22/21 09:01 500 mg Q12HR MARELY Administration Dextrose 12.5 gm 02/15/21 15:11 Dextrose 50% 25 Gm/50 Ml Syringe IV PUSH PRN PRN Hypoglycemia Protocol Dextrose 12.5 gm 02/18/21 17:20 Dextrose 50% 25 Gm/50 Ml Syringe IV PUSH
[2021-02-21 11:43] LABS: Glucose Point of Care 113 mg/dl (65-105)
[2021-02-21] MEDS: INSULIN ASPART (*BKC) 100 UNITS/ML SUB-Q ×2 (12:24→17:18)
--- NOTE | 2021-02-21 12:50 | WPDINFPN2 ---
Progress Note: A&P Assessment and Plan (1) Cellulitis of right foot: Code(s): L03.115 - Cellulitis of right lower limb Status: Acute Assessment and Plan: BKA performed 02/13, after earlier debridement. Per my previous recommendations, can stop Rx as he had/has no proximal infection. f/U prn Subjective Date/time seen: 02/21/21 12:50 Objective Data Vital Signs Vital Signs: Vital Signs - 24 hr 02/20/21 14:00 02/20/21 20:00 02/20/21 21:34 Temperature 35.9 C L 36.5 C Pulse Rate 95 86 86 Respiratory Rate 20 16 16 Blood Pressure 127/64 118/65 Pulse Oximetry 100 100 100 02/21/21 05:57 Temperature 36.6 C Pulse Rate 90 Respiratory Rate 16 Blood Pressure 127/68 Pulse Oximetry 100 Intake/Output Intake/Output: Intake & Output 02/18/21 02/19/21 02/20/21 02/21/21 23:59 23:59 23:59 23:59 Intake Total 960 1080 1440 480 Balance 960 1080 1440 480 Meds/Results Medications: Active Medications Generic Name Dose Route Start Last Admin Trade Name Freq PRN Reason Stop Dose Admin Acetaminophen 1,000 mg 02/17/21 09:21 Acetaminophen 500 Mg Tablet PO Q6H PRN Mild Pain (1-3) or Fever Acetaminophen 650 mg 02/17/21 17:00 02/21/21 08:43 Acetaminophen 325 Mg Tablet PO 650 mg BID MARELY Administration Hydrocodone Bitart/Acetaminophen 1 tab 02/15/21 15:41 Hydrocodone/Acetaminophen (*Crx) 5-325 Mg Tablet PO Q4H PRN Moderate Pain (4-6) Ascorbic Acid 1,000 mg 02/16/21 09:00 02/21/21 08:41 Ascorbic Acid 500 Mg Tablet PO 1,000 mg DAILY MARELY Administration Atorvastatin Calcium 40 mg 02/16/21 09:00 02/21/21 08:41 Atorvastatin 40 Mg Tablet PO 40 mg QAM MARELY Administration Ciprofloxacin 500 mg 02/15/21 21:00 02/21/21 08:41 Ciprofloxacin 500 Mg Tab PO 02/22/21 09:01 500 mg Q12HR MARELY Administration Dextrose 12.5 gm 02/15/21 15:11 Dextrose 50% 25 Gm/50 Ml Syringe IV PUSH PRN PRN Hypoglycemia Protocol Dextrose 12.5 gm 02/18/21 17:20 Dextrose 50% 25 Gm/50 Ml Syringe IV PUSH PRN PRN Hypoglycemia Protocol Enoxaparin Sodium 40 mg 02/15/21 21:00 02/20/21 20:11 Enoxaparin 40 Mg/0.4 Ml Syringe SUB-Q 40 mg HS MARELY Administration Ferrous Gluconate 324 mg 02/16/21 09:00 02/21/21 08:41 Ferrous Gluconate 324 Mg Tablet PO 324 mg DAILY MARELY Administration Glucagon 1 mg 02/15/21 15:11 Glucagon For Inj 1 Mg Vial IM PRN PRN Hypoglycemia Protocol Glucagon 1 mg 02/18/21 17:20 Glucagon For Inj 1 Mg Vial IM PRN PRN Hypoglycemia Protocol Glucose 15 gm 02/15/21 15:11 Glucose Oral Gel 15 Gm Of Glucse In 37.5 Gm Tube PO PRN PRN Hypoglycemia Protocol Glucose 15 gm 02/18/21 17:20 Glucose Oral Gel 15 Gm Of Glucse In 37.5 Gm Tube PO PRN PRN Hypoglycemia Protocol Dextrose 1,000 mls @ 100 mls/hr 02/15/21 15:11 Dextrose 5% 1,000 Ml IVPB PRN PRN Hypoglycemia Protocol Dextrose 1,000 mls @ 100 mls/hr 02/18/21 17:20 Dextrose 5% 1,000 Ml IVPB PRN PRN Hypoglycemia Protocol Insulin Aspart 4 units 02/18/21 12:00 02/21/21 12:24 Insulin Aspart (*Bkc) 100 Units/Ml SUB-Q 4 units TIDWM MARELY Administration Insulin Aspart 2 - 5 units 02/19/21 08:00 02/21/21 12:24 Insulin Aspart (*Bkc) 100 Units/Ml SUB-Q Not Given TIDWM MARELY Protocol Lisinopril 40 mg 02/16/21 09:00 02/21/21 08:41 Lisinopril 20 Mg Tablet PO 40 mg QAM MARELY Administration Magnesium Oxide 400 mg 02/16/21 09:00 02/21/21 08:41 Magnesium Oxide 400 Mg Tablet PO 400 mg QAM MARELY Administration Multivitamins/Calcium 1 tablet 02/16/21 09:00 02/21/21 08:41 Therapeutic Multivitamins/Minerals Tab (*Bkc) PO 1 tablet DAILY MARELY Administration Polyethylene Glycol 17 gm 02/17/21 09:00 02/21/21 08:41 Polyethylene Glycol 3350 17 Gm Powd.Pack PO Not Given QAM MARELY Rifampin 300 mg
[2021-02-21 14:00] VITALS: BP 126/59; PULSE 98; RESP 14; TEMP 36.4; O2SAT 100
[2021-02-21 16:54] LABS: Glucose Point of Care 124 mg/dl (65-105)
[2021-02-21 20:20] LABS: Glucose Point of Care 190 mg/dl (65-105)
[2021-02-21] MEDS: ENOXAPARIN 40 MG/0.4 ML SYRINGE SUB-Q (20:28)
[2021-02-21] MEDS: SENNA/DOCUSATE SODIUM TABLET 1 TAB PO (20:28)
[2021-02-21 21:36] VITALS: BP 136/71; PULSE 90; RESP 16; TEMP 36.3; O2SAT 100
[2021-02-22 06:00] VITALS: BP 123/62; PULSE 87; RESP 16; TEMP 36.7; O2SAT 100
[2021-02-22 06:56] LABS: Glucose Point of Care 116 mg/dl (65-105)
[2021-02-22] MEDS: INSULIN ASPART (*BKC) 100 UNITS/ML SUB-Q ×2 (07:05→18:06)
--- NOTE | 2021-02-22 08:31 | PCOTNOTE ---
It is recommended that this patient, Hernando Espana, have a drop-arm commode for home use. This patient is currently non-ambulatory and performs bump over transfers and/or use of a sliding board due to a right below knee amputation. This patient is room confined and unable to access his toilet at home and will therefore require use of a drop-arm commode. The patient also has further impairments of a left lower extremity prosthesis and decreased endurance and balance. The drop-arm commode will allow patient access to a toilet, will resolve patient's mobility limitations, and will provide safe access to a toilet within his home. I agree with and certify that the above recommendation is medically necessary. Referring Physician Date
[2021-02-22] MEDS: ACETAMINOPHEN 325 MG TABLET 650 MG PO ×2 (09:00→18:06)
[2021-02-22] MEDS: ASCORBIC ACID 500 MG TABLET 1000 MG PO (09:00)
[2021-02-22] MEDS: FERROUS GLUCONATE 324 MG TABLET PO (09:01)
[2021-02-22] MEDS: THERAPEUTIC MULTIVITAMINS/MINERALS TAB (*BKC) 1 TABLET PO (09:01)
[2021-02-22] MEDS: ATORVASTATIN 40 MG TABLET PO (09:01)
[2021-02-22] MEDS: SACCHAROMYCES BOULARDII 250 MG CAPSULE PO ×2 (09:01→18:06)
[2021-02-22] MEDS: MAGNESIUM OXIDE 400 MG TABLET PO (09:01)
[2021-02-22] MEDS: lisinopriL 20 MG TABLET 40 MG PO (09:01)
--- NOTE | 2021-02-22 11:03 | PCNFU ---
Nutrition Follow-Up Complete: Nutrition Diagnosis: Increase protein needs related to wound healing as evidenced by recent amputation. Nutrition Goal:Pt to consume 75% of meals and supplements. Patient has met goal, he is consuming 100%. Pt current nutrition is Diabetic Consistent Carbohydrate Diet and 2mg Sodium Diet. Patient also has Christiano BID added to his nutrition plan. Nutrition recommendation: Continue following his current diet plan. Last recorded weight is 93 kg. Bowel Motility: Last reported on 02/22 Labs Reviewed: Hgb (7.2), Hct (23.7) Meds Noted: [place], Vitamin C, Lipitor, Glucagon, Glutose, Dextrose, Lovenox, Novolog, Miralax, Prinivil, Florastor, Senokot S, Ferrous Gluconate Additional Notes: Dressing amputation site without any issues reported. Patient reported not needing any further nutrition education, he stated meals were going great and he understands what is expected of him once he gets discharged. Patient also reported that he is planning on seeing an director of rooms once he discharges. Will follow up in 7 days.
--- NOTE | 2021-02-22 11:32 | PCNSR ---
On 02/22/21, the student, Dana Torre, provided care and completed [facility] documentation on this patient. I have reviewed the student's documentation and agree with the findings.
[2021-02-22 12:07] LABS: Glucose Point of Care 85 mg/dl (65-105)
--- NOTE | 2021-02-22 12:17 | WPDNEURORHBP ---
Subjective Date/time seen: 02/22/21 12:17 Interval history: Rehab Dx: R BKA, DM with neuropathy. The patient is a 65-year-old male with past medical history of left below-knee amputation with prosthesis in 2018, chronic anemia, chronic kidney disease, diabetic peripheral neuropathy, diabetic retinopathy, diabetic neuropathy, hyperlipidemia, hypertension, insulin-dependent diabetes, peripheral vascular disease, pulmonary hypertension, recent penile wound ( wound nurse followed ). 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 Dr. Keith has been following. Patient also had uncontrolled diabetes with a hemoglobin A1c of 10.1%. Patient required hospitalization debridement and IV antibiotics. Due to the osteomyelitis of the 4th and 5th metatarsal base of the right foot the patient underwent a right below-knee amputation on 02/13/[address] Goodwin at [facility]. Postop patient received 1 unit of packed red blood cells during surgery. Patient also had incisional pain, leukocytosis, thrombocytosis, hyponatremia, hyperglycemia, hypocalcemia, and hypoalbuminemia. Patient is motivated and working well with therapy. He is currently requiring mod assist for transfers using his prosthesis with a wheeled walker. Patient's pain is controlled with p.o. [place] and tylenol. DVT prophylaxis will be with Lovenox 40 mg daily. Patient voices no complaints. Patient feels prepared for discharge on Thursday. Review of Systems Review of Systems: All systems reviewed & are unremarkable except as noted in HPI and below Functional Status Ambulation Ability Ability to Ambulate 10 Feet: Minimum Assistance X 1 Ambulation Assistive Devices: Parallel Bars Exam Narrative: Exam Narrative: Head is normocephalic. Speech is fluent. Heart rate rhythm and is regular. Lungs are clear to auscultation. Abdomen is soft nontender with positive bowel sounds. Bilateral upper extremity strength are 4+ out of 5 left lower extremity strength is 4+ out of 5 right hip strength is 3+ to 4-. Knee range of motion on the right is good but does take extra time to complete flexion. Incision has scant serosanguineous drainage. Edema decreased Objective Data Vital Signs Vital Signs: Vital Signs - 24 hr 02/21/21 14:00 02/21/21 21:36 02/22/21 06:00 Temperature 36.4 C L 36.3 C L 36.7 C Pulse Rate 98 90 87 Respiratory Rate 14 16 16 Blood Pressure 126/59 L 136/71 123/62 Pulse Oximetry 100 100 100 Intake/Output Intake/Output: Intake & Output 02/19/21 02/20/21 02/21/21 02/22/21 23:59 23:59 23:59 23:59 Intake Total 1080 1440 1440 480 Balance 1080 1440 1440 480 Meds/Results Medications: Active Medications Generic Name Dose Route Start Last Admin Trade Name Freq PRN Reason Stop Dose Admin Acetaminophen 1,000 mg 02/17/21 09:21 Acetaminophen 500 Mg Tablet PO Q6H PRN Mild Pain (1-3) or Fever Acetaminophen 650 mg 02/17/21 17:00 02/22/21 09:00 Acetaminophen 325 Mg Tablet PO 650 mg BID MARELY Administration Hydrocodone Bitart/Acetaminophen 1 tab 02/15/21 15:41 Hydrocodone/Acetaminophen (*Crx) 5-325 Mg Tablet PO Q4H PRN Moderate Pain (4-6) Ascorbic Acid 1,000 mg 02/16/21 09:00 02/22/21 09:00 Ascorbic Acid 500 Mg Tablet PO 1,000 mg DAILY MARELY Administration Atorvastatin Calcium 40 mg 02/16/21 09:00 02/22/21 09:01 Atorvastatin 40 Mg Tablet PO 40 mg QAM MARELY Administration Dextrose 12.5 gm 02/15/21 15:11 Dextrose 50% 25 Gm/50 Ml Syringe IV PUSH PRN PRN Hypoglycemia Protocol Dextrose 12.5 gm 02/18/21 17:20 Dextrose 50% 25 Gm/50 Ml Syringe IV PUSH PRN PRN Hypoglycemia Protocol Enoxaparin Sodium 40 mg 02/15/21 21:00 02/21/21 20:28 Enoxaparin 40 Mg/0.4 Ml Syringe SUB-Q 40 mg HS MARELY Administration Ferrous Gluconate 324 mg 02/16/21 09:00 02/22/21 09:01 Ferrous Gluconate 324 Mg Tablet PO 324 mg DAILY MARELY Administration Gl
[2021-02-22 14:00] VITALS: BP 123/64; PULSE 90; RESP 16; TEMP 36.4; O2SAT 100
[2021-02-22 17:12] LABS: Glucose Point of Care 122 mg/dl (65-105)
[2021-02-22] MEDS: SENNA/DOCUSATE SODIUM TABLET 1 TAB PO (20:29)
[2021-02-22] MEDS: ENOXAPARIN 40 MG/0.4 ML SYRINGE SUB-Q (20:29)
[2021-02-22 21:52] LABS: Glucose Point of Care 198 mg/dl (65-105)
[2021-02-22 22:00] VITALS: BP 152/66; PULSE 79; RESP 16; TEMP 36.2; O2SAT 99
[2021-02-23 05:41] LABS: Basophils Absolute Auto 0.1 K/mm3 (0.0-0.1); Basophils Percent Auto 0.9 % (0.2-1.2); Eosinophils Absolute Auto 0.5 K/mm3 (0-0.3); Eosinophils Percent Auto 5.8 % (0-4.4); Hematocrit 25.2 % (42.0-52.0); Hemoglobin 7.7 g/dL (14.0-18.0); Immature Granulocyte Absolute 0.08 K/mm3 (0.00-0.031); Lymphocytes Absolute Auto 2.66 K/mm3 (0.9-3.2); Lymphocytes Percent Auto 33.4 % (18.3-44.2); Mean Corpuscular HGB Conc 30.6 g/dl (32-36); Mean Corpuscular Hemoglobin 27.9 pg (26-34); Mean Corpuscular Volume 91.3 fl (80-100); Mean Platelet Volume 8.2 fl (7.4-10.4); Monocytes Absolute Auto 0.8 K/mm3 (0.1-0.6); Monocytes Percent Auto 9.4 % (2.6-8.5); Neutrophils Percent Auto 49.5 % (45.5-73.1); Platelet Count Result 439 k/mm3 (150-375); Red Blood Count 2.76 M/mm3 (4.6-6.20); Red Cell Distribution Width 13.7 % (11.5-14.5)
[2021-02-23 05:56] LABS: Alanine Aminotransferase 33 U/L (4-50); Alkaline Phosphatase 112 U/L (38-126); Anion Gap 3 mmol/L (8-16); Aspartate Amino Transferase 41 U/L (17-59); Bilirubin,Total < 0.1 mg/dL (0.2-1.3); Blood Urea Nitrogen 24 mg/dL (9-20); Calcium 8.9 mg/dL (8.4-10.2); Carbon Dioxide 28 mmol/L (22-30); Chloride 106 mmol/L (98-107); Estimated CRCL calculation 71 ml/min; Estimated Glomerular Filt Rate > 60; Glucose 113 mg/dL (75-110); Potassium 4.4 mmol/L (3.4-5.0); Sodium 137 mmol/L (137-145)
[2021-02-23 06:00] VITALS: BP 124/67; PULSE 85; RESP 16; TEMP 36.6; O2SAT 100
[2021-02-23 07:17] LABS: Glucose Point of Care 92 mg/dl (65-105)
[2021-02-23] MEDS: ASCORBIC ACID 500 MG TABLET 1000 MG PO (08:19)
[2021-02-23] MEDS: lisinopriL 20 MG TABLET 40 MG PO (08:19)
[2021-02-23] MEDS: ATORVASTATIN 40 MG TABLET PO (08:19)
[2021-02-23] MEDS: SACCHAROMYCES BOULARDII 250 MG CAPSULE PO ×2 (08:20→17:18)
[2021-02-23] MEDS: MAGNESIUM OXIDE 400 MG TABLET PO (08:20)
[2021-02-23] MEDS: THERAPEUTIC MULTIVITAMINS/MINERALS TAB (*BKC) 1 TABLET PO (08:20)
[2021-02-23] MEDS: ACETAMINOPHEN 325 MG TABLET 650 MG PO (08:20)
[2021-02-23] MEDS: FERROUS GLUCONATE 324 MG TABLET PO (08:20)
--- NOTE | 2021-02-23 09:39 | WPDNEURORHBP ---
Subjective Date/time seen: 02/23/21 09:39 Interval history: Rehab Dx: R BKA, DM with neuropathy. The patient is a 65-year-old male with past medical history of left below-knee amputation with prosthesis in 2018, chronic anemia, chronic kidney disease, diabetic peripheral neuropathy, diabetic retinopathy, diabetic neuropathy, hyperlipidemia, hypertension, insulin-dependent diabetes, peripheral vascular disease, pulmonary hypertension, recent penile wound ( wound nurse followed ). 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 Dr. Keith has been following. Patient also had uncontrolled diabetes with a hemoglobin A1c of 10.1%. Patient required hospitalization debridement and IV antibiotics. Due to the osteomyelitis of the 4th and 5th metatarsal base of the right foot the patient underwent a right below-knee amputation on 02/13/[address] Goodwin at [facility]. Postop patient received 1 unit of packed red blood cells during surgery. Patient also had incisional pain, leukocytosis, thrombocytosis, hyponatremia, hyperglycemia, hypocalcemia, and hypoalbuminemia. Patient is motivated and working well with therapy. He is currently requiring mod assist for transfers using his prosthesis with a wheeled walker. Patient's pain is controlled with p.o. [place] and tylenol. DVT prophylaxis will be with Lovenox 40 mg daily. Patient voices no complaints. Patient feels prepared for discharge on Thursday. Patient joking with staff. Review of Systems Review of Systems: All systems reviewed & are unremarkable except as noted in HPI and below Functional Status Ambulation Ability Ability to Ambulate 10 Feet: Minimum Assistance X 1 Ambulation Assistive Devices: Parallel Bars Exam Narrative: Exam Narrative: Head is normocephalic. Speech is fluent. Heart rate rhythm and is regular. Lungs are clear to auscultation. Abdomen is soft nontender with positive bowel sounds. Bilateral upper extremity strength are 4+ out of 5 left lower extremity strength is 4+ out of 5 right hip strength is 3+ to 4-. Endurance better. Objective Data Vital Signs Vital Signs: Vital Signs - 24 hr 02/22/21 14:00 02/22/21 22:00 02/23/21 06:00 Temperature 36.4 C L 36.2 C L 36.6 C Pulse Rate 90 79 85 Respiratory Rate 16 16 16 Blood Pressure 123/64 152/66 H 124/67 Pulse Oximetry 100 99 100 Intake/Output Intake/Output: Intake & Output 05/19/21 05/20/21 05/21/21 05/22/21 23:59 23:59 23:59 23:59 Intake Total 1440 1440 1680 360 Balance 1440 1440 1680 360 Meds/Results Medications: Active Medications Generic Name Dose Route Start Last Admin Trade Name Freq PRN Reason Stop Dose Admin Acetaminophen 1,000 mg 02/17/21 09:21 Acetaminophen 500 Mg Tablet PO Q6H PRN Mild Pain (1-3) or Fever Acetaminophen 650 mg 02/17/21 17:00 02/23/21 08:20 Acetaminophen 325 Mg Tablet PO 650 mg BID MARELY Administration Hydrocodone Bitart/Acetaminophen 1 tab 02/15/21 15:41 Hydrocodone/Acetaminophen (*Crx) 5-325 Mg Tablet PO Q4H PRN Moderate Pain (4-6) Ascorbic Acid 1,000 mg 02/16/21 09:00 02/23/21 08:19 Ascorbic Acid 500 Mg Tablet PO 1,000 mg DAILY MARELY Administration Atorvastatin Calcium 40 mg 02/16/21 09:00 02/23/21 08:19 Atorvastatin 40 Mg Tablet PO 40 mg QAM MARELY Administration Dextrose 12.5 gm 02/15/21 15:11 Dextrose 50% 25 Gm/50 Ml Syringe IV PUSH PRN PRN Hypoglycemia Protocol Dextrose 12.5 gm 02/18/21 17:20 Dextrose 50% 25 Gm/50 Ml Syringe IV PUSH PRN PRN Hypoglycemia Protocol Enoxaparin Sodium 40 mg 02/15/21 21:00 02/22/21 20:29 Enoxaparin 40 Mg/0.4 Ml Syringe SUB-Q 40 mg HS MARELY Administration Ferrous Gluconate 324 mg 02/16/21 09:00 02/23/21 08:20 Ferrous Gluconate 324 Mg Tablet PO 324 mg DAILY MARELY Administration Glucagon 1 mg 02/15/21 15:11 Glucagon For Inj 1 Mg Vial IM PRN PRN Hypoglycemia Walter
[2021-02-23] MEDS: INSULIN ASPART (*BKC) 100 UNITS/ML SUB-Q ×2 (12:14→17:15)
[2021-02-23 12:23] LABS: Glucose Point of Care 121 mg/dl (65-105)
[2021-02-23 14:00] VITALS: BP 127/60; PULSE 94; RESP 20; TEMP 36.2; O2SAT 99
--- NOTE | 2021-02-23 15:48 | WPDPN ---
Progress Note: A&P Assessment and Plan (1) Below-knee amputation of right lower extremity: Code(s): S88.111A - Complete traumatic amputation at level between knee and ankle, right lower leg, initial encounter Status: Acute Additional Plan Progressing well. Arrangements set for HHN and visit to Power Reactor Supervisor. Will continue bandage change to stump 3/week. F/U with Dr Goodwin in two weeks. Call for appt. Mark out next Thursday or Thursday. Objective Data Vital Signs Vital Signs: Vital Signs - 24 hr 02/22/21 22:00 02/23/21 06:00 02/23/21 14:00 Temperature 36.2 C L 36.6 C 36.2 C L Pulse Rate 79 85 94 Respiratory Rate 16 16 20 Blood Pressure 152/66 H 124/67 127/60 Pulse Oximetry 99 100 99 Intake/Output Intake/Output: Intake & Output 02/20/21 02/21/21 02/22/21 02/23/21 23:59 23:59 23:59 23:59 Intake Total 1440 1440 1680 840 Balance 1440 1440 1680 840 Meds/Results Medications: Active Medications Generic Name Dose Route Start Last Admin Trade Name Freq PRN Reason Stop Dose Admin Acetaminophen 1,000 mg 02/17/21 09:21 Acetaminophen 500 Mg Tablet PO Q6H PRN Mild Pain (1-3) or Fever Acetaminophen 650 mg 02/23/21 09:44 Acetaminophen 325 Mg Tablet PO BID PRN Moderate Pain (4-6) Hydrocodone Bitart/Acetaminophen 1 tab 02/15/21 15:41 Hydrocodone/Acetaminophen (*Crx) 5-325 Mg Tablet PO Q4H PRN Moderate Pain (4-6) Ascorbic Acid 1,000 mg 02/16/21 09:00 02/23/21 08:19 Ascorbic Acid 500 Mg Tablet PO 1,000 mg DAILY MARELY Administration Atorvastatin Calcium 40 mg 02/16/21 09:00 02/23/21 08:19 Atorvastatin 40 Mg Tablet PO 40 mg QAM MARELY Administration Dextrose 12.5 gm 02/15/21 15:11 Dextrose 50% 25 Gm/50 Ml Syringe IV PUSH PRN PRN Hypoglycemia Protocol Dextrose 12.5 gm 02/18/21 17:20 Dextrose 50% 25 Gm/50 Ml Syringe IV PUSH PRN PRN Hypoglycemia Protocol Ferrous Gluconate 324 mg 02/16/21 09:00 02/23/21 08:20 Ferrous Gluconate 324 Mg Tablet PO 324 mg DAILY MARELY Administration Glucagon 1 mg 02/15/21 15:11 Glucagon For Inj 1 Mg Vial IM PRN PRN Hypoglycemia Protocol Glucagon 1 mg 02/18/21 17:20 Glucagon For Inj 1 Mg Vial IM PRN PRN Hypoglycemia Protocol Glucose 15 gm 02/15/21 15:11 Glucose Oral Gel 15 Gm Of Glucse In 37.5 Gm Tube PO PRN PRN Hypoglycemia Protocol Glucose 15 gm 02/18/21 17:20 Glucose Oral Gel 15 Gm Of Glucse In 37.5 Gm Tube PO PRN PRN Hypoglycemia Protocol Dextrose 1,000 mls @ 100 mls/hr 02/15/21 15:11 Dextrose 5% 1,000 Ml IVPB PRN PRN Hypoglycemia Protocol Dextrose 1,000 mls @ 100 mls/hr 02/18/21 17:20 Dextrose 5% 1,000 Ml IVPB PRN PRN Hypoglycemia Protocol Insulin Aspart 4 units 02/18/21 12:00 02/23/21 12:14 Insulin Aspart (*Bkc) 100 Units/Ml SUB-Q 4 units TIDWM MARELY Administration Insulin Aspart 2 - 5 units 02/19/21 08:00 02/23/21 12:19 Insulin Aspart (*Bkc) 100 Units/Ml SUB-Q Not Given TIDWM MARELY Protocol Lisinopril 40 mg 02/16/21 09:00 02/23/21 08:19 Lisinopril 20 Mg Tablet PO 40 mg QAM MARELY Administration Magnesium Oxide 400 mg 02/16/21 09:00 02/23/21 08:20 Magnesium Oxide 400 Mg Tablet PO 400 mg QAM MARELY Administration Multivitamins/Calcium 1 tablet 02/16/21 09:00 02/23/21 08:20 Therapeutic Multivitamins/Minerals Tab (*Bkc) PO 1 tablet DAILY MARELY Administration Polyethylene Glycol 17 gm 02/23/21 08:22 Polyethylene Glycol 3350 17 Gm Powd.Pack PO QAM PRN Constipation Saccharomyces Boulardii 250 mg 02/15/21 17:00 02/23/21 08:20 Saccharomyces Boulardii 250 Mg Capsule PO 250 mg BID MARELY Administration Senna/Docusate Sodium 1 tab 02/23/21 08:22 Senna/Docusate Sodium Tablet PO HS PRN Constipation Labs Labs: Laboratory Results - last 24 hr 02/22
[2021-02-23 17:02] LABS: Glucose Point of Care 141 mg/dl (65-105)
[2021-02-23 20:27] LABS: Glucose Point of Care 188 mg/dl (65-105)
[2021-02-23 21:46] VITALS: BP 127/64; PULSE 92; RESP 14; TEMP 36.5; O2SAT 99
[2021-02-24 06:00] VITALS: BP 132/68; PULSE 85; RESP 16; TEMP 36.3; O2SAT 100
[2021-02-24 06:43] LABS: Glucose Point of Care 123 mg/dl (65-105)
[2021-02-24] MEDS: INSULIN ASPART (*BKC) 100 UNITS/ML SUB-Q ×3 (07:21→17:42)
[2021-02-24] MEDS: lisinopriL 20 MG TABLET 40 MG PO (08:50)
[2021-02-24] MEDS: SACCHAROMYCES BOULARDII 250 MG CAPSULE PO ×2 (08:50→17:42)
[2021-02-24] MEDS: ASCORBIC ACID 500 MG TABLET 1000 MG PO (08:50)
[2021-02-24] MEDS: MAGNESIUM OXIDE 400 MG TABLET PO (08:50)
[2021-02-24] MEDS: THERAPEUTIC MULTIVITAMINS/MINERALS TAB (*BKC) 1 TABLET PO (08:50)
[2021-02-24] MEDS: FERROUS GLUCONATE 324 MG TABLET PO (08:50)
[2021-02-24] MEDS: ATORVASTATIN 40 MG TABLET PO (08:50)
[2021-02-24 12:13] LABS: Glucose Point of Care 100 mg/dl (65-105)
[2021-02-24 14:00] VITALS: BP 119/56; PULSE 101; RESP 16; TEMP 36.1; O2SAT 100
--- NOTE | 2021-02-24 15:04 | WPDNEURORHBP ---
Subjective Date/time seen: 02/24/21 15:04 Patient looking forward to going home. Patient will wait until all equipment is delivered before discharging tomorrow Review of Systems Review of Systems: All systems reviewed & are unremarkable except as noted in HPI and below Functional Status Ambulation Ability Ability to Ambulate 10 Feet: Contact Guard Ambulation Assistive Devices: Parallel Bars Exam Const: General: no acute distress Eyes: EOM: EOMs intact bilaterally Neck: Neck: supple Resp: Auscultation: clear to auscultation bilaterally Cardio: Rate: regular rate Rhythm: regular rhythm Skin: General skin exam: no rashes or lesions noted Neuro: Cognition (Neuro): normal cognition Extrem: Right upper extremity: full ROM Left upper extremity: full ROM Psych: Affect: normal affect Objective Data Vital Signs Vital Signs: Vital Signs - 24 hr 02/23/21 21:46 02/24/21 06:00 02/24/21 14:00 Temperature 36.5 C 36.3 C L 36.1 C L Pulse Rate 92 85 101 H Respiratory Rate 14 16 16 Blood Pressure 127/64 132/68 119/56 L Pulse Oximetry 99 100 100 Intake/Output Intake/Output: Intake & Output 02/21/21 02/22/21 02/23/21 02/24/21 23:59 23:59 23:59 23:59 Intake Total 1440 1680 1320 960 Balance 1440 1680 1320 960 Meds/Results Medications: Active Medications Generic Name Dose Route Start Last Admin Trade Name Freq PRN Reason Stop Dose Admin Acetaminophen 1,000 mg 02/17/21 09:21 Acetaminophen 500 Mg Tablet PO Q6H PRN Mild Pain (1-3) or Fever Acetaminophen 650 mg 02/23/21 09:44 Acetaminophen 325 Mg Tablet PO BID PRN Moderate Pain (4-6) Hydrocodone Bitart/Acetaminophen 1 tab 02/15/21 15:41 Hydrocodone/Acetaminophen (*Crx) 5-325 Mg Tablet PO Q4H PRN Moderate Pain (4-6) Ascorbic Acid 1,000 mg 02/16/21 09:00 02/24/21 08:50 Ascorbic Acid 500 Mg Tablet PO 1,000 mg DAILY MARELY Administration Atorvastatin Calcium 40 mg 02/16/21 09:00 02/24/21 08:50 Atorvastatin 40 Mg Tablet PO 40 mg QAM MARELY Administration Dextrose 12.5 gm 02/15/21 15:11 Dextrose 50% 25 Gm/50 Ml Syringe IV PUSH PRN PRN Hypoglycemia Protocol Dextrose 12.5 gm 02/18/21 17:20 Dextrose 50% 25 Gm/50 Ml Syringe IV PUSH PRN PRN Hypoglycemia Protocol Ferrous Gluconate 324 mg 02/16/21 09:00 02/24/21 08:50 Ferrous Gluconate 324 Mg Tablet PO 324 mg DAILY MARELY Administration Glucagon 1 mg 02/15/21 15:11 Glucagon For Inj 1 Mg Vial IM PRN PRN Hypoglycemia Protocol Glucagon 1 mg 02/18/21 17:20 Glucagon For Inj 1 Mg Vial IM PRN PRN Hypoglycemia Protocol Glucose 15 gm 02/15/21 15:11 Glucose Oral Gel 15 Gm Of Glucse In 37.5 Gm Tube PO PRN PRN Hypoglycemia Protocol Glucose 15 gm 02/18/21 17:20 Glucose Oral Gel 15 Gm Of Glucse In 37.5 Gm Tube PO PRN PRN Hypoglycemia Protocol Dextrose 1,000 mls @ 100 mls/hr 02/15/21 15:11 Dextrose 5% 1,000 Ml IVPB PRN PRN Hypoglycemia Protocol Dextrose 1,000 mls @ 100 mls/hr 02/18/21 17:20 Dextrose 5% 1,000 Ml IVPB PRN PRN Hypoglycemia Protocol Insulin Aspart 4 units 02/18/21 12:00 02/24/21 12:55 Insulin Aspart (*Bkc) 100 Units/Ml SUB-Q 4 units TIDWM MARELY Administration Insulin Aspart 2 - 5 units 02/19/21 08:00 02/24/21 12:58 Insulin Aspart (*Bkc) 100 Units/Ml SUB-Q Not Given TIDWM MARLEY Protocol Lisinopril 40 mg 02/16/21 09:00 02/24/21 08:50 Lisinopril 20 Mg Tablet PO 40 mg QAM MARELY Administration Magnesium Oxide 400 mg 02/16/21 09:00 02/24/21 08:50 Magnesium Oxide 400 Mg Tablet PO 400 mg QAM MARELY Administration Multivitamins/Calcium 1 tablet 02/16/21 09:00 02/24/21 08:50 Therapeutic Multivitamins/Minerals Tab (*Bkc) PO 1 tablet DAILY MARELY Administration Polyethylene Glycol 17 gm 02/23/21 08:22 Polyethylene Glycol 33
[2021-02-24 15:56] LABS: Glucose Point of Care 83 mg/dl (65-105)
[2021-02-24 20:00] VITALS: PULSE 92; RESP 16; O2SAT 99
[2021-02-24 21:37] VITALS: BP 123/65; PULSE 92; RESP 16; TEMP 36.7; O2SAT 99
[2021-02-24 21:54] LABS: Glucose Point of Care 198 mg/dl (65-105)
[2021-02-25 05:59] VITALS: BP 118/63; PULSE 84; RESP 16; TEMP 36.3; O2SAT 100
[2021-02-25 06:59] LABS: Glucose Point of Care 138 mg/dl (65-105)
[2021-02-25] MEDS: INSULIN ASPART (*BKC) 100 UNITS/ML SUB-Q ×2 (07:07→12:15)
[2021-02-25] MEDS: lisinopriL 20 MG TABLET 40 MG PO (08:39)
[2021-02-25] MEDS: MAGNESIUM OXIDE 400 MG TABLET PO (08:39)
[2021-02-25] MEDS: FERROUS GLUCONATE 324 MG TABLET PO (08:39)
[2021-02-25] MEDS: ASCORBIC ACID 500 MG TABLET 1000 MG PO (08:39)
[2021-02-25] MEDS: THERAPEUTIC MULTIVITAMINS/MINERALS TAB (*BKC) 1 TABLET PO (08:40)
[2021-02-25] MEDS: SACCHAROMYCES BOULARDII 250 MG CAPSULE PO (08:40)
[2021-02-25] MEDS: ATORVASTATIN 40 MG TABLET PO (08:40)
--- NOTE | 2021-02-25 10:49 | PM.DS ---
DS: Admitting Diagnosis Admitting Diagnosis Admitting Diagnosis: Right below-knee amputation DS: Discharge Diagnosis Discharge Diagnosis (1) MRSA cellulitis: Code(s): L03.90 - Cellulitis, unspecified; B95.62 - Methicillin resistant Staphylococcus aureus infection as the cause of diseases classified elsewhere Status: Acute Assessment and Plan: Dr. Keith was following and patient was on Cipro 500 mg Q 12 and rifampin 300 mg b.i.d. Follow up with Dr Keith while in ARU was performed and abx were discontinued (2) Hx of right BKA: Code(s): Z89.511 - Acquired absence of right leg below knee Status: Acute Assessment and Plan: Dr. Goodwin surgeon . Patient had scant drainage to incision .Good approximation. Lacey present (3) Osteomyelitis of foot, right, acute: Code(s): M86.171 - Other acute osteomyelitis, right ankle and foot Status: Acute Assessment and Plan: Dr. Keith business process consultant. Patient was on Cipro and rifampin. This has been discontinued (4) Type 2 diabetes, controlled, with neuropathy: Code(s): E11.40 - Type 2 diabetes mellitus with diabetic neuropathy, unspecified Status: Acute Assessment and Plan: [place] was decreased from 45 unites to 23 units subcu at bedtime. Patient had coverage with sliding scale insulin and Humalog 4 units TIDWM . Occasional holding of 4 units noted (5) Below-knee amputation of left lower extremity: Code(s): S88.112A - Complete traumatic amputation at level between knee and ankle, left lower leg, initial encounter Status: Acute Assessment and Plan: patient has prosthesis (6) Hx of myocardial infarction: Code(s): I25.2 - Old myocardial infarction Status: Acute Assessment and Plan: monitor (7) Pulmonary HTN: Code(s): I27.20 - Pulmonary hypertension, unspecified Status: Acute (8) CAD (coronary artery disease): Code(s): I25.10 - Atherosclerotic heart disease of [place] coronary artery without angina pectoris Status: Acute (9) Insulin dependent type 2 diabetes mellitus: Code(s): E11.9 - Type 2 diabetes mellitus without complications; Z79.4 - terminal operations manager (current) use of insulin Status: Chronic Assessment and Plan: staff educator consult was obtained. Patient had good understanding of DM (10) Chronic anemia: Code(s): D64.9 - Anemia, unspecified Status: Chronic Assessment and Plan: patient received 1 unit packed red blood cells. 02/16/21 hgb 6.8 . 02/19/21 Hgb 7.2 Patient is asymptomatic. Hgb 7.7 on 02/23/21. Patient will go home on FESO4 (11) Primary hypertension: Code(s): I10 - Essential (primary) hypertension Status: Acute Assessment and Plan: lisinopril 40 mg daily. Good control (12) Diabetic retinopathy: Qualifiers: Diabetes mellitus type: type 2 Diabetic retinopathy severity: with proliferative retinopathy Laterality: bilateral Proliferative retinopathy type: unspecified Qualified Code(s): E11.3593 - Type 2 diabetes mellitus with proliferative diabetic retinopathy without macular edema, bilateral Code(s): E11.319 - Type 2 diabetes mellitus with unspecified diabetic retinopathy without macular edema Status: Acute Assessment and Plan: continue monitoring and adjusting for blood sugars (13) Chronic kidney disease: Qualifiers: Chronic kidney disease stage: stage 2 (mild) Qualified Code(s): N18.2 - Chronic kidney disease, stage 2 (mild) Code(s): N18.9 - Chronic kidney disease, unspecified Status: Acute Assessment and Plan: monitor (14) DVT prophylaxis: Code(s): Z29.9 - Encounter for prophylactic measures, unspecified Status: Acute Assessment and Plan: Lovenox 40 mg subq. Patient's overall endurance is good. Patient is up for most of the day. Will discontinue DS: Summary Hospital Course Reason for h
[2021-02-25 11:56] LABS: Glucose Point of Care 87 mg/dl (65-105)
--- NOTE | 2021-02-25 15:27 | PC.NURSE ---
upon discharge, patient did not want scrip for hydrocodone, also scrip for ampu-shield was faxed to [facility] [place] [facility] by therapy
== END 2021-02-25 13:50 | disposition home health service (06) | DRG 561 ==
PROVIDERS: Family Medicine; Admitting Provider Physical Medicine & Rehabilitation; PCP Physician Assistant; Visit Provider Physical Medicine & Rehabilitation
DX: Z47.81 Encounter for orthopedic aftercare following surgical amputation (principal); Z89.511 Acquired absence of right leg below knee; Z89.512 Acquired absence of left leg below knee; I12.9 Hypertensive chronic kidney disease with stage 1 through stage 4 chronic kidney disease, or unspecified chronic kidney disease; N18.9 Chronic kidney disease, unspecified; D63.1 Anemia in chronic kidney disease; D47.3 Essential (hemorrhagic) thrombocythemia; E88.09 Other disorders of plasma-protein metabolism, not elsewhere classified; E78.5 Hyperlipidemia, unspecified; E11.22 Type 2 diabetes mellitus with diabetic chronic kidney disease; E11.65 Type 2 diabetes mellitus with hyperglycemia; E11.319 Type 2 diabetes mellitus with unspecified diabetic retinopathy without macular edema; E11.42 Type 2 diabetes mellitus with diabetic polyneuropathy; E11.51 Type 2 diabetes mellitus with diabetic peripheral angiopathy without gangrene; I27.20 Pulmonary hypertension, unspecified; I25.2 Old myocardial infarction; Z86.16 Personal history of COVID-19; Z79.4 Long term (current) use of insulin; Z86.14 Personal history of Methicillin resistant Staphylococcus aureus infection
CPT/HCPCS: 36415; 80053; 82948; 85025; 97110; 97116; 97161; 97166; 97530; 97535; 97542; A9270; J1650; J1815

== ENCOUNTER 2021-07-18 07:39 | Outpatient (RCR) | payer MEDICARE, SELFPAY ==
[2021-04-26 13:00] VITALS: BMI 27.6
== END 2021-07-25 23:59 | disposition home or self-care (01) ==
LOC: ANHWOC 07:39
PROVIDERS: PCP Family Medicine; Visit Provider Plastic Surgery
DX: Z47.81 Encounter for orthopedic aftercare following surgical amputation (principal); Z89.511 Acquired absence of right leg below knee
CPT/HCPCS: 99212; 99213; A9270; G0463

== ENCOUNTER 2021-12-10 09:00 | Outpatient (RCR) | payer MEDICARE, SELFPAY ==
--- NOTE | 2021-10-01 11:16 | PTOPEVAL ---
Thank you for referring Hernando Espana IV to [facility].? The patient is scheduled to be seen for therapy? 2 x/week for 6 weeks. Please review, sign, date and return this plan of care VALERIA. I agree with and certify that the following plan of care is medically necessary. Referring Physician Date Attending Provider: Jayne Skaggs PA-C Problem Diagnosis left 2017 and right BKA 2020 Additional Evaluation Detail Lives with son and girlfriend in a house with 2 KRYSTEN front door or a ramp from [employer] 1 flight to basement right railing to ascend He has a wc, ww, cane. Subjective Information He received his right BKA 2 Query Text:As Reported By Patient/ wks ago. He is walking with Family the walker indep. Will use the wc if his legs are painful Jewelry Designer made prosthesis. Currently wearing 8 sock ply on right and 1 sock ply on left. He is very active with camping, yardwork and outdoor activities. Pain Assessment Self Report Pain Assessment Right Leg(s) Reported Pain Level 0 Lowest Pain Intensity 0 Greatest Pain Intensity 3 Pain Score Pain Score 0: Self Report Lower Extremity Range of Motion General Lower Extremity Range of Motion Gross Lower Extremity Range of Motion right knee: 3-105 dg Comments tia hip ext: -10 dg Lower Extremity Muscle Strength Testing Hip Strength Bilateral Hip Extension Strength 3 Fair Hip Abduction Strength 3 Fair Knee Strength Bilateral Knee Flexion Strength 4+ Good + Knee Extension Strength 4+ Good + Palpation Assessment Palpation Palpation healed incision on right residual limb without sensitivity or scar restrictions Transfer Assessment Chair Transfer Assessment Chair Transfer Assistive Devices None Ambulation Assistive Devices Walker, Wheeled Orthotic/Prosthetic Devices Left Lower Extremity Prosthesis,Right Lower Extremity Prosthesis Chair Transfer Destination Ambulatory Sit to Stand Chair Transfer Ability Independent Bed Mobility Assessment Bed Mobility Bed Type Mat Overall Bed Mobility Ability Independent Balance Assessment SANTOS Balance Evaluation Total Score (17/56 points) Timed Up and Go Test (TUG) (Seconds) 24 Assistive Device
--- NOTE | 2021-11-05 09:24 | PTOPEVAL ---
Physical therapy progress note Thank you for referring Hernando Espana IV to [facility].? Hernando has attended 11 therapy visits to address gait training with prosthesis. See summary below for progress and updated information. The patient is scheduled to be seen for therapy?1 x/week for 5 weeks. Please review, sign, date and return this plan of care VALERIA. I agree with and certify that the following plan of care is medically necessary. Referring Physician Date Attending Provider: Jayne Skaggs PA-C Diagnosis left 2017 and right BKA 2020 Additional Evaluation Detail Lives with son and girlfriend in a house with 2 KRYSTEN front door or a ramp from [facility]. 1 flight to basement right railing to ascend He has a wc, ww, cane. Subjective Information Nanny Babysitter made prosthesis. Has Query Text:As Reported By Patient/ return visit on Thur. Family Currently wearing 15 sock ply on right and 0 sock ply on left. He is not performing his HEP, he has not returned to the gym. He is using no AD at home. He uses the canes when in the community. He feels they make him weak. He is wearing prosthesis 12-14 hrs a day. He is checking skin at end of the day. Pad was added to right prosthesis. He does feel therapy has helped with his mobility. He is able to walk/stand for 2 hrs at a train show. Pain Assessment Self Report Pain Assessment Right Leg(s) Reported Pain Level 0 Pain Score Pain Score 0: Self Report Lower Extremity Range of Motion General Lower Extremity Range of Motion Gross Lower Extremity Range of Motion tia hip ext: -5 dg Comments Lower Extremity Muscle Strength Testing Hip Strength Bilateral Hip Extension Strength 4- Good - Hip Abduction Strength 4- Good - Knee Strength Bilateral Knee Flexion Strength 5 Normal Knee Extension Strength 5 Normal Balance Assessment Santos Balance Assessment SANTOS Balance Evaluation Total Score (26/56 points) Time Up Go (TUG) Timed Up and Go Test (TUG) (Seconds) 19 Assistive Devices None Comments tia prosthesis tia cane, 16 sec improved MARILIA and LE deviations
--- NOTE | 2021-12-10 15:24 | PTOPEVAL ---
Physical Therapy Discharge Summary Thank you for referring Hernando Espana IV to [facility].? Hernando has attended 16 therapy visits to address training with prosthesis. As a result of skilled therapy services he demonstrates improved balance, functional mobility, and endurance with ambulation on all surfaces. He has returned to the gym for full body fitness program. He has met to partially met his therapy goals at this time. Will DC skilled therapy services at this time. Please review, sign, date and return this discharge summary VALERIA. I agree with and certify that the following plan of care is medically necessary. Referring Physician Date Attending Provider: Jayne Skaggs PA-C Diagnosis left 2017 and right BKA 2020 Additional Evaluation Detail Lives with son and girlfriend in a house with 2 KRYSTEN front door or a ramp from [employer]. 1 flight to basement right railing to ascend He has a wc, ww, cane. Subjective Information He is using the cane in the Query Text:As Reported By Patient/ community,but not in the house. Family He is able to stand 30-40 min before requiring a rest. Currently wearing 20 sock ply on right and 0 sock ply on left. He has returned to the gym to perform cardio and resistance training. He has been able to walk outside on uneven surfaces, grass or rocks without difficulty. Pain Assessment Timing of Pain Assessment Timing of Pain Assessment Re-assessment Pain Scale Pain Scale Used Numeric (1 - 10) Self Report Pain Assessment Right Leg(s) Reported Pain Level 0 Pain Score Pain Score 0: Self Report Balance Assessment SANTOS Balance Evaluation Total Score (33/56 points) Time Up Go (TUG) Timed Up and Go Test (TUG) (Seconds) 17 Assistive Devices None Comments tia prosthesis single cane, 12 sec improved MARILIA and LE devations with canes 5 Time Sit to Stand Time in Seconds 28 5 Time Sit to Stand Comments no AD, use of UE and tia Query Text:Normative Data: If Greater prosthesis Than 15 Seconds, 74% Increase Risk for decreased control with initial Recurrent Falls upright position, wide MARILIA Gait Assessment Gait Pattern Assessment Gait Pattern Wide Based Gait Gait Pattern Observed Decreased Stride Length - Left ,Decreased Stride
== END 2021-12-11 09:10 | disposition home or self-care (01) ==
LOC: ANHPT 09:00
PROVIDERS: PCP Family Medicine; Visit Provider Physician Assistant
DX: Z47.81 Encounter for orthopedic aftercare following surgical amputation (principal); Z89.511 Acquired absence of right leg below knee; Z89.512 Acquired absence of left leg below knee
CPT/HCPCS: 97110; 97116; 97162; 97530; 97761

== ENCOUNTER 2022-06-19 15:41 | Emergency (ER) | payer MEDICARE, SELFPAY ==
[2022-06-19 15:54] VITALS: BP 208/98; PULSE 92; RESP 16; TEMP 37.2; O2SAT 98
--- NOTE | 2022-06-19 15:54 | ED.EAR ---
HPI - Ear Problem General Chief complaint: Ear Stated complaint: left ear ache Time Seen by Provider: 06/19/22 16:00 Source: patient, RN notes reviewed and old records reviewed Mode of arrival: ambulatory Limitations: no limitations History of Present Illness HPI Narrative: 67 year old male presents to [facility] care with complaints of pain to his left ear since last Thursday. Patient reports that he went to his dentist yesterday and had his teeth checked to see if pain in ear was related to his teeth and dentist said teeth were fine. Patient noted to have swelling of ear canal with some clear drainage noted. Patient denies any known fevers, chills or sweats, denies any nasal congestion or drainage or any other sick symptoms. Patient does have some tragal tenderness on examination.Patient voices pain to his right ear 5 /10 has been taking Tylenol for his discomfort. MD Complaint: ear pain, ear discharge and other (swelling left ear canal) Location: left ear Duration: constant Severity: moderate Discharge from ear: Reports yes - clear Treatment prior to arrival: other (tylenol) Related Data Home Medications Medication Instructions Recorded Confirmed lancets 33 gauge (BD Ultra Fine #100 ea 08/17/19 12/13/21 Lancets) insulin glargine U-300 conc 300 58 unit subcut QHS 06/19/22 06/19/22 unit/mL (3 mL) subcutaneous pen (Toujeo Max U-300 SoloStar) Allergies Allergy/AdvReac Type Severity Reaction Status Date / Time No Known Allergies Allergy Verified 06/19/22 15:51 Review of Systems Review of Systems: CONSTITUTIONAL: Denies any known fever, chills, or sweats. EYES: Denies visual changes, redness, or discharge. ENT: Denies rhinorrhea, congestion, sore throat, positive left ear otalgia. CARDIOVASCULAR: Denies chest pain, palpitations, or edema. RESPIRATORY: Denies cough or dyspnea. GASTROINTESTINAL: Denies abdominal pain, nausea, vomiting, or diarrhea. GENITOURINARY: Denies dysuria or hematuria. SKIN: Denies rash or itching. MUSCULOSKELETAL: Denies back pain, joint pain, or myalgia, patient has bilateral lower extremity prosthesis. NEUROLOGIC: Denies headache, numbness, or weakness. PSYCHIATRIC: Denies anxiety or depression. All systems reviewed & are unremarkable except as noted in HPI and below PMFSH Past Medical History Medical History Below-knee amputation of left lower extremity Chronic anemia Chronic kidney disease COVID-19 (~05/2020) Diabetic peripheral neuropathy Diabetic retinopathy History of esophageal dilatation History of esophageal stricture Hx of myocardial infarction Hyperlipidemia Hypertension Insulin dependent type 2 diabetes mellitus Hemoglobin A1c was 10.1% on 02/05/2021. MRSA pneumonia Open wound of penis Peripheral vascular disease in diabetes mellitus Proteinuria due to type 2 diabetes mellitus Pulmonary HTN Type 2 diabetes, controlled, with neuropathy Surgical History Surgical History History of bilateral carpal tunnel release History of cataract extraction History of left below knee amputation History of tonsillectomy History of transmetatarsal amputation of left foot Hx of right BKA 02/13/[address] Goodwin Status post debridement Osteomyelitis of the right 1st toe. Family History Family History Father Diabetes mellitus Hypertension Mother Family history of malignant neoplasm of kidney Mother Family history of malignant neoplasm of kidney Father Diabetes mellitus Hypertension Lung cancer Social History Social History Social History: The patient is and lives in [place] with his significant other. He has 1 biological son. Lifelong nonsmoker. No alcohol or illicit substance use. 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
[2022-06-19 15:56] VITALS: BP 208/98; PULSE 92; RESP 16; TEMP 37.2; O2SAT 98
[2022-06-19 16:15] VITALS: BP 190/96
== END 2022-06-19 16:20 | disposition home or self-care (01) ==
PROVIDERS: Emergency Provider Registered Nurse; PCP Physician Assistant
DX: H60.312 Diffuse otitis externa, left ear (principal); E11.22 Type 2 diabetes mellitus with diabetic chronic kidney disease; Z79.4 Long term (current) use of insulin; N18.9 Chronic kidney disease, unspecified; I12.9 Hypertensive chronic kidney disease with stage 1 through stage 4 chronic kidney disease, or unspecified chronic kidney disease; E78.5 Hyperlipidemia, unspecified; Z89.512 Acquired absence of left leg below knee
CPT/HCPCS: 99213; G0463

== ENCOUNTER 2024-05-25 14:40 | Emergency (ER) | payer MEDICARE, SELFPAY ==
[2024-05-25] VITALS (15 sets, daily range): BP systolic 125–150; BP diastolic 70–91; PULSE 89–124; RESP 11–26; TEMP 36.6; O2SAT 91–96
--- NOTE | ~2024-05-25 | CT_ITS ---
EXAMINATION: CTA chest PE protocol DATE: 05/25/2024 19:47 INDICATION: Lymphoma TECHNIQUE: Computed tomography (CT) pulmonary angiogram of the chest was performed with 100 mL Omnipa que-350 intravenous contrast. Additional 3D reconstructions utilizing coronal maximum intensity proje ction (MIP) were performed. Automated exposure control and iterative reconstruction technique were em ployed. The dose-length product was 590.82 mGy-cm. COMPARISON: None FINDINGS: No evident pulmonary embolism. Evaluation limited in the basilar subsegmental pulmonary arteries in t he right middle and lower lobes due to respiratory motion and suboptimal contrast opacification. Larg e left and small to moderate sized right pleural effusions. Additional dependent compressive atelecta sis in the left upper lobe, lingula and right upper lower lobes. The collapsed portion of the lungs d emonstrate relatively homogeneous parenchymal enhancement with no evident pulmonary infarct. Scattere d groundglass opacities in the noncollapsed portions of the lung and favor additional less severe ate lectasis over pneumonia. No evidence of septal line thickening to suggest pulmonary edema. Heart size is normal. Atherosclerotic artery calcification and possible stenting of the left anterior descendin g coronary artery. No pericardial effusion. Thoracic aorta is normal in caliber with no dissection. M ediastinal, right hilar and bilateral axillary lymphadenopathy. Mild thoracic spondylosis. Diffuse bullard bcutaneous edema. IMPRESSION: 1. No evidence of pulmonary embolism. Sensitivity significantly decrease in the subsegmental pulmonar y arteries at the right lung base examination respiratory motion and suboptimal contrast opacificatio n. 2. Large left and btgjj-tx-gpjyahpj right pleural effusions with associated compressive atelectasis i ncluding near complete left lower lobar collapse. 3. Prominent mediastinal, right hilar and bilateral axillary lymphadenopathy which raises concern for lymphoma. Recommend ultrasound-guided biopsy of the axillary lymphadenopathy. Reviewed, dictated and finalized at location A. IMPRESSION: 1. No evidence of pulmonary embolism. Sensitivity significantly decrease in the subsegmental pulmonary arteries at the right lung base examination respiratory motion and suboptimal contrast opacification. 2. Large left and jheeo-vj-yohltctr right pleural effusions with associated com pressive atelectasis including near complete left lower lobar collapse. 3. Prominent mediastinal, right hilar and bilateral axillary lymphadenopathy wh ich raises concern for lymphoma. Recommend ultrasound-guided biopsy of the axil bronson lymphadenopathy.
--- NOTE | ~2024-05-25 | XR_ITS ---
EXAMINATION: [id number] DATE: 05/26/2024 12:10 INDICATION: Left pleural effusion status post thoracentesis. TECHNIQUE: Frontal and lateral views of the chest were obtained. COMPARISON: Chest 2 views 05/25/2024 FINDINGS: There are small right and large left pleural effusions. There are airspace opacities in rig ht mid and lower lung zones and all left lung zones. No pneumothorax. The heart size is normal. IMPRESSION: 1. Small right and moderate left pleural effusions with improvement on the left status post thoracent esis. 2. Airspace opacities in the lungs, likely atelectasis. Reviewed, dictated and finalized at location A. IMPRESSION: 1. Small right and moderate left pleural effusions with improvement on the left status post thoracentesis. 2. Airspace opacities in the lungs, likely atelectasis.
--- NOTE | ~2024-05-25 | CT_ITS ---
EXAMINATION: CT brain wo con DATE: 05/25/2024 19:46 INDICATION: Lymphoma TECHNIQUE: Computed tomography (CT) of the head was performed without intravenous contrast. Sagittal and coronal reconstructions were performed. The mA was adjusted according to patient size. Iterative reconstruction technique was employed. The dose-length product was 590.82 mGy-cm. COMPARISON: None FINDINGS: No acute intracranial hemorrhage, acute infarction or abnormal extra axial fluid collection. Ventricl es are normal and symmetric. No mass/mass effect. There is residual contrast within the vasculature a nd venous sinuses from the earlier contrast-enhanced CT of the abdomen and pelvis. Changes of bilater al intraocular lens replacement. The orbits, paranasal sinuses and mastoid air cells are normal. IMPRESSION: 1. No acute intracranial process. Reviewed, dictated and finalized at location A.
--- NOTE | ~2024-05-25 | CT_ITS ---
EXAMINATION: CT abdomen pelvis w con DATE: 05/25/2024 18:20 INDICATION: Abdominal pain and bloating TECHNIQUE: Computed tomography (CT) of the abdomen and pelvis was performed with 100 mL Omnipaque-350 intravenous contrast. Automated exposure control and iterative reconstruction technique were employe d. The dose-length product was 1336.52 mGy-cm. COMPARISON: None FINDINGS: Partially visualized moderate to large left and lqfcz-tn-tzokkent right pleural effusions with compre ssive atelectasis in the dependent aspect of the visualized lungs including near complete left lower lobar collapse. Heart size normal. Atherosclerotic coronary artery calcifications and likely stenting of the left anterior descending coronary artery. No pericardial effusion. Incompletely visualized me diastinal and right hilar lymphadenopathy. 3.1 x 2.4 similar left epiphrenic lymph node. There is add itional bulky periportal and portacaval lymphadenopathy with largest portacaval lymph node measuring 5.6 x 3.5 cm. Multiple additional mildly enlarged lymph nodes seen throughout the mesentery and in th e abdominal retroperitoneum. Large amount of ascites scattered throughout the abdomen and pelvis. The re is enlargement of the spleen measuring 18.1 cm in maximal length. There are irregular regions of d ecreased enhancement scattered throughout the spleen which in the setting of trauma could represent c ontusions or splenic lacerations although there is no increased density to the perisplenic ascites to suggest hemorrhage and this is considered unlikely. Differential would also include splenic infarcts or or heterogeneous distribution of an infiltrative process such as lymphoma. Liver, gallbladder, pa ncreas, bilateral adrenal glands and are normal. Bilateral renal cysts the largest on the left measur ing 2.0 cm. Bowels including the appendix are normal. Bladder is normal. Prostatomegaly. Measuring 5. 5 x 4.4 cm. There is diffuse body wall and mesenteric edema. No pathologically enlarged pelvic or ing uinal lymphadenopathy. Mild scattered degenerative skeletal changes with no suspicious lytic or blast ic bone lesions. IMPRESSION: 1. Thoracic and abdominal lymphadenopathy suspicious for lymphoma or other metastatic disease. Would consider additional CT imaging of the neck and chest to assess for any additional lymphadenopathy mor e amenable to percutaneous biopsy. 2. Anasarca with diffuse body wall mesenteric edema, moderate to large left and jasur-mh-bcrqgelp rig ht pleural effusions and a large amount of ascites. 3. Splenomegaly with heterogeneous enhancement. In the setting of trauma differential would include a splenic contusion or laceration however there is no evident perisplenic hemorrhage and this is consi dered unlikely. Differential would also include splenic infarct or sequela of a heterogeneously infil trative processes such as lymphoma. 4. Prostatomegaly. Reviewed, dictated and finalized at location A. IMPRESSION: 1. Thoracic and abdominal lymphadenopathy suspicious for lymphoma or other meta static disease. Would consider additional CT imaging of the neck and chest to a ssess for any additional lymphadenopathy more amenable to percutaneous biopsy. 2. Anasarca with diffuse body wall mesenteric edema, moderate to large left and pzrhk-yk-erufvzqp right pleural effusions and a large amount of ascites. 3. Splenomegaly with heterogeneous enhancement. In the setting of trauma differ ential would include a splenic contusion or laceration however there is no evid ent perisplenic hemorrhage and this is considered unlikely. Differential would also include splenic infarct or sequela of a heterogeneously infiltrative proce sses such as lymphoma. 4. Prostatomegaly.
--- NOTE | ~2024-05-25 | US_ITS ---
EXAMINATION: US thoracentesis DATE: 05/26/2024 13:20 INDICATION: pleural effusion TECHNIQUE: The procedure and its risks, benefits, and alternatives were discussed with the patient. P otential risks discussed included bleeding, infection, and pneumothorax. The patient understood the r isks and agreed to proceed. The skin was prepped and draped in sterile fashion. 1% lidocaine was used for local anesthesia. Under ultrasound guidance, a 5 Fr catheter with trochar was advanced into the left pleural effusion. Fluid was aspirated. The catheter was removed, and a dressing was applied. The re were no immediate complications. FINDINGS: Ultrasound images demonstrate a left pleural effusion and the catheter within the fluid. IMPRESSION: 1. Successful ultrasound-guided thoracentesis yielding 1000 mL of jefferson-colored fluid. Reviewed, dictated and finalized at location A. IMPRESSION: 1. Successful ultrasound-guided thoracentesis yielding 1000 mL of jefferson-colore d fluid.
--- NOTE | ~2024-05-25 | CT_ITS ---
EXAMINATION: CT soft tissue neck w con DATE: 05/25/2024 19:46 INDICATION: Lymphoma TECHNIQUE: Computed tomography (CT) of the neck was performed with 100 mL Omnipaque-350 intravenous c ontrast. Automated exposure control and iterative reconstruction technique were employed. The dose-le ngth product was 590.82 mGy-cm. COMPARISON: None FINDINGS: Changes of bilateral intraocular lens replacement. Orbits are otherwise normal. The paranasal sinuse s are clear. Mastoid air cells and middle ear cavities are clear. Likely benign 7 mm an 10 mm nodules in left thyroid lobe. Submandibular glands are normal and symmetric. There are multiple nodules in t he bilateral parotid glands the largest on the right measuring 10 mm in maximal short axis diameter w hich could represent lymph nodes. There are multiple bilateral jugular chain, posterior triangle and supraclavicular lymph nodeswhich are more notable for number than size is with the largest left supra clavicular lymph node measuring 11 mm in maximal short axis diameter. No masses identified. The vasc ulature is patent and normal in caliber. Airway is unremarkable. Moderate to severe cervical spondylo sis. Large left and yvvvc-rn-fmiolrfz right pleural effusions. IMPRESSION: 1. Cervical lymphadenopathy with numerous borderline sized lymph nodes in the parotid jugular chains, posterior triangles and supraclavicular regions the reactive or due to lymphoma. Reviewed, dictated and finalized at location A. IMPRESSION: 1. Cervical lymphadenopathy with numerous borderline sized lymph nodes in the p arotid jugular chains, posterior triangles and supraclavicular regions the reac tive or due to lymphoma.
--- NOTE | ~2024-05-25 | XR_ITS ---
XR chest 2V 05/25/2024 16:20 Indication: Shortness of breath. Low oxygen saturations. Procedure: 2 view chest Comparison: Comparison to multiple prior studies sequentially, with oldest reviewed study dated 05/27. Findings: Large left pleural effusion. Cardiomegaly. Asymmetric left-sided airspace disease may repre sent atelectasis, or pneumonia. Impression: 1: Large left pleural effusion with underlying airspace disease which may represent atelectasis or pn eumonia. Reviewed, dictated and finalized at location B. Impression: 1: Large left pleural effusion with underlying airspace disease which may repre sent atelectasis or pneumonia.
--- NOTE | 2024-05-25 15:11 | ED.SOB ---
HPI - SOB/Dyspnea General Chief Complaint: Shortness of Breath/Dyspnea <TRAN Rush Last Filed: 05/25/24 15:31> Stated Complaint: SOB <TRAN Rush Last Filed: 05/25/24 15:31> Time Seen by Provider: 05/25/24 15:11 <TRAN Rush Last Filed: 05/25/24 15:31> Focused HPI: Patient is a 69 y/o male, with PMH of CAD with 2 stents, DM, HTN, tia AKA, who presents to the ED with c/o SOB. Patient reports he has been increasingly short of breath of the past few weeks. States his family made him come to the ED today. He does also report having a mild cough, diaphoresis, pain and bloating in his abdomen, pain worse on the right side. Denies known fevers, chest pain, N/V/D, constipation. Last BM this am. Patient SaO2 91% on RA. Placed on 2L NC upon arrival. GENERAL: Elderly, ill appearing, obese with BMI of 33.2, and in no acute distress. HEAD: Normocephalic, atraumatic. CHEST: Clear to auscultation. BS slightly tachypneic and labored. HEART: Tachycardic with regular rhythm.? ABD: Abdomen is moderately distended, tender on R side. Normoactive BS. MSK: Tia AKA with prosthesis. NEURO: ?Alert and oriented x3. Patient screened in triage and initial orders placed.? ?Additional care and disposition to be based upon?diagnostic testing and treatment. <Asia Lawler PA-C - Last Filed: 05/25/24 15:31> Source: patient <TRAN Rush Last Filed: 05/25/24 15:31> Mode of arrival: wheelchair <TRAN Rush Last Filed: 05/25/24 15:31> Limitations: no limitations <TRAN Rush Last Filed: 05/25/24 15:31> History of Present Illness HPI Narrative: 69-year-old male with a history of insulin-dependent diabetes, PVD, CAD, pulmonary hypertension, bilateral BKA, hypertension, hyperlipidemia presents to the emergency department with his son and girlfriend at bedside for generalized malaise, weakness, decreased appetite, abdominal distention and shortness of breath for several weeks. Patient states he has not been taking any of his medications since about November of 2023 because he has not felt like it. On arrival the patient was found to be 92% on room air was placed on 2 L nasal cannula for comfort it is now increased to 95%. He denies chest pain, fever, cough or congestion. His son notices that the patient has lost some weight around his face and shoulders but seems to have gained weight in his abdomen. The patient is reporting some discomfort to the right lower quadrant. Denies vomiting or diarrhea. <Kaylyn Galaviz PA-C - Last Filed: 05/26/24 03:05> Related Data Home Medications: Home Medications Medication Instructions Recorded Confirmed lancets 33 gauge (BD Ultra Fine #100 ea 08/17/19 03/02/24 Lancets) <Asia Lawler PA-C - Last Filed: 05/25/24 15:31> Allergies/Adverse Reactions: Allergies Allergy/AdvReac Type Severity Reaction Status Date / Time No Known Allergies Allergy Verified 05/26/24 09:01 <Asia Lawler PA-C - Last Filed: 05/25/24 15:31> Review of Systems Review of Systems: All systems reviewed & are unremarkable except as noted in HPI and below <Kaylyn Galaviz PA-C - Last Filed: 05/26/24 03:05> [facility] Past Medical History Medical History: Medical History Below-knee amputation of left lower extremity Chronic anemia Chronic kidney disease COVID-19 (~05/2020) Diabetic peripheral neuropathy Diabetic retinopathy History of esophageal dilatation History of esophageal stricture Hx of myocardial infarction Hyperlipidemia Hypertension Insulin dependent type 2 diabetes mellitus Hemoglobin A1c was 10.1% on 02/05/2021. MRSA pneumonia Open wound of penis Peripheral vascular disease in diabetes mellitus Proteinuria due to type 2 diabetes mellitus Pulmonary HTN Type 2 diabetes, controlled, w
--- NOTE | 2024-05-25 15:18 | ECG_ITS ---
Test Date: 2024-05-25 15:21:38 Measurements Intervals [place] Rate: 105 P: -12 DC: 172 QRS: -79 QRSD: 133 T: 81 QT: 357 QTc: 472 Interpretive Statements SINUS TACHYCARDIA MARKED LEFT AXIS DEVIATION [QRS AXIS < -30] RIGHT BUNDLE BRANCH BLOCK [120+ ms QRS DURATION, UPRIGHT V1, 40+ ms S IN I/aVL/V4/V5/V6] POSSIBLE ANTERIOR MYOCARDIAL INFARCTION , OF INDETERMINATE AGE [30 ms Q WAVE IN V3/V4, OR R < 0.2 mV IN V4] No previous ECG available for comparison Electronically Signed On 05-26-2024 14:26:04 CDT by James Cuevas M.D.
[2024-05-25 17:24] LABS: Hematocrit 49.9 % (42.0-52.0); Hemoglobin 16.1 g/dL (14.0-18.0); Immature Platelet Fraction Pct 3.4 % (0.9-11.2); Mean Corpuscular HGB Conc 32.3 g/dl (32-36); Mean Corpuscular Volume 93.1 fl (80-100); Mean Platelet Volume 9.5 fl (7.4-10.4); Platelet Count Result 124 k/mm3 (150-375); Red Blood Count 5.36 M/mm3 (4.6-6.20); Red Cell Distribution Width 15.9 % (11.5-14.5)
[2024-05-25 17:34] LABS: Partial Thromboplastin Time 25.6 Seconds (22.3-36.8); Prothrombin Time 13.5 Seconds (11.1-14.7)
[2024-05-25 17:35] LABS: Lactic Acid Reflex 1.2 mmol/L (0.7-2.0)
[2024-05-25 17:36] LABS: Alanine Aminotransferase 17 U/L (6-50); Albumin Level 2.8 g/dL (3.5-5.1); Alkaline Phosphatase 340 U/L (38-126); Anion Gap 8 mmol/L (4-12); Aspartate Amino Transferase 55 U/L (17-59); Bilirubin,Total 1.4 mg/dL (0.2-1.3); Blood Urea Nitrogen 31 mg/dL (9-20); Calcium 8.1 mg/dL (8.4-10.2); Carbon Dioxide 21 mmol/L (22-30); Chloride 105 mmol/L (98-107); Estimated CRCL calculation 49 ml/min; Estimated Glomerular Filt Rate 43; Glucose 340 mg/dL (65-110); Potassium 5.5 mmol/L (3.4-5.0); Sodium 134 mmol/L (137-145)
[2024-05-25 17:48] LABS: Influenza A QL RT-PCR Negative (Negative); Influenza B QL RT-PCR Negative (Negative); RSV RNA, RT-PCR Negative (Negative); SARS-CoV-2 RNA PCR Negative (Negative)
[2024-05-25 17:53] LABS: Total Cells Counted 100; White Blood Count 105.7 K/mm3 (4.5-10.0)
[2024-05-25 17:54] LABS: Basophils Absolute Manual 1.05 K/mm3 (0.0-0.1); Basophils Percent Manual 1 % (0-1); Eosinophils Absolute Manual 1.05 K/mm3 (0.02-0.50); Eosinophils Percent Manual 1 % (0-4); Lymphocytes Percent Manual 79 % (18-44); Monocytes Absolute Manual 11.62 K/mm3 (0.1-0.90); Monocytes Percent Manual 11 % (3-9); Neutrophils Percent Manual 8 % (46-73)
[2024-05-25 17:55] LABS: Hypochromasia 1+; Ovalocytes 1+; Platelet Estimate Decreased (Adequate); Schistocytes None Seen
[2024-05-25 18:00] LABS: NT Pro B Type Natriuretic Pept 8920 pg/mL (19.9-100); Troponin I 0.043 ng/mL (0.000-0.034)
[2024-05-25 18:15] LABS: Add Urine Microscopic? YES; Appearance Urine Cloudy (Clear); Bacteria Urine None Seen /hpf; Bilirubin Urine 1+ (Negative); Blood Urine 2+ (Negative); Color Urine Dark Yellow (Yellow); Glucose Urine UA 3+ mg/dL (Negative); Ketones Urine Negative (Negative); Leukocyte Esterase Ur Negative LEU/UL (Negative); Need Manual Microscopic Reviewed; Nitrate Urine Negative (Negative); Protein Urine 3+ mg/dL (Negative); RBC Urine 0-2 /hpf (0-2); Specific Grav Ur 1.022 (1.001-1.035); Squamous Epithelial Cell Urine None Seen /hpf (Few); WBC Urine 0-5 /hpf (0-3)
[2024-05-25 18:16] LABS: Amorphous Sediment Urine Few
--- NOTE | 2024-05-25 20:15 | ECG_ITS ---
Test Date: 2024-05-25 20:29:21 Measurements Intervals [place] Rate: 90 P: 0 IA: 0 QRS: -80 QRSD: 140 T: 78 QT: 429 QTc: 527 Interpretive Statements SINUS RHYTHM WITH FIRST DEGREE AV BLOCK LEFT AXIS DEVIATION [QRS AXIS < -30] RIGHT BUNDLE BRANCH BLOCK [120+ ms QRS DURATION, UPRIGHT V1, 40+ ms S IN I/aVL/V4/V5/V6] POSSIBLE ANTERIOR MYOCARDIAL INFARCTION , OF INDETERMINATE AGE [30 ms Q WAVE IN V3/V4, OR R < 0.2 mV IN V4] Compared to ECG 05/25/2024 17:54:35 NO SIGNIFICANT CHANGES Electronically Signed On 05-26-2024 14:41:17 CDT by James Cuevas M.D.
[2024-05-25 20:58] LABS: Troponin I 0.049 ng/mL (0.000-0.034)
[2024-05-25 21:11] LABS: Magnesium 1.9 mg/dL (1.6-2.3); Phosphorus 3.8 mg/dL (2.5-4.5)
[2024-05-25 21:39] LABS: Lactate Dehydrogenase 349 U/L (120-246); Uric Acid 8.7 mg/dL (3.5-8.5)
[2024-05-25] MEDS: allopurinoL 300 MG TABLET PO (21:49)
[2024-05-25 21:58] LABS: Alveolar/Arterial O2 Gradient 46.8 mmHg; Base Excess ABG -1.4 mEq/l (+/-2.0); Fractional Inspired Oxygen 21 %; HCO3 ABG 22.8 mEq/l (22.0-26.0); Oxygen Saturation ABG 90.8 % (95.0-100.0); PO2 ABG 58.6 mmHg (80.0-100.0); PO2 FiO2 Ratio Arterial Blood 2.79 %; Total Hemoglobin 16.6 g/dL (12.0-18.0); pH ABG 7.407 (7.350-7.450)
[2024-05-25 22:00] LABS: Site Drawn RIGHT RADIAL
[2024-05-25 22:01] LABS: Modified Allen's Test Pass
--- NOTE | 2024-05-25 23:01 | PC.NURSE ---
spoke to Jennifer at [facility] transfer line and gave vitals. Jennifer says there will probably not be a bed tonight
--- NOTE | 2024-05-25 23:16 | ECG_ITS ---
Test Date: 2024-05-25 17:54:35 Measurements Intervals [place] Rate: 95 P: 0 IN: 0 QRS: -83 QRSD: 138 T: 76 QT: 407 QTc: 514 Interpretive Statements SINUS RHYTHM WITH FIRST DEGREE AV BLOCK MARKED LEFT AXIS DEVIATION [QRS AXIS < -30] RIGHT BUNDLE BRANCH BLOCK [120+ ms QRS DURATION, UPRIGHT V1, 40+ ms S IN I/aVL/V4/V5/V6] POSSIBLE ANTERIOR MYOCARDIAL INFARCTION , OF INDETERMINATE AGE [30 ms Q WAVE IN V3/V4, OR R < 0.2 mV IN V4] Compared to ECG 05/25/2024 15:21:38 Sinus tachycardia no longer present Electronically Signed On 05-26-2024 14:29:34 CDT by James Cuevas M.D.
[2024-05-25 23:52] LABS: Troponin I 0.052 ng/mL (0.000-0.034)
[2024-05-26] VITALS (49 sets, daily range): BP systolic 129–174; BP diastolic 71–115; PULSE 74–96; RESP 9–25; TEMP 36.4–36.6; O2SAT 84–99
--- NOTE | 2024-05-26 00:10 | ECG_ITS ---
Test Date: 2024-05-26 00:10:14 Measurements Intervals [place] Rate: 90 P: 0 OK: 0 QRS: -77 QRSD: 131 T: 81 QT: 419 QTc: 514 Interpretive Statements SINUS RHYTHM WITH FIRST DEGREE AV BLOCK LEFT AXIS DEVIATION [QRS AXIS < -30] RIGHT BUNDLE BRANCH BLOCK [120+ ms QRS DURATION, UPRIGHT V1, 40+ ms S IN I/aVL/V4/V5/V6] POSSIBLE ANTERIOR MYOCARDIAL INFARCTION , PROBABLY OLD [30 ms Q WAVE IN V3/V4, OR R < 0.2 mV IN V4] Compared to ECG 05/25/2024 20:29:21 NO SIGNIFICANT CHANGES Electronically Signed On 05-26-2024 14:43:19 CDT by James Cuevas M.D.
[2024-05-26] MEDS: SODIUM CHLORIDE 0.9% IV 500 ML 999 ML (00:20)
[2024-05-26 02:32] LABS: Alanine Aminotransferase 14 U/L (6-50); Albumin Level 2.3 g/dL (3.5-5.1); Alkaline Phosphatase 259 U/L (38-126); Anion Gap 4 mmol/L (4-12); Aspartate Amino Transferase 57 U/L (17-59); Bilirubin,Total 1.3 mg/dL (0.2-1.3); Blood Urea Nitrogen 31 mg/dL (9-20); Calcium 7.7 mg/dL (8.4-10.2); Carbon Dioxide 24 mmol/L (22-30); Chloride 105 mmol/L (98-107); Estimated CRCL calculation 49 ml/min; Estimated Glomerular Filt Rate 43; Glucose 291 mg/dL (65-110); Potassium 5.9 mmol/L (3.4-5.0); Sodium 133 mmol/L (137-145); Uric Acid 8.3 mg/dL (3.5-8.5)
[2024-05-26] MEDS: LACTATED RINGERS 1,000 ML 100 ML IV CONT ×2 (03:21→12:59)
[2024-05-26] MEDS: dexAMETHasone SOD PHOS INJ 10 MG/ML 1 ML VIAL IV PUSH (05:44)
[2024-05-26] MEDS: CEFEPIME 1 GM/NS 50 ML 1 GM/50 ML BAG IVPB (05:47)
[2024-05-26] MEDS: levETIRAcetam 1000MG/NACL100ML 1,000 MG/100 ML BAG 400 MG IVPB (06:08)
[2024-05-26] MEDS: VANCOMYCIN 1,250 MG/NS 250 ML 1,250 MG/250 ML BAG 166.67 MG IVPB (06:40)
--- NOTE | 2024-05-26 07:25 | PC.NURSE ---
This RN took over care of patient at 0715. Per provider, vancomycin stopped.
[2024-05-26 07:29] LABS: MRSA (PCR) NOT DETECTED (NOT DETECTE)
--- NOTE | 2024-05-26 10:31 | PC.NURSE ---
0946-Spoke with [place] from transfer center for update. Still no bed available at this time. Rosette called from [facility] for report. states she is getting things ready to come get patient for thoracentesis.
--- NOTE | 2024-05-26 11:27 | PC.NURSE ---
Radiology here to take patient for thoracentesis at this time.
--- NOTE | 2024-05-26 12:15 | PC.NURSE ---
Patient back from radiology from getting thoracentesis. Patient moved from stretcher to hospital bed.
[2024-05-26 12:37] LABS: pH Pleural Fluid 7.447 (7.210-7.500)
--- NOTE | 2024-05-26 16:25 | PC.NURSE ---
PAtient is awake, alert, and sitting up in bed. Patient states it is a bit easier to breath since procedure this morning.
--- NOTE | 2024-05-26 20:02 | ECG_ITS ---
Test Date: 2024-05-26 20:05:19 Measurements Intervals [place] Rate: 87 P: 0 IN: 0 QRS: -78 QRSD: 139 T: 90 QT: 439 QTc: 531 Interpretive Statements SINUS RHYTHM WITH FIRST-DEGREE AV BLOCK MARKED LEFT AXIS DEVIATION [QRS AXIS < -30] RIGHT BUNDLE BRANCH BLOCK [120+ ms QRS DURATION, UPRIGHT V1, 40+ ms S IN I/aVL/V4/V5/V6] LEFT AXIS DEVIATION ABNORMAL ECG Compared to ECG 05/26/2024 00:10:14 NO SIGNIFICANT DIFFERENCE Electronically Signed On 05-27-2024 12:46:17 CDT by Raj Joiner M.D.
[2024-05-29 06:59] LABS: Glucose Pleural Fluid 269 mg/dL
[2024-06-02 19:08] LABS: Albumin Pleural Fluid 0.9 g/dL; Amylase, Pleural Fluid 17 U/L; Total Protein Pleural Fluid <3.0 g/dL
== END 2024-05-26 20:35 | disposition short-term general hospital (02) ==
PROVIDERS: Emergency Medicine; Physician Assistant; Emergency Provider Emergency Medicine; PCP Family Medicine
DX: J90 Pleural effusion, not elsewhere classified (principal); J96.91 Respiratory failure, unspecified with hypoxia; R59.1 Generalized enlarged lymph nodes; R60.1 Generalized edema; I25.10 Atherosclerotic heart disease of native coronary artery without angina pectoris; E11.9 Type 2 diabetes mellitus without complications; I10 Essential (primary) hypertension
CPT/HCPCS: 32555; 32556; 36415; 36600; 70450; 70491; 71046; 71275; 74177; 80053; 81001; 82042; 82150; 82805; 82945; 83605; 83615; 83735; 83880; 83986; 84100; 84157; 84311; 84478; 84484; 84550; 85025; 85055; 85610; 85730; 87070; 87075; 87205; 87637; 87641; 88108; 88305; 93005; 96361; 96365; 96367; 96375; 99285; A9270; J0692; J1100; J1953; J3370; J7040; J7120; Q9967

== ENCOUNTER 2024-11-22 00:31 | Emergency (ER) | payer MEDICARE, SELFPAY ==
[2024-11-22 00:28] VITALS: BP 128/72; PULSE 47; RESP 29; TEMP 36.5; O2SAT 93
--- OUTSIDE RECORDS SUMMARY | 2024-11-22 00:37 | XMS_ITS | Clinical Summary ---
Author Organization [facility] on Address [address] [place] [address] Phone Care Team Providers Care Instructional Technology Specialist Name Role Phone Unavailable Primary Care Provider Unavailabl e Allergies No known active allergies Medications insulin glargine U-300 conc (Toujeo Max U-300 SoloStar) 300 unit/mL (3 mL) Insulin Pen Inject 23 Units by subcutaneous injection daily at bedtime. 1 Active lisinopriL (PRINIVIL) 40 mg tablet Take 40 mg by mouth daily. 1 Active Active Problems Problem Noted Date Diagnosed Date New onset of congestive heart failure 07/17/2023 Immunizations Immunization Administration Dates Next Due (PREVNAR 20)(6 WKS UP) PNEUM OCOCCAL CONJUGATE VACCINE 20-VALENT (PCV20), POLYSACCHARIDE [id number] CONJUGATE, ADJUVANT 0.5 ML (PF) IM 07/18/2023 INFLUENZA VACCINE HIGH DOSE QUADRIVALENT 65 YR U P PF IM 07/18/2023 Family History Medical History Relation Name Comments Diabetes Father Kidney Cancer Mother Relation Name Status Comments Father Mother Social History Tobacco Use Types Packs/Day Years Used Date Smoking Tobacco: Never Smokeless Tobacco: Never Tobacco Cessation:Counseling Given: No Alcohol Use Standard Drinks/Week Comments Yes 1 (1 standard drink = 0.6 oz pure alcohol) only drinks one beer when he does drink which is rarely Feeling Safe Answer Date Recorded Are you in a relationship wi th someone who hurts you emotionally and/or physically? No 07/16/2023 Food Insecurity Answer Date Recorded Social/Environmental Concerns No concerns Transportation Needs Answer Date Record ed Social/Environmental Concerns No concerns Housing Stability Answer Date Recorded Social/Environmental Concerns No concerns Utility Needs Answer Date Recorded Social/Environmental Concerns No concerns Sex and Gender Information Value Date Recorded Sex Assigned at Not on file Legal Sex Male 12:54 PM CDT Gender Identity Not on file Sexual Orientation Not on file Last Filed Vital Signs Vital Sign Reading Time Taken Comments Blood Pressure 155/107 07/18/2023 11:33 AM CDT was walking around in the room Pulse 95 07/18/2023 11:33 AM CDT Temperature 36 C (96.8 F) 07/18/2023 11:33 AM CDT Respiratory Rate 20 07/18/2023 11:3 3 AM CDT Oxygen Saturation 98% 07/18/2023 11: 33 AM CDT Inhaled Oxygen Concentration - - Weight 93.6 kg (206 lb 5.6 oz) 07/18/2023 4:20 AM CDT Height 180.3 cm (5' 11 ) 07/16/2023 1:0 1 PM CDT Body Mass Index 28.78 07/16/2023 1:01 PM CDT Plan of Treatment Health Maintenance Due Date Last Done Comments DIABETES ANNUAL FOOT EXAM 1973 DIABETES ANNUAL RETINAL EXAM 1973 DIABETES MICROALBUMIN ANNUAL SCREEN 1973 LDL CHOLESTEROL ANNUAL 1973 COLORECTAL SCREENING 2000 Colorectal Cancer Screening 2000 FIT-DNA Q 3 years 2000 FIT/FOBT Q 1 year 2000 Flex Sig/CT Colonography Q 5 years 2000 ZOSTER VACCINE (1 of 2) 2005 RSV VACCINE (60+ or ) (1 - Risk 60-74 years 1-dose series) 2015 DTAP/TDAP/TD VACCINES (2 - Td or Tdap) 02/15/2023 DIABETES HBA1C Q 6 MONTHS 01/15/2024 07/16/2023 INFLUENZA VACCINE (#1) 2024 07/18/2023 PNEUMOCOCCAL VACCINE 65+ YEARS Completed 07/18/2023 , 04/26/2018 Procedures Procedure Name Priority Date/Time Associated Diagnosis Comments HEMOGLOBIN A1C Stat 07/16/2023 1:15 PM CDT from Last 3 Months or Most Recently Relevant to Health Maintenance Results * (ABNORMAL) HEMOGLOBIN A1C (07/16/2023 1:15 PM CDT) HEMOGLOBIN A1C 10.2(H) <=5.6 % 07/16/2023 3:28 PM CDT [facility] EST. AVG GLUCOSE, A1C 246 mg/dL 07/16/2023 3:28 PM CDT [facility] Blood Collection / Unknown 07/16/2023 1:15 PM CDT 07/16/2023 1:22 PM CDT Narrative [facility] - 07/16/2023 3:28 PM CDT HGB A1C INTERPRETATION NORMAL: <5.7% PRE-DIABETES: 5.7 - 6.4% DIABETES: 6.5% OR GREATER Jocy Mathews MD CHEMISTRY ORDERABLES Final Res ult [facility] CLIA # [id number] [address] [place] [id number] from Last 3 Months or Most Recently Relevant to Health Maintenance Insurance [place] [id number] MEDICARE PART A AND B Advance Directives For more information, please contact: [phone] * NO CPR (In Event of Cardiopulmonary Arrest) (Latest Code Status on File) Date Activated Date Inactivated Comments 07/16/2023 5:43 PM 07/18/2023 1:46 PM Question Answer Comments Mechanical Ventilation (for respiratory distress) - Invasive (i.e. intubation): No Mechanical Ventilation (for respiratory distress) - Non-Invasive (i.e. BiPAP, CPAP): Yes * Full Code Date Activated Date Inactivated Comments 07/16/2023 2:30 PM 07/16/2023 5:43 PM
--- OUTSIDE RECORDS SUMMARY | 2024-11-22 00:37 | XMS_ITS | Clinical Summary ---
Author Organization [facility] [place] [address] Address [address] [place] [address] Care Team Providers Care Ski Top Trimmer Name Role Phone Shari Gray MD Primary Care Provider Eric Cuevas MD Unavailable [phone] Allergies No known active allergies Medications nitroglycerin (NITROSTAT) 0.[address] 1 tablet (0.4 mg total) under the tongue every 5 (five) minutes as needed for chest pain May repeat dose q 5 min, up to 3 doses total 90 tablet 2 07/29/20 23 Active Additional Information Patient not taking.Informant: Self, Reported on 09/08/2024 aspirin 81 mg enteric coated tablet Take 1 tablet (81 mg total) by mouth daily 90 tablet 3 06/02/20 24 025 Active atorvastatin (LIPITOR) 80 mg tablet Take 1 tablet (80 mg total) by mouth daily 90 tablet 3 06/02/20 025 Active clopidogreL (PLAVIX) 75 mg tablet Take 1 tablet (75 mg total) by mouth daily 30 tablet 06/21/20 24 025 Active empagliflozin (JARDIANCE) 10 mg tablet Take 1 tablet (10 mg total) by mouth daily 30 tablet 06/21/20 24 025 Active allopurinoL (ZYLOPRIM) 100 mg tablet Take 1 tablet (100 mg total) by mouth daily 30 tablet 07/24/20 24 Active Additional Information Patient not taking.Reported on 11/10/2024 bisacodyL (DULCOLAX) 10 mg suppositoryIndi cations:constip ation Insert 1 suppository (10 mg total) into the rectum 2 (two) times a day as needed for constipation (if unable to tolerate PO or PO laxative not helping) 12 suppository 07/24/20 24 Active senna-docusate (PERICOLACE) 8.6-50 mg Take 2 tablets by mouth 2 (two) times a day as needed for constipation 60 tablet 07/24/20 24 Active polyethylene glycol (MIRALAX) 17 gram/dose bulk powderIndicatio ns:constipation Take 17 g by mouth daily 510 g 07/24/20 Active furosemide (LASIX) 20 mg tablet Take 1 tablet (20 mg total) by mouth daily as needed (if he gains 2 lbs over one day or 4 -5 lbs over a week) If taking prn lasix, you should let the cardiology clinic know. 30 tablet 07/24/20 24 Active lisinopriL (PRINIVIL,ZESTR IL) 2.5 mg tablet Take 1 tablet (2.5 mg total) by mouth daily 90 tablet 3 08/01/20 24 Active zanubrutinib (BRUKINSA) 80 mg capsuleIndicati ons:CLL (chronic lymphocytic leukemia) (HCC) Take 2 capsules (160 mg total) by mouth 2 (two) times a day Swallow capsules whole with water. Do not open, break or chew capsules. Take with or without food at the same time each day. 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 Initially the tube was clamped and later connected to -20 cm wall suction. After connected to suction, bloody fluid were drained out. BP 80/53 and HR was 126. - CTA Chest 07/08: Interval placement of left-sided chest tube which takes a transpulmonary course through the left lower lobe and terminates in the posterior left hemithorax. There is resulting decrease in size of now small to moderate left-sided pleural effusion with increased fluid attenuation, consistent with complex fluid or possibly hemothorax, with associated underlying atelectasis. No definite evidence of arterial extravasation. Patchy groundglass opacities of the left upper and lower lobes, which may represent a combination of reexpansion pulmonary edema and pulmonary hemorrhage/contusion. -Thoracic surgery consulted, no intervention as bloody output improving Pleural effusion 07/08/2024 Assessment & Plan (07/09/2024 5:53 AM CDT): S/p 16Fr chest tube placement by ER team on 07/08/2024 with ~2L of bloody output. The tube had been clamped following this. On early evening 07/08 patient developed hypotension, tachycardia. Primary team was concerned for intra-thoracic bleeding. Thoracic surgery consulted in this setting. On evaluation, the patient does not have a large air leak while to -20 suction but CTA suggested possible injury on insertion. Recommend close monitoring of output and clinical status over next 24-48 hours. - Maintain chest tube to -20 suction, DO NOT CLAMP - Please closely monitor and record chest tube output in Is/Os - Obtain daily morning chest xrays to evaluate status of effusion and lung re-expansion - Thoracic Surgery consult team will continue to follow to determine need for intervention Assessment & Plan (07/11/2024 5:36 PM CDT): The patient has bilateral pleural effusions that are progressively worsened since 05/31/2024. Although he had no interval imaging, he was discharged with near collapse of his left lung and the rate of fluid reaccumulation is difficult to know. He had mediastinal shift on his initial CT chest abdomen pelvis in the emergency department and received a 16 Czech surgical chest tube. The chest tube was clamped and remain clamped for the whole day without any interval chest x-rays until 4:00 p.m. the repeat chest x-ray had improving aeration with an appropriately positioned chest tube. After a brief trial of suction 400 cc of very bloody fluid was removed. Subsequently another 1200 cc was drained but further drainage was paused due to patient discomfort with left-sided chest pain and coughing. After the CTA chest with and without, there was concern for pulmonary laceration and thoracic surgery was consulted. Current pleural fluid studies are consistent with an exudative effusion that is lymphocytic predominant. 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 Chest x-ray now shows improvement in the pleural effusion without PTX. - agree with flow cytometry of the pleural fluid, may need to resend less bloody fluid if result negative - continue chest tube drainage to suction - daily chest x-ray - If patient becomes hypotensive or hemoglobin drops acutely, would recommend repeat CTA chest to assess for repeat bleed - given his underlying decreased LV function would consider trial of gentle diuresis - Decrease O2 as tolerated. Keep SpO2>90% Assessment & Plan (07/24/2024 7:48 AM CDT): Noted to have bilateral pleural effusion on admission, L>R, s/p left 16 estonian chest tube placement in the ED. Also had effusion during previous admission with 1 L drained from thoracentesis. Effusion likely explains patient's SOB and pain at home from his left shoulder down to left waist, given that his pain improved significantly after the chest tube placement. The cause of effusion is likely CLL - CT C/A/P 07/07: increased size of large left pleural effusion left lung collapse and mass effect with mediastinal shift and inversion of the diaphragm that may indicate tension physiology - Pleural fluid study 07/08: 94% lymphocytes, >50,000 nucleated cells, exudative per Light's criteria. Culture negative. - Flow cytometry: Monoclonal B-cell population with co-expression of CD5 detected (99% of total events) - Consulted IPul for chest tube management - Chest tube clamped 10/14. 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 IPulm to provide supplies that can be used at home - Follow CXR every other day (ok w/ IPulm) or more urgently if with symptoms HFrEF (heart failure with re duced ejection fraction) (CMS/HCC) 07/08/2024 Assessment & Plan (07/19/2024 12:09 PM CDT): Likely ischemic cardiomyopathy. Last Echo 05/27/24: LVEF 35%, moderate segmental LV systolic dysfunction. Impaired LV relaxation. TTE 07/11 severe LV systolic dysfunction, EF 26%, moderate PH 61 mmHg Clinically compensated - Continue empagliflozin 10 mg every day, carvedilol at a lower dose 3.125 mg bid - Lasix prn - Held lisinopril due to hypotension Renal cyst, acquired, left 07/08/2024 Assessment & Plan (07/19/2024 12:08 PM CDT): Noted on CT, size stable compared to the last CT 05/27 - Outpatient follow up PVD s/p bilateral lower extremity amputation 01/2024 Assessment & Plan (07/19/2024 12:07 PM CDT): Developed lower extremity infection 2018 s/p bilateral BKA - PT/OT Pseudohyperkalemia 07/07/2024 Assessment & Plan (07/19/2024 11:57 AM CDT): 2/2 elevated WBC in the setting of CLL. Whole blood potassium WNL CLL (chronic lymphocytic leukemia) 06/01/2024 Assessment & Plan (07/19/2024 12:07 PM CDT): Diagnosed 05/2024. Abnormal CD5+ B cell, CCND1:IGH rearrangement, monosomy 13, del 17. Follows w/ Dr. Cuevas. Started on zanubrutinib 160 mg bid early June 2024. CT C/A/P 07/07: lymphadenopathy above and below the diaphragm, slightly worse than prior. 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 Will continue zanubrutinib while inpatient - Continue TLS ppx allopurinol 100 mg every day - TP53 sent out to [facility] to help guide second line treatment (ordered 07/12) - [facility] discussion with Dr. Mason bal hospice recommendation. Hospice was consulted but patient was not ready to discuss. May revisit on an outpatient basis Moderate protein-calorie malnutrition (CMS/HCC) 05/27/2024 Leukocytosis 05/27/2024 Assessment & Plan (05/30/2024 4:55 PM CDT): - Patient admitted from OSH with leukocytosis with lymphocytic predominance, splenomegaly, lymphadenopathy. - Peripheral blood flow cytometry, FISH pending. Suspect CLL. - Transfuse per BMT protocol. - CT neck, chest, abdomen, pelvis at OSH. Reviewed by radiology here. Splenomegaly and diffuse lymphadenopathy. - Plan for zanubrutinib per onc. Coronary artery disease 09/03/2023 Assessment & Plan (07/20/2024 11:08 AM CDT): S/p PCI EMORY to LAD. Patient was prescribed with brillinta + ASA which was later changed to Plavix + ASA due to cost issues. However he stopped taking all his medication December-May 2024. Since his discharge from [facility] 06/02/24 he has been taking all his medication as prescribed. Patient denies new chest pain, n/v except the pain he experienced at the chest tube insertion site. - Continue ASA 81 mg every day, clopidogrel 75 mg every day (held for PleurX, last dose 07/18) - Appreciate Cardiology recs Assessment & Plan (05/30/2024 4:54 PM CDT): - Patient with EMORY to LAD in September 2023. - Had stopped medications as an outpatient. - Resume aspirin and brilinta now. Add carvedilol. - History of HFrEF. Suspect volume overload may be related to CHF exacerbation. Give lasix PRN. Re-introduce GDMT as patient allows. - Echo with EF 35%. - Cardio-oncology has seen. Appreciate recs. New onset of congestive heart failure (CMS/HCC) 07/17/2023 Abnormal stress test 11/08/2018 Murmur, heart 11/08/2018 Mixed hyperlipidemia 11/08/2018 Assessment & Plan (07/19/2024 12:00 PM CDT): - Continue atorvastatin daily Type 2 diabetes mellitus without complication (C MS/HCC) 10/21/2018 Assessment & Plan (07/19/2024 12:08 PM CDT): Last A1c 10.8 on 05/28/24 - SSI, Lantus, meal-time Lispro while inpatient - Continue home empagliflozin Assessment & Plan (05/28/2024 3:15 PM CDT): - Patient had stopped medications as an outpatient several months ago. - Continue sliding scale insulin. - A1c 10.8. Resolved Problems Problem Noted Date Diagnosed Date Resolved Date Neoplastic (malignant) related fatigue 07/14/2024 07/19/2024 Assessment & Plan (07/17/2024 10:18 AM CDT): And other etiologies: decrease mobility with bilateral BKA, chest tube in place also limiting further, poor sleep (will discuss sleep hygiene with nursing), offered PICC line to spare frequent peripheral sticks but refused,discussed OOBTC and participate with therapy but feels very fatigued. 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) 09/08/2024 12:15 PM FEED RESEARCH TECHNICIAN Lab [facility] at [address] [address] CLL (chronic lymphocytic leukemia) (HCC) from Last 3 Months Immunizations Immunization Administration Dates Next Due Influenza, Unspecified 07/06/2023 Surgical History Surgery Date Site/Laterality Comments BELOW KNEE LEG AMPUTATION Left 2018 TOE AMPUTATION Right right big toe BELOW KNEE LEG AMPUTATION 10/05/2020 - 10/04/2021 Right CARPAL TUNNEL RELEASE Bilateral Medical History Medical History Date Comments Hypertension Diabetes mellitus (HCC) Hyperlipidemia Heart murmur Abnormal stress test Type 2 diabetes mellitus (HCC) Family History Medical History Relation Name Comments Heart attack Father Heart disease Sister Relation Name Status Comments Father (Age 79) lung cance r Mother (Age 63) kidney can cer Sister Social History Tobacco Use Types Packs/Day Years Used Date Smoking Tobacco: Never Passive Smoke Exposure: Past Smokeless Tobacco: Never Tobacco Cessation:Counseling Given: Not Answered Alcohol Use Standard Drinks/Week Comments No 0 (1 standard drink = 0.6 oz pur e alcohol) [facility] Utilities Answer Date Recorded In the past 12 months has [employer], gas, oil, or water [employer] threatened to shut off services in your home? No 07/12/2024 Social Connection and Isolat ion Panel [NHANES] Answer Date Recorded In a typical week, how many times do you talk on the phone with family, friends, or neighbors? More than three times a week 07/12/2024 How often do you get togethe r with friends or relatives? Twice a week 07/12/2024 How often do you attend chur ch or catholic services? Never 07/12/2024 Do you belong to any clubs o r organizations such as jewish groups, unions, fraternal or athletic groups, or school groups? No 07/12/2024 How often do you attend meet ings of the clubs or organizations you belong to? Never 07/12/2024 Are you , , di vorced, , never , or living with a partner? Living with partner 07/12/2024 AUDIT-C Answer Date Recorded Frequency of Alcohol Consumption Not on file 09/08/2024 Q2: How many drinks containi ng alcohol do you have on a typical day when you are drinking? Patient does not drink Frequency of Binge Drinking Not on file 02/2024 Overall Financial Resource Strain (CARDIA) Answe r Date Recorded How hard is it for you to pa y for the very basics like food, housing, medical care, and heating? Not hard at all 07/12/2024 PHQ-2 Answer Date Recorded PHQ-2 Total Score 0 07/12/2024 Hunger Vital Sign Answer Date Recorded Within the past 12 months, y ou worried that your food would run out before you got the money to buy more. Never true 07/12/20 24 Within the past 12 months, t he food you bought just didn't last and you didn't have money to get more. Never true 07/12/2024 PRAPARE - Transportation Answer Date Re corded In the past 12 months, has l ack of transportation kept you from medical appointments or from getting medications? No 05/2024 In the past 12 months, has l ack of transportation kept you from meetings, work, or from getting things needed for daily living? No 07/12/2024 Housing Stability Vital Sign Answer Mikey e Recorded In the last 12 months, was t here a time when you were not able to pay the mortgage or rent on time? No 07/12/2024 In the past 12 months, how m any times have you moved where you were living? 0 07/12/2024 At any time in the past 12 m [facility], were you homeless or living in a nursing home (including now)? No 07/12/2024 Personal Safety Answer Date Recorded Have you ever been in or are you currently in a harmful physical or emotional relationship or is someone making you feel afraid or unsafe? Denies 07/08/2024 Sex and Gender Information Value Date Recorded Sex Assigned at Not on file Legal Sex Male 11:59 PM FEED RESEARCH TECHNICIAN Gender Identity Not on file Sexual Orientation Not on file Obstetrics History Last Filed Vital Signs Vital Sign Reading Time Taken Comments Blood Pressure 129/66 11/10/2024 1:09 PM FEED RESEARCH TECHNICIAN Pulse 82 11/10/2024 1:09 PM FEED RESEARCH TECHNICIAN Temperature 36.9 C (98.5 F) 11/10/2024 1:09 PM FEED RESEARCH TECHNICIAN Respiratory Rate 16 11/10/2024 1:09 PM FEED RESEARCH TECHNICIAN Oxygen Saturation 99% 11/10/2024 1:09 PM FEED RESEARCH TECHNICIAN Inhaled Oxygen Concentration - - Weight 82.4 kg (181 lb 9.6 oz) 11/10/2024 1:09 P M FEED RESEARCH TECHNICIAN Height 180.3 cm (5' 11 ) 11/07/2024 10:31 AM FEED RESEARCH TECHNICIAN Body Mass Index 25.33 11/07/2024 10:31 AM FEED RESEARCH TECHNICIAN Plan of Treatment Health Maintenance Due Date Last Done Comments Albumin Creatinine Ratio, Urine 1955 Colon Cancer Screening-Colonoscopy 1955 Prostate Cancer Screening-PSA 1955 Dilated Eye Exam 1955 Foot Exam 1955 Hepatitis B Screening 1973 Zoster Vaccine (1 of 2) 1974 Well Visit 65+ 2020 DTaP/Tdap/Td Vaccine (2 - Td or Tdap) 02/15/2023 02/15/2013 Influenza Vaccine (#1) 2024 07/18/2023, 2022 Hemoglobin A1C 05/10/2025 11/10/2024, 05/06, 09/04/2023 Lipid Panel 05/27/2025 05/27/2024, 07/06, 11/08/2018 Depression Screening 07/07/2025 07/07/2024 Fall Risk Assessment 07/25/2025 07/25/2024 eGFR 11/10/2025 11/10/2024, 12/0 02/2024, 07/28/2024, Additional history exists Pneumococcal vaccine 65+ Completed 07/18/2023, 04/05 Hepatitis C Screening Completed 05/26/2024 Medical Devices Implanted Type Area State Auditor Device Identifier Shelf Expiration Date Model / Serial / Lot Medtronic Card Vasc Surgery 2.75 X 22mm [place] [facility] Coronary Stent [id number] - [id number] Implanted:Qty: 1 on 09/03/2023 [facility] 06/01/2026 [id number] / / [id number] Medtronic [facility] Vas Surgery 3.5 X 18mm [place] Rx Coronary Stent [id number] - [id number] Implanted:Qty: 1 on 09/03/2023 by [facility] Vasc Surgery 03/03/2026 [id number] / / [id number] [employer] Mynx Control 6-7fr 2 Mode Balloon Catheter Sealant Lock Syringe [id number] - [id number] Implanted:Qty: 1 on 09/03/2023 by Seymour Lamb MD at [facility] [employer] 08/04/2024 [id number] / / [id number] Procedures Procedure Name Priority Date/Time Associated Diagnosis Comments EGFR Routine 11/10/2024 12:45 PM FEED RESEARCH TECHNICIAN 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) DIFFERENTIAL AUTO Routine 11/10/2024 12: 45 PM FEED RESEARCH TECHNICIAN 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) LACTATE DEHYDROGENASE Routine 11/10/2024 12:45 PM FEED RESEARCH TECHNICIAN 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) COMPREHENSIVE METABOLIC PANEL Routine 11/10/2024 12:45 PM FEED RESEARCH TECHNICIAN 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) CBC WITH AUTO DIFFERENTIAL Routine 11/10/2024 12:45 PM FEED RESEARCH TECHNICIAN 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) PTH-RELATED PEPTIDE Routine 11/10/2024 1 2:44 PM FEED RESEARCH TECHNICIAN VITAMIN D 25 HYDROXY Routine 11/10/2024 12:44 PM FEED RESEARCH TECHNICIAN HEMOGLOBIN A1C Routine 11/10/2024 12:44 PM FEED RESEARCH TECHNICIAN MANUAL DIFFERENTIAL Routine 09/08/2024 1 2:27 PM FEED RESEARCH TECHNICIAN CLL (chronic lymphocytic leukemia) (HCC) EGFR Routine 09/08/2024 12:27 PM FEED RESEARCH TECHNICIAN CLL (chronic lymphocytic leukemia) (HCC) DIFFERENTIAL AUTO Routine 09/08/2024 12: 27 PM FEED RESEARCH TECHNICIAN CLL (chronic lymphocytic leukemia) (HCC) LACTATE DEHYDROGENASE Routine 09/08/2024 12:27 PM FEED RESEARCH TECHNICIAN CLL (chronic lymphocytic leukemia) (HCC) COMPREHENSIVE METABOLIC PANEL Routine 09/08/2024 12:27 PM FEED RESEARCH TECHNICIAN CLL (chronic lymphocytic leukemia) (HCC) CBC WITH AUTO DIFFERENTIAL Routine 09/08/2024 12:27 PM FEED RESEARCH TECHNICIAN CLL (chronic lymphocytic leukemia) (HCC) LIPID PANEL Routine 05/27/2024 4:10 AM CDT HEPATITIS PANEL, ACUTE Routine 10:47 PM CDT from Last 3 Months or Most Recently Relevant to Health Maintenance Results * (ABNORMAL) eGFR (11/10/2024 12:45 PM FEED RESEARCH TECHNICIAN) eGFR 50(L) >=60 mL/min/1. 73 m2 Comment: Interpretive Data Reference Interval Normal >/= 90 mL/min/1.73m2 Mildly decreased* 60 - 89 mL/min/1.73m2 Mildly to moderately decreased 45 - 59 mL/min/1.73m2 Moderately to severely decreased 30 - 44 mL/min/1.73m2 Severely decreased 15 - 29 mL/min/1.73m2 Kidney Failure < 15 mL/min/1.73m2 *Relative to young adult level Estimated glomerular filtration rate is determined by the 2020 CKD-EPI equation recommended by the National Kidney Foundation (A Unifying Approach to GFR Estimation: Recommendations of the NKF-ASK Task Force on Reassessing the Inclusion of Race in Diagnosing Kidney Disease, JASN 2020). The CKD-EPI equation should not be used for patients with unstable renal function and has not been validated in children and those over 70. Current interpretive data was last reviewed 2021. Testing performed by: [address] [address] Blood 11/10/2024 12:4 5 PM FEED RESEARCH TECHNICIAN 11/10/2024 12:50 PM FEED RESEARCH TECHNICIAN us Eric Cuevas MD LAB BLOOD ORDERABLES Final R esult [facility] A [address] [facility] Department [place] [address] * (ABNORMAL) Differential, auto (11/10/2024 12:45 PM FEED RESEARCH TECHNICIAN) Neutrophil abs 5.0 1.5 - 6.5 K/cumm Comment:Testing performed by : [address] [address] Imm gran abs 0.1 0.0 - 0.1 K/cumm CARLOS A Comment:Testing performed by : [address] [address] Lymphocyte abs 32.1(H) 0.8 - 3.3 K/cumm CARLOS A Comment:Testing performed by : [address] [address] Monocyte abs 0.9(H) 0.2 - 0.8 K/cumm CARLOS A Comment:Testing performed by : [address] [address] Eosinophil abs 0.5 0.0 - 0.5 K/cumm CARLOS A Comment:Testing performed by : [address] [address] Basophil abs 0.1 0.0 - 0.1 K/cumm CARLOS A Comment:Testing performed by : [address] [address] Neutrophil pct 12.9 % [facility] Comment: Interpretive Data Percent cell count reference ranges are not reported, since discordance with absolute values may lead to misinterpretation of CBC data. Current Interpretive Data was last revised on 2018. Testing performed by: [address] [address] Imm gran pct 0.2 % [facility] Comment: Interpretive Data Percent cell count reference ranges are not reported, since discordance with absolute values may lead to misinterpretation of CBC data. Current Interpretive Data was last revised on 2018. Testing performed by: [address] [address] Lymphocyte pct 83.1 % [facility] Comment: Interpretive Data Percent cell count reference ranges are not reported, since discordance with absolute values may lead to misinterpretation of CBC data. Current Interpretive Data was last revised on 2018. Testing performed by: [address] [address] Monocyte pct 2.3 % [facility] Comment: Interpretive Data Percent cell count reference ranges are not reported, since discordance with absolute values may lead to misinterpretation of CBC data. Current Interpretive Data was last revised on 2018. Testing performed by: [address] [address] Eosinophil pct 1.2 % [facility] Comment: Interpretive Data Percent cell count reference ranges are not reported, since discordance with absolute values may lead to misinterpretation of CBC data. Current Interpretive Data was last revised on 2018. Testing performed by: [address] [address] Basophil pct 0.3 % [facility] Comment: Interpretive Data Percent cell count reference ranges are not reported, since discordance with absolute values may lead to misinterpretation of CBC data. Current Interpretive Data was last revised on 2018. Testing performed by: [address] [address] Blood 11/10/2024 12:4 5 PM FEED RESEARCH TECHNICIAN 11/10/2024 12:50 PM FEED RESEARCH TECHNICIAN us Eric Cuevas MD LAB BLOOD ORDERABLES Final R esult [facility] [address] [facility] Department [place] [address] * (ABNORMAL) CBC with auto differential (11/10/2024 12:45 PM FEED RESEARCH TECHNICIAN) WBC 38.6(H) 3.8 - 9.9 K/cumm Comment:Testing performed by : [address] [address] Hgb 11.2(L) 13.0 - 17.5 g/dL [facility] Comment:Testing performed by : [address] [address] Hct 35.4(L) 38.9 - 50.3 % [facility] Comment:Testing performed by : [address] [address] Plt 136(L) 150 - 400 K/cumm [facility] A Comment:Testing performed by : [address] [address] MPV 9.3 9.1 - 12.3 fL [facility] Comment:Testing performed by : [address] [address] RBC 4.05(L) 4.30 - 5.80 M/cumm [facility] Comment:Testing performed by : [address] [address] MCV 87.4 81.3 - 96.4 fL [facility] Comment:Testing performed by : [address] [address] MCH 27.7 27.1 - 33.3 pg [facility] Comment:Testing performed by : [address] [address] MCHC 31.6(L) 32.3 - 35.7 g/dL [facility] Comment:Testing performed by : [address] [address] RDW CV 15.9(H) 11.1 - 14.9 % [facility] Comment:Testing performed by : [address] [address] RDW SD 50.6(H) 35.7 - 48.1 fL [facility] Comment:Testing performed by : [address] [address] NRBC abs 0.02(H) 0.00 - 0.01 K/cumm [facility] Comment:Testing performed by : [address] [address] Blood 11/10/2024 12:4 5 PM FEED RESEARCH TECHNICIAN 11/10/2024 12:50 PM FEED RESEARCH TECHNICIAN Eric Cuevas MD LAB BLOOD ORDERABLES Final R esult Performing Organization Address [facility] Co de Phone Number [address] [email or web address] [address] * Lactate dehydrogenase (LD) (11/10/2024 12:45 PM FEED RESEARCH TECHNICIAN) Pathologist [facility] Lactate dehydrogenase (LDH) 187 100 - 250 Units/L Comment:Testing performed by : [address] [address] Blood 11/10/2024 12:4 5 PM FEED RESEARCH TECHNICIAN 11/10/2024 12:50 PM FEED RESEARCH TECHNICIAN Eric Cuevas MD LAB BLOOD ORDERABLES Final R esult Performing Organization Address City/[facility] Co de Phone Number [address] [place] [address] * (ABNORMAL) Comprehensive metabolic panel (11/10/2024 12:45 PM FEED RESEARCH TECHNICIAN) Pathologist [facility] Sodium 136 135 - 145 mmol/L Comment:Testing performed by : [address] [place]., [address] Potassium, pl 4.7 3.3 - 4.9 mmol/L [facility] Comment:Testing performed by : [address] [address] Chloride 102 97 - 110 mmol/L [facility] Comment:Testing performed by : [address], [place]., [address] CO2 23 22 - 32 mmol/L [facility] Comment:Testing performed by : [address] [address] Anion gap 11 2 - 15 mmol/L [facility] Comment:Testing performed by : [address] [address] BUN 31(H) 6 - 25 mg/dL [facility] Comment:Testing performed by : [address], [place]., [address] Creatinine 1.50(H) 0.80 - 1.30 mg/dL [facility] Comment:Testing performed by : [address] [address] Glucose 437(H) 70 - 199 mg/dL [facility] Comment: Interpretive Data Fasting glucose >/= 126 mg/dl is diagnostic for diabetes. Fasting is defined as no caloric intake for at least 8 hours. Fasting glucose between 100 mg/dl to 125 mg/dl is diagnostic of prediabetes. In a patient with classic symptoms of hyperglycemia or hyperglycemic crisis, a random glucose >/= 200 mg/dl is diagnostic for diabetes. In the absence of unequivocal hyperglycemia, results should be confirmed by repeat testing. The classification and Diagnosis of Diabetes Diabetes Care 2021; 46: S19-S40. Current interpretive data was last revised 2022. Testing performed by: [address] [address] Calcium 9.1 8.5 - 10.3 mg/dL [facility] Comment:Testing performed by : [address] [address] Bilirubin, total 0.5 0.1 - 1.2 mg/dL [facility] Comment:Testing performed by : [address] [address] Protein, pl 6.0(L) 6.5 - 8.5 g/dL [facility] Comment:Testing performed by : [address] [address] Albumin 3.6 3.5 - 5.0 g/dL [facility] Comment:Testing performed by : [address] [address] Alk phos 133(H) 40 - 130 Units/L [facility] Comment:Testing performed by : [address] [address] ALT 15 7 - 55 Units/L [facility] Comment:Testing performed by : [address] [address] AST 20 10 - 50 Units/L [facility] Comment:Testing performed by : [address] [address] Blood 11/10/2024 12:4 5 PM FEED RESEARCH TECHNICIAN 11/10/2024 12:50 PM FEED RESEARCH TECHNICIAN us Eric Cuevas MD LAB BLOOD ORDERABLES Final R esult [facility] [address] [facility] Department [place] [address] * PTH-related peptide (11/10/2024 12:44 PM FEED RESEARCH TECHNICIAN) PTH Related Protein 1.3 < or = 4.2 pmol/L [facility] Comment: ADDITIONAL INFORMATION This test was developed and its performance characteristics determined by [facility] in a manner consistent with CLIA requirements. This test has not been cleared or approved by the U.S. Food and Drug Administration. Test Performed by: [facility] [address] [place] [address] City Treasurer: Joy Son Ph.D.; CLIA# [id number] Testing performed by: [address] [address] Blood 11/10/2024 12:4 4 PM FEED RESEARCH TECHNICIAN 11/10/2024 12:50 PM FEED RESEARCH TECHNICIAN us Shari Gray MD LAB BLOOD ORDERABLES Final Resu lt Performing Organization Address [facility] Co de Phone Number [facility] [address] [facility] [place] [address] [facility] * (ABNORMAL) Vitamin D 25 hydroxy (11/10/2024 12:44 PM FEED RESEARCH TECHNICIAN) Vitamin D 25-OH 28.0(L) 30.0 - 80.0 ng/mL Blood 11/10/2024 12:4 4 PM FEED RESEARCH TECHNICIAN 11/10/2024 2:29 PM FEED RESEARCH TECHNICIAN us Shari Gray MD LAB BLOOD ORDERABLES Final Resu lt Performing Organization Address [facility] de Phone Number [place] [id number] [facility] [place] [address] * (ABNORMAL) Hemoglobin A1c (11/10/2024 12:44 PM FEED RESEARCH TECHNICIAN) Pathologist [facility] Hgb A1C 12.0(H) 4.0 - 5.6 % Comment:Testing performed by : [address] [address] Estimated Average Glucose 298 mg/dL [facility] Comment: The ADA recommends reporting an estimated Average Glucose (eAG) with all Hemoglobin A1c results using the equation derived from a study of 507 normal and diabetic adults. Minority populations were underrepresented and children were not included. (Diabetes Care 31:8434-2663, 2008). The eAG is not equivalent to a fasting glucose. Testing performed by: [address] [address] Blood 11/10/2024 12:4 4 PM FEED RESEARCH TECHNICIAN 11/10/2024 1:53 PM FEED RESEARCH TECHNICIAN us Shari Gray MD LAB BLOOD ORDERABLES Final Resu lt Performing Organization Address [facility]/State/ZIP Co de Phone Number [facility] [address] [facility] Department [place] [address] * (ABNORMAL) eGFR (09/08/2024 12:27 PM FEED RESEARCH TECHNICIAN) eGFR 59(L) >=60 mL/min/1. 73 m2 Comment: Interpretive Data Reference Interval Normal >/= 90 mL/min/1.73m2 Mildly decreased* 60 - 89 mL/min/1.73m2 Mildly to moderately decreased 45 - 59 mL/min/1.73m2 Moderately to severely decreased 30 - 44 mL/min/1.73m2 Severely decreased 15 - 29 mL/min/1.73m2 Kidney Failure < 15 mL/min/1.73m2 *Relative to young adult level Estimated glomerular filtration rate is determined by the 2020 CKD-EPI equation recommended by the National Kidney Foundation (A Unifying Approach to GFR Estimation: Recommendations of the NKF-ASK Task Force on Reassessing the Inclusion of Race in Diagnosing Kidney Disease, JASN 2020). The CKD-EPI equation should not be used for patients with unstable renal function and has not been validated in children and those over 70. Current interpretive data was last reviewed 2021. Testing performed by: [address] [address] Blood 09/08/2024 12:2 7 PM FEED RESEARCH TECHNICIAN 09/08/2024 12:29 PM FEED RESEARCH TECHNICIAN us Eric Cuevas MD LAB BLOOD ORDERABLES Final R esult [facility] [address] [facility] Department [place] [address] * (ABNORMAL) Differential, auto (09/08/2024 12:27 PM FEED RESEARCH TECHNICIAN) Pathologist [facility] Neutrophil abs 4.3 1.5 - 6.5 K/cumm Comment:Testing performed by : [address] [address] Imm gran abs 0.1 0.0 - 0.1 K/cumm [facility] A Comment:Testing performed by : [address] [address] Lymphocyte abs 58.8(H) 0.8 - 3.3 K/cumm [facility] Comment:Testing performed by : [address] [address] Monocyte abs 0.9(H) 0.2 - 0.8 K/cumm [facility] Comment:Testing performed by : [address], [place]., [address] Eosinophil abs 0.4 0.0 - 0.5 K/cumm [facility] Comment:Testing performed by : [address], [place]., [address] Basophil abs 0.1 0.0 - 0.1 K/cumm [facility] Comment:Testing performed by : [address] [address] Neutrophil pct 6.6 % [facility] Comment: Interpretive Data Percent cell count reference ranges are not reported, since discordance with absolute values may lead to misinterpretation of CBC data. Current Interpretive Data was last revised on 2018. Testing performed by: [address] [address] Imm gran pct 0.2 % [facility] Comment: Interpretive Data Percent cell count reference ranges are not reported, since discordance with absolute values may lead to misinterpretation of CBC data. Current Interpretive Data was last revised on 2018. Testing performed by: [address] [address] Lymphocyte pct 91.0 % [facility] Comment: Interpretive Data Percent cell count reference ranges are not reported, since discordance with absolute values may lead to misinterpretation of CBC data. Current Interpretive Data was last revised on 2018. Testing performed by: [address] [address] Monocyte pct 1.4 % [facility] Comment: Interpretive Data Percent cell count reference ranges are not reported, since discordance with absolute values may lead to misinterpretation of CBC data. Current Interpretive Data was last revised on 2018. Testing performed by: [address] [address] Eosinophil pct 0.6 % [facility] Comment: Interpretive Data Percent cell count reference ranges are not reported, since discordance with absolute values may lead to misinterpretation of CBC data. Current Interpretive Data was last revised on 2018. Testing performed by: [address] [address] Basophil pct 0.2 % [facility] Comment: Interpretive Data Percent cell count reference ranges are not reported, since discordance with absolute values may lead to misinterpretation of CBC data. Current Interpretive Data was last revised on 2018. Testing performed by: [address] [address] Blood 09/08/2024 12:2 7 PM FEED RESEARCH TECHNICIAN 09/08/2024 12:29 PM FEED RESEARCH TECHNICIAN us Eric Cuevas MD LAB BLOOD ORDERABLES Final R esult [facility] [address] [facility] Department [place] [address] * (ABNORMAL) CBC with auto differential (09/08/2024 12:27 PM FEED RESEARCH TECHNICIAN) WBC 64.6(C) 3.8 - 9.9 K/cumm Comment: Critical result called to and read back by REUBEN MAHARAJ on 09 08 2024 at 1254 to Shahla James. Testing performed by: [address] [address] Hgb 11.1(L) 13.0 - 17.5 g/dL [facility] Comment:Testing performed by : [address] [address] Hct 36.9(L) 38.9 - 50.3 % [facility] Comment:Testing performed by : [address] [address] Plt 151 150 - 400 K/cumm [facility] Comment:Testing performed by : [address] [address] MPV 9.0(L) 9.1 - 12.3 fL [facility] Comment:Testing performed by : [address] [address] RBC 4.12(L) 4.30 - 5.80 M/cumm [facility] Comment:Testing performed by : [address] [address] MCV 89.6 81.3 - 96.4 fL [facility] Comment:Testing performed by : [address] [address] MCH 26.9(L) 27.1 - 33.3 pg [facility] Comment:Testing performed by : [address] [address] MCHC 30.1(L) 32.3 - 35.7 g/dL [facility] Comment:Testing performed by : [address] [address] RDW CV 15.2(H) 11.1 - 14.9 % [facility] Comment:Testing performed by : [address], [address] RDW SD 49.2(H) 35.7 - 48.1 fL [facility] Comment:Testing performed by : [address] [address] NRBC abs 0.00 0.00 - 0.01 K/cumm [facility] Comment:Testing performed by : [address] [address] Blood 09/08/2024 12:2 7 PM FEED RESEARCH TECHNICIAN 09/08/2024 12:29 PM FEED RESEARCH TECHNICIAN us Eric Cuevas MD LAB BLOOD ORDERABLES Final R esult [facility] [address] [facility] Department [place] [address] * Manual Differential (09/08/2024 12:27 PM FEED RESEARCH TECHNICIAN) Differential Auto Comment:Testing performed by : [address], [address] RBC morphology Consistent with RBC Indicies [facility] Comment:Testing performed by : [address] [address] Platelet estimate Adequate [facility] Comment:Testing performed by : [address] [address] Blood 09/08/2024 12:2 7 PM FEED RESEARCH TECHNICIAN 09/08/2024 12:29 PM FEED RESEARCH TECHNICIAN Eric Cuevas MD LAB BLOOD ORDERABLES Final R esult Performing Organization Address [facility] Co de Phone Number [facility] [address] [email or web address] [address] * Lactate dehydrogenase (LD) (09/08/2024 12:27 PM FEED RESEARCH TECHNICIAN) Pathologist [facility] Lactate dehydrogenase (LDH) 158 100 - 250 Units/L Comment:Testing performed by : [address] [address] Blood 09/08/2024 12:2 7 PM FEED RESEARCH TECHNICIAN 09/08/2024 12:29 PM FEED RESEARCH TECHNICIAN us Eric Cuevas MD LAB BLOOD ORDERABLES Final R esult Performing Organization Address [facility] de Phone Number ELISE[address] [place] [address] * (ABNORMAL) Comprehensive metabolic panel (09/08/2024 12:27 PM FEED RESEARCH TECHNICIAN) Pathologist [facility] Sodium 138 135 - 145 mmol/L Comment:Testing performed by : [address] [address] Potassium, pl 5.0(H) 3.3 - 4.9 mmol/L [facility] Comment:Testing performed by : [address] [address] Chloride 105 97 - 110 mmol/L [facility] Comment:Testing performed by : [address] [address] CO2 24 22 - 32 mmol/L [facility] Comment:Testing performed by : [address] [address] Anion gap 9 2 - 15 mmol/L [facility] Comment:Testing performed by : [address] [address] BUN 33(H) 6 - 25 mg/dL [facility] Comment:Testing performed by : [address] [address] Creatinine 1.30 0.80 - 1.30 mg/dL [facility] Comment:Testing performed by : [address] [address] Glucose 292(H) 70 - 199 mg/dL [facility] Comment: Interpretive Data Fasting glucose >/= 126 mg/dl is diagnostic for diabetes. Fasting is defined as no caloric intake for at least 8 hours. Fasting glucose between 100 mg/dl to 125 mg/dl is diagnostic of prediabetes. In a patient with classic symptoms of hyperglycemia or hyperglycemic crisis, a random glucose >/= 200 mg/dl is diagnostic for diabetes. In the absence of unequivocal hyperglycemia, results should be confirmed by repeat testing. The classification and Diagnosis of Diabetes Diabetes Care 2021; 46: S19-S40. Current interpretive data was last revised 2022. Testing performed by: [address] [address] Calcium 9.0 8.5 - 10.3 mg/dL [facility] Comment:Testing performed by : [address] [address] Bilirubin, total 0.5 0.1 - 1.2 mg/dL [facility] Comment:Testing performed by : [address] [address] Protein, pl 6.4(L) 6.5 - 8.5 g/dL [facility] Comment:Testing performed by : [address] [address] Albumin 3.7 3.5 - 5.0 g/dL [facility] Comment:Testing performed by : [address] [address] Alk phos 124 40 - 130 Units/L [facility] Comment:Testing performed by : [address] [address] ALT 19 7 - 55 Units/L [facility] Comment:Testing performed by : [facility], [address] [place] [address]., [address] AST 23 10 - 50 Units/L [facility] Comment:Testing performed by : [facility], [address] [place] [address]., [address] Blood 09/08/2024 12:2 7 PM FEED RESEARCH TECHNICIAN 09/08/2024 12:29 PM FEED RESEARCH TECHNICIAN us Eric Cuevas MD LAB BLOOD ORDERABLES Final R esult [facility] [address] [facility] Department [place] [address] * (ABNORMAL) Lipid panel (05/27/2024 4:10 AM CDT) Cholesterol 290(H) 30 - 199 mg/dL Comment: Interpretive Data Ages < or = 19 years Acceptable: <170 mg/dL Borderline high: 170-199 mg/dL High: >or= 200 mg/dL Ages > or = 20 years Desirable: <200 mg/dL Borderline high: 200-239 mg/dL High: >or= 240 mg/dL Literature References: 1. Expert Panel on Integrated Guidelines for Cardiovascular Health and Risk Reduction in Children and Adolescents. Pediatrics 2011;128:S213 2. NCEP Expert Panel. Circulation 2004;110:227 Current Interpretive Data was last revised on 2018. Triglycerides 286(H) <=149 mg/dL [facility] Comment: Interpretive Data Ages < or = 9 years Acceptable: <75 mg/dL Borderline high: 75-99 mg/dL High: >or= 100 mg/dL Ages 10 to 20 years Acceptable: <90 mg/dL Borderline high: 90-129 mg/dL High: >or= 130 mg/dL Ages > or = 20 years Desirable: <150 mg/dL Borderline high: 150-199 mg/dL High: 200-499 mg/dL Very high: >or= 499 mg/dL Literature References: 1. Expert Panel on Integrated Guidelines for Cardiovascular Health and Risk Reduction in Children and Adolescents. Pediatrics 2011;128:S213 2. NCEP Expert Panel. Circulation 2004;110:227 Current Interpretive Data was last revised on 2018. HDL 16(L) >=40 mg/dL [facility] Comment: Interpretive Data Ages < or = 19 years Acceptable: >45 mg/dL Borderline low: 40-45 mg/dL Low: <40 mg/dL Ages > or = 20 years Desirable: >or= 60 mg/dL Low: <40 mg/dL Literature References: 1. Expert Panel on Integrated Guidelines for Cardiovascular Health and Risk Reduction in Children and Adolescents. Pediatrics 2011;128:S213 2. NCEP Expert Panel. Circulation 2004;110:227 Current Interpretive Data was last revised on 2018. LDL, calculated 215(H) <=129 mg/dL [facility] Comment: Interpretive Data Ages < or = 19 years Acceptable: <110 mg/dL Borderline high: 110-129 mg/dL High: >or= 130 mg/dL Ages > or = 20 years Optimal: <100 mg/dL Near optimal: 100-129 mg/dL Borderline high: 130-159 mg/dL High: >160 mg/dL Calculated using the Flex LDL-C estimating equation. This equation was implemented on 2024. Prior to this date LDL-C was estimated using the Friedewald equation. Literature References: 1. Expert Panel on Integrated Guidelines for Cardiovascular Health and Risk Reduction in Children and Adolescents. Pediatrics 2011;128:S213 2. NCEP Expert Panel. Circulation 2004;110:227 3. Flex Carey et al. MARTIN Cardiol. 2020 February 02;5(5):540-548. doi: 10.1001/jamacardio.2020.0013 Current Interpretive Data was last revised on 2024. Non-HDL Cholesterol 274 mg/dL [facility] Comment: Interpretive Data Ages < or = 19 years Acceptable: <120 mg/dL Borderline high: 120-144 mg/dL High: >145 mg/dL Ages > or = 20 years When triglycerides are >200 mg/dL, Non-HDL cholesterol is a secondary target of therapy with treatment goals that are 30 mg/dL greater than the LDL cholesterol target. Literature References: 1. Expert Panel on Integrated Guidelines for Cardiovascular Health and Risk Reduction in Children and Adolescents. Pediatrics 2011;128:S213 2. NCEP Expert Panel. Circulation 2004;110:227 Current Interpretive Data was last revised on 2018. Chol/HDL ratio 18 [facility] Blood 05/27/2024 4:10 AM CDT 05/27/2024 4:50 AM CDT us Stan Oreilly MD PhD LAB BLOOD ORDERABLES Final Result Performing Organization Address City/[facility] Co de Phone Number [facility] Department [place] [address] * Hepatitis panel, acute Blood (05/26/2024 10:47 PM CDT) Hep A IgM Nonreactive Nonreactive Hep B core IgM Nonreactive Nonreactive [facility] Hep C Ab Nonreactive Nonreactive [facility] Comment:Antibodies to HCV no t detected. Does NOT exclude the possibility of recent exposure to HCV. Current interpretive data was last revised on 22 HepBsAg Nonreactive Nonreactive [facility] Blood 05/26/2024 10:4 7 PM CDT 05/26/2024 10:59 PM CDT us Stan Oreilly MD PhD LAB MICROBIOLOGY - G ENERAL ORDERABLES Final Result Performing Organization Address [facility] Co de Phone Number [facility] Department [place] [address] from Last 3 Months or Most Recently Relevant to Health Maintenance Insurance MEDICARE Member Subscriber Plan / Payer (Ef fective 2020-Present) Name:JoviHernando gamez IV Member ID:[id number] Relation to Subscriber:Self Name:JoviHernando gamez IV Tammi Subscriber ID:[id number] Payer ID:[id number] Group ID:Not on file Type:MEDICARE TRADITIONAL Address: [place] [id number] [facility] MEDICARE [facility] MEDICARE AARP Advance Directives For more information, please contact: [phone] Documents on File Type Date Recorded Patient Chief I Dispatcher Expl anation ADVANCE DIRECTIVE 02/27/2015 12:00 AM CASSIE R OF FRONT COUNTER CLERK FINANCIAL/MEDICAL * LIMITED - No CPR (Latest Code Status on File) Date Activated Date Inactivated Comments 07/08/2024 9:50 AM 07/25/2024 5:27 PM Question Answer Comments Provide aggressive medical m anagement before a full cardiopulmonary arrest occurs. Use antibiotics, IV Fluids, and medical treatment unless specifically selected below: No intubationNo non-invasive ventilationNo cardioversionNo internal / external pacemaker * LIMITED - No CPR Date Activated Date Inactivated Comments 05/26/2024 10:21 PM 06/02/2024 9:21 PM Question Answer Comments Provide aggressive medical m anagement before a full cardiopulmonary arrest occurs. Use antibiotics, IV Fluids, and medical treatment unless specifically selected below: No intubation * Full Code Date Activated Date Inactivated Comments 05/26/2024 9:25 PM 05/26/2024 10:21 PM Healthcare Agents on File Name Relationship Healthcare Agent Relationship Communication Hernando Lang (Poa) Jovi Kim Health Care Agent [phone] (Mobile ) Deneen Gallagher Significant Other First Alternat e Health Care Agent Care Teams Ski Top Trimmer Relationship Specialty Start Date End Date Shari Gray MD PCP - General Family Medicine 09/23/23 Eric Cuevas MD [address] [place] [address] Medical Oncologist/Explosive Ordnance Disposal Specialist Internal Medicine 05/31/24
--- OUTSIDE RECORDS SUMMARY | 2024-11-22 00:37 | XMS_ITS ---
Author Organization [facility] Address [address] [address] Care Team Providers Care Manager Search Engine Name Role Phone Shari Gray Primary Care Provider Unavailabl REAGAN Maldonado Unavailable [phone] Eric Cuevas Unavailable Unavailable Encounters Encounter Location Date Provider Diagnosis [facility] [address] [place] [id number] 11/09/2024 REAGAN YOUNGBLOOD PLAN OF TREATMENT No Information Progress Notes * PARAG STRICKLAND IVDOB: [birth year] (69 yo F)Acc No.[id number]:11/09/2024 Patient: PARAG STRICKLAND IV :1955 Age:69 Y Sex:Female Address:[address] [place] [address] * true * Date:
--- OUTSIDE RECORDS SUMMARY | 2024-11-22 00:37 | XMS_ITS | Continuity of Care Document ---
Author Organization [facility] Address [address] [place] [address] [place] [address] Phone Care Team Providers Care Director Of Estate Name Role Phone Alvin Walker Unavailable Unavailable Procedures Procedure Date Eye Exam & Treatment Fundus Photography W/ Report Refraction Office/outpatient Visit, Est Eye Exam & Treatment Refraction Office/outpatient Visit, Est Office/outpatient Visit, Est Office/outpatient Visit, Est Eye Exam Established Pt Refraction Office/outpatient Visit, Est Advance Directives Directive Yes / No Effective Date File Name No Information Encounters Encounter Description Practice Location Reason(s) For Visit Diagnoses Date Provider Providers Copied on Encounter [facility], [address] [place] [address] [address], [place], [place], [id number], [place] tel:[phone] [facility] No Information [address]quivel. Marek [facility] [address], [place], [address], [place]. tel:[phone] Referring Provider: Marek [facility] [address], [place], [address]. tel:[phone] Office/outpat ient Visit, Est [facility], [address] [place] [address] [address], [place], [place], [address], [place] tel:[phone] [facility] No Information 2 2-201 0 Doisy Edward. [address] [facility] , [address], [place], [place], [facility], . tel:[phone] [facility], [address] [place] [address] [address], [place], [place], [address], [place] tel:[phone] [facility] No Information 2 1-200 9 Doisy Edward. [facility] , [address], [place], [place], [facility], [place]. tel:[phone] Office/outpat ient Visit, [facility], [address] [place] [address] [address], [place], [place], [address], [place] tel:[phone] [facility] No Information 0 6-200 9 Doisy Edward. [address] [facility] , [address], [place], [place], [facility], [place]. tel:[phone] Office/outpat ient Visit, [facility], [address] [place] [address] [address], [place], [place], [address], [place] tel:[phone] [facility] No Information 3-200 8 Doisy Edward. [facility] , [address], [place], [place], [facility], [place]. tel:[phone] Office/outpat ient Visit, [facility], [address] [place] [address] [address], [place], [place], [address], [place] tel:[phone] [facility] No Information 1 8-200 8 Doisy Edward. [facility] , [address], [place], [place], [facility], . tel:[phone] [facility], [address] [place] [address] [address], [place], [place], [address], [place] tel:[phone] [facility] [place] No Information 0 200 7 Doide[address] Eddelvin. [address] [facility] , [address], [place], [address], [place]. tel:[phone] Office/outpat ient Visit, [facility], [address], [place], [place], [address], tel:[phone] [facility] No Information 0 200 7 Aaron Eddelvin. [address] [facility] , [address], [place], [address], [place]. tel:[phone] Family History Family Member Type Diagnosis Age At Onset No Information Payers Payer name Insurance type Covered green party ID Authoriza tion(s) No Information Social History Type Description Quantity Date Captured Comments Sex Male Smoking Status No Information Chief Complaint And Reason For Visit No Information Reason For Referral Reason For Referral No Information History Of Present Illness Encounter Date Complaint History Of Prese nt Illness No Information Functional Status Date Functional Assessmen t No Information Instructions Date Instruction Additional Infor mation No Information Assessments Type Assessment Date No Information Patient Care Teams Name Effective Dates (start - stop) Status Members No Information
--- OUTSIDE RECORDS SUMMARY | 2024-11-22 00:37 | XMS_ITS | Patient Health Summary ---
Author Organization [facility] Address [address] [place] [address] Care Team Providers Care Agricultural Plow Operator Name Role Phone Charli Irwin MD Primary Care Provider [phone] Note from [facility],non-owned Affiliates and Associated Physician Practices is amultiple site organization consisting of ambulatory clinics and hospital sitesin [place], [place], [place] and [place]. This disclosure is being madepursuant to the Care Everywhere program and may not contain all information available regarding this patient. Last updated 18.[facility] Social History Tobacco Use Types Packs/Day Years Used Date Smoking Tobacco: Never Assessed Sex and Gender Information Value Date Recorded Sex Assigned at Not on file Gender Identity Not on file Sexual Orientation Not on file Procedures * PATHOLOGY TISSUE(Performed 05/26/2024) Performed for Illness, unspecified Results * PATHOLOGY TISSUE (05/26/2024 1:20 PM CDT) Case Report Surgical Pathology Report Case: [id number] Authorizing Provider: Nicho Raman MD Collected: 05/26/2024 01:20 PM Ordering Location: [facility] - Received: 05/30/2024 02:30 PM Pathology Lab Pathologist: Soraya Moss MD Specimen: Pleura 05/31/2024 3:14 PM CDT [facility] Final Diagnosis Pleural fluid, cytology: - Malignant cells present, 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 The lymphocytes have irregular nuclear contours and relatively closed chromatin. No sheets of large cells or necrosis are seen. No mitotic figures are noted. Background also highlights few mesothelial cells. Additional immunohistochemical stains were performed on the cellblock. The monoclonal appearing lymphocytes are positive for CD20, PAX-5, CD5 and cyclin D1; while negative for CD10 and CD23. CD3 highlights background T lymphocytes. In summary, morphological and immunohistochemical studies are compatible with CD5-positive mature B-cell lymphoma, most consistent with mantle cell lymphoma. Clinical correlation is recommended. 05/31/2024 3:[facility] Clinical History The patient is a 69-year-old male with pleural effusion. 05/31/2024 3:14 PM [facility] Materials Received Received are 2 slide(s) and 1 Block labeled [id number] along with a copy of the outside pathology report. [place] [address] . All original materials are returned to the referring institution, along with a copy of our final report. 05/31/2024 3:14 PM [facility] Pathologist Location at [facility] 05/31/2024 3:14 PM CDT [facility] Disclaimer The performance characteristics of all immunohistochemical and indirect immunofluorescence stains (if any) cited in this report were determined by the Histopathology Laboratory of [facility]. Some of these tests were developed by our own laboratory and have not been cleared or approved by the US Food and Drug Administration. The FDA does not require this test to go through premarket FDA review. These tests are used for clinical purposes. They should not be regarded as investigational or for research. This laboratory is certified under the Clinical Laboratory Improvement Amendments (CLIA) as qualified to perform high complexity clinical laboratory testing. This case has been personally reviewed and interpreted by the attending (teaching) pathologist. 05/31/2024 3:14 PM CDT [facility] Embedded Images 05/31/2024 3:14 PM CDT [facility] Pathology/Cytolo gy ENTIRE PLEURA / Unknown 05/26/2024 1:20 PM CDT 05/30/2024 2:30 PM CDT Nicho Raman MD LAB - PATHOLOGY/CYTO LOGY ORDERABLES [facility] [address] [facility] [place] [address], [facility] [phone] Care Teams Agricultural Plow Operator Relationship Specialty Start Date End Date Charli Irwin MD [address] [place] [address] [place] [address] PCP - General 01/18/18
--- OUTSIDE RECORDS SUMMARY | 2024-11-22 00:38 | XMS_ITS | Referral Summary ---
Author Organization [facility] Address [address] [place] [address] Care Team Providers Care Weekend Receptionist Name Role Phone Charli Irwin MD Primary Care Provider [phone] Source Comments [facility],non-owned Affiliates and Associated Physician Practices is amultiple site organization consisting of ambulatory clinics and hospital sitesin [place], [place], [place] and [place]. This disclosure is being madepursuant to the Care Everywhere program and may not contain all information available regarding this patient. Last updated 18.[facility] Social History Tobacco Use Types Packs/Day Years Used Date Smoking Tobacco: Never Assessed Sex and Gender Information Value Date Recorded Sex Assigned at Not on file Gender Identity Not on file Sexual Orientation Not on file Plan of Treatment Not on file Care Teams Weekend Receptionist Relationship Specialty Start Date End Date Charli Irwin MD [address] [place] [address] PCP - General 01/18/18
--- OUTSIDE RECORDS SUMMARY | 2024-11-22 00:38 | XMS_ITS | Clinical Summary ---
Author Organization [facility] Address [facility] [place] [address] Care Team Providers Care Contract Accountant Name Role Phone Benigno Chavira Primary Care Provider [phone] Guru Goodwin MD Unavailable [phone] Allergies No known active allergies Family History Medical History Relation Comments No Known Problems Brother Diabetes Father Heart Attack Father Cancer Mother kidney No Known Problems Sister 1 No Known Problems Sister 2 No Known Problems Sister 3 Diabetes Son Relation Status Comments Brother Alive Father Mother Sister 1 Alive Sister 2 Alive Sister 3 Alive Son Alive Social History Tobacco Use Types Packs/Day Years Used Date Smoking Tobacco: Never Smokeless Tobacco: Never Alcohol Use Standard Drinks/Week Comments Not Currently 0 (1 standard drink = 0.6 oz pur e alcohol) very seldom Sex and Gender Information Value Date Recorded Sex Assigned at Not on file Legal Sex Male 3:42 PM CDT Gender Identity Not on file Sexual Orientation Not on file Last Filed Vital Signs Vital Sign Reading Time Taken Comments Blood Pressure - - Pulse - - Temperature - - Respiratory Rate - - Oxygen Saturation - - Inhaled Oxygen Concentration - - Weight 95.3 kg (210 lb) 02/05/2021 11:48 AM CDT Height 182.9 cm (6') 02/05/2021 11:48 AM CDT Body Mass Index 28.48 02/05/2021 11:48 AM CDT Plan of Treatment Health Maintenance Due Date Last Done Comments Colorectal Cancer Screening Colonoscopy (10 Years) 1955 Hepatitis C 1973 Zoster Vaccines (1 of 2) 2005 Annual Medicare Wellness Visit 2020 Pneumococcal Vaccine: 65+ Ye ars (1 of 1 - PCV) 2020 04/26/2018 DTaP, Tdap and Td Vaccines ( 2 - Td or Tdap) 02/15/2023 02/15/2013 COVID-19 Vaccine ( - 2023-2 5 season) 2024 Influenza Adult (#1) 2024 RSV Immunization or 60+ Years (1 - 1-dose 75+ series) 2030 Meningococcal B Vaccine Aged Out No l onger eligible based on patient's age to complete this topic Meningococcal Vaccine Aged Out No destiny isaura eligible based on patient's age to complete this topic RSV Immunizations Under 20 Months Aged Out No longer eligible based on patient's age to complete this topic Insurance MEDICARE [facility] Care Teams Contract Accountant Relationship Specialty Start Date End Date Benigno Chavira PA [address] [place] [address] PCP - General PHYSICIAN ASSISTANT COUNTY ENGINEER 01/16/21 Guru Goodwin MD [address] [facility] [place] [address] Referring Physician PLASTIC SURGERY 01/18/21
--- OUTSIDE RECORDS SUMMARY | 2024-11-22 00:38 | XMS_ITS ---
Author Organization [facility] A Address [address] [address] Care Team Providers Care Pharmacy Intake Coordinator Name Role Phone Shari Gray Primary Care Provider UnavailREAGAN Tovar Unavailable [phone] Eric Cuevas Unavailable Unavailable Encounters Encounter Location Date Provider Diagnosis [facility] [address] [place] [phone] 11/17/2024 REAGAN YOUNGBLOOD PLAN OF TREATMENT No Information Progress Notes * PARAG STRICKLAND IVDOB: [birth year] (69 yo F)Acc No.[id number]:11/17/2024 Patient: PARAG STRICKLAND IV :1955 Age:69 Y Sex:Female Address:[address] [address] * true * Date:
--- OUTSIDE RECORDS SUMMARY | 2024-11-22 00:38 | XMS_ITS ---
Author Organization [facility] Address [address] [address] Care Team Providers Care Apparel Merchandiser Name Role Phone Shari Gray Primary Care Provider UnavailREAGAN Tovar Unavailable [phone] Eric Cuevas Unavailable Unavailable Encounters Encounter Location Date Provider Diagnosis [facility] [address] [place] [phone] 11/11/2024 REAGAN YOUNGBLOOD PLAN OF TREATMENT No Information Progress Notes * PARAG STRICKLAND IVDOB: [birth year] (69 yo F)Acc No.[id number]:11/11/2024 Patient: PARAG STRICKLAND IV :1955 Age:69 Y Sex:Female Address:[address] [facility] [place] [address] * true * Date:
--- OUTSIDE RECORDS SUMMARY | 2024-11-22 00:38 | XMS_ITS | Encounter Summary ---
Author Organization [facility] Address [address] [place] [address] Care Team Providers Care Pipe Manufacture Supervisor Name Role Phone Charli Irwin MD Primary Care Provider [phone] Encounter Details Date Type Department Care Team (Late st Contact Info) Description 05/30/2024 Lab Requisition [facility] - Pathology Lab [address] [place] [address] Nicho Raman MD [address] [address] Illness, unspecified Social History Tobacco Use Types Packs/Day Years Used Date Smoking Tobacco: Never Assessed Sex and Gender Information Value Date Recorded Sex Assigned at Not on file Gender Identity Not on file Sexual Orientation Not on file documented as of this encounter Plan of Treatment Not on file documented as of this encounter Procedures Procedure Name Priority Date/Time Associated Diagnosis Comments PATHOLOGY TISSUE Routine 05/26/2024 1:20 PM CDT Illness, unspecified documented in this encounter Results * PATHOLOGY TISSUE (05/26/2024 1:20 PM CDT) Case Report Surgical Pathology Report Case: [id number] Authorizing Provider: Nicho Raman MD Collected: 05/26/2024 01:20 PM Ordering Location: [facility] Physician [facility] - Received: 05/30/2024 02:30 PM Pathology Lab Pathologist: Soraya Moss MD Specimen: Pleura 05/31/2024 3:14 PM CDT [facility] Final Diagnosis Pleural fluid, cytology: - Malignant cells present, 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 05/31/2024 3:14 PM [facility] Clinical History The patient is a 69-year-old male with pleural effusion. 05/31/2024 3:14 PM [facility] Materials Received Received are 2 slide(s) and 1 Block labeled [id number] along with a copy of the outside pathology report. [place] [address] . All original materials are returned to the referring institution, along with a copy of our final report. 05/31/2024 3:14 PM [facility] Pathologist Location at [facility] 05/31/2024 3:14 PM [facility] Disclaimer The performance characteristics of all immunohistochemical and indirect immunofluorescence stains (if any) cited in this report were determined by the Histopathology Laboratory of [facility]. Some of these tests were developed by [...] the attending (teaching) pathologist. 05/31/2024 3:14 PM [facility] Embedded Images 05/31/2024 3:14 PM [facility] Pathology/Cytolo gy ENTIRE PLEURA / Unknown 05/26/2024 1:20 PM CDT 05/30/2024 2:30 PM CDT Nicho Raman MD LAB - PATHOLOGY/CYTO LOGY ORDERABLES [facility] [address] [phone] documented in this encounter Visit Diagnoses Diagnosis Illness, unspecified documented in this encounter Care Teams Pipe Manufacture Supervisor Relationship Specialty Start Date End Date Charli Irwin MD [address] [place] [place] [address] PCP - General 01/18/18 documented as of this encounter
--- OUTSIDE RECORDS SUMMARY | 2024-11-22 00:38 | XMS_ITS | Clinical Summary ---
Author Organization [facility] Address [address] [place] [address] Care Team Providers Care Roustabout Hand Name Role Phone Charli Irwin MD Primary Care Provider [phone] Source Comments [facility],non-owned Affiliates and Associated Physician Practices is amultiple site organization consisting of ambulatory clinics and hospital sitesin [place], [place], [place] and [place]. This disclosure is being madepursuant to the Care Everywhere program and may not contain all information available regarding this patient. Last updated 18.[facility] Social History Tobacco Use Types Packs/Day Years Used Date Smoking Tobacco: Never Assessed Sex and Gender Information Value Date Recorded Sex Assigned at Not on file Gender Identity Not on file Sexual Orientation Not on file Plan of Treatment Health Maintenance Due Date Last Done Comments COLOGUARD (AGES 45-75) - COL ON CA SCREENING 1955 COLON MONITORING 1955 COLONOSCOPY - COLON CA SCREENING 1955 CT COLONOGRAPHY - COLON CA SCREENING 1955 Colorectal Cancer Screening 1955 FIT - COLON CA SCREENING 1955 FLEX SIG - COLON CA SCREENING 1955 LIPID TESTING 1955 MEDICARE AWV 12 MONTHS 1955 COVID-19 VACCINE (#1) 1960 HEPATITIS C SCREENING 05/11/1973 DTAP/TDAP/TD VACCINES (1 - Tdap) 1974 PNEUMOCOCCAL VACCINE 50+ (1 of 2 - PCV) 1974 ZOSTER VACCINE (1 of 2) 1974 Respiratory Syncytial Virus (RSV) Vaccine Pt: or over 60 yrs (1 - Risk 60-74 years 1-dose series) 2015 INFLUENZA VACCINE (#1) 2024 DEPRESSION SCREENING 10/05/2024 HEPATITIS B VACCINE Aged Out No longe r eligible based on patient's age to complete this topic HIB VACCINE Aged Out No longer eligi ble based on patient's age to complete this topic HPV VACCINE Aged Out No longer eligi ble based on patient's age to complete this topic MENINGOCOCCAL (Group B) VACCINE Aged Out No longer eligible based on patient's age to complete this topic MENINGOCOCCAL VACCINE Aged Out No destiny isaura eligible based on patient's age to complete this topic Care Teams Roustabout Hand Relationship Specialty Start Date End Date Charli Irwin MD [address] [place] [address] PCP - General 01/18/18
--- OUTSIDE RECORDS SUMMARY | 2024-11-22 00:38 | XMS_ITS | Referral Summary ---
Author Organization [facility] Address [address] [place] [address] Care Team Providers Care Robotic Machine Tender Production Name Role Phone Pcp Outside [facility], Unknown Primary Care Provider U navailable Allergies No known active allergies Medications Medication Sig Dispensed Refills Start Date End Date Status sulfamethoxazole-tri methoprim (BACTRIM DS) 800-160 MG per tabletIndications:Ce llulitis and abscess of toe, left Take 1 tablet by mouth 2 times daily. 20 tablet 05/04/2017 Active mupirocin (BACTROBAN) 2 % ointmentIndications: Cellulitis and abscess of toe, left Apply topically 2 times daily. 22 g 05/04/2017 Active amoxicillin-clavulan ate (AUGMENTIN) 875-125 MG per tablet Take 1 tablet by mouth every 12 hours. 20 tablet 05/09/2017 Active Social History Tobacco Use Types Packs/Day Years Used Date Smoking Tobacco: Never Smokeless Tobacco: Never Inadequate Housing Answer Date Recorded Social Determinants: Housing (Overall Score Help er) 0 05/21/2019 Sex and Gender Information Value Date Recorded Sex Assigned at Not on file Gender Identity Not on file Sexual Orientation Not on file Last Filed Vital Signs Vital Sign Reading Time Taken Comments Blood Pressure 160/80 05/04/2017 9:41 AM CDT Pulse 80 05/04/2017 9:41 AM CDT Temperature - - Respiratory Rate - - Oxygen Saturation 99% 05/04/2017 9:41 AM CDT Inhaled Oxygen Concentration - - Weight 92.1 kg (203 lb) 05/04/2017 9:41 AM CDT Height - - Body Mass Index - - Plan of Treatment Not on file Care Teams Robotic Machine Tender Production Relationship Specialty Start Date End Date Pcp Outside [facility], Unknown NO KNOWN ADDRESS ON FILE PCP - General 04/13/24
--- OUTSIDE RECORDS SUMMARY | 2024-11-22 00:38 | XMS_ITS | Clinical Summary ---
Author Organization [facility] Jannet utijakub Address [address] [place] [address] Phone Care Team Providers Care Guide Tour Name Role Phone Shari Gray MD Primary Care Provider [phone] Allergies No known active allergies Medications Medication Sig Dispensed Refills Start Date End Date Status atorvastatin (LIPITOR) 40 MG tablet Take 40 mg by mouth daily Active lisinopril (PRINIVIL,ZESTRIL) 20 MG tablet Take 40 mg by mouth daily Active chlorhexidine (PERIDEX) 0.12 % solution RINSE MOUTH WITH 1/2 OUNCE AFTER BREAKFAST AND BEFORE BEDTIME. NO EATING OR DRINKING FOR 30 MINUTES 11/25/2019 Active OneTouch Verio test strip USE TO CHECK BLOOD SUGAR THREE TIMES DAILY 11/15/2020 Active HYDROcodone-acetamin ophen (NORCO) 5-325 MG per tablet TAKE 1 TABLET BY MOUTH 4 TIMES A DAY NEEDED 11/08/2020 Active lisinopril (PRINIVIL) 40 MG tablet 12/12/2020 Active silver sulfADIAZINE (SILVADENE) 1 % cream APPLY TOPICALLY TWICE DAILY APPLY A 1.5 MM THICKNESS 10/24/2020 Active dilTIAZem CD (CARDIZEM CD) 240 MG 24 hr capsule Take 1 capsule (240 mg total) by mouth 1 (one) time each day 90 capsule 4 12/13/2020 Active Toujeo Max SoloStar 300 UNIT/ML solution pen-injector INJECT 23 UNITS UNDER THE SKIN EVERY NIGHT AT BEDTIME 05/21/2021 Active HumaLOG KWIKPEN 100 UNIT/ML solution pen-injector INJECT 4 UNITS UNDER THE SKIN THREE TIMES DAILY WITH MEALS 05/21/2021 Active Easy Touch Pen Eleele 31G X 5 MM misc 4 (four) times a day 10/01/2021 Active amoxicillin-clavulan ate (AUGMENTIN) 875-125 MG per tablet Take 1 tablet by mouth every 12 (twelve) hours 06/19/2022 Active ofloxacin (FLOXIN) 0.3 % otic solution INSTILL 4 DROPS IN LEFT EAR TWICE DAILY 06/19/2022 Active Active Problems Problem Noted Date Diagnosed Date Cardiac murmur 11/08/2018 Essential hypertension 11/08/2018 Mixed hyperlipidemia 11/08/2018 Type 2 diabetes mellitus without complication Proteinuria Diabetes mellitus Hyperlipidemia Immunizations Name Administration Dates Next Due Pneumococcal Conjugate 04/26/2018 Sars-cov-2, Unspecified 01/23/2021,12/23/2020 Tdap 02/15/2013 Family History Medical History Relation Comments Diabetes Father Hypertension Father Kidney cancer Mother Relation Status Comments Father Mother Social History Tobacco Use Types Packs/Day Years Used Date Smoking Tobacco: Never Smokeless Tobacco: Never Alcohol Use Standard Drinks/Week Comments Yes 0 (1 standard drink = 0.6 oz pur e alcohol) Sex and Gender Information Value Date Recorded Sex Assigned at Not on file Gender Identity Not on file Sexual Orientation Not on file Last Filed Vital Signs Vital Sign Reading Time Taken Comments Blood Pressure 138/82 06/30/2022 10:33 AM CDT Pulse - - Temperature 36.2 C (97.1 F) 06/30/2022 10:33 AM CDT Respiratory Rate 18 06/30/2022 10:33 AM CDT Oxygen Saturation - - Inhaled Oxygen Concentration - - Weight 109 kg (240 lb) 06/30/2022 10:33 AM CDT Height 182.9 cm (6') 06/30/2022 10:33 AM CDT Body Mass Index 32.55 06/30/2022 10:33 AM CDT Plan of Treatment Health Maintenance Due Date Last Done Comments Pneumococcal PPSV23/PCV13 65 + Years / High and Highest Risk (1 of 4 - PCV) 1961 Diabetic Foot Exam 1965 Ophthalmology Exam 1965 Influenza Vaccine (#1) 2024 Care Teams Guide Tour Relationship Specialty Start Date End Date Shari Gray MD [address] [place] [address] PCP - General Internal Medicine 12/23/21
--- OUTSIDE RECORDS SUMMARY | 2024-11-22 00:38 | XMS_ITS ---
Author Organization [facility] [place] [address] Address [address] [place] [address] Care Team Providers Care Field Services Director Name Role Phone Shari Gray MD Primary Care Provider Eric Cuevas MD Unavailable [phone] Active Problems Problem Noted Date Diagnosed Date [...] the emergency department and received a 16 Cymro surgical chest tube. The chest tube was [...] effusion on admission, L>R, s/p left 16 occitan chest tube placement in the ED. Also [...] detected (99% of total events) - Consulted [facility] for chest tube management - Chest tube clamped 07/18. 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 [facility] to provide supplies that can be used at home - Follow CXR every other day (ok w/ [facility]) or more urgently if with symptoms HFrEF (heart failure with re duced ejection fraction) ([facility]) 07/08/2024 Assessment & Plan (07/19/2024 12:09 PM [...] every day - TP53 sent out to [place] to help guide second line treatment (ordered 07/12) - [facility] discussion with Dr. Cuevas re hospice recommendation. Hospice was consulted but patient [...] medication December-May 2024. Since his discharge from [facility] 06/02/24 he has been taking all his [...] Continue sliding scale insulin. - A1c 10.8. Current Treatment and Therapy Plans BMT Adult Blood and Platelet Administration for Inpatient* Plan Start Date: 07/08/2024 Plan Provider:Navi Herrmann DO Linked Problems CLL (chronic lymphocytic phillip kemia) (HCC) Treatment Medications No medications scheduled. Zanubrutinib PO 28 Day Cycles* Plan Start Date:06/01/2024 Plan Provider:Eric Cuevas MD Linked Problems CLL (chronic lymphocytic phillip kemia) (HCC) Treatment Medications Current Day (Day 1 , Dispense Cycle - Planned for 06/01/2024) Next Day (Day 1, Cycle 1 - Planned for 06/02/2024) zanubrutinib (BRUKINSA) zanubrutinib (BR UKINSA) 80 mg capsule No medications scheduled. Past Treatment and Therapy Plans No past plan information found. Lifetime Dose Tracking * Chemical Lifetime Dose Automatic Entry Manual Entr y Air kerma at the reference point (Ka,r) 870 mGy 0 mGy 870 mGy DLP 1,690 mGycm 1,690 mGycm 0 mGycm Resolved Problems Problem Noted Date Diagnosed Date [...]
--- OUTSIDE RECORDS SUMMARY | 2024-11-22 00:38 | XMS_ITS | Patient Health Record ---
Author Organization [facility] Address [address] [place] [address] Care Team Providers Care Associate Professor Physician Name Role Phone Shari Gray Primary Care Provider UnavailREAGAN Tovar Unavailable [phone] Eric Cuevas Unavailable Unavailable CINDY ESCOBAR Unavailable [phone] ALLERGIES No Known Allergies REASON FOR REFERRAL Reason PALLAITIVE CARE RE CEIVED VIA EMAIL FROM [facility] Referred Organization [facility] Referred Provider CINDY ESCOBAR Referred Address [address] [place], [place],[address], General Notes CALLED THE PATIENT H AD TO LEAVE A VMMARIBEL JERAE 07/28/2024 03:43:54 PM >, CALLED THE PATIENT HAD TO LEAVE A VMMARIBEL JERAE 07/29/2024 04:41:28 PM > Referral Priority Routine Reason [facility] to evaluate and treat Diagnosis 1 CLL (chronic lymphoc ytic leukemia) (C91.10) Diagnosis 2 Sutured skin wound ( T14.8XXA) Diagnosis 3 CHF (congestive hear t failure) (I50.9) Referral Organization [facility] Referring Provider First Name CINDY Referring Provider Last Name SHAWN Referring Provider Speciality Nurse Prac titioner Referred Provider Specialty Registered Keith angel General Notes Physical therapy is already seeing patient. Please have nursing also admit. Please remove sutures- left flank. Referral Priority Routine Reason Payor Change Request [facility] AARP ID [id number] Diagnosis 1 CHF (congestive hear t failure) (I50.9) Diagnosis 2 CLL (chronic lymphoc ytic leukemia) (C91.10) Referral Organization [facility] Referring Provider First Name CINDY Referring Provider Last Name SHAWN Referring Provider Speciality Nurse Vivian Arrieta Notes NATACHA MOSER 2024 10:01:42 AM >, Joseph Marquez 10/12/2024 09:58:49 AM >As per Checking the Eligibility [facility] ARRP Medicare Complete is the Secondary Insurance. Primary insurance is Medicare effective from 10/05/2024 to 10/04/2025. AARP is the Medicare Suplement Plan whic is Secondary to Medicare. Referral Priority Urgent MEDICATIONS Medication SIG (Take, Route, Frequency, Duration) Notes Start Date End Date Status Furosemide 20 MG Oral for 90 Days Active Lisinopril 5 MG Oral for 90 Days Active Catheters - as directed 08/11/2024 Not-T aking Atorvastatin Calcium 80 MG Oral for 90 Days Active Brukinsa 80 MG Oral Activ e Allopurinol 100 MG Oral for 30 Days Active Clopidogrel Bisulfate 75 MG Oral for 90 Days Active Carvedilol 6.25 MG Oral for 90 Days Active Jardiance 10 MG Oral for 30 Days Active SOCIAL HISTORY Tobacco Use: Social History Observation Description Date Details (start date - stop date) Never Smoker NA - NA Sex Assigned At : Social History Observation Description Sex Assigned At Unknown Tobacco Use/Smoking Question Answer Notes Are you a nonsmoker PROBLEMS Problem Type ICD Code Onset Dates Problem Status W/U Status Risk SNOMED Code Notes Problem CHF (congestive heart failure) (I50.9) Active confirmed 37128010 Problem CLL (chronic lymphocytic leukemia) (C91.10) Active confirmed 94510990 Problem Acute coccygeal pain (M53.3) Active confirmed 44436871 VITAL SIGNS Heart Rate 74 /min 10/13/2024 Temperature 97.0 degrees Fahrenheit 10/13/2024 Respiratory Rate 14 /min 10/13/2024 Oximetry 97 % 10/13/2024 Blood pressure diastolic 58 mm Hg 09/29/2024 Blood pressure systolic 104 mm Hg 09/29/2024 Encounters Encounter Location Date Provider Diagnosis [facility] [address] [address] 08/03/2024 CINDY ESCOBAR CLL (chronic lymphocytic leukemia) C91.10 ; Sutured skin wound T14.8XXA ; Encounter for palliative care Z51.5 and ACP (advance care planning) Z71.89 [facility] [address] [address] 08/11/2024 CINDY SHAWN CLL (chronic lymphocytic leukemia) C91.10 ; Urinary frequency R35.0 and Encounter for palliative care Z51.5 [facility] [address] [address] 08/18/2024 CINDY SHAWN CLL (chronic lymphocytic leukemia) C91.10 and Encounter for palliative care Z51.5 [facility] [address] [address] 08/30/2024 CINDY NAQVINASEEM CLL (chronic lymphocytic leukemia) C91.10 and Encounter for palliative care Z51.5 [facility] [address] [address] 09/29/2024 CINDY NAQVINASEEM CLL (chronic lymphocytic leukemia) C91.10 and Encounter for palliative care Z51.5 [facility] [address] [address] 10/13/2024 CINDY NAQVINASEEM CLL (chronic lymphocytic leukemia) C91.10 ; Encounter for palliative care Z51.5 and Acute coccygeal pain M53.3 [facility] [address] [address] 08/15/2024 CINDY ESCOBAR [facility] [address] [place] [address] 11/09/2024 REAGAN FORD [facility] [address] [place] [address] 11/11/2024 REAGAN FORD [facility] [address] [place] [phone] 11/17/2024 REAGAN FORD ASSESS[facility] Encounter Date Diagnosis Assessment Notes Treatment Notes Treatment Clinical Notes Section Notes 08/03/2024 CLL (chronic lymphocytic leukemia) (ICD-10 - C91.10) Patient to continue to follow with [facility] oncology as directed by oncologist. 08/11/2024 CLL (chronic lymphocytic leukemia) (ICD-10 - C91.10) Continue to follow with oncologist at scheduled visits. 08/18/2024 CLL (chronic lymphocytic leukemia) (ICD-10 - C91.10) Continue to follow with oncologist at scheduled visits. [facility] to continue nursing and therapy. Palliative SENIOR QUALITY ENGINEER to see patient every other week. [facility] nurse to see patient weeks palliative SENIOR QUALITY ENGINEER does not. 08/30/2024 CLL (chronic lymphocytic leukemia) (ICD-10 - C91.10) Continue to follow with oncologist at scheduled visits. [facility] to continue nursing and therapy. Palliative SENIOR QUALITY ENGINEER to see patient every other week. [facility] nurse to see patient weeks palliative SENIOR QUALITY ENGINEER does not. 09/29/2024 CLL (chronic lymphocytic leukemia) (ICD-10 - C91.10) Continue to follow with oncologist as directed. Continue or chemotherapy. Reinforced fall precautions related to weakness and fatigue. Physical therapy has discharged patient. Home health nursing continues. Patient to transition to hospice with no longer seeking aggressive treatment. 10/13/2024 CLL (chronic lymphocytic leukemia) (ICD-10 - C91.10) Patient continues to seek aggressive treatment and continues oral chemotherapy agent. Patient to see oncologist for follow up on November 12. 08/11/2024 Urinary frequency (ICD-10 - R35.0) [facility] to order and provide condom catheters with drainage bags. Patient has two condom catheters in home from the hospital. Size 25 mm. Patient has one urinary drainage bag. Patient stating he has increased frequency at night which poses increased fall risk. Patient states in the hospital he used condom catheters, and it worked well for him. Home health nurse to see patient every other week. Palliative care nurse practitioner to see patient on the weeks home health nursing is not present. Next palliative care visit August 18. 10/13/2024 Encounter for palliative care (ICD-10 - Z51.5) PPS 40% DNR Patient is alert and oriented and able to make his own medical decisions. Patient is choosing palliative care at this time and is seeking aggressive treatment for CLL. Patient is taking oral chemotherapy agent. Patient has been educated on [facility] hospice and the benefits. Patient is also aware he could continue taking oral chemotherapy agent while admitted to [facility] hospice. Patient and son refused hospice at this time. 09/29/2024 Encounter for palliative care (ICD-10 - Z51.5) PPS 40% DNR Patient is alert and oriented and able to make his own medical decisions. Patient is choosing palliative care at this time and is seeking aggressive treatment for CLL. Patient is taking oral chemotherapy agent. Patient has been educated on [facility] hospice and the benefits. Patient is also aware he could continue taking oral chemotherapy agent while admitted to [facility]. Patient and son refused hospice at this time. 08/30/2024 Encounter for palliative care (ICD-10 - Z51.5) PPS 40% DNR Patient is alert and oriented and able to make his own medical decisions. Patient is choosing palliative care at this time and is seeking aggressive treatment for CLL. Patient is taking oral chemotherapy agent. Patient is also seeking physical therapy and home health nursing. Patient has been educated on [facility] hospice and the benefits. Patient is also aware he could continue taking oral chemotherapy agent while admitted to [facility]. Patient and son refused hospice at this time. 08/18/2024 Encounter for palliative care (ICD-10 - Z51.5) PPS 40% DNR Patient is alert and oriented and able to make his own medical decisions. Patient is choosing palliative care at this time and is seeking aggressive treatment for CLL. Patient is taking oral chemotherapy agent. Patient is also seeking physical therapy and home health nursing. Patient has been educated on [facility] hospice and the benefits. Patient is also aware he could continue taking oral chemotherapy agent while admitted to [facility]. Patient and son refused hospice at this time. 08/03/2024 Sutured skin wound (ICD-10 - T14.8XXA) [facility] home health nurse to admit patient and remove sutures on left flank related to past chest tube placement. 08/11/2024 Encounter for palliative care (ICD-10 - Z51.5) PPS 40% DNR Patient is alert and oriented and able to make his own medical decisions. Patient is choosing palliative care at this time and is seeking aggressive treatment for CLL. Patient is taking oral chemotherapy agent. Patient is also seeking physical therapy and home health nursing. Patient has been educated on [facility] hospice and the benefits. Patient is also aware he could continue taking oral chemotherapy agent while admitted to [facility]. Patient and son refused hospice at this time. 08/03/2024 Encounter for palliative care (ICD-10 - Z51.5) DNR PPS 40% Patient is oriented and able to make his own medical decisions however, he does rely on his son for help. Patient, son, and spouse aware of the differences between palliative care, home health, and hospice. They are choosing palliative care at this time, but will likely transition to [facility] hospice when he is no longer wishing to take oral chemotherapy. 10/13/2024 Acute coccygeal pain (ICD-10 - M53.3) Reinforced position changes every two hours at a minimum. Reinforced using air cushion. Also reinforced use of barrier cream to help prevent skin breakdown. 08/03/2024 ACP (advance care planning) (ICD-10 - Z71.89) Goals of care discussion with patient and family. Patient is a DNR. His son is his medical power of factory hand. Patient to transition to hospice when no longer seeking aggressive therapy, including physical therapy and oral chemotherapy. 08/18/2024 Other PLAN OF TREATMENT No Information Insurance Providers Payer Name Payer Address Payer Phone Subscriber Number Group Number Insured Name Patient Relationship to Insured Coverage Start Date Coverage End Date [place] [address] [address] [place] [address] [id number] PARAG [place] IV Self - patient is the insured UHC AARP Medicare Complete [address] [place] [address] [phone] [id number] EM SYDNIE PARAG Self - patient is the insured MEDICAL (GENERAL) HISTORY Medical History History ICD Code congestive heart failure adrenal insufficiency CLL type II diabetes Bilateral leg amputations atherosclerotic peripheral vascular dise ase (ASPVD) Heart failure with reduced ejection frac tion Surgical History Surgery Date(Month/Year) Chest tube, left lung 07/2024 Hospitalization History Reason Date(Month/Year) Plural effusion 07/2024
--- OUTSIDE RECORDS SUMMARY | 2024-11-22 00:38 | XMS_ITS | Encounter Summary ---
Author Organization [facility] Address [facility] [place] [address] Care Team Providers Care Helicopter Engineer Name Role Phone Benigno Chavira Primary Care Provider [phone] Guru Goodwin MD Unavailable [phone] Encounter Details Date Type Department Care Team (Late st Contact Info) Description 02/11/2021 Prep for Procedure [facility] [address] [place], [place] [id number] Naveen Lanier, BOBBY [address] [place] [address] Social History Tobacco Use Types Packs/Day Years Used Date Smoking Tobacco: Never Smokeless Tobacco: Never Alcohol Use Standard Drinks/Week Comments Not Currently 0 (1 standard drink = 0.6 oz pur e alcohol) very seldom Sex and Gender Information Value Date Recorded Sex Assigned at Not on file Legal Sex Male 3:42 PM CDT Gender Identity Not on file Sexual Orientation Not on file COVID-19 Exposure Response Date Recorded In the last month, have you been in contact with someone who was confirmed or suspected to have Coronavirus / COVID-19? No / Unsure 02/05/2021 11:08 AM CDT documented as of this encounter Plan of Treatment Not on file documented as of this encounter Visit Diagnoses Diagnosis Preoperative testing- Primary Preoperative examination, unspecified documented in this encounter Care Teams Helicopter Engineer Relationship Specialty Start Date End Date Benigno Chavira PA [address] [place] [address] PCP - General PHYSICIAN ESTIMATOR 01/16/21 Guru Goodwin MD [address] [place] [address] [place] [address] Referring Physician PLASTIC SURGERY 01/18/21 documented as of this encounter
--- OUTSIDE RECORDS SUMMARY | 2024-11-22 00:38 | XMS_ITS | Referral Summary ---
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) 11/10/2024 1:15 PM LIQUEFIED PETROLEUM GASFITTER [facility] Phys[facility] [address] Bone Marrow Transplant [employer] [address] [place] [id number] Eric Cuevas MD CLL (chronic lymphocytic leukemia) (HCC) (Primary Dx); 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) 11/07/2024 10:30 AM LIQUEFIED PETROLEUM GASFITTER Office Visit [facility] Card[facility] Floor 1, [address] [place] [address] Tony Harris MD Coronary artery disease involving [place] coronary artery of [place] heart without angina pectoris (Primary Dx); Chronic systolic congestive heart failure (CMS/HCC) (HCC) 09/08/2024 12:15 PM LIQUEFIED PETROLEUM GASFITTER Lab [facility] at [address] [address] CLL (chronic lymphocytic leukemia) (HCC) 09/08/2024 1:15 PM LIQUEFIED PETROLEUM GASFITTER Office Visit [facility] Oncology [address] [place] [address] [address] [place] [id number] Eric Cuevas MD CLL (chronic lymphocytic leukemia) (HCC) (Primary Dx); 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) from Last 3 Months Allergies No known active allergies Medications nitroglycerin [...] 90 tablet 3 06/02/20 24 025 Active clopidogreL (PLAVIX) 75 mg tablet Take 1 tablet (75 mg total) by mouth daily 30 tablet 06/21/20 24 025 Active empagliflozin (JARDIANCE) 10 mg tablet Take 1 tablet (10 mg total) by mouth daily 30 tablet 06/21/20 24 025 Active allopurinoL (ZYLOPRIM) 100 mg tablet Take 1 tablet (100 mg total) by mouth daily 30 tablet 07/24/20 24 025 Active Additional Information Patient not taking.Reported on [...] g by mouth daily 510 g 07/24/20 24 Active furosemide (LASIX) 20 mg tablet Take [...] mouth daily 90 tablet 3 08/01/20 24 025 Active zanubrutinib (BRUKINSA) 80 mg capsuleIndicati ons:CLL [...] the emergency department and received a 16 Lithuanian surgical chest tube. The chest tube was [...] effusion on admission, L>R, s/p left 16 setswana chest tube placement in the ED. Also [...] (heart failure with re duced ejection fraction) ([facility]) 07/08/2024 Assessment & Plan (07/19/2024 12:09 PM [...] every day - TP53 sent out to [place] to help guide second line treatment (ordered 07/12) - [facility] discussion with Dr. Cuevas re hospice recommendation. [...] medication December-May 2024. Since his discharge from [facility] 06/02/24 he has been taking all his [...] recs. New onset of congestive heart failure ([facility]) 07/17/2023 Abnormal stress test 11/08/2018 Murmur, heart 11/08/2018 Mixed hyperlipidemia 11/08/2018 Assessment & Plan (07/19/2024 12:00 PM CDT): - Continue atorvastatin daily Type 2 diabetes mellitus without complication (C NM/HCC) 10/21/2018 Assessment & Plan (07/19/2024 12:08 PM [...] (diffuse large B cell lymphoma) 05/26/2024 09/08/2024 Immunizations Immunization Administration Dates Next Due Influenza, Unspecified 07/06/2023 Social History Tobacco Use Types Packs/Day Years Used Date Smoking Tobacco: Never Passive Smoke Exposure: Past Smokeless Tobacco: Never Tobacco Cessation:Counseling Given: Not Answered Alcohol Use Standard Drinks/Week Comments No 0 (1 standard drink = 0.6 oz pur e alcohol) [facility] Utilities Answer Date Recorded In the past 12 months has [employer], [employer], or water [employer] threatened to shut off services in your [...] week 07/12/2024 How often do you attend [facility] or alevism services? Never 07/12/2024 Do you belong to any clubs o r organizations such as muslim groups, unions, fraternal or athletic groups, or [...] any time in the past 12 m [facility], were you homeless or living in a nursing home (including now)? No 07/12/2024 Personal Safety Answer Date Recorded Have you ever been in or are you currently in a harmful physical or emotional relationship or is someone making you feel afraid or unsafe? Denies 07/08/2024 Sex and Gender Information Value Date Recorded Sex Assigned at Not on file Legal Sex Male 11:59 PM LIQUEFIED PETROLEUM GASFITTER Gender Identity Not on file Sexual Orientation Not on file Last Filed Vital Signs Vital Sign Reading Time Taken Comments Blood Pressure 129/66 11/10/2024 1:09 PM LIQUEFIED PETROLEUM GASFITTER Pulse 82 11/10/2024 1:09 PM LIQUEFIED PETROLEUM GASFITTER Temperature 36.9 C (98.5 F) 11/10/2024 1:09 PM LIQUEFIED PETROLEUM GASFITTER Respiratory Rate 16 11/10/2024 1:09 PM LIQUEFIED PETROLEUM GASFITTER Oxygen Saturation 99% 11/10/2024 1:09 PM LIQUEFIED PETROLEUM GASFITTER Inhaled Oxygen Concentration - - Weight 82.4 kg (181 lb 9.6 oz) 11/10/2024 1:09 P M LIQUEFIED PETROLEUM GASFITTER Height 180.3 cm (5' 11 ) 11/07/2024 10:31 AM LIQUEFIED PETROLEUM GASFITTER Body Mass Index 25.33 11/07/2024 10:31 AM LIQUEFIED PETROLEUM GASFITTER Plan of Treatment Not on file Medical Devices Implanted Type Area Pastoral Worker Device Identifier Shelf Expiration Date Model / Serial / Lot Medtronic Card Vasc Surgery 2.75 X 22mm [place] Rx Coronary Stent [id number] - [id number] Implanted:Qty: 1 on 09/03/2023 by Seymour Lamb MD at [facility] [employer] [facility] Vasc Surgery 06/01/2026 [id number] / / [id number] [employer] [facility] Vasc Surgery 3.5 X 18mm [place] Rx Coronary Stent [id number] - [id number] Implanted:Qty: 1 on 09/03/2023 [facility] 03/03/2026 [id number] / / [id number] [employer] Mynx Control 6-7fr 2 Mode Balloon Catheter Sealant Lock Syringe [id number] - [id number] Implanted:Qty: 1 on 09/03/2023 by Seymour Lamb MD at [facility] [employer] 08/04/2024 [id number] / / [id number] Procedures Procedure Name Priority Date/Time Associated Diagnosis Comments EGFR Routine 11/10/2024 12:45 PM LIQUEFIED PETROLEUM GASFITTER 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) DIFFERENTIAL AUTO Routine 11/10/2024 12: 45 PM LIQUEFIED PETROLEUM GASFITTER 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) LACTATE DEHYDROGENASE Routine 11/10/2024 12:45 PM LIQUEFIED PETROLEUM GASFITTER 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) COMPREHENSIVE METABOLIC PANEL Routine 11/10/2024 12:45 PM LIQUEFIED PETROLEUM GASFITTER 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) CBC WITH AUTO DIFFERENTIAL Routine 11/10/2024 12:45 PM LIQUEFIED PETROLEUM GASFITTER 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) PTH-RELATED PEPTIDE Routine 11/10/2024 1 2:44 PM LIQUEFIED PETROLEUM GASFITTER VITAMIN D 25 HYDROXY Routine 11/10/2024 12:44 PM LIQUEFIED PETROLEUM GASFITTER HEMOGLOBIN A1C Routine 11/10/2024 12:44 PM LIQUEFIED PETROLEUM GASFITTER MANUAL DIFFERENTIAL Routine 09/08/2024 1 2:27 PM LIQUEFIED PETROLEUM GASFITTER CLL (chronic lymphocytic leukemia) (HCC) EGFR Routine 09/08/2024 12:27 PM LIQUEFIED PETROLEUM GASFITTER CLL (chronic lymphocytic leukemia) (HCC) DIFFERENTIAL AUTO Routine 09/08/2024 12: 27 PM LIQUEFIED PETROLEUM GASFITTER CLL (chronic lymphocytic leukemia) (HCC) LACTATE DEHYDROGENASE Routine 09/08/2024 12:27 PM LIQUEFIED PETROLEUM GASFITTER CLL (chronic lymphocytic leukemia) (HCC) COMPREHENSIVE METABOLIC PANEL Routine 09/08/2024 12:27 PM LIQUEFIED PETROLEUM GASFITTER CLL (chronic lymphocytic leukemia) (HCC) CBC WITH AUTO DIFFERENTIAL Routine 09/08/2024 12:27 PM LIQUEFIED PETROLEUM GASFITTER CLL (chronic lymphocytic leukemia) (HCC) LIPID PANEL Routine 05/27/2024 4:10 AM CDT HEPATITIS PANEL, ACUTE Routine 10:47 PM CDT from Last 3 Months or Most Recently Relevant to Health Maintenance Results * (ABNORMAL) eGFR (11/10/2024 12:45 PM LIQUEFIED PETROLEUM GASFITTER) eGFR 50(L) >=60 mL/min/1. 73 m2 Comment: [...] was last reviewed 2021. Testing performed by: [address] [address] Blood 11/10/2024 12:4 5 PM LIQUEFIED PETROLEUM GASFITTER 11/10/2024 12:50 PM LIQUEFIED PETROLEUM GASFITTER us Eric Cuevas MD LAB BLOOD ORDERABLES Final R esult [facility] [address] [facility] [place] [address] * (ABNORMAL) Differential, auto (11/10/2024 12:45 PM LIQUEFIED PETROLEUM GASFITTER) Neutrophil abs 5.0 1.5 - 6.5 K/cumm Comment:Testing performed by : [address] [address] Imm gran abs 0.1 0.0 - 0.1 K/cumm [place] Comment:Testing performed by : [address] [address] Lymphocyte abs 32.1(H) 0.8 - 3.3 K/cumm [facility] Comment:Testing performed by : [address], [place]., [address] Monocyte abs 0.9(H) 0.2 - 0.8 K/cumm [facility] Comment:Testing performed by : [address], [place]., [address] Eosinophil abs 0.5 0.0 - 0.5 K/cumm [facility] Comment:Testing performed by : [address], [place]., [address] Basophil abs 0.1 0.0 - 0.1 K/cumm [facility] Comment:Testing performed by : [address] [address] Neutrophil pct 12.9 % [facility] Comment: Interpretive Data Percent cell count reference ranges are not reported, since discordance with absolute values may lead to misinterpretation of CBC data. Current Interpretive Data was last revised on 2018. Testing performed by: [address] [address] Imm gran pct 0.2 % [facility] Comment: Interpretive Data Percent cell count reference ranges are not reported, since discordance with absolute values may lead to misinterpretation of CBC data. Current Interpretive Data was last revised on 2018. Testing performed by: [address] [address] Lymphocyte pct 83.1 % [facility] Comment: Interpretive Data Percent cell count reference ranges are not reported, since discordance with absolute values may lead to misinterpretation of CBC data. Current Interpretive Data was last revised on 2018. Testing performed by: [address] [address] Monocyte pct 2.3 % [facility] Comment: Interpretive Data Percent cell count reference ranges are not reported, since discordance with absolute values may lead to misinterpretation of CBC data. Current Interpretive Data was last revised on 2018. Testing performed by: [address] [address] Eosinophil pct 1.2 % [facility] Comment: Interpretive Data Percent cell count reference ranges are not reported, since discordance with absolute values may lead to misinterpretation of CBC data. Current Interpretive Data was last revised on 2018. Testing performed by: [address] [address] Basophil pct 0.3 % [place] Comment: Interpretive Data Percent cell count reference ranges are not reported, since discordance with absolute values may lead to misinterpretation of CBC data. Current Interpretive Data was last revised on 2018. Testing performed by: [address] [address] Blood 11/10/2024 12:4 5 PM LIQUEFIED PETROLEUM GASFITTER 11/10/2024 12:50 PM LIQUEFIED PETROLEUM GASFITTER us Eric Cuevas MD LAB BLOOD ORDERABLES Final R esult [facility] [address] [facility] [place] [address] * (ABNORMAL) CBC with auto differential (11/10/2024 12:45 PM LIQUEFIED PETROLEUM GASFITTER) WBC 38.6(H) 3.8 - 9.9 K/cumm Comment:Testing performed by : [address] [address] Hgb 11.2(L) 13.0 - 17.5 g/dL [place] Comment:Testing performed by : [address] [address] Hct 35.4(L) 38.9 - 50.3 % [place] Comment:Testing performed by : [address] [address] Plt 136(L) 150 - 400 K/cumm [place] Comment:Testing performed by : [address] [address] MPV 9.3 9.1 - 12.3 fL [place] Comment:Testing performed by : [address] [address] RBC 4.05(L) 4.30 - 5.80 M/cumm [place] Comment:Testing performed by : [address] [address] MCV 87.4 81.3 - 96.4 fL [facility] A Comment:Testing performed by : [address] [address] MCH 27.7 27.1 - 33.3 pg [facility] A Comment:Testing performed by : [address] [address] MCHC 31.6(L) 32.3 - 35.7 g/dL [facility] A Comment:Testing performed by : [address] [address] RDW CV 15.9(H) 11.1 - 14.9 % [facility] Comment:Testing performed by : [address] [address] RDW SD 50.6(H) 35.7 - 48.1 fL [facility] A Comment:Testing performed by : [address], [address] NRBC abs 0.02(H) 0.00 - 0.01 K/cumm [facility] Comment:Testing performed by : [address], [address] Blood 11/10/2024 12:4 5 PM LIQUEFIED PETROLEUM GASFITTER 11/10/2024 12:50 PM LIQUEFIED PETROLEUM GASFITTER Eric Cuevas MD LAB BLOOD ORDERABLES Final R esult [facility] [facility] Department of Laboratories [place], [place] [id number] * Lactate dehydrogenase (LD) (11/10/2024 12:45 PM LIQUEFIED PETROLEUM GASFITTER) Lactate dehydrogenase (LDH) 187 100 - 250 Units/L Comment:Testing performed by : [address] [address] Blood 11/10/2024 12:4 5 PM LIQUEFIED PETROLEUM GASFITTER 11/10/2024 12:50 PM LIQUEFIED PETROLEUM GASFITTER us Eric Cuevas MD LAB BLOOD ORDERABLES Final R esult [facility] [address] [facility] [place] [address] * (ABNORMAL) Comprehensive metabolic panel (11/10/2024 12:45 PM LIQUEFIED PETROLEUM GASFITTER) Sodium 136 135 - 145 mmol/L Comment:Testing performed by : [address] [address] Potassium, pl 4.7 3.3 - 4.9 mmol/L [facility] A Comment:Testing performed by : [address] [address] Chloride 102 97 - 110 mmol/L [facility] A Comment:Testing performed by : [address] [address] CO2 23 22 - 32 mmol/L [facility] A Comment:Testing performed by : [address] [address] Anion gap 11 2 - 15 mmol/L [facility] A Comment:Testing performed by : [address] [address] BUN 31(H) 6 - 25 mg/dL [facility] A Comment:Testing performed by : [address] [address] Creatinine 1.50(H) 0.80 - 1.30 mg/dL [facility] A Comment:Testing performed by : [address] [address] Glucose 437(H) 70 - 199 mg/dL [facility] A Comment: Interpretive Data Fasting glucose >/= 126 [...] classification and Diagnosis of Diabetes Diabetes Care 202; 46: S19-S40. Current interpretive data was last revised 2022. Testing performed by: [address] [address] Calcium 9.1 8.5 - 10.3 mg/dL [facility] A Comment:Testing performed by : [address] [address] Bilirubin, total 0.5 0.1 - 1.2 mg/dL [facility] Comment:Testing performed by : [address], [address] Protein, pl 6.0(L) 6.5 - 8.5 g/dL [facility] Comment:Testing performed by : [address], [place]., [address] Albumin 3.6 3.5 - 5.0 g/dL [facility] A Comment:Testing performed by : [address] [address] Alk phos 133(H) 40 - 130 Units/L [facility] Comment:Testing performed by : [address], [address] ALT 15 7 - 55 Units/L [facility] Comment:Testing performed by : [address], [address] AST 20 10 - 50 Units/L [facility] Comment:Testing performed by : [address] [address] Blood 11/10/2024 12:4 5 PM LIQUEFIED PETROLEUM GASFITTER 11/10/2024 12:50 PM LIQUEFIED PETROLEUM GASFITTER us Eric Cuevas MD LAB BLOOD ORDERABLES Final R esult [facility] [address] [facility] [place] [address] * PTH-related peptide (11/10/2024 12:44 PM LIQUEFIED PETROLEUM GASFITTER) [facility] PTH Related Protein 1.3 < or = 4.2 pmol/L [place] ref [facility] Comment: ADDITIONAL INFORMATION This test was developed and its performance characteristics determined by [facility] in a manner consistent with CLIA requirements. This test has not been cleared or approved by the U.S. Food and Drug Administration. Test Performed by: [facility] [address] [place] [address] Maintenance [employer]: Joy Son Ph.D.; CLIA# [id number] Testing performed by: [address] [address] Blood 11/10/2024 12:4 4 PM LIQUEFIED PETROLEUM GASFITTER 11/10/2024 12:50 PM LIQUEFIED PETROLEUM GASFITTER Shari Gray MD LAB BLOOD ORDERABLES Final Resu Performing Organization Address [facility] Co de Phone Number [place] [id number] [place] [address] [place] ref [facility] * (ABNORMAL) Vitamin D 25 hydroxy (11/10/2024 12:44 PM LIQUEFIED PETROLEUM GASFITTER) Pathologist [facility] Vitamin D 25-OH 28.0(L) 30.0 - 80.0 ng/mL Blood 11/10/2024 12:4 4 PM LIQUEFIED PETROLEUM GASFITTER 11/10/2024 2:29 PM LIQUEFIED PETROLEUM GASFITTER Shari Gray MD LAB BLOOD ORDERABLES Final Resu Performing Organization Address City/[facility] Co de Phone Number [address] [address] * (ABNORMAL) Hemoglobin A1c (11/10/2024 12:44 PM LIQUEFIED PETROLEUM GASFITTER) Pathologist [facility] Hgb A1C 12.0(H) 4.0 - 5.6 % Comment:Testing performed by : [address] [address] Estimated Average Glucose 298 mg/dL [facility] A Comment: The ADA recommends reporting an estimated Average Glucose (eAG) with all Hemoglobin A1c results using the equation derived from a study of 507 normal and diabetic adults. Minority populations were underrepresented and children were not included. (Diabetes Care 31:4000-9213, 2008). The eAG is not equivalent to a fasting glucose. Testing performed by: [address] [address] Blood 11/10/2024 12:4 4 PM LIQUEFIED PETROLEUM GASFITTER 11/10/2024 1:53 PM LIQUEFIED PETROLEUM GASFITTER us Shari Gray MD LAB BLOOD ORDERABLES Final Resu lt Performing Organization Address [facility] Co de Phone Number CARLOS A [address] [place] [address] * (ABNORMAL) eGFR (09/08/2024 12:27 PM LIQUEFIED PETROLEUM GASFITTER) eGFR 59(L) >=60 mL/min/1. 73 m2 Comment: [...] was last reviewed 2021. Testing performed by: [address] [address] Blood 09/08/2024 12:2 7 PM LIQUEFIED PETROLEUM GASFITTER 09/08/2024 12:29 PM LIQUEFIED PETROLEUM GASFITTER us Eric Cuevas MD LAB BLOOD ORDERABLES Final R esult Performing Organization Address [facility]/ZIP Co de Phone Number ELISE[address] [place] [address] * (ABNORMAL) Differential, auto (09/08/2024 12:27 PM LIQUEFIED PETROLEUM GASFITTER) Neutrophil abs 4.3 1.5 - 6.5 K/cumm Comment:Testing performed by : [address] [address] Imm gran abs 0.1 0.0 - 0.1 K/cumm [facility] A Comment:Testing performed by : [address] [address] Lymphocyte abs 58.8(H) 0.8 - 3.3 K/cumm [facility] A Comment:Testing performed by : [address] [address] Monocyte abs 0.9(H) 0.2 - 0.8 K/cumm [facility] A Comment:Testing performed by : [address] [address] Eosinophil abs 0.4 0.0 - 0.5 K/cumm [facility] A Comment:Testing performed by : [address] [address] Basophil abs 0.1 0.0 - 0.1 K/cumm [facility] Comment:Testing performed by : [address] [address] Neutrophil pct 6.6 % [facility] Comment: Interpretive Data Percent cell count reference ranges are not reported, since discordance with absolute values may lead to misinterpretation of CBC data. Current Interpretive Data was last revised on 2018. Testing performed by: [address] [address] Imm gran pct 0.2 % [facility] Comment: Interpretive Data Percent cell count reference ranges are not reported, since discordance with absolute values may lead to misinterpretation of CBC data. Current Interpretive Data was last revised on 2018. Testing performed by: [address] [address] Lymphocyte pct 91.0 % [facility] Comment: Interpretive Data Percent cell count reference ranges are not reported, since discordance with absolute values may lead to misinterpretation of CBC data. Current Interpretive Data was last revised on 2018. Testing performed by: [address] [address] Monocyte pct 1.4 % [facility] A Comment: Interpretive Data Percent cell count reference ranges are not reported, since discordance with absolute values may lead to misinterpretation of CBC data. Current Interpretive Data was last revised on 2018. Testing performed by: [address] [address] Eosinophil pct 0.6 % [facility] A Comment: Interpretive Data Percent cell count reference ranges are not reported, since discordance with absolute values may lead to misinterpretation of CBC data. Current Interpretive Data was last revised on 2018. Testing performed by: [address] [address] Basophil pct 0.2 % [facility] A Comment: Interpretive Data Percent cell count reference ranges are not reported, since discordance with absolute values may lead to misinterpretation of CBC data. Current Interpretive Data was last revised on 2018. Testing performed by: [address] [address] Blood 09/08/2024 12:2 7 PM LIQUEFIED PETROLEUM GASFITTER 09/08/2024 12:29 PM LIQUEFIED PETROLEUM GASFITTER us Eric Cuevas MD LAB BLOOD ORDERABLES Final R esult [facility] [address] [facility] [place] [address] * (ABNORMAL) CBC with auto differential (09/08/2024 12:27 PM LIQUEFIED PETROLEUM GASFITTER) WBC 64.6(C) 3.8 - 9.9 K/cumm Comment: Critical result called to and read back by REUBEN MAHARAJ on 09 08 2024 at 1254 to Shahla James. Testing performed by: [address] [address] Hgb 11.1(L) 13.0 - 17.5 g/dL [facility] A Comment:Testing performed by : [address] [address] Hct 36.9(L) 38.9 - 50.3 % [facility] A Comment:Testing performed by : [address], [address] Plt 151 150 - 400 K/cumm [facility] A Comment:Testing performed by : [address] [address] MPV 9.0(L) 9.1 - 12.3 fL [facility] A Comment:Testing performed by : [address], [address] RBC 4.12(L) 4.30 - 5.80 M/cumm [facility] A Comment:Testing performed by : [address], [address] MCV 89.6 81.3 - 96.4 fL [facility] A Comment:Testing performed by : [address], [address] MCH 26.9(L) 27.1 - 33.3 pg [facility] A Comment:Testing performed by : [address], [address] MCHC 30.1(L) 32.3 - 35.7 g/dL [facility] A Comment:Testing performed by : [address], [address] RDW CV 15.2(H) 11.1 - 14.9 % [facility] A Comment:Testing performed by : [address], [address] RDW SD 49.2(H) 35.7 - 48.1 fL [facility] A Comment:Testing performed by : [address], [address] NRBC abs 0.00 0.00 - 0.01 K/cumm [facility] A Comment:Testing performed by : [address], [address] Blood 09/08/2024 12:2 7 PM LIQUEFIED PETROLEUM GASFITTER 09/08/2024 12:29 PM LIQUEFIED PETROLEUM GASFITTER Eric Cuevas MD LAB BLOOD ORDERABLES Final R esult Performing Organization Address City/State/[facility] de Phone Number [facility] [place] [employer] [address] * Manual Differential (09/08/2024 12:27 PM LIQUEFIED PETROLEUM GASFITTER) Pathologist [facility] Differential Auto Comment:Testing performed by : [address] [address] RBC morphology Consistent with RBC Indicies [facility] A Comment:Testing performed by : [address] [address] Platelet estimate Adequate [facility] A Comment:Testing performed by : [address] [address] Blood 09/08/2024 12:2 7 PM LIQUEFIED PETROLEUM GASFITTER 09/08/2024 12:29 PM LIQUEFIED PETROLEUM GASFITTER us Eric Cuevas MD LAB BLOOD ORDERABLES Final R esult Performing Organization Address [facility] de Phone Number CARLOS A [address] [address] * Lactate dehydrogenase (LD) (09/08/2024 12:27 PM LIQUEFIED PETROLEUM GASFITTER) [facility] Lactate dehydrogenase (LDH) 158 100 - 250 Units/L Comment:Testing performed by : [address] [address] Blood 09/08/2024 12:2 7 PM LIQUEFIED PETROLEUM GASFITTER 09/08/2024 12:29 PM LIQUEFIED PETROLEUM GASFITTER us Eric Cuevas MD LAB BLOOD ORDERABLES Final R esult Performing Organization Address [facility] Co de Phone Number ELISE[address] [address] * (ABNORMAL) Comprehensive metabolic panel (09/08/2024 12:27 PM LIQUEFIED PETROLEUM GASFITTER) [facility] Sodium 138 135 - 145 mmol/L Comment:Testing performed by : [address] [address] Potassium, pl 5.0(H) 3.3 - 4.9 mmol/L CARLOS A Comment:Testing performed by : [address] [address] Chloride 105 97 - 110 mmol/L CARLOS A Comment:Testing performed by : [address] [address] CO2 24 22 - 32 mmol/L CARLOS A Comment:Testing performed by : [address] [address] Anion gap 9 2 - 15 mmol/L CARLOS A Comment:Testing performed by : [address] [address] BUN 33(H) 6 - 25 mg/dL CARLOS A Comment:Testing performed by : [address] [address] Creatinine 1.30 0.80 - 1.30 mg/dL CARLOS A Comment:Testing performed by : [address] [address] Glucose 292(H) 70 - 199 mg/dL [facility] Comment: Interpretive Data Fasting glucose >/= 126 [...] classification and Diagnosis of Diabetes Diabetes Care 202; 46: S19-S40. Current interpretive data was last revised 2022. Testing performed by: [address] [address] Calcium 9.0 8.5 - 10.3 mg/dL CARLOS A Comment:Testing performed by : [address] [address] Bilirubin, total 0.5 0.1 - 1.2 mg/dL CARLOS A Comment:Testing performed by : [address] [address] Protein, pl 6.4(L) 6.5 - 8.5 g/dL CARLOS A Comment:Testing performed by : [address] [address] Albumin 3.7 3.5 - 5.0 g/dL CARLOS A Comment:Testing performed by : [address] [address] Alk phos 124 40 - 130 Units/L CARLOS A Comment:Testing performed by : [address] [address] ALT 19 7 - 55 Units/L CARLOS A Comment:Testing performed by : [address] [address] AST 23 10 - 50 Units/L CARLOS A Comment:Testing performed by : [address] [address] Blood 09/08/2024 12:2 7 PM LIQUEFIED PETROLEUM GASFITTER 09/08/2024 12:29 PM LIQUEFIED PETROLEUM GASFITTER Eric Cuevas MD LAB BLOOD ORDERABLES Final R esult CARLOS A [address] [facility] [place] [address] * (ABNORMAL) Lipid panel (05/27/2024 4:10 AM [...] 2018. Triglycerides 286(H) <=149 mg/dL CARLOS A [facility] Comment: Interpretive Data Ages < or = [...] revised on 2018. HDL 16(L) >=40 mg/dL [facility] Comment: Interpretive Data Ages < or = [...] on 2018. LDL, calculated 215(H) <=129 mg/dL [facility] Comment: Interpretive Data Ages < or = [...] NCEP Expert Panel. Circulation 2004;110:227 3. Flex Treviño al. MARTIN Cardiol. 2020 February 02;5(5):540-548. doi: 10.1001/jamacardio.2020.0013 Current Interpretive Data was last revised on 2024. Non-HDL Cholesterol 274 mg/dL [facility] Comment: Interpretive Data Ages < or = [...] last revised on 2018. Chol/HDL ratio 18 [facility] Blood 05/27/2024 4:10 AM CDT 05/27/2024 4:50 AM CDT us Stan Oreilly MD PhD LAB BLOOD ORDERABLES Final Result Performing Organization Address City/[facility]/ZIP Co de Phone Number [facility] Department [place] [employer] [address] * Hepatitis panel, acute Blood (05/26/2024 10:47 PM CDT) Hep A IgM Nonreactive Nonreactive Hep B core IgM Nonreactive Nonreactive [facility] Hep C Ab Nonreactive Nonreactive [facility] Comment:Antibodies to HCV no t detected. Does NOT exclude the possibility of recent exposure to HCV. Current interpretive data was last revised on 22 HepBsAg Nonreactive Nonreactive [facility] Blood 05/26/2024 10:4 7 PM CDT 05/26/2024 10:59 PM CDT us Stan Oreilly MD PhD LAB MICROBIOLOGY - G ENERAL ORDERABLES Final Result [facility] [place] [address] from Last 3 Months or Most Recently Relevant to Health Maintenance Insurance MEDICARE [facility] MEDICARE [facility] MEDICARE [facility] Advance Directives For more information, please contact: [phone] Documents on File Type Date 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
--- OUTSIDE RECORDS SUMMARY | 2024-11-22 00:38 | XMS_ITS | Clinical Summary ---
Author Organization [facility] Address [address] [place] [address] Care Team Providers Care Wire Photo Operator News Name Role Phone Pcp Outside [facility], Unknown Primary Care Provider U navailable Allergies [...] Mass Index - - Plan of Treatment Health Maintenance Due Date Last Done Comments Depression Screening 1967 DTaP/Tdap/Td Vaccine (1 - Tdap) 1974 CT Colonography 2000 Cologuard 2000 Colonoscopy 2000 Colorectal Cancer Screen 2000 Fecal Occult Blood 2000 Sigmoidoscopy 2000 Pneumococcal Vaccine 50+ (1 of 1 - PCV) 2005 Shingles Vaccine (1 of 2) 2005 COVID-19 Vaccine (1 - 2023-2 5 season) 2024 Influenza Vaccine (#1) 2024 Respiratory Syncytial Virus (RSV) Vaccine 60+ (1 - 1-dose 75+ series) 2030 HPV Vaccine Aged Out No longer eligi ble based on patient's age to complete this topic Hepatitis A Vaccine Aged Out No longe r eligible based on patient's age to complete this topic Hepatitis B Vaccine (For Physician/APC Discussion) Aged Out No longer elig ible based on patient's age to complete this topic Meningococcal Serogroup B Vaccine Aged Out No longer eligible based on patient's age to complete this topic Meningococcal Vaccine Aged Out No destiny isaura eligible based on patient's age to complete this topic Care Teams Wire Photo Operator News Relationship Specialty Start Date End Date Pcp Outside [facility], Unknown NO KNOWN ADDRESS ON FILE PCP - General 04/13/24
--- NOTE | 2024-11-22 00:42 | ECG_ITS ---
Test Date: 2024-11-22 00:42:12 Measurements Intervals [place] Rate: 37 P: 0 DC: 0 QRS: 97 QRSD: 193 T: -89 QT: 643 QTc: 505 Interpretive Statements ATRIAL FIBRILLATION WITH SLOW VENTRICULAR RESPONSE RIGHT AXIS DEVIATION INTRAVENTRICULAR CONDUCTION DELAY ST-T WAVE ABNORMALITY IN ANTEROLAT/INF LEADS- CONSIDER ISCHEMIA BASELINE WANDER- I, AVR, AVF, V1-V6 ABNORMAL ECG Compared to ECG 05/26/2024 20:05:19 SINUS RHYTHM NO LONGER PRESENT Intraventricular conduction delay now present POSSIBLE ISCHEMIA NOW PRESENT Electronically Signed On 11-22-2024 10:54:42 AUTOMOTIVE STARTER REPAIRER by Imtiaz Shen D.O.
--- NOTE | 2024-11-22 00:48 | ED.GENADULT ---
HPI - General Adult General Chief complaint: Unspecified Stated complaint: HI BG, UNRESPONSIVE, Time Seen by Provider: 11/22/24 00:34 History of Present Illness HPI narrative: This is a 69-year-old male presenting ED after being found down. Patient is currently unresponsive and can not provide no information could interview. Per his significant other he had vomiting before dinner. They then went bed and she heard a thud found him sitting next to the bed after fall. There is bleeding and trauma to the left side his face. EMS was called. They gave him Narcan due to pinpoint pupils with no response. Glucose was elevated. GCS is 8. Patient is DNR DNI comfort measures only. Related Data Home Medications ?Medication ?Instructions ?Recorded ?Confirmed ?Last Taken ?Type lancets 33 gauge (BD Ultra Fine #100 ea 08/17/19 09/21/24 Unknown History Lancets) aspirin 81 mg tablet,delayed 81 mg PO DAILY 06/15/24 09/21/24 Unknown History release carvedilol 6.25 mg tablet 6.25 mg PO Q12H 06/15/24 09/21/24 Unknown History nitroglycerin 0.4 mg sublingual 0.4 mg sublingual Q5M PRN 06/15/24 09/21/24 Unknown History tablet zanubrutinib 80 mg capsule 80 mg PO DAILY 06/15/24 09/21/24 Unknown History Allergies Allergy/AdvReac Type Severity Reaction Status Date / Time No Known Allergies Allergy Verified 09/21/24 15:40 PMFSH Past Medical History Medical History CLL (chronic lymphocytic leukemia) Pulmonary HTN Hx of myocardial infarction Open wound of penis Chronic anemia Insulin dependent type 2 diabetes mellitus Hemoglobin A1c was 10.1% on 02/05/2021. Diabetic peripheral neuropathy COVID-19 (~05/2020) Below-knee amputation of left lower extremity Peripheral vascular disease in diabetes mellitus Diabetic retinopathy Proteinuria due to type 2 diabetes mellitus Chronic kidney disease MRSA pneumonia Type 2 diabetes, controlled, with neuropathy History of esophageal stricture History of esophageal dilatation Hypertension Hyperlipidemia Surgical History Surgical History Hx of right BKA 02/13/[address] Goodwin Status post debridement Osteomyelitis of the right 1st toe. History of transmetatarsal amputation of left foot History of cataract extraction History of bilateral carpal tunnel release History of left below knee amputation History of tonsillectomy Family History Family History Father Diabetes mellitus Hypertension Mother Family history of malignant neoplasm of kidney Mother Family history of malignant neoplasm of kidney Father Diabetes mellitus Hypertension Lung cancer Social History Social History Social History: The patient is and lives in [place] with his significant other. He has 1 biological son. Lifelong nonsmoker. No alcohol or illicit substance use. 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 He designates his long-term significant other, Deneen Gallagher, as his surrogate decision maker and he wishes to be a full code. If Deneen cannot make decisions, he then appoints his son Hernando Espana V as his alternate surrogate decision maker. Smoking status: Never smoker Second hand tobacco smoke exposure: No Alcohol intake: former Alcohol use details: A beer on occasion. Substance use: never Substance use type: does not use Living arrangements: with family Occupation/Education: retired Gender identity (if verbalized by the patient): Male Sexual Orientation (if Verbalized by the Patient): Straight or Heterosexual Spiritual care concerns: No Exam Narrative: APPEARANCE: GCS E2 V2 M4 = 2 Head: Laceration and bruising to the left side of face EYES: Pinpoint pupils, upper gaze deviation NOSE: Atraumatic NECK: Trachea midline RESPIRATORY: Tachypneic, disordeed breathing CARDIOVASCULAR: Bradycardic ABDOMINAL: Soft nontender MUSCULOSKELETAl: Bilateral BKA NEURO: GCS 8 - SKIN:: Cool pale PSYCHIATRIC: Unresponsive Course Vital Signs Vital signs: Vital Signs Temperature 97.7 F 11/22/24 00:28 Pulse Rate 47 L 11/22/24 00:28 Respiratory Rate 29 H 11/22/24 00:28 Blood Pressure 128/72 11/22/24 00:28 Pulse Oximetry 93 11/22/24 00:28 Oxygen Delivery Room Air 11/22/24 00:28 Temperature 97.7 F 11/22/24 00:28 Pulse Rate 53 L 11/22/24 01:17 Respiratory Rate 10 L 11/22/24 01:17 Blood Pressure 128/72 11/22/24 00:56 Pulse Oximetry 93 11/22/24 00:56 Oxygen Delivery Room Air 11/22/24 00:28 Medical Decision Making MDM Narrative Medical decision making narrative: -Course: 69-year-old male presenting ED unresponsive. GCS of 8. Patient is DNR DNI/comfort measures. I contacted the patient's son and power of attorney recruiter and son states his father has made it very clear that he does not want any interventions to prolong his life. I asked about any blood work or CTs for further workup and the son does not believe that is in his father's wishes. This was discussed with the patient's girlfriend who is at bedside and she is also in agreement. The patient has been made comfort measures. He has been given morphine and Ativan for comfort. Patient at 1:48 a.m. Vital Signs Vital Signs: Vital Signs Temperature 97.7 F 11/22/24 00:28 Pulse Rate 47 L 11/22/24 00:28 Respiratory Rate 29 H 11/22/24 00:28 Blood Pressure 128/72 11/22/24 00:28 Pulse Oximetry 93 11/22/24 00:28 Oxygen Delivery Room Air 11/22/24 00:28 Temperature 97.7 F 11/22/24 00:28 Pulse Rate 53 L 11/22/24 01:17 Respiratory Rate 10 L 11/22/24 01:17 Blood Pressure 128/72 11/22/24 00:56 Pulse Oximetry 93 11/22/24 00:56 Oxygen Delivery Room Air 11/22/24 00:28 Discharge Plan Discharge Clinical Impression: Altered mental status, End of life care Patient Disposition: Condition: Patient Language: Mongolian Prescriptions: No Action aspirin 81 mg tablet,delayed release (DR/EC) 81 mg PO DAILY carvedilol 6.25 mg tablet 6.25 mg PO Q12H Rx Instructions: must administer with a meal/food nitroglycerin 0.4 mg tablet, sublingual 0.4 mg sublingual Q5M PRN Rx Instructions: do not exceed 3 doses per episode zanubrutinib 80 mg capsule 80 mg PO DAILY (DME) OneTouch Verio test strips Strip See Rx Instructions .ROUTE .MEDSUPPLY Qty: 300 12RF Rx Instructions: check blood sugar 3 times daily allopurinol 100 mg tablet 50 mg PO .EVERY OTHER DAY Qty: 90 1RF doxycycline hyclate 100 mg capsule 100 mg PO BID Qty: 20 0RF (DME) lancets [BD Ultra Fine Lancets] 33 gauge misc See Rx Instructions .ROUTE .MEDSUPPLY Qty: 100 Rx Instructions: As directed (DME) pen needle, diabetic [BD Ultra-Fine Mini Pen Needle] 31 gauge x 3/16 needle See Rx Instructions .ROUTE .MEDSUPPLY Qty: 500 3RF Rx Instructions: Use with insulin four times daily ticagrelor 90 mg tablet 90 mg PO Q12H Qty: 60 2RF losartan 25 mg tablet 25 mg PO DAILY Qty: 30 2RF atorvastatin 80 mg tablet 80 mg PO DAILY Qty: 30 3RF empagliflozin 10 mg tablet 10 mg PO DAILY Qty: 30 3RF furosemide 40 mg tablet 40 mg PO QAM Qty: 30 2RF Follow-up/Referrals: Shari Gray MD [Primary Care Provider] -
--- NOTE | 2024-11-22 00:53 | PC.NURSE ---
Patient comfort measures only per EDP Zych. vehicle monitor technician silenced at this time. Patient spouse at bedside.
[2024-11-22 00:56] VITALS: BP 128/72; PULSE 47; RESP 29; O2SAT 93
[2024-11-22] MEDS: LORazepam INJ (*CRX) 2 MG/ML VIAL IV PUSH (01:01)
[2024-11-22] MEDS: MORPHINE SULFATE (*CRX) 4 MG/ML INJ IV PUSH (01:03)
[2024-11-22] MEDS: GLYCOPYRROLATE INJ (*SP) 0.2 MG/ML VIAL IV PUSH (01:03)
[2024-11-22 01:17] VITALS: PULSE 53; RESP 10
[2024-11-22] MEDS: MORPHINE 50 MG/NS 100ML (*CRX) 50 MG/100 ML BAG 8 MG IV CONT (01:17)
--- NOTE | 2024-11-22 01:53 | PC.NURSE ---
Patient time of 0148 per EDP Zych. morphine drip stopped at this time.
[2024-11-22 01:54] VITALS: PULSE 0; RESP 0
--- NOTE | 2024-11-22 03:29 | PC.NURSE ---
AT 0329 ON 11/22/2024 PT PLACED IN [facility] BY SUBHASH MAK, YI REGALADO, AND RENETTA Grant RN.
--- NOTE | 2024-11-22 03:43 | PC.NURSE ---
AT 0343 ON 11/22/2024 SPOKE WITH ROHIT BOWMAN OF [facility], AND MADE HIM AWARE OF THIS PT IN [facility] AND READY FOR VIDEOGRAPHER. ROHIT BOWMAN RESPONDED THAT THEY WILL BE HERE SHORTLY TO PICK HIM UP FROM THE [facility].
--- NOTE | 2024-11-22 03:45 | PC.NURSE ---
AT 0345 ON 11/22/2024 SPOKE WITH PT'S SON/POA, TOOK VERBAL TELEPHONE CONSENT TO DISPOSE OF ALL OF THIS PT'S HOME Rx MEDICATIONS IN OUR PHARMACY. MEDS WALKED DOWN TO PHARMACY BY RENETTA Grant RN.
--- NOTE | 2024-11-22 03:47 | PC.NURSE ---
AT 0347 ON 11/22/[address] JAGJIT MEDINA WAS MADE AWARE OF PT'S EXPIRATION. DR. MEDINA STATED THAT SHE WILL SIGN HIS CERTIFICATE.
== END 2024-11-22 01:48 | disposition expired ==
PROVIDERS: Emergency Provider Emergency Medicine; PCP Family Medicine
DX: R41.82 Altered mental status, unspecified (principal); I27.20 Pulmonary hypertension, unspecified; E11.40 Type 2 diabetes mellitus with diabetic neuropathy, unspecified; E78.5 Hyperlipidemia, unspecified; I12.9 Hypertensive chronic kidney disease with stage 1 through stage 4 chronic kidney disease, or unspecified chronic kidney disease; N18.9 Chronic kidney disease, unspecified; R94.31 Abnormal electrocardiogram [ECG] [EKG]
CPT/HCPCS: 93005; 96374; 96375; 99284; J1596; J2060; J2270